=== PATIENT | male | born 1960 | race Caucasian/White ===

== ENCOUNTER → 2017-03-16 09:55 | Outpatient (CLI) | payer BC, SELFPAY ==
[2017-03-16 12:23] LABS: Absolute Lymphocyte Count 1.89 X10^3/ul (0.83-4.51); Absolute Neutrophil Count 4.4 X10^3/uL (2.0-7.7); Basophil# 0.05 X10^3/uL; Basophil% 0.7 % (0-1); Eosinophil# 0.21 X10^3/uL; Hematocrit 47.3 % (40-54); Hemoglobin 15.4 g/dl (13.0-16.5); Lymphocyte # 1.89 X10^3/ul (4.0); Lymphocyte % 26.9 % (19-41); Mean Corp Hgb Conc 32.6 g/gl (32-36); Mean Corpuscular Hgb 30.6 pg (27.0-32.0); Mean Corpuscular Volume 93.8 fL (80-94); Mean Platelet Vol. 10.8 fl (6.2-12.0); Monocyte# 0.42 X10^3/uL; Neutrophil # 4.44 X10^3/uL (2.7-7.7); Neutrophil % 63.3 % (47-70); Platelet Count 231 K/mm3 (150-450); RBC Distribution Width CV 14.1 % (11.6-14.6); RBC Distribution Width SD 46.8 fl (35.1-43.9); Red Blood Count 5.04 M/mm3 (4.6-6.2)
[2017-03-16 12:31] LABS: POSITIVE COUNT NO; POSITIVE DIFFERENTIAL NO; POSITIVE MORPHOLOGY NO
[2017-03-16 12:44] LABS: AST(SGOT) 17 U/L (15-37); Alanine Aminotransfer ALT/SGPT 19 U/L (16-61); Albumin, Serum 3.8 g/dL (3.2-5.0); Alkaline Phosphatase 58 U/L (45-117); Anion Gap 7 (5-15); BUN 9 mg/dL (7-18); BUN/Creat Ratio 11.1 RATIO (10-20); Bilirubin, Direct < 0.05 mg/dL (0.00-0.30); Calcium,Total 8.6 mg/dL (8.5-10.1); Chloride 104 mmol/L (98-107); Cholesterol 182 mg/dL (200); Creatinine, Serum 0.81 mg/dL (0.70-1.30); EST Glomerular Filtration Rate 105 mL/min (>60); Est Glom Filt Rate - Afr Amer 127 mL/min (>60); Globulin 3.8 g/dL (2.2-4.2); Glucose 127 mg/dL (74-106); High Density Lipoprotein 35 mg/dL; Potassium 4.4 mmol/L (3.5-5.1); Protein, Total 7.6 g/dL (6.4-8.2); Sodium Level 138 mmol/L (136-145); Triglycerides 195 mg/dL; Very Low Density Lipoprotein 39 mg/dL (5-40)
== END ==
PROVIDERS: Physician Assistant Medical; Family Provider Family Medicine; PCP Family Medicine; Visit Provider Family Medicine
DX: R42 Dizziness and giddiness (principal); E78.5 Hyperlipidemia, unspecified; Z79.899 Other long term (current) drug therapy
CPT/HCPCS: 36415; 80048; 80061; 80076; 85025

== ENCOUNTER → 2017-12-15 14:16 | Outpatient (CLI) | payer BC, SELFPAY ==
[2017-12-15 16:40] LABS: Thyroid Stim Hormone (TSH) 0.86 uIU/mL (0.358-3.74)
== END ==
PROVIDERS: Family Provider Family Medicine; PCP Family Medicine; Visit Provider Family Medicine
DX: F32.9 Major depressive disorder, single episode, unspecified (principal)
CPT/HCPCS: 36415; 84443

== ENCOUNTER 2018-06-04 16:11 | Observation (INO) | payer BC, SELFPAY ==
[2018-06-04] VITALS (10 sets, daily range): BP systolic 115–154; BP diastolic 64–91; PULSE 60–76; RESP 14–18; TEMP 36.8–37; O2SAT 95–100; BMI 30.9; BMI 30.3
--- NOTE | 2018-06-04 16:25 | EKG12_ITS ---
Test Reason : CP Blood Pressure : / mmHG Vent. Rate : 063 BPM Atrial Rate : 063 BPM P-R Int : 124 ms QRS Dur : 088 ms QT Int : 418 ms P-R-T Axes : 031 047 033 degrees QTc Int : 427 ms Sinus rhythm with occasional Premature ventricular complexes Otherwise normal ECG Confirmed by TYSON RUSSO, LIGIA ([id number]), food expeditor JOVANNA TSAI ([id number]) on 06/06/2018 11:14:27 AM Referred By: Tere Kerr Confirmed By:LIGIA MEHTA MD
--- NOTE | 2018-06-04 16:30 | RAD_ITS ---
STUDY: X-RAY CHEST REASON FOR EXAM: Male, 58 years old. Left-sided chest pain TECHNIQUE: Single AP portable view of the chest. COMPARISON: Prior study of 07/10/2014 FINDINGS: manager country leads are present. The lungs are clear and expanded. There is no demonstrated pleural abnormality. Normal size heart. Normal mediastinum and sherif. Normal visualized pulmonary arteries. Normal visualized aortic arch and descending thoracic aorta. Normal visualized thoracic spine. Normal visualized ribs, clavicles, and shoulders. There is no demonstrated abnormality of the visualized soft tissue structures of the upper abdomen. RAD/Chest 1 View (Portable) IMPRESSION: No acute cardiopulmonary disease process is seen. Chest findings are stable in the interval. Electronically Signed: Darren Dixon MD at 16:45 EDT , Service support ,
[2018-06-04] MEDS: Aspirin 81 MG TAB.CHEW 324 MG PO (16:39)
--- NOTE | 2018-06-04 16:41 | ED.VISSUMM ---
- ER Visit Summary Date of Service: 06/04/18 Chief Complaint: Left-sided chest pain History of Present Illness: The patient is a 58 M history of coronary disease prior PR and one cardiac stent. Patient states that around 10:00 last night he went to bed he was having chest pain. Took a sublingual nitro which improved but did not resolve his pain is currently 8 out of 10. No dyspnea. No nausea. No diaphoresis. He denies any recent exertional dyspnea. No hemoptysis. No history of DVT or PE. No recent immobilization, surgery or hospitalization letter. Physical Examination: Middle-aged male no acute distress. Vital signs are stable afebrile. Pulse ox 97% room air no signs of hypoxia. HEENT exam unremarkable. Neck nontender no JVD. Lungs clear to auscultation bilaterally. Heart regular rate and rhythm no murmur rate about 65. Chest wall nontender. Abdomen soft nontender normal bowel sounds no peritoneal signs. Patient moving all 4 extremities. Neurovascular intact. Calves are nontender without edema or cords. Equal symmetrical radial pulses. Equal bilateral primary school principal strength bilaterally. Neurologically is awake alert with no focal motor deficits. Test Results: CBC white count of 15. Hemoglobin of 15. Chemistries normal normal creatinine gap. Troponin normal. Initial EKG sinus rhythm rate of 63 with PVCs no ischemia. No PR. Repeat EKG sinus rhythm rate of 61 again no signs of ischemia or PR. Chest x-ray normal cardiac silhouette mediastinum portable one view. Emergency Department Course and Treatment: Patient has a cardiac history. This may or may not be cardiac chest pain. That is not reproducible. He has no risk factors for DVT or PE. He will undergo a cardiac work-up along with aspirin Nitropaste. And he will need to be admitted for further evaluation. Treatment Plan: Repeat exam patient is doing well. He still having some pain even with his Nitropaste. I will speak to the hospitalist about admission Disposition: Admission Impression: Acute chest pain of uncertain etiology History of CAD, prior PR, cardiac stent This note was generated with World[employer]ate dictation software. It may contain incorrect words, spelling, and punctuation that were not noted in review of the chart prior to signing ED Disposition - Plan for ED Patient: Referrals: Boaz Russell MD [Primary Care Provider] -
[2018-06-04 16:42] LABS: Absolute Lymphocyte Count 2.06 X10^3/ul (0.83-4.51); Absolute Neutrophil Count 12.1 X10^3/uL (2.0-7.7); Basophil# 0.07 X10^3/uL; Basophil% 0.5 % (0-1); Eosinophil# 0.19 X10^3/uL; Eosinophils% 1.2 % (0-5); Hematocrit 46.4 % (40-54); Hemoglobin 15.6 g/dl (13.0-16.5); Lymphocyte # 2.06 X10^3/ul (4.0); Lymphocyte % 13.4 % (19-41); Mean Corp Hgb Conc 33.6 g/gl (32-36); Mean Corpuscular Hgb 31.2 pg (27.0-32.0); Mean Corpuscular Volume 92.8 fL (80-94); Mean Platelet Vol. 10.7 fl (6.2-12.0); Monocyte# 0.92 X10^3/uL; Neutrophil # 12.08 X10^3/uL (2.7-7.7); Neutrophil % 78.6 % (47-70); POSITIVE COUNT NO; POSITIVE DIFFERENTIAL NO; POSITIVE MORPHOLOGY NO; Platelet Count 229 K/mm3 (150-450); RBC Distribution Width CV 14.8 % (11.6-14.6); RBC Distribution Width SD 49.3 fl (35.1-43.9); White Blood Count 15.4 K/mm3 (4.4-11.0)
--- NOTE | 2018-06-04 16:44 | ED.DCSUM_ITS ---
- ER Visit Summary Date of Service: 06/04/18 Chief Complaint: Left-sided chest pain History of Present Illness: The patient is a 58 M history of coronary disease prior IN and one cardiac stent. Patient states that around 10:00 last night he went to bed he was having chest pain. Took a sublingual nitro which improved but did not resolve his pain is currently 8 out of 10. No dyspnea. No nausea. No diaphoresis. He denies any recent exertional dyspnea. No hemoptysis. No history of DVT or PE. No recent immobilization, surgery or hospitalization letter. Physical Examination: Middle-aged male no acute distress. Vital signs are stable afebrile. Pulse ox 97% room air no signs of hypoxia. HEENT exam unremarkable. Neck nontender no JVD. Lungs clear to auscultation bilaterally. Heart regular rate and rhythm no murmur rate about 65. Chest wall nontender. Abdomen soft nontender normal bowel sounds no peritoneal signs. Patient moving all 4 extremities. Neurovascular intact. Calves are nontender without edema or cords. Equal symmetrical radial pulses. Equal bilateral recruitment specialist strength bilaterally. Neurologically is awake alert with no focal motor deficits. Test Results: CBC white count of 15. Hemoglobin of 15. Chemistries normal normal creatinine gap. Troponin normal. Initial EKG sinus rhythm rate of 63 with PVCs no ischemia. No IN. Repeat EKG sinus rhythm rate of 61 again no signs of ischemia or IN. Chest x-ray normal cardiac silhouette mediastinum portable one view. Emergency Department Course and Treatment: Patient has a cardiac history. This may or may not be cardiac chest pain. That is not reproducible. He has no risk factors for DVT or PE. He will undergo a cardiac work-up along with aspirin Nitropaste. And he will need to be admitted for further evaluation. Treatment Plan: Repeat exam patient is doing well. He still having some pain even with his Nitropaste. I will speak to the hospitalist about admission Disposition: Admission Impression: Acute chest pain of uncertain etiology History of CAD, prior IN, cardiac stent This note was generated with Dezide dictation software. It may contain incorrect words, spelling, and punctuation that were not noted in review of the chart prior to signing ED Disposition - Plan for ED Patient: Referrals: Boaz Russlel MD [Primary Care Provider] -
[2018-06-04 16:53] LABS: Anion Gap 4 (5-15); BUN 14 mg/dL (7-18); BUN/Creat Ratio 14.5 RATIO (10-20); Calcium,Total 8.7 mg/dL (8.5-10.1); Chloride 106 mmol/L (98-107); Creatinine, Serum 0.97 mg/dL (0.70-1.30); EST Glomerular Filtration Rate 85 mL/min (>60); Est Glom Filt Rate - Afr Amer 103 mL/min (>60); Estimated Creatinine Clearance 85.71 ml/min; Glucose 105 mg/dL (74-106); Potassium 4.1 mmol/L (3.5-5.1); Sodium Level 139 mmol/L (136-145)
[2018-06-04] MEDS: Nitroglycerin Oint 1 INCH PACKET TRANSDERM. (16:58)
--- NOTE | 2018-06-04 17:06 | EKG12_ITS ---
Test Reason : REPEAT CP Blood Pressure : / mmHG Vent. Rate : 061 BPM Atrial Rate : 061 BPM P-R Int : 124 ms QRS Dur : 084 ms QT Int : 408 ms P-R-T Axes : 034 037 038 degrees QTc Int : 410 ms Normal sinus rhythm Normal ECG Confirmed by TYSON RUSSO, LIGIA ([id number]), editor newspaper JOVANNA TSAI ([id number]) on 06/06/2018 11:14:39 AM Referred By: Tere Kerr Confirmed By:LIGIA MEHTA MD
--- NOTE | 2018-06-04 18:12 | ED.RN ---
pt reports that his pain has decreased to 5/10. will continue to monitor.
--- NOTE | 2018-06-04 18:13 | PCM.HP.STD ---
Problem List (1) Chest pain Status: Acute Qualifiers: Chest pain type: unspecified Qualified Code(s): R07.9 - Chest pain, unspecified (2) Obesity (BMI 30.0-34.9) Status: Chronic (3) Anxiety and depression Status: Chronic (4) History of percutaneous transluminal coronary angioplasty Status: Chronic Comment: LAD (5) Atherosclerotic heart disease of [place] coronary artery without angina pectoris Status: Chronic Qualifiers: [place] vs. transplanted heart: unspecified whether [place] or transplanted heart Qualified Code(s): I25.10 - Atherosclerotic heart disease of [place] coronary artery without angina pectoris (6) HLD (hyperlipidemia) Status: Chronic Qualifiers: Hyperlipidemia type: pure hypercholesterolemia Qualified Code(s): E78.00 - Pure hypercholesterolemia, unspecified; E78.0 - Pure hypercholesterolemia (7) HTN (hypertension) Status: Chronic Qualifiers: Hypertension type: essential hypertension Qualified Code(s): I10 - Essential (primary) hypertension (8) Alcohol abuse Status: Chronic History of Present Illness Date of Admission: 06/04/18 Chief Complaint: Chest pain The patient is a 58 y/o M w/ PMHx: CAD s/p PCI LAD, HTN, HLD, Obesity, Anxiety and Depression, Alcohol Abuse, Tobacco use who presents to the [facility] ED on 06/04/18 with history of onset chest discomfort, left sided into his shoulder starting at 10 pm the evening prior to current presentation, ongoing, initially 1/10 rated, pressure like in sensation, no associated dyspnea, diaphoresis, nausea, emesis associated, progressively worsening up to 8-9/10 prior to ED arrival, improved following administration NG, now decreased to 3-4/10. He notes similar to prior discomfort w/ prior TN. Work-up in the ED included T 98.2, heart rate 76, BP 154/86, respiratory rate 18, 97% on room air, CBC with WBC 15.4, hemoglobin 15.6, platelet 229 with left shift, BMP unremarkable, troponin less than 0.015, EKG with SR without acute evidence of ischemia x 2, chest x-ray with no acute cardiopulmonary findings. In the ED patient administered nitro bid 1 inch x 1 as well as aspirin 324 mill grams p.o. x1. 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4 mg sublingual 0.4 mg SUBLINGUAL .COMPLEX PRN #30 07/21/17 tablet tab atorvastatin 40 mg tablet 40 mg PO QDAY #90 tab 05/15/18 clopidogrel 75 mg tablet 75 mg PO QDAY #90 tab 05/16/18 metoprolol tartrate 25 mg tablet 25 mg PO BID #180 tab 05/16/18 fenofibrate nanocrystallized 145 145 mg PO QDAY #90 tab 05/22/18 mg tablet Sertraline HCl [Zoloft] 50 mg PO QHS 06/04/18 Surgical History: Surgical History (Last Reviewed 07/21/17 @ 16:21 by Kike Sequeira MD) History of percutaneous transluminal coronary angioplasty (Chronic) Onset Date: ~2012 Z98.61 LAD Surgical History: - - PCI LAD remotely. Psychiatric History: Anxiety, Depression Lives: Spouse/ Significant Other Smoking Status: Current every day smoker - 1 ppd cigarette tobacco use. Tobacco Use: Cigarettes Alcohol: Heavy - 12 beers, 12 ounces each daily. Drugs: Marijuana - *Family History Maternal Family History: Family History (Last Reviewed 07/21/17 @ 16:21 by Kike Sequeira MD) Father CAD (coronary artery disease) Myocardial infarction, Onset Age: 73 Mother Cancer History Items: Cancer Paternal Family History: Family History (Last Reviewed 07/21/17 @ 16:21 by Kike Sequeira MD) Father CAD (coronary artery disease) Myocardial infarction, Onset Age: 73 Mother Cancer History Items: Heart Disease, Hypertension Review of Systems Constitutional: Reports: Weakness, Fatigue. Denies: Chills, Fever, Weight Change HEENT: Denies: Head Aches, Sinus Congestion, Sinus Drainage Cardiovascular: Reports: Chest Pain, Chest Pressure, Heaviness. Denies: Chest Tightness, Light Headedness, Orthopnea, Palpitations, Syncope Respiratory: Denies: Cough, Shortness of Breath, Shortness of breath at rest, Shortness of breath upon exertion, Sputum production Gastrointestinal: Denies: Abdominal Pain, Nausea, Vomiting Genitourinary: Denies: Dysuria Musculoskeletal: Reports: Arm Pain, Shoulder Pain. Denies: Joint Pain, Joint Tenderness Skin: Denies: Rash, Wounds Neurological: Denies: Numbness, Tingling, Focal weakness Psychiatric: Reports: Anxiety, Depression. Denies: Homicidal Ideations, Suicidal Ideations Hematologic/ Lymphatic: Denies: Easy Bruising, Easy Bleeding VTE Information - Inpt Only VTE Present on Admission: No VTE Mechan Device Prophylaxis: SCD's VTE Pharm Prophylaxis ordered?: Yes Patient Problems: Active and Suspected Problems (Last Reviewed 07/21/17 @ 16:21 by Kike Sequeira MD) Chest pain (Acute) Subjective: Seated upright in the ED bed, fatigued appearance, notes chest discomfort improved, mild headache from NG administration. Objective: Physical Examination: General: awake, alert, oriented x 3 and cooperative, seated upright in the ED bed in no apparent distress. Skin: normal color, turgor, no icterus, cyanosis. HEENT: AT/NC, EOMI, PERRLA, mildly dry MM, no carotid bruits or JVD noted. Lungs: CTA bilaterally, moderate effort, moderate decrease BL bases, no rales, ronchi or wheezing. Heart: Regular rate and rhythm; no gallop, rub audible. Abdomen: soft, obese, NTTP, ND, normal BS, no HSM. Extremities: no cyanosis, clubbing, or edema. Neurological: patient awake, alert, oriented x 3; cognitive function intact; pupils equally reactive to light and accomodation; cranial nerves II-XII grossly normal, moving all 4 extremities, no focal deficits, strength moderately globally decreased secondary to acute presentation. Psychiatric: affect appears fatigued, no acute evidence of depressive or anxiety feelings. - Physical Exam Vital Signs Temp Pulse Resp BP Pulse Ox 98.2 F 69 14 129/86 H 99 06/04/18 16:11 06/04/18 18:11 06/04/18 18:11 06/04/18 18:11 06/04/18 18:11 Oxygen Flow Rate (L/min) 2 Oxygen Delivery Method Nasal Cannula Weight: 216 lb Body Mass Index (BMI) 30.9 Laboratory Tests Past 24 Hrs 06/04/18 06/04/18 16:19 16:19 WBC 15.4 H RBC 5.00 Hgb 15.6 Hct 46.4 MCV 92.8 MCH 31.2 MCHC 33.6 RDW 14.8 H RDW Differential 49.3 H Plt Count 229 MPV 10.7 Immature Gran % (Auto) 0.300 Neut % (Auto) 78.6 H Lymph % (Auto) 13.4 L [place] % (Auto) 6.0 Eos % (Auto) 1.2 Baso % (Auto) 0.5 Absolute Neuts (auto) 12.1 H Absolute Lymphs (auto) 2.06 Total Counted Not Reportable Sodium 139 Potassium 4.1 Chloride 106 Carbon Dioxide 29.0 Anion Gap 4 L BUN 14 Creatinine 0.97 Estim Creat Clear Calc 85.71 Est GFR (MDRD) Af Amer 103 Est GFR (MDRD) Non-Af 85 BUN/Creatinine Ratio 14.5 Glucose 105 Calcium 8.7 Troponin I < 0.015 Assessment/Plan All Active Problems (Last Reviewed 07/21/17 @ 16:21 by Kike Sequeira MD) Chest pain (Acute) The patient is a 58 y/o M w/ PMHx: CAD s/p PCI LAD, HTN, HLD, Obesity, Anxiety and Depression, Alcohol Abuse, Tobacco use who presents to the [facility] ED on 06/04/18 with history of onset chest discomfort, left sided into his shoulder starting at 10 pm the evening prior to current presentation, ongoing, initially 1/10 rated, pressure like in sensation, no associated dyspnea, diaphoresis, nausea, emesis associated, progressively worsening up to 8-9/10 prior to ED arrival. (1) Chest Pain: Work-up in the ED included T 98.2, heart rate 76, BP 154/86, respiratory rate 18, 97% on room air, CBC with WBC 15.4, hemoglobin 15.6, platelet 229 with left shift, BMP unremarkable, troponin less than 0.015, EKG with SR without acute evidence of ischemia x 2, chest x-ray with no acute cardiopulmonary findings. Will admit to PCU, place on a monitored bed to assure no acute myocardial infarction with serial cardiac enzymes and EKGs. Patient is able to perform exercise and does not have LBBB or V-pacing but does have history of PCI/ST-T changes with unclear wall motion abnormality at rest thus will proceed with AM nuclear treadmill stress test. ASA, NG, morphine. FLP in AM. Mag pending. If ongoing pain or EKG changes/trop increase will discontinue plan for stress testing and proceed w/ Cardiology consultation. (2) CAD: Status post PCI LAD remotely, maintain on asa, plavix, statin, metoprolol regimen. (3) Hypertension: Continue home regimen including metoprolol, PRN hydralazine. (4) Hyperlipidemia: Continue home statin regimen. AM FLP. (5) Anxiety and depression: Continue home Zoloft regimen. (6) Tobacco Abuse: Encouraged cessation, inpatient consultation per RT, NR if desired. (7) Obesity: Weight loss and lifestyle changes encouraged. (8) EtOH Abuse: Patient notes routine consumption of 12, 12 ounce beers per day. Will maintain on CIWA protocol, MVI, thiamine and folic acid. Encouraged appropriate intake. CM consulted to assist w/ abuse. (9) DVT prophylaxis: SCDs, Lovenox. Code Visit OBSV E&M: 39835 Initial observation care L3
--- NOTE | 2018-06-04 18:20 | HP.PCM_ITS ---
Problem List (1) Chest pain Status: Acute Qualifiers: Chest pain type: unspecified Qualified Code(s): R07.9 - Chest pain, unspecified (2) Obesity (BMI 30.0-34.9) Status: Chronic (3) Anxiety and depression Status: Chronic (4) History of percutaneous transluminal coronary angioplasty Status: Chronic Comment: LAD (5) Atherosclerotic heart disease of [place] coronary artery without angina pectoris Status: Chronic Qualifiers: [place] vs. transplanted heart: unspecified whether [place] or transplanted heart Qualified Code(s): I25.10 - Atherosclerotic heart disease of [place] coronary artery without angina pectoris (6) HLD (hyperlipidemia) Status: Chronic Qualifiers: Hyperlipidemia type: pure hypercholesterolemia Qualified Code(s): E78.00 - Pure hypercholesterolemia, unspecified; E78.0 - Pure hypercholesterolemia (7) HTN (hypertension) Status: Chronic Qualifiers: Hypertension type: essential hypertension Qualified Code(s): I10 - Essential (primary) hypertension (8) Alcohol abuse Status: Chronic History of Present Illness Date of Admission: 06/04/18 Chief Complaint: Chest pain The patient is a 58 y/o M w/ PMHx: CAD s/p PCI LAD, HTN, HLD, Obesity, Anxiety and Depression, Alcohol Abuse, Tobacco use who presents to the [facility] ED on 06/04/18 with history of onset chest discomfort, left sided into his shoulder starting at 10 pm the evening prior to current presentation, ongoing, initially 1/10 rated, pressure like in sensation, no associated dyspnea, diaphoresis, nausea, emesis associated, progressively worsening up to 8-9/10 prior to ED arrival, improved following administration NG, now decreased to 3-4/10. He notes similar to prior discomfort w/ prior NC. Work-up in the ED included T 98.2, heart rate 76, BP 154/86, respiratory rate 18, 97% on room air, CBC with WBC 15.4, hemoglobin 15.6, platelet 229 with left shift, BMP unremarkable, troponin less than 0.015, EKG with SR without acute evidence of ischemia x 2, chest x-ray with no acute cardiopulmonary findings. In the ED patient administered nitro bid 1 inch x 1 as well as aspirin 324 mill grams p.o. x1. 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) HTN (hypertension) (Chronic) Medical History: Medical History (Last Reviewed 07/21/17 @ 16:21 by Kike Sequeira MD) Atherosclerotic heart disease of [place] coronary artery without angina pectoris (Chronic) I25.10 Old myocardial infarction (Chronic) I25.2 HLD (hyperlipidemia) (Chronic) E78.5 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) Z79.899 HTN (hypertension) (Chronic) I10 Allergies No Known Allergies Allergy (Verified 07/21/17 15:57) Home Medications: Ambulatory Orders Medication Instructions Recorded aspirin 81 mg tablet,delayed 81 mg PO QDAY 01/14/17 release nitroglycerin 0.4 mg sublingual 0.4 mg SUBLINGUAL .COMPLEX PRN #30 07/21/17 tablet tab atorvastatin 40 mg tablet 40 mg PO QDAY #90 tab 05/15/18 clopidogrel 75 mg tablet 75 mg PO QDAY #90 tab 05/16/18 metoprolol tartrate 25 mg tablet 25 mg PO BID #180 tab 05/16/18 fenofibrate nanocrystallized 145 145 mg PO QDAY #90 tab 05/22/18 mg tablet Sertraline HCl [Zoloft] 50 mg PO QHS 06/04/18 Surgical History: Surgical History (Last Reviewed 07/21/17 @ 16:21 by Kike Sequeira MD) History of percutaneous transluminal coronary angioplasty (Chronic) Onset Date: ~2012 Z98.61 LAD Surgical History: - - PCI LAD remotely. Psychiatric History: Anxiety, Depression Lives: Spouse/ Significant Other Smoking Status: Current every day smoker - 1 ppd cigarette tobacco use. Tobacco Use: Cigarettes Alcohol: Heavy - 12 beers, 12 ounces each daily. Drugs: Marijuana - *Family History Maternal Family History: Family History (Last Reviewed 07/21/17 @ 16:21 by Kike Sequeira MD) Father CAD (coronary artery disease) Myocardial infarction, Onset Age: 73 Mother Cancer History Items: Cancer Paternal Family History: Family History (Last Reviewed 07/21/17 @ 16:21 by Kike Sequeira MD) Father CAD (coronary artery disease) Myocardial infarction, Onset Age: 73 Mother Cancer History Items: Heart Disease, Hypertension Review of Systems Constitutional: Reports: Weakness, Fatigue. Denies: Chills, Fever, Weight Change HEENT: Denies: Head Aches, Sinus Congestion, Sinus Drainage Cardiovascular: Reports: Chest Pain, Chest Pressure, Heaviness. Denies: Chest Tightness, Light Headedness, Orthopnea, Palpitations, Syncope Respiratory: Denies: Cough, Shortness of Breath, Shortness of breath at rest, Shortness of breath upon exertion, Sputum production Gastrointestinal: Denies: Abdominal Pain, Nausea, Vomiting Genitourinary: Denies: Dysuria Musculoskeletal: Reports: Arm Pain, Shoulder Pain. Denies: Joint Pain, Joint Tenderness Skin: Denies: Rash, Wounds Neurological: Denies: Numbness, Tingling, Focal weakness Psychiatric: Reports: Anxiety, Depression. Denies: Homicidal Ideations, Suicidal Ideations Hematologic/ Lymphatic: Denies: Easy Bruising, Easy Bleeding VTE Information - Inpt Only VTE Present on Admission: No VTE Mechan Device Prophylaxis: SCD's VTE Pharm Prophylaxis ordered?: Yes Patient Problems: Active and Suspected Problems (Last Reviewed 07/21/17 @ 16:21 by Kike Sequeira MD) Chest pain (Acute) Subjective: Seated upright in the ED bed, fatigued appearance, notes chest discomfort improved, mild headache from NG administration. Objective: Physical Examination: General: awake, alert, oriented x 3 and cooperative, seated upright in the ED bed in no apparent distress. Skin: normal color, turgor, no icterus, cyanosis. HEENT: AT/NC, EOMI, PERRLA, mildly dry MM, no carotid bruits or JVD noted. Lungs: CTA bilaterally, moderate effort, moderate decrease BL bases, no rales, ronchi or wheezing. Heart: Regular rate and rhythm; no gallop, rub audible. Abdomen: soft, obese, NTTP, ND, normal BS, no HSM. Extremities: no cyanosis, clubbing, or edema. Neurological: patient awake, alert, oriented x 3; cognitive function intact; pupils equally reactive to light and accomodation; cranial nerves II-XII grossly normal, moving all 4 extremities, no focal deficits, strength moderately globally decreased secondary to acute presentation. Psychiatric: affect appears fatigued, no acute evidence of depressive or anxiety feelings. - Physical Exam Vital Signs Temp Pulse Resp BP Pulse Ox 98.2 F 69 14 129/86 H 99 06/04/18 16:11 06/04/18 18:11 06/04/18 18:11 06/04/18 18:11 06/04/18 18:11 Oxygen Flow Rate (L/min) 2 Oxygen Delivery Method Nasal Cannula Weight: 216 lb Body Mass Index (BMI) 30.9 Laboratory Tests Past 24 Hrs 06/04/18 06/04/18 16:19 16:19 WBC 15.4 H RBC 5.00 Hgb 15.6 Hct 46.4 MCV 92.8 MCH 31.2 MCHC 33.6 RDW 14.8 H RDW Differential 49.3 H Plt Count 229 MPV 10.7 Immature Gran % (Auto) 0.300 Neut % (Auto) 78.6 H Lymph % (Auto) 13.4 L [place] % (Auto) 6.0 Eos % (Auto) 1.2 Baso % (Auto) 0.5 Absolute Neuts (auto) 12.1 H Absolute Lymphs (auto) 2.06 Total Counted Not Reportable Sodium 139 Potassium 4.1 Chloride 106 Carbon Dioxide 29.0 Anion Gap 4 L BUN 14 Creatinine 0.97 Estim Creat Clear Calc 85.71 Est GFR (MDRD) Af Amer 103 Est GFR (MDRD) Non-Af 85 BUN/Creatinine Ratio 14.5 Glucose 105 Calcium 8.7 Troponin I < 0.015 Assessment/Plan All Active Problems (Last Reviewed 07/21/17 @ 16:21 by Kike Sequeira MD) Chest pain (Acute) The patient is a 58 y/o M w/ PMHx: CAD s/p PCI LAD, HTN, HLD, Obesity, Anxiety and Depression, Alcohol Abuse, Tobacco use who presents to the [facility] ED on 06/04/18 with history of onset chest discomfort, left sided into his shoulder starting at 10 pm the evening prior to current presentation, ongoing, initially 1/10 rated, pressure like in sensation, no associated dyspnea, diaphoresis, nausea, emesis associated, progressively worsening up to 8-9/10 prior to ED arrival. (1) Chest Pain: Work-up in the ED included T 98.2, heart rate 76, BP 154/86, respiratory rate 18, 97% on room air, CBC with WBC 15.4, hemoglobin 15.6, platelet 229 with left shift, BMP unremarkable, troponin less than 0.015, EKG with SR without acute evidence of ischemia x 2, chest x-ray with no acute cardiopulmonary findings. Will admit to PCU, place on a monitored bed to assure no acute myocardial infarction with serial cardiac enzymes and EKGs. Patient is able to perform exercise and does not have LBBB or V-pacing but does have history of PCI/ST-T changes with unclear wall motion abnormality at rest thus will proceed with AM nuclear treadmill stress test. ASA, NG, morphine. FLP in AM. Mag pending. If ongoing pain or EKG changes/trop increase will discontinue plan for stress testing and proceed w/ Cardiology consultation. (2) CAD: Status post PCI LAD remotely, maintain on asa, plavix, statin, metoprolol regimen. (3) Hypertension: Continue home regimen including metoprolol, PRN hydralazine. (4) Hyperlipidemia: Continue home statin regimen. AM FLP. (5) Anxiety and depression: Continue home Zoloft regimen. (6) Tobacco Abuse: Encouraged cessation, inpatient consultation per RT, NR if desired. (7) Obesity: Weight loss and lifestyle changes encouraged. (8) EtOH Abuse: Patient notes routine consumption of 12, 12 ounce beers per day. Will maintain on CIWA protocol, MVI, thiamine and folic acid. Encouraged appropriate intake. CM consulted to assist w/ abuse. (9) DVT prophylaxis: SCDs, Lovenox. Code Visit OBSV E&M: 99806 Initial observation care L3
--- NOTE | 2018-06-04 19:04 | EKG12_ITS ---
Test Reason : AM EKG Blood Pressure : / mmHG Vent. Rate : 063 BPM Atrial Rate : 063 BPM P-R Int : 128 ms QRS Dur : 086 ms QT Int : 424 ms P-R-T Axes : 038 049 038 degrees QTc Int : 433 ms Normal sinus rhythm Normal ECG Confirmed by TYSON RUSSO, LIGIA ([id number]), sound editor JOVANNA TSAI ([id number]) on 06/06/2018 11:30:05 AM Referred By: Tere Kerr Confirmed By:LIGIA MEHTA MD
[2018-06-04] MEDS: 0.9% Normal Saline 1,000 ML 100 ML IV (19:53)
[2018-06-04] MEDS: 0.9% NaCl Peripheral Flush Adult/Peds IV (19:54)
[2018-06-04 20:06] LABS: Magnesium 1.6 mg/dL (1.6-2.6)
[2018-06-04 20:13] LABS: Phosphorus 3.3 mg/dL (2.5-4.9)
[2018-06-04] MEDS: Atorvastatin Calcium 40 MG Tablet PO (22:01)
[2018-06-04] MEDS: Sertraline 50 MG Tablet PO (22:01)
[2018-06-04] MEDS: Metoprolol Tartrate 25 MG Tablet PO (22:01)
[2018-06-04] MEDS: HYDROcodone Bitartrate/Apap 5/325 Tablet PO (22:06)
[2018-06-05] VITALS (9 sets, daily range): BP systolic 128–142; BP diastolic 79–85; PULSE 52–85; RESP 18; TEMP 36.4–37.1; O2SAT 92–97
[2018-06-05] MEDS: Morphine 2 MG/ML Syringe IV (02:08)
[2018-06-05 03:04] LABS: Hematocrit 45.6 % (40-54); Hemoglobin 14.9 g/dl (13.0-16.5); Mean Corp Hgb Conc 32.7 g/gl (32-36); Mean Platelet Vol. 10.8 fl (6.2-12.0); Platelet Count 186 K/mm3 (150-450); RBC Distribution Width CV 14.7 % (11.6-14.6); RBC Distribution Width SD 51.2 fl (35.1-43.9); White Blood Count 10.8 K/mm3 (4.4-11.0)
[2018-06-05 03:06] LABS: Scan Indicated on CBC? Y/N NO
[2018-06-05 03:09] LABS: International Normalized Ratio 1.1; Prothrombin Time (Protime)PT. 13.6 SECONDS (11.7-14.9)
[2018-06-05 03:10] LABS: Partial Thromboplast Time 27.3 Seconds (24.1-36.2)
[2018-06-05 03:52] LABS: ALB/GLOB Ratio 0.9 RATIO (0.9-2.4); AST(SGOT) 12 U/L (15-37); Alanine Aminotransfer ALT/SGPT 13 U/L (16-61); Albumin, Serum 3.3 g/dL (3.2-5.0); Alkaline Phosphatase 59 U/L (45-117); Anion Gap 7 (5-15); BUN 18 mg/dL (7-18); BUN/Creat Ratio 20.6 RATIO (10-20); Calcium,Total 8.2 mg/dL (8.5-10.1); Chloride 112 mmol/L (98-107); Cholesterol 212 mg/dL (200); Creatinine, Serum 0.88 mg/dL (0.70-1.30); EST Glomerular Filtration Rate 95 mL/min (>60); Est Glom Filt Rate - Afr Amer 115 mL/min (>60); Estimated Creatinine Clearance 94.48 ml/min; Globulin 3.7 g/dL (2.2-4.2); Glucose 127 mg/dL (74-106); High Density Lipoprotein 32 mg/dL; Potassium 4.1 mmol/L (3.5-5.1); Sodium Level 144 mmol/L (136-145); Triglycerides 300 mg/dL; Very Low Density Lipoprotein 60 mg/dL (5-40)
[2018-06-05] MEDS: 0.9% Normal Saline 1,000 ML 100 ML IV (05:55)
--- NOTE | 2018-06-05 05:55 | EKG12_ITS ---
Test Reason : ADM EKG Blood Pressure : / mmHG Vent. Rate : 066 BPM Atrial Rate : 066 BPM P-R Int : 124 ms QRS Dur : 084 ms QT Int : 400 ms P-R-T Axes : 022 035 030 degrees QTc Int : 419 ms Normal sinus rhythm Normal ECG Confirmed by TYSON RUSSO, LIGIA ([id number]), scientific publications editor JOVANNA TSAI ([id number]) on 06/06/2018 11:30:35 AM Referred By: Tere Kerr Confirmed By:LIGIA MEHTA MD
[2018-06-05] MEDS: Aspirin E.C. 81 MG Tablet PO (06:21)
[2018-06-05] MEDS: Clopidogrel Bisulfate 75 MG Tablet PO (06:21)
--- NOTE | 2018-06-05 09:50 | STRESSREP ---
Stress Test Report Date: 06-05-18 Procedure: Exercise tolerance test/imaging study Indications: Chest pain; CAD; PCI Consent: Per the patient Procedure: The patient exercised on a Leonardo protocol for 5 minutes and 15 seconds completing Stage I and 2 minutes and 15 seconds of Stage II achieving a peak heart rate of 139 bpm (85 % predicted maximal heart rate) with a peak blood pressure 172/70 mmHg and a peak MET capacity of 7 METs. The baseline ECG demonstrated normal sinus rhythm; poor R wave progression; occasional PVC. The peak exercise ECG demonstrated no obvious ECG changes. There were occasional PVCs pretest, during exercise, and recovery. The functional capacity was considered average. There was noted to have complaints of chest discomfort pretest, during exercise, and recovery without significant change. The examination was discontinued secondary to dyspnea. Impression: 1. Technically adequate (percent predicted maximal heart rate greater than 85%) exercise tolerance test 2. Peak exercise ECG with no obvious ECG changes 3. There were occasional PVCs pretest, during exercise, and recovery 4. Nuclear images pending Myocardial perfusion imaging study: Technique: The patient was injected with 14.9 mCi of technetium 99m Cardiolite and subsequently rest SPECT Cardiolite nuclear imaging was obtained in the horizontal long, vertical long, and short axis views. The patient exercised on a Leonardo protocol for 5 minutes and 15 seconds completing Stage I and 2 minutes and 15 seconds of Stage II achieving a peak heart rate of 139 bpm (85 % predicted maximal heart rate) with a peak blood pressure 172/70 mmHg and a peak MET capacity of 7 METs. The patient was injected with 44.8 mCi of technetium 99m Cardiolite and subsequently stress SPECT Cardiolite nuclear imaging was obtained in the horizontal long, vertical long, and short axis views. A gated Cardiolite study at peak stress was not obtained. Interpretation: Rest and stress SPECT Cardiolite nuclear imaging status post realignment, normalization, and attenuation correction, demonstrates the appearance of relative uniform tracer uptake and myocardial perfusion appearing within normal limits. A gated Cardiolite study at peak stress was not obtained. Impression: 1. Rest and stress SPECT Cardiolite nuclear imaging demonstrate relative uniform tracer uptake and myocardial perfusion appearing within normal limits. 2. A gated Cardiolite study at peak stress was not obtained. This note was generated with [employer] software. It may contain incorrect words, spelling, and punctuation that were not noted in checking the note before signing.
[2018-06-05] MEDS: Enoxaparin 40 MG/0.4 ML Syringe SC (10:08)
[2018-06-05] MEDS: Folic Acid 1 MG Tablet PO (10:08)
[2018-06-05] MEDS: Metoprolol Tartrate 25 MG Tablet PO (10:08)
[2018-06-05] MEDS: Thiamine Hydrochloride 100 MG Tablet PO (10:09)
[2018-06-05] MEDS: Multivitamins,Ther W-Minerals Tablet 1 TABLET PO (10:09)
--- NOTE | 2018-06-05 11:28 | DCINST_ITS ---
- Discharge Diagnoses Current Active Problems: Current Active and Chronic Problems (Last Reviewed 07/21/17 @ 16:21 by Kike Sequeira MD) Chest pain (Acute) Obesity (BMI 30.0-34.9) (Chronic) Anxiety and depression (Chronic) Alcohol abuse (Chronic) You will use the following diet at home:: Cardiac Discharge Activity: Return to Normal Activity Call your doctor if you observe: Shortness of breath, Dizziness, Fainting spells, Chest pain Allergies/Adverse Reactions: Allergies No Known Allergies Allergy (Verified 07/21/17 15:57) Medications to take at Discharge aspirin 81 mg tablet,delayed release 81 mg PO QDAY 01/14/17 nitroglycerin 0.4 mg sublingual tablet 0.4 mg SUBLINGUAL .COMPLEX PRN #30 tab 07/21/17 clopidogrel 75 mg tablet 75 mg PO QDAY #90 tab 05/16/18 metoprolol tartrate 25 mg tablet 25 mg PO BID #180 tab 05/16/18 fenofibrate nanocrystallized 145 mg tablet 145 mg PO QDAY #90 tab 05/22/18 Sertraline HCl [Zoloft] 50 mg PO QHS 06/04/18 Atorvastatin Calcium 80 mg PO QHS #30 tablet 06/05/18 The following prescriptions were given: Atorvastatin Calcium 80 mg PO QHS #30 tablet Primary Care Physician: Boaz Russell MD [Primary Care Provider] - Please follow up with your Primary Care Physician in: 1 Week Test Results: Test results from this visit will be discussed in further detail at your follow- up appointment, if applicable. Please Follow Up With: Kike Sequeira MD - May see SERVICE SUPERINTENDENT/PA When: 1-2 Weeks Proposed Discharge Date: 06/05/18
--- NOTE | 2018-06-05 11:29 | PCM.DC.SUM ---
<Marina Posada - Last Filed: 06/05/18 11:35> Discharge Date and Diagnosis Date of Admission: 06/04/18 Date of Discharge: 06/05/18 - Primary Discharge Diagnosis Active and Suspected Problems (Last Reviewed 07/21/17 @ 16:21 by Kike Sequeira MD) 1. Atypical chest pain, ACS ruled out 2. CAD status post history of PCI 3. Hypertension 4. Hyperlipidemia 5. Anxiety/depression 6. Tobacco abuse 7. Alcohol abuse 8. 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 Chest findings are stable in the interval. Electronically Signed: Darren Dixon MD at 16:45 EDT , Service support , Operations: None Procedures: Stress test Summary of Care Provided: The patient is a 58 year old M admitted 05/27/2018 due to chest pain. 1. Atypical chest pain, ACS ruled out-troponin negative. EKG without ST-T changes. Chest x-ray unremarkable. Patient underwent nuclear stress test which was negative for ischemia. Follow-up with cardiology in 1 to 2 weeks. Follow-up with primary care physician in 1 week. 2. CAD status post history of PCI-continue aspirin, statin, Plavix, fenofibrate, metoprolol. Statin regimen increased given elevated lipid panel. 3. Hypertension-stable, continue metoprolol regimen. 4. Hyperlipidemia-statin increased as noted above. Continue atorvastatin 80 mg nightly. 5. Anxiety/depression-continue sertraline regimen. 6. Tobacco abuse-encourage smoking cessation. 7. Alcohol abuse-encourage alcohol cessation. 8. Obesity-encouraged diet lifestyle modifications. Patient seen and examined prior to discharge. Physical assessment as noted below. Patient is stable for discharge with follow up recommendations as noted above. This patient was seen by CITLALI Rodriguez under the supervision of Dr. Terrell. - Physical Exam General: Alert, Oriented x3, Cooperative HEENT: Atraumatic, PERRLA, EOMI, Normocephalic Neck: Supple, No JVD, Negative Carotid Bruits Lungs: Clear to auscultation, Normal air movement Cardiovascular: Regular rate, Regular Rhythm, Normal S1, Normal S2, No murmurs Abdomen: Bowel Sounds Present, Soft, Non Tender, Non-Distended Extremities: No clubbing, No cyanosis, No edema, Capillary Refill Less than 3 Seconds Skin: No rashes, No breakdown Musculoskeletal: No Tenderness to Palpation of Joints or Extremities Neurological: Cranial nerves II-XII grossly intact, Neuro grossly intact Psych/Mental Status: Normal Affect, Appropriate Vital Signs Temp Pulse Resp BP Pulse Ox 98.3 F 82 18 142/79 H 92 06/05/18 09:02 06/05/18 10:08 06/05/18 09:02 06/05/18 09:02 06/05/18 10:15 Oxygen Flow Rate (L/min) 2 Oxygen Delivery Method Room Air Weight: 211 lb 3.245 oz Body Mass Index (BMI) 30.3 Intake and Output for Last 24 Hours 06/03/18 06/04/18 06/05/18 23:59 23:59 23:59 Intake Total 1293 / 1293 Balance 1293 / 1293 Laboratory Tests Past 24 Hrs 06/04/18 06/04/18 06/04/18 10:35 16:19 16:19 WBC 15.4 H RBC 5.00 Hgb 15.6 Hct 46.4 MCV 92.8 MCH 31.2 MCHC 33.6 RDW 14.8 H RDW Differential 49.3 H Plt Count 229 MPV 10.7 Immature Gran % (Auto) 0.300 Neut % (Auto) 78.6 H Lymph % (Auto) 13.4 L [place] % (Auto) 6.0 Eos % (Auto) 1.2 Baso % (Auto) 0.5 Absolute Neuts (auto) 12.1 H Absolute Lymphs (auto) 2.06 Total Counted Not Reportable PT INR APTT Sodium 139 Potassium 4.1 Chloride 106 Carbon Dioxide 29.0 Anion Gap 4 L BUN 14 Creatinine 0.97 Estim Creat Clear Calc 85.71 Est GFR (MDRD) Af Amer 103 Est GFR (MDRD) Non-Af 85 BUN/Creatinine Ratio 14.5 Glucose 105 Calcium 8.7 Phosphorus Magnesium Total Bilirubin AST ALT Alkaline Phosphatase Troponin I < 0.015 < 0.015 Total Protein Albumin Globulin Albumin/Globulin Ratio Triglycerides Cholesterol LDL Cholesterol VLDL Cholesterol HDL Cholesterol 06/04/18 06/04/18 06/05/18 19:30 19:30 02:54 WBC 10.8 RBC 4.80 Hgb 14.9 Hct 45.6 MCV 95.0 H MCH 31.0 MCHC 32.7 RDW 14.7 H RDW Differential 51.2 H Plt Count 186 MPV 10.8 Immature Gran % (Auto) Neut % (Auto) Lymph % (Auto) [place] % (Auto) Eos % (Auto) Baso % (Auto) Absolute Neuts (auto) Absolute Lymphs (auto) Total Counted PT INR APTT Sodium Potassium Chloride Carbon Dioxide Anion Gap BUN Creatinine Estim Creat Clear Calc Est GFR (MDRD) Af Amer Est GFR (MDRD) Non-Af BUN/Creatinine Ratio Glucose Calcium Phosphorus 3.3 Magnesium 1.6 Total Bilirubin AST ALT Alkaline Phosphatase Troponin I < 0.015 Total Protein Albumin Globulin Albumin/Globulin Ratio Triglycerides Cholesterol LDL Cholesterol VLDL Cholesterol HDL Cholesterol 06/05/18 06/05/18 06/05/18 02:54 02:54 02:54 WBC RBC Hgb Hct MCV MCH MCHC RDW RDW Differential Plt Count MPV Immature Gran % (Auto) Neut % (Auto) Lymph % (Auto) [place] % (Auto) Eos % (Auto) Baso % (Auto) Absolute Neuts (auto) Absolute Lymphs (auto) Total Counted PT 13.6 INR 1.1 APTT 27.3 Sodium 144 Potassium 4.1 Chloride 112 H Carbon Dioxide 25.0 Anion Gap 7 BUN 18 Creatinine 0.88 Estim Creat Clear Calc 94.48 Est GFR (MDRD) Af Amer 115 Est GFR (MDRD) Non-Af 95 BUN/Creatinine Ratio 20.6 H Glucose 127 H Calcium 8.2 L Phosphorus Magnesium Total Bilirubin 0.30 AST 12 L ALT 13 L Alkaline Phosphatase 59 Troponin I < 0.015 Total Protein 7.0 Albumin 3.3 Globulin 3.7 Albumin/Globulin Ratio 0.9 Triglycerides 300 H Cholesterol 212 H LDL Cholesterol 120 VLDL Cholesterol 60 H HDL Cholesterol 32 L Discharge Diet: Low fat/ Low Cholesterol Discharge Activity: Return to Normal Activity Call your doctor if you observe: Shortness of breath, Dizziness, Fainting spells, Chest pain Home Medications: Medications to take at Discharge aspirin 81 mg tablet,delayed release 81 mg PO QDAY 01/14/17 nitroglycerin 0.4 mg sublingual tablet 0.4 mg SUBLINGUAL .COMPLEX PRN #30 tab 07/21/17 clopidogrel 75 mg tablet 75 mg PO QDAY #90 tab 05/16/18 metoprolol tartrate 25 mg tablet 25 mg PO BID #180 tab 05/16/18 fenofibrate nanocrystallized 145 mg tablet 145 mg PO QDAY #90 tab 05/22/18 Sertraline HCl [Zoloft] 50 mg PO QHS 06/04/18 Atorvastatin Calcium 80 mg PO QHS #30 tablet 06/05/18 Following Prescrptions Were Given to Patient: Atorvastatin Calcium 80 mg PO QHS #30 tablet Primary Care Physician: Boaz Russell MD [Primary Care Provider] - Please follow up with your Primary Care Physician in: 1 Week Please Follow Up With: Kike Sequeira MD - May see DURALUMIN METALWORKER/PA When: 1-2 Weeks Disposition: Home Minutes spent on discharge:: 35 Patient Condition:: Stable Medical Necessity - Tobacco Use Smoking Status: Current every day smoker Tobacco Use: Cigarettes Meaningful Use Info Meaningful Use Diagnoses (Choose all that apply): None applicable <[place] - Last Filed: 06/06/18 18:29> Discharge Date and Diagnosis - Secondary Discharge Diagnosis Chronic Problems (Last Reviewed 07/21/17 @ 16:21 by Kike Sequeira MD) Obesity (BMI 30.0-34.9) (Chronic) Anxiety and depression (Chronic) Alcohol abuse (Chronic) History of percutaneous transluminal coronary angioplasty (Chronic ~2012) LAD Atherosclerotic heart disease of [place] coronary artery without angina pectoris (Chronic) Old myocardial infarction (Chronic) HLD (hyperlipidemia) (Chronic) 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 I have independently interviewed and examined the patient and reviewed pertinent historical, laboratory, and other data. Please refer to her note for patient's presentation, findings, and recommendations. 58-year-old male with multiple cardiovascular risk factors including hypertension, hyperlipidemia, CAD status post PCI, continued nicotine dependence, alcohol abuse, obesity who comes in with complaints of chest pain. EKG shows no acute ST change. Chest x-ray was unremarkable. Troponins were negative. Patient underwent nuclear stress test which was negative. Patient complained of pain shows worse with moving the chest. Chest pain is likely musculoskeletal. Patient's lipid profile showed uncontrolled lipids profile. He was counseled extensively on following a low-fat diet, quitting smoking, and continuing on statin. Discussed the plan of care in depth with the patient and the . All questions answered. Physical Exam: Gen: Comfortable, not pale, not jaundiced, alert oriented x3 CVS:HS I +II, regular, no murmurs RESP: Diminished at lung bases GI: BS present and normal, nontender, no palpable organs EXT:No edema ASSESSMENT: 1. Chest pain, likely musculoskeletal/chest wall, ACS ruled out 2. CAD status post PCI 3. Uncontrolled hyperlipidemia, started on statins 4. Hypertension 5. Anxiety/depression 6. Nicotine dependence 7. Obesity, BMI 30.3, diet and exercise is recommended Subjective: On the day of discharge, patient was seen and examined. Denied any new complaints. Had a lengthy discussion with the patient and the concerning controlling his risk factors including hyperlipidemia - Physical Exam Vital Signs Temp Pulse Resp BP Pulse Ox 98.4 F 69 18 128/82 H 96 06/05/18 15:00 06/05/18 15:00 06/05/18 15:00 06/05/18 15:00 06/05/18 15:00 Oxygen Flow Rate (L/min) 2 Oxygen Delivery Method Room Air Weight: 95.8 kg Body Mass Index (BMI) 30.3 Intake and Output for Last 24 Hours 06/04/18 06/05/18 06/06/18 23:59 23:59 23:59 Intake Total 1293 / 1293 Balance 1293 / 1293 Code Visit OBSV E&M: 14843 Observation care discharge
--- NOTE | 2018-06-05 11:35 | DS.PCM_ITS ---
<Marina Posada - Last Filed: 06/05/18 11:35> Discharge Date and Diagnosis Date of Admission: 06/04/18 Date of Discharge: 06/05/18 - Primary Discharge Diagnosis Active and Suspected Problems (Last Reviewed 07/21/17 @ 16:21 by Kike Sequeira MD) 1. Atypical chest pain, ACS ruled out 2. CAD status post history of PCI 3. Hypertension 4. Hyperlipidemia 5. Anxiety/depression 6. Tobacco abuse 7. Alcohol abuse 8. 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 Chest findings are stable in the interval. Electronically Signed: Darren Dixon MD at 16:45 EDT , Service support , Operations: None Procedures: Stress test Summary of Care Provided: The patient is a 58 year old M admitted 05/27/2018 due to chest pain. 1. Atypical chest pain, ACS ruled out-troponin negative. EKG without ST-T changes. Chest x-ray unremarkable. Patient underwent nuclear stress test which was negative for ischemia. Follow-up with cardiology in 1 to 2 weeks. Follow- up with primary care physician in 1 week. 2. CAD status post history of PCI-continue aspirin, statin, Plavix, fenofibrate, metoprolol. Statin regimen increased given elevated lipid panel. 3. Hypertension-stable, continue metoprolol regimen. 4. Hyperlipidemia-statin increased as noted above. Continue atorvastatin 80 mg nightly. 5. Anxiety/depression-continue sertraline regimen. 6. Tobacco abuse-encourage smoking cessation. 7. Alcohol abuse-encourage alcohol cessation. 8. Obesity-encouraged diet lifestyle modifications. Patient seen and examined prior to discharge. Physical assessment as noted below. Patient is stable for discharge with follow up recommendations as noted above. This patient was seen by CITLALI Rodriguez under the supervision of Dr. Terrell. - Physical Exam General: Alert, Oriented x3, Cooperative HEENT: Atraumatic, PERRLA, EOMI, Normocephalic Neck: Supple, No JVD, Negative Carotid Bruits Lungs: Clear to auscultation, Normal air movement Cardiovascular: Regular rate, Regular Rhythm, Normal S1, Normal S2, No murmurs Abdomen: Bowel Sounds Present, Soft, Non Tender, Non-Distended Extremities: No clubbing, No cyanosis, No edema, Capillary Refill Less than 3 Seconds Skin: No rashes, No breakdown Musculoskeletal: No Tenderness to Palpation of Joints or Extremities Neurological: Cranial nerves II-XII grossly intact, Neuro grossly intact Psych/Mental Status: Normal Affect, Appropriate Vital Signs Temp Pulse Resp BP Pulse Ox 98.3 F 82 18 142/79 H 92 06/05/18 09:02 06/05/18 10:08 06/05/18 09:02 06/05/18 09:02 06/05/18 10:15 Oxygen Flow Rate (L/min) 2 Oxygen Delivery Method Room Air Weight: 211 lb 3.245 oz Body Mass Index (BMI) 30.3 Intake and Output for Last 24 Hours 06/03/18 06/04/18 06/05/18 23:59 23:59 23:59 Intake Total 1293 / 1293 Balance 1293 / 1293 Laboratory Tests Past 24 Hrs 06/04/18 06/04/18 06/04/18 10:35 16:19 16:19 WBC 15.4 H RBC 5.00 Hgb 15.6 Hct 46.4 MCV 92.8 MCH 31.2 MCHC 33.6 RDW 14.8 H RDW Differential 49.3 H Plt Count 229 MPV 10.7 Immature Gran % (Auto) 0.300 Neut % (Auto) 78.6 H Lymph % (Auto) 13.4 L [place] % (Auto) 6.0 Eos % (Auto) 1.2 Baso % (Auto) 0.5 Absolute Neuts (auto) 12.1 H Absolute Lymphs (auto) 2.06 Total Counted Not Reportable PT INR APTT Sodium 139 Potassium 4.1 Chloride 106 Carbon Dioxide 29.0 Anion Gap 4 L BUN 14 Creatinine 0.97 Estim Creat Clear Calc 85.71 Est GFR (MDRD) Af Amer 103 Est GFR (MDRD) Non-Af 85 BUN/Creatinine Ratio 14.5 Glucose 105 Calcium 8.7 Phosphorus Magnesium Total Bilirubin AST ALT Alkaline Phosphatase Troponin I < 0.015 < 0.015 Total Protein Albumin Globulin Albumin/Globulin Ratio Triglycerides Cholesterol LDL Cholesterol VLDL Cholesterol HDL Cholesterol 06/04/18 06/04/18 06/05/18 19:30 19:30 02:54 WBC 10.8 RBC 4.80 Hgb 14.9 Hct 45.6 MCV 95.0 H MCH 31.0 MCHC 32.7 RDW 14.7 H RDW Differential 51.2 H Plt Count 186 MPV 10.8 Immature Gran % (Auto) Neut % (Auto) Lymph % (Auto) [place] % (Auto) Eos % (Auto) Baso % (Auto) Absolute Neuts (auto) Absolute Lymphs (auto) Total Counted PT INR APTT Sodium Potassium Chloride Carbon Dioxide Anion Gap BUN Creatinine Estim Creat Clear Calc Est GFR (MDRD) Af Amer Est GFR (MDRD) Non-Af BUN/Creatinine Ratio Glucose Calcium Phosphorus 3.3 Magnesium 1.6 Total Bilirubin AST ALT Alkaline Phosphatase Troponin I < 0.015 Total Protein Albumin Globulin Albumin/Globulin Ratio Triglycerides Cholesterol LDL Cholesterol VLDL Cholesterol HDL Cholesterol 06/05/18 06/05/18 06/05/18 02:54 02:54 02:54 WBC RBC Hgb Hct MCV MCH MCHC RDW RDW Differential Plt Count MPV Immature Gran % (Auto) Neut % (Auto) Lymph % (Auto) [place] % (Auto) Eos % (Auto) Baso % (Auto) Absolute Neuts (auto) Absolute Lymphs (auto) Total Counted PT 13.6 INR 1.1 APTT 27.3 Sodium 144 Potassium 4.1 Chloride 112 H Carbon Dioxide 25.0 Anion Gap 7 BUN 18 Creatinine 0.88 Estim Creat Clear Calc 94.48 Est GFR (MDRD) Af Amer 115 Est GFR (MDRD) Non-Af 95 BUN/Creatinine Ratio 20.6 H Glucose 127 H Calcium 8.2 L Phosphorus Magnesium Total Bilirubin 0.30 AST 12 L ALT 13 L Alkaline Phosphatase 59 Troponin I < 0.015 Total Protein 7.0 Albumin 3.3 Globulin 3.7 Albumin/Globulin Ratio 0.9 Triglycerides 300 H Cholesterol 212 H LDL Cholesterol 120 VLDL Cholesterol 60 H HDL Cholesterol 32 L Discharge Diet: Low fat/ Low Cholesterol Discharge Activity: Return to Normal Activity Call your doctor if you observe: Shortness of breath, Dizziness, Fainting spells, Chest pain Home Medications: Medications to take at Discharge aspirin 81 mg tablet,delayed release 81 mg PO QDAY 01/14/17 nitroglycerin 0.4 mg sublingual tablet 0.4 mg SUBLINGUAL .COMPLEX PRN #30 tab 07/21/17 clopidogrel 75 mg tablet 75 mg PO QDAY #90 tab 05/16/18 metoprolol tartrate 25 mg tablet 25 mg PO BID #180 tab 05/16/18 fenofibrate nanocrystallized 145 mg tablet 145 mg PO QDAY #90 tab 05/22/18 Sertraline HCl [Zoloft] 50 mg PO QHS 06/04/18 Atorvastatin Calcium 80 mg PO QHS #30 tablet 06/05/18 Following Prescrptions Were Given to Patient: Atorvastatin Calcium 80 mg PO QHS #30 tablet Primary Care Physician: Boaz Russell MD [Primary Care Provider] - Please follow up with your Primary Care Physician in: 1 Week Please Follow Up With: Kike Sequeira MD - May see WIRELESS SALES MANAGER/PA When: 1-2 Weeks Disposition: Home Minutes spent on discharge:: 35 Patient Condition:: Stable Medical Necessity - Tobacco Use Smoking Status: Current every day smoker Tobacco Use: Cigarettes Meaningful Use Info Meaningful Use Diagnoses (Choose all that apply): None applicable <[place] - Last Filed: 06/06/18 18:29> Discharge Date and Diagnosis - Secondary Discharge Diagnosis Chronic Problems (Last Reviewed 07/21/17 @ 16:21 by Kike Sequeira MD) Obesity (BMI 30.0-34.9) (Chronic) Anxiety and depression (Chronic) Alcohol abuse (Chronic) History of percutaneous transluminal coronary angioplasty (Chronic ~2012) LAD Atherosclerotic heart disease of [place] coronary artery without angina pectoris (Chronic) Old myocardial infarction (Chronic) HLD (hyperlipidemia) (Chronic) 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 I have independently interviewed and examined the patient and reviewed pertinent historical, laboratory, and other data. Please refer to her note for patient's presentation, findings, and recommendations. 58-year-old male with multiple cardiovascular risk factors including hypertension, hyperlipidemia, CAD status post PCI, continued nicotine dependence, alcohol abuse, obesity who comes in with complaints of chest pain. EKG shows no acute ST change. Chest x-ray was unremarkable. Troponins were negative. Patient underwent nuclear stress test which was negative. Patient complained of pain shows worse with moving the chest. Chest pain is likely musculoskeletal. Patient's lipid profile showed uncontrolled lipids profile. He was counseled extensively on following a low-fat diet, quitting smoking, and continuing on statin. Discussed the plan of care in depth with the patient and the . All questions answered. Physical Exam: Gen: Comfortable, not pale, not jaundiced, alert oriented x3 CVS:HS I +II, regular, no murmurs RESP: Diminished at lung bases GI: BS present and normal, nontender, no palpable organs EXT:No edema ASSESSMENT: 1. Chest pain, likely musculoskeletal/chest wall, ACS ruled out 2. CAD status post PCI 3. Uncontrolled hyperlipidemia, started on statins 4. Hypertension 5. Anxiety/depression 6. Nicotine dependence 7. Obesity, BMI 30.3, diet and exercise is recommended Subjective: On the day of discharge, patient was seen and examined. Denied any new complaints. Had a lengthy discussion with the patient and the concerning controlling his risk factors including hyperlipidemia - Physical Exam Vital Signs Temp Pulse Resp BP Pulse Ox 98.4 F 69 18 128/82 H 96 06/05/18 15:00 06/05/18 15:00 06/05/18 15:00 06/05/18 15:00 06/05/18 15:00 Oxygen Flow Rate (L/min) 2 Oxygen Delivery Method Room Air Weight: 95.8 kg Body Mass Index (BMI) 30.3 Intake and Output for Last 24 Hours 06/04/18 06/05/18 06/06/18 23:59 23:59 23:59 Intake Total 1293 / 1293 Balance 1293 / 1293 Code Visit OBSV E&M: 49204 Observation care discharge
== END 2018-06-05 15:19 | disposition home or self-care (01) ==
LOC: ED 16:55 → PCU 18:36
PROVIDERS: Family Medicine; Admitting Provider Family Medicine; Emergency Provider Emergency Medicine; Family Provider Family Medicine; PCP Family Medicine; Referring Provider Family Medicine; Visit Provider Internal Medicine
DX: R07.89 Other chest pain (principal); I25.2 Old myocardial infarction; I25.10 Atherosclerotic heart disease of native coronary artery without angina pectoris; E66.9 Obesity, unspecified; F41.9 Anxiety disorder, unspecified; F32.9 Major depressive disorder, single episode, unspecified; I10 Essential (primary) hypertension; F17.210 Nicotine dependence, cigarettes, uncomplicated; E78.5 Hyperlipidemia, unspecified; Z95.5 Presence of coronary angioplasty implant and graft; Z79.82 Long term (current) use of aspirin; Z79.899 Other long term (current) drug therapy; Z79.02 Long term (current) use of antithrombotics/antiplatelets; Z68.30 Body mass index [BMI] 30.0-30.9, adult; Z71.3 Dietary counseling and surveillance
CPT/HCPCS: 36415; 71045; 78452; 80048; 80053; 80061; 83735; 84100; 84484; 85025; 85027; 85610; 85730; 93005; 93017; 96361; 96374; 97802; 99218; 99285; 99406; A9500; J7030; A4216; G0378

== ENCOUNTER → 2019-12-06 10:21 | Outpatient (CLI) | payer BC, SELFPAY ==
[2019-07-24 11:01] VITALS: BMI 33.3
[2019-12-06 12:56] LABS: Vitamin D,25 Hydroxy 18.1 ng/mL
[2019-12-06 13:00] LABS: Anion Gap 5 (5-15); BUN 17 mg/dL (7-18); BUN/Creat Ratio 20.3 RATIO (10-20); Calcium,Total 8.9 mg/dL (8.5-10.1); Chloride 109 mmol/L (98-107); Cholesterol 180 mg/dL (200); Creatinine, Serum 0.84 mg/dL (0.70-1.30); EST Glomerular Filtration Rate 100 mL/min (>60); Est Glom Filt Rate - Afr Amer 121 mL/min (>60); Glucose 177 mg/dL (74-106); High Density Lipoprotein 26 mg/dL; PSA,Total - Annual Screen 0.66 ng/mL (0.00-4.00); Potassium 4.3 mmol/L (3.5-5.1); Sodium Level 139 mmol/L (136-145); Triglycerides 412 mg/dL
== END ==
PROVIDERS: PCP Family Medicine; Referring Provider Family Medicine; Visit Provider Family Medicine
DX: Z00.00 Encounter for general adult medical examination without abnormal findings (principal)
CPT/HCPCS: 36415; 80048; 80061; 82306; 84153; G0103

== ENCOUNTER 2020-01-25 06:33 | Day surgery (SDC) | payer BC, SELFPAY ==
[2019-07-24 11:01] VITALS: BMI 33.3
[2020-01-25] VITALS (7 sets, daily range): BP systolic 102–130; BP diastolic 71–80; PULSE 63–93; RESP 16; TEMP 36.2–36.4; O2SAT 93–96; BMI 31.4
[2020-01-25] MEDS: Lactated Ringers 1,000 ML 100 ML IV (07:17)
--- NOTE | 2020-01-25 07:30 | H&P.OPEN ---
History of Present Illness Date of Admission: 01/25/20 The patient is a 59 year old M here for screening colonoscopy. The patient reports he is never had a colonoscopy in the past. He denies any family history of colon cancer. He has no blood in stool or abdominal pain. Past Medical/Surgical History - Planned Operation Planned Operative Procedure/s: Colonoscopy Date of Operative Procedure: 01/25/20 Permit Signed: No S.O.S: No Is This Patient Having a Total Joint: No - Previous Hospitalizations/Surgeries HX Hospitalizations: No HX of Surgeries: stent Any Problems With Anesthesia: No You/Your Family Experience Fever (Hyperthermia) With Anes: No Cholinesterase deficiency: No - Cardiovascular Hx Chest Pain within Last 2 months: No Hx of Irregular Heartbeat and/or Afib: No Hx Heart Attack: Yes - 2012 Hx Congestive Heart Failure: No Hx Rheumatic Fever: No Hx Hypertension: Yes - on meds Hx Internal Defibrillator: No Hx Pacemaker: No Hx Cardiac Catheterization: Yes What facility was last heart cath performed: [facility] Date of last Heart Cath: 2012 Hx Cardiac Surgery/Stents/Etc.: Yes - stent 2012 Hx Stress Test: Yes - 2016 negative HX Edema: No Hx Pain in Legs when Walking/Leg Cramps: No - Respiratory Chronic Cough: No HX of Shortness of Breath: No Hoarseness: No Hx Chronic Obstructive Pulmonary Disease (COPD): No Hx Asthma: No Hx Emphysema: No Hx Sleep Apnea: No Hx Oxygen Use at Home: No Hx Respiratory Tract Infection/Cold (presently): No Do You Snore Loudly (louder than talking or can be heard): No Do You Often Feel Tired/ Fatigued/ Sleepy Dring Daytime?: No Has Anyone Observed You Stop Breathing During Sleep?: No Result (for STOP score): Negative Hx Smoking: Yes Smoking Status: Current every day smoker - Gastrointestinal Hx Gastroesophageal Reflux: No Hx Gastrointestinal Disorders: No Hx Gastrointestinal Bleed: No Hx Ulcer: No Hx Hiatal Hernia: No Difficulty Chewing/Swallowing: No Recent Onset of Swallowing Problems: No Special diet followed at home: No Hx Unplanned Weight Loss of 20#: No HX Unplanned Weight Gain of 20#: No - Neurological Hx Seizures: No HX Syncope/Blackout Spells/Unconsciousness: No Hx CVA/Stroke: No Hx Transient Ischemic Attacks (TIA): No Hx Multiple Sclerosis: No Hx Parkinson's Disease: No Hx Head/Neck Injury: No Hx Headaches: No Hx Back Injury/Pain: No Recent Onset of Speech Difficulty: No Restless Legs: No Does patient have nerve stimulator: No Patient instructed to have device shut off: No Rep notified?: No - Blood Disorder Hx Leukemia: No Bleeding Tendencies: No Hx Deep Vein Thrombosis: No Hx High Cholesterol: No Blood Transmitted Disease: Yes Hx Hepatitis: No Hx Cirrhosis: No Hx Anemia: No Hx Blood Disorders: No - Genitourinary Hx Renal Disease: No Hx Dialysis: No - Musculoskeletal Hx Arthritis: No Hx Rheumatoid Arthritis: No Hx Gout: No Recent Onset of an Orthopedic Problem: No - Endocrine Hx Diabetes: Yes Insulin: No Thyroid Disease: No Hx Steroid Therapy: No - Psycho/Social Hx Substance Use: No Hx Alcohol Use: Yes - beer, daily Hx Anxiety: No Hx Depression: Yes Mental Illness: No Hx Dementia: No - Miscellaneous Hx Cancer: No Recent Exposure to Contagious Disease: No Active MRSA: No Hx of C-Diff: No Any Loose Teeth: No Allergies No Known Allergies Allergy (Verified 01/25/20 06:57) Maternal Family History: Family History (Last Reviewed 07/24/19 @ 12:[address] Kike Sequeira MD) Father CAD (coronary artery disease) Myocardial infarction, Onset Age: 73 Mother Cancer Cancer Paternal Family History: Family History (Last Reviewed 07/24/19 @ 12:[address] Kike Sequeira MD) Father CAD (coronary artery disease) Myocardial infarction, Onset Age: 73 Mother Cancer Heart Disease, Hypertension - Discharge Is Pt Admitted From a [facility], or a Detention: No After D/C, Where Do you Plan to Go: Return Home - Physical Exam Vitals/I&O's: Vital Signs Temp Pulse Resp BP Pulse Ox 97.6 F L 93 16 130/79 H 96 01/25/20 07:08 01/25/20 07:08 01/25/20 07:08 01/25/20 07:08 01/25/20 07:08 Oxygen Delivery Method Room Air Weight: 219 lb 5.759 oz Body Mass Index (BMI) 31.4 General: Alert, Oriented x3 Neck: No JVD Lungs: Normal air movement Cardiovascular: Regular rate, Regular Rhythm Abdomen: Soft, Non Tender, Non-Distended Microbiology Past 72 Hours 01/23/20 10:30 Interface Orders SARS-CoV-2 Antigen (Rapid) - Final Current Medications Lactated Ringer's () 1,000 mls @ 100 mls/hr IV .Q10H YOLI Last Admin: 01/25/20 07:17 Dose: 100 mls/hr Documented by: Assessment/Plan All Active Problems (Last Reviewed 07/24/19 @ 12:[address] Kike Sequeira MD) History of ST elevation myocardial infarction (STEMI) (Resolved 05/28/12) History of coronary artery stent placement (Resolved 05/28/12) Chest pain (Resolved) 59-year-old male here for screening colonoscopy I explained endoscopy in detail to the patient. I explained the risks including but not limited to stroke or heart attack with anesthesia, perforation of the GI tract, bleeding, infection. I explained that any of these could necessitate further emergency surgery. The patient understands and all questions were answered sufficiently. The patient wishes to proceed with procedure. We discussed the current risks associated with COVID-19. While it is understood that there is a community spread of COVID-19, the risk of alyson COVID-19 while at [facility] ([facility]) is very low; however, the risk cannot be completely mitigated because of the community spread of the disease. We discussed in detail the risk of exposure to and/or potential harm posed by the COVID-19 virus with having a surgery/procedure at this time versus the risk of delaying the surgery/procedure. It is not possible to know either the risk of delaying the surgery or procedure or chance of getting an infection with perfect accuracy, but a joint decision was made to proceed at this time with the scheduled surgery/procedure as indicated on the consent form. Patient was notified that we will need to comply with any screening or testing [facility] wishes to perform or that surgery may be delayed for any positive results. Abdirizak Cano MD Pager: [facility] [address] [place] [address], [address] [place] [address] Office: Surgery Risks - Colonoscopy Risks Include but are not Limited To: Risks include but are not limited to: Bleeding, perforation requiring further surgery, inability to complete colonoscopy requiring barium enema.
--- NOTE | 2020-01-25 08:00 | COLBX_PTH ---
PATIENT: CLAUDE JERONIMO LOC: EN U#:[id number] AGE/SX: 59/M ROOM: RE01/25/[address]: Dr. Abdirizak Cano MD : 1960 BED: DIS: 01/25/2020 SPEC #: [id number] RECD: 01/25/20 09:33 STATUS: ANT TENISHA #: [id number] TROY: 01/25/20 08:[address]: Abdirizak Cano DEPT: SURGICAL PATHOLOGY RECD BY: Taylor Samuels ENTERED: 01/25/20 10:40 SP TYPE: COLON BX OTHR DR: Dr. Boaz Russell MD Tissues: A - Descending colon B - Transverse colon C - Sigmoid colon biopsy D - Sigmoid colon biopsy E - Rectum, NOS Procedures: Surgery Specimen Level IV HEADER OPERATION: Colonoscopy - open access (MAC) PRE-OP DIAGNOSIS: Screening TISSUE SUBMITTED: A - Descending polyp, B - Transverse polyp biopsy, C - Sigmoid polyp #1, D - Sigmoid polyp #2, E - Rectum polyp MICROSCOPIC DIAGNOSIS A. Descending colon polyp, biopsy: Tubular adenoma. B. Transverse colon polyp, biopsy: Fragments of tubular adenoma. C. Sigmoid polyp #1, biopsy: Fragments of tubular adenoma. D. Sigmoid polyp #2, biopsy: A fragment of colonic mucosa with focal hyperplastic changes. E. Rectum polyp, biopsy: Tubulovillous adenoma. SJ:justin 01/28/20 MICROSCOPIC DESCRIPTION Slides are reviewed. GROSS DESCRIPTION A - Received in fixative is one container labeled with the patient's name and designated descending polyp. The specimen consists of a piece of alex-pink polyp measuring 0.4 x 0.4 x 0.3 cm. The specimen is totally submitted in one cassette. B - Received in fixative is one container labeled with the patient's name and designated transverse polyp. The specimen consists of multiple irregular fragments of light alex soft tissue that in aggregate measure 1.5 x 0.3 x 0.1 cm. The specimen is totally submitted in one cassette. C - Received in fixative is one container labeled with the patient's name and designated sigmoid polyp. The specimen consists of two pieces of alex-pink polyp that in aggregate measure 1 x 0.4 x 0.3 cm. The specimen is totally submitted in one cassette. D - Received in fixative is one container labeled with the patient's name and designated sigmoid polyp #2. The specimen consists of multiple irregular fragments of alex soft tissue mixed with mucoid material that in aggregate measure 2 x 0.5 x 0.1. The specimen is totally submitted in one cassette. E - Received in fixative is one container labeled with the patient's name and designated rectum polyp. The specimen consists of a piece of alex-pink polyp measuring 1 x 0.7 x 0.5 cm. The specimen is inked, bisected and submitted entirely in one cassette. / SJ:rg 01/25/20 TC:3 CPT: 16997 x5
--- NOTE | 2020-01-25 08:14 | OP.COLON_ITS ---
Patient Name: Aj Pond Procedure Date: 01/25/2020 7:38 AM Date of : 1960 Age: 59 Procedure: Colonoscopy Indications: Screening for colorectal malignant neoplasm Providers: Abdirizak Cano MD Referring MD: Boaz Russell MD Medicines: Monitored Anesthesia Care Patient Profile: This is a 59 year old male. Refer to note in patient chart for documentation of history and physical. Last Colonoscopy: none. The patient's first colonoscopy is today. Complications: No immediate complications. Estimated blood loss: Minimal. Procedure: Pre-Anesthesia Assessment: - Prior to the procedure, a History and Physical was performed, and patient medications and allergies were reviewed. The patient's tolerance of previous anesthesia was also reviewed. The risks and benefits of the procedure and the sedation options and risks were discussed with the patient. All questions were answered, and informed consent was obtained. Prior Anticoagulants: The patient has taken no previous anticoagulant or antiplatelet agents. After reviewing the risks and benefits, the patient was deemed in satisfactory condition to undergo the procedure. After I obtained informed consent, the scope was passed under direct vision. Throughout the procedure, the patient's blood pressure, pulse, and oxygen saturations were monitored continuously. The colonoscope was introduced through the anus and advanced to the cecum, identified by appendiceal orifice and ileocecal valve. The colonoscopy was performed without difficulty. The patient tolerated the procedure well. The quality of the bowel preparation was good. Scope In: 7:41:18 AM Scope Withdrawal Time 0 hours 15 minutes 28 seconds Scope Out: 8:07:41 AM Total Procedure Duration Time 0 hours 26 minutes 23 seconds Findings: Five polyps were found in the rectum, sigmoid colon and descending colon. These polyps were removed with a hot snare. Resection and retrieval were complete. A large polyp was found in the transverse colon. The polyp was multi-lobulated. Biopsies were taken with a cold forceps for histology. For location marking, one hemostatic clip was successfully placed. There was no bleeding at the end of the procedure. Area was tattooed with an injection of 0.3 mL of Raina ink. Impression: - Five polyps in the rectum, in the sigmoid colon and in the descending colon, removed with a hot snare. Resected and retrieved. - One large polyp in the transverse colon. Biopsied. Clip was placed. Tattooed. Recommendation: - Discharge patient to home. - Resume previous diet. - Continue present medications. - Await pathology results. - Repeat colonoscopy in 3 years for surveillance. - Return to my office in 1 week. Procedure Code(s): --- Professional --- 86408, Colonoscopy, flexible; with removal of tumor(s), polyp(s), or other lesion(s) by snare technique 12175, Colonoscopy, flexible; with directed submucosal injection(s), any substance 75393, 59, Colonoscopy, flexible; with biopsy, single or multiple 79389, Unlisted procedure, colon Diagnosis Code(s): --- Professional --- Z12.11, Encounter for screening for malignant neoplasm of colon K62.1, Rectal polyp D12.5, Benign neoplasm of sigmoid colon D12.4, Benign neoplasm of descending colon D12.3, Benign neoplasm of transverse colon (hepatic flexure or splenic flexure) CPT copyright 2017 [employer]. All rights reserved. The codes documented in this report are preliminary and upon inspector packer glass container review may be revised to meet current compliance requirements. Abdirizak Cano MD 01/25/2020 8:14:17 AM This report has been signed electronically. Number of Addenda: 0 Note Initiated On: 01/25/2020 7:38 AM
--- NOTE | 2020-01-25 08:15 | OP.CCLET_ITS ---
01/25/2020 Boaz Russell MD [address] [id number] Re : Colonoscopy procedure for Aj Jonover Dear Dr. Russell This procedure was performed on Saturday, January 25, 2020. My impressions and recommendations are as follows: Impressions : - Five polyps in the rectum, in the sigmoid colon and in the descending colon, removed with a hot snare. Resected and retrieved. - One large polyp in the transverse colon. Biopsied. Clip was placed. Tattooed. Recommendations : - Discharge patient to home. - Resume previous diet. - Continue present medications. - Await pathology results. - Repeat colonoscopy in 3 years for surveillance. - Return to my office in 1 week. My findings are described in the full procedure note, which is enclosed. If I can be of further assistance, please feel free to contact me at Doctor phone number(s): , Work: . Sincerely, Abdirizak Cano MD 01/25/2020 8:14:17 AM This report has been signed electronically.
[2020-01-25 08:20] LABS: Bedside Glucose 127 mg/dL (70-110)
--- NOTE | 2020-01-25 08:21 | RAD_ITS ---
STUDY: X-RAY - ABDOMEN/PELVIS REASON FOR EXAM: Male, 59 years old. POST COLONOSCOPY CLIP TECHNIQUE: Single AP view of the abdomen / pelvis. COMPARISON: None. FINDINGS: A metallic clip is seen in the region of the hepatic flexure. RAD/Abdomen Single View (Portable) IMPRESSION: A metallic clip is seen in the region of the hepatic flexure. Electronically Signed: Franky Milian, at 12:25 EST , Service support ,
--- NOTE | 2020-01-25 08:22 | PN_ITS ---
Progress Note I performed a colonoscopy on the patient today. He had 5 small polyps which were removed but he also had a very large polyp in the proximal transverse colon. It was clipped and tattooed and biopsied. The patient will likely need colectomy for this and I will have him follow-up next week to discuss surgery. Patient may also need a CT. Abdirizak Cano MD Pager: [facility] [address] [place] [address] [address] [place] [address] Office: STROKE Vital Signs/Narrative: Vital Signs Temp Pulse Resp BP Pulse Ox 01/25/20 08:15 68 16 102/71 95 01/25/20 08:13 97.6 F L 67 16 102/77 93 01/25/20 07:08 97.6 F L 93 16 130/79 H 96
== END 2020-01-25 09:13 | disposition home or self-care (01) ==
LOC: EN 06:34 → AC 06:34
PROVIDERS: PCP Family Medicine; Referring Provider Family Medicine; Visit Provider Surgery
PROC: 0DJD8ZZ Inspection of Lower Intestinal Tract, Via Natural or Artificial Opening Endoscopic (ICD-10-PCS; CPT 45378; principal; 2020-01-25 07:55)
DX: Z12.11 Encounter for screening for malignant neoplasm of colon (principal); D12.7 Benign neoplasm of rectosigmoid junction; D12.3 Benign neoplasm of transverse colon; D12.4 Benign neoplasm of descending colon; D12.5 Benign neoplasm of sigmoid colon; Z20.828 Contact with and (suspected) exposure to other viral communicable diseases; I10 Essential (primary) hypertension; F17.200 Nicotine dependence, unspecified, uncomplicated; Z79.02 Long term (current) use of antithrombotics/antiplatelets; Z79.82 Long term (current) use of aspirin; Z79.899 Other long term (current) drug therapy; I25.2 Old myocardial infarction; Z95.5 Presence of coronary angioplasty implant and graft; Z90.49 Acquired absence of other specified parts of digestive tract
CPT/HCPCS: 45380; 45381; 45385; 74018; 82962; 87426; 88305; C9803; J7120; A4648; J2405

== ENCOUNTER 2020-02-18 09:49 | Inpatient (IN) | payer BC, SELFPAY ==
[2020-02-04 09:11] VITALS: BMI 31.4
--- NOTE | 2020-02-14 12:45 | EKG12_ITS ---
Test Reason : PRE OP Blood Pressure : / mmHG Vent. Rate : 075 BPM Atrial Rate : 075 BPM P-R Int : 116 ms QRS Dur : 086 ms QT Int : 388 ms P-R-T Axes : 026 047 067 degrees QTc Int : 433 ms Normal sinus rhythm Nonspecific T wave abnormality Abnormal ECG Confirmed by TYSON RUSSO, LIGIA ([id number]), purchasing expeditor JOVANNA TSAI ([id number]) on 02/15/2020 8:28:33 AM Referred By: Abdirizak Cano Confirmed By:LIGIA MEHTA MD
[2020-02-14 14:15] LABS: Absolute Lymphocyte Count 1.94 X10^3/uL (0.83-4.51); Basophil# 0.06 X10^3/uL; Basophil% 0.8 % (0-1); Eosinophil# 0.28 X10^3/uL; Eosinophils% 3.6 % (0-5); Hemoglobin 15.7 g/dL (13.0-16.5); Lymphocyte # 1.94 X10^3/ul (4.0); Lymphocyte % 25.2 % (19-41); Mean Corpuscular Hgb 28.9 pg (27.0-32.0); Mean Corpuscular Volume 90.2 fL (80-94); Mean Platelet Vol. 10.9 fl (6.2-12.0); Monocyte# 0.42 X10^3/uL; Monocyte% 5.4 % (0-10); NRBC Flagged by Analyzer 0 % (0-5); Neutrophil # 4.98 X10^3/uL (2.7-7.7); Neutrophil % 64.6 % (47-70); Platelet Count 223 K/mm3 (150-450); RBC Distribution Width CV 14.4 % (11.6-14.6); RBC Distribution Width SD 47.8 fl (35.1-43.9); Red Blood Count 5.43 M/mm3 (4.6-6.2); White Blood Count 7.7 K/mm3 (4.4-11.0)
[2020-02-14 14:21] LABS: Prothrombin Time (Protime)PT. 12.6 SECONDS (11.7-14.9)
[2020-02-14 14:22] LABS: Partial Thromboplast Time 27.5 Seconds (24.1-36.2)
[2020-02-14 14:34] LABS: Hemoglobin A1c 7.2 % (3.8-5.6)
[2020-02-14 14:47] LABS: AST(SGOT) 23 U/L (15-37); Alanine Aminotransfer ALT/SGPT 24 U/L (16-61); Alkaline Phosphatase 94 U/L (45-117); Bilirubin, Direct 0.09 mg/dL (0.00-0.30); Globulin 3.7 g/dL (2.2-4.2); Magnesium 1.8 mg/dL (1.6-2.6); Protein, Total 7.7 g/dL (6.4-8.2)
[2020-02-18] VITALS (13 sets, daily range): BP systolic 106–124; BP diastolic 59–84; PULSE 57–75; RESP 14–18; TEMP 36.4–36.9; O2SAT 90–98; BMI 31.1; BMI 31.2; BMI 31.3
--- NOTE | 2020-02-18 05:00 | HP_ITS ---
Intake Vital Signs 02/04/20 Height 5 ft 10 in 02/04/20 Weight: 219 lb 02/04/20 BP 121/80 H 02/04/20 Blood Pressure Location Rt brachial 02/04/20 Position Sitting 02/04/20 Respiration 16 02/04/20 Pulse 65 02/04/20 Pulse Source Monitor 02/04/20 Temp 97.2 F L 02/04/20 Temp Source Temporal 02/04/20 Pulse Oximetry (%) 97 02/04/20 Oxygen Delivery Method room air Intake Visit Reasons: POST OP CSCOPE 01/24. DISCUSS RESULTS Vendor Representatives Required: No Accompanied by: Is patient in pain?: No Allergies No Known Allergies Allergy (Verified 02/04/20 08:53) Medications aspirin 81 mg tablet,delayed release 81 mg PO QDAY 01/14/17 [History Confirmed 02/04/20] clonazepam 0.5 mg tablet 0.5 mg PO QHS PRN #30 tab 07/25/18 [History Confirmed 02/04/20] atorvastatin 80 mg tablet 80 mg PO QHS #90 tab 06/14/19 [Rx Confirmed 02/04/20] metoprolol tartrate 25 mg tablet 25 mg PO BID #180 tab 06/14/19 [Rx Confirmed 02/04/20] aripiprazole 5 mg tablet 5 mg PO DAILY 07/24/19 [History Confirmed 02/04/20] meclizine 25 mg tablet 25 mg PO DAILY PRN tab 07/24/19 [History Confirmed 02/04/20] nitroglycerin 0.4 mg sublingual tablet 0.4 mg SUBLINGUAL .COMPLEX PRN #30 tab 07/24/19 [Rx Confirmed 02/04/20] sertraline 50 mg tablet 150 mg PO QHS tab 07/24/19 [History Confirmed 02/04/20] fenofibrate nanocrystallized 145 mg tablet 145 mg PO QDAY #90 tab 09/28/19 [Rx Confirmed 02/04/20] clopidogrel 75 mg tablet 75 mg PO QDAY #90 tab 10/11/19 [Rx Confirmed 02/04/20] Metformin HCl 500 mg PO DAILY 01/22/20 [History Confirmed 02/04/20] metronidazole 500 mg tablet 500 mg PO .COMPLEX #6 tab 02/05/20 [Rx Confirmed 02/05/20] neomycin 500 mg tablet 500 mg PO .COMPLEX #6 tab 02/05/20 [Rx Confirmed 02/05/20] [facility] Medical History (Updated 02/05/20 @ 12:55 by Sydney Carias) 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 Abdirizak Cano MD) Smoking Status: Current every day smoker alcohol intake: current alcohol intake frequency: 3 or more drinks per day Alcohol type: beer substance use type: marijuana caffeine: Yes Type: coffee Number of servings: 1 what type of physical activity do you participate in: none seatbelt use: always do you feel safe at home: Yes HPI HPI HPI: CLAUDE JERONIMO, is a 59 M who presents to the office today for HPI HPI Surgical H&P: Yes HPI: CLAUDE JERONIMO, is a 59 M who presents to the office today for Follow-up after colonoscopy. The patient was found to have a very large polyp in the hepatic flexure. Biopsies were taken and the patient had several other polyps. He is not having any issues since the colonoscopy. ROS General General: No weight change, appetite, fatigue, colon cancer, breast cancer or weakness HEENT HEENT: No difficulty swallowing, eye injury, eye surgery, swollen glands or hoarseness Endo Endocrine: Yes diabetes mellitus; no thyroid disease, thyroid cancer, Hair loss, heat intolerance or cold intolerance Skin Skin: No rash or changing moles Breast Breast: No left breast lump, right breast lump, nipple discharge, breast pain, abnormal mammogram, abnormal US or breast enlargement Musc Musculoskeletal: No back problems, arthritis, rheumatoid arthritis, gout or joint pain Cardio Cardiovascular: Yes heart disease, high blood pressure, heart attack and heart stent; no murmur, pacemaker, atrial fibrillation, palpitations, shortness of breat with exertion or chest pain Psych Psychiatric: Yes depression; no anxiety or hearing voices Resp Respiratory: No shortness of breath, No sleep apnea, Yes cough, No COPD, No asthma, No emphysema, No wheezing Gastro Gastrointestinal: No abdominal pain, Yes nausea or vomiting, No diarrhea, No constipation, No blood in stool, Yes acid reflux, No hemorrhoids, No ulcers, No gallbladder problem, No black,tarry stools Chris Hematologic: Yes blood thinners, No blood disorders, No bleeding, No anemia, No blood clots Neuro Neurologic: No system reviewed and no additional complaints, except as docu, No as per HPI, No abnormal walking, No abnormal hearing, No abnormal movements, No abnormal speech, No behavioral changes, No burning sensations, No confusion, No seizure-like activity, No unsteadiness, No dizziness, No localized weakness, No frequent falls, No headache(s), No lack of coordination, No loss of vision, No memory loss, No numbness, No other visual disturbances, No radiating pain, No restless legs, No sensory deficit, No fainting, No tingling, No tremor(s), No weakness, No other Exam Const General: cooperative Orientation: alert, oriented x3 HENMT Head: normal to inspection Ears: hearing grossly normal bilaterally Eyes General: appearance normal, both eyes and all related structures Visual Eastman: normal visual eastman by confrontation Neck Neck: normal visual inspection Chest Chest palpation & inspection: normal inspection of the chest Breast Palpation: No nipple discharge Resp Effort & Inspection: normal respiratory effort Auscultation: clear to auscultation bilaterally Cardio Rate: regular rate Rhythm: regular rhythm Heart Sounds: no murmurs GI Inspection: non-distended Palpation: soft, nontender Musc Cervical Spine: normal cervical lordosis, cervical ROM normal Skin General: no rashes or lesions noted Neuro General: alert, oriented x3 Cranial Nerves: CN's II-XI intact bilaterally Cognition: normal cognition Extrem General: normal to inspection, full ROM Psych Appearance: grossly normal Affect: normal affect Assessment & Plan Problems 1. Tubular adenoma of colon D12.6 Plan The patient had a very large tubular adenoma at the hepatic flexure found on colonoscopy. The polyp was sessile and occupying more than one third of the circumference of the bowel. It was unable to be removed endoscopically. I believe that there were to be a large chance of perforation of the colon if that were to be attempted. The biopsies of this polyp came back as a tubular adenoma. The patient had several of the polyps including a tubovillous adenoma of the rectum. All these polyps were removed completely. I discussed his options with him. I recommended extended right hemicolectomy. I did offer the patient referral to a GI doctor if they would be more comfortable endoscopically removing a large polyp. The patient would rather have this removed completely. I discussed laparoscopic right hemicolectomy with the patient in detail. I discussed the risks including but not limited to bleeding, infection, anastomotic leak, injury to bowel or bladder or ureter. The patient understands the risks and is when to proceed with extended right hemicolectomy. We discussed the current risks associated with COVID-19. While it is understood that there is a community spread of COVID-19, the risk of alyson COVID-19 while at [facility] ([facility]) is very low; however, the risk cannot be completely mitigated because of the community spread of the disease. We discussed in detail the risk of exposure to and/or potential harm posed by the COVID-19 virus with having a surgery/procedure at this time versus the risk of delaying the surgery/procedure. It is not possible to know either the risk of delaying the surgery or procedure or chance of getting an infection with perfect accuracy, but a joint decision was made to proceed at this time with the scheduled surgery/procedure as indicated on the consent form. Patient was notified that we will need to comply with any screening or testing [facility] wishes to perform or that surgery may be delayed for any positive results. Abdirizak Cano MD Pager: [facility] [address] [place] [address], [address] [place] [address] Office: Medications New: metronidazole (Flagyl) 500 mg PO; 2 tabs at 1300, 2100, 2200 the evening prior to surgery 6 tabs 0RF neomycin 500 mg PO; 2 tabs at 1300, 2100, 2200 the evening prior to surgery 6 tabs 0RF Coding Level of Care Code Off vis,est,level 4 Diagnoses Tubular adenoma of colon D12.6 Time Spent (min) 45 I have re-examined the patient. There are no clinical changes since date of exam.
[2020-02-18] MEDS: Acetaminophen 500 MG Tablet 1000 MG PO ×3 (10:33→23:46)
[2020-02-18] MEDS: Gabapentin 600 MG Tablet PO (10:33)
[2020-02-18] MEDS: Lactated Ringers 1,000 ML 40 ML IV ×2 (10:34→13:44)
[2020-02-18] MEDS: Insulin Lispro 100 UNIT/ML INSULN.PEN SC (10:35)
[2020-02-18 10:55] LABS: Bedside Glucose 234 mg/dL (70-110)
[2020-02-18] MEDS: BUPIVACAINE LIPOSOME/PF 20 ML VIAL OPERA.SITE (11:48)
--- NOTE | 2020-02-18 12:35 | COL_PTH ---
PATIENT: CLAUDE JERONIMO LOC: MS3 U#:[id number] AGE/SX: 59/M ROOM: MS309 RE02/18/[address]: Dr. Abdirizak Cano MD : 1960 BED: 1 DIS: 02/19/2020 SPEC #: [id number] RECD: 02/18/20 13:33 STATUS: ANT STEVEN #: [id number] [place]: 02/18/20 12:[address]: Abdirizak Cano DEPT: SURGICAL PATHOLOGY RECD BY: Taylor Samuels ENTERED: 02/18/20 13:50 SP TYPE: COLON OTHR DR: Dr. Boaz Russell MD Tissues: Colon, NOS Procedures: Surgery Specimen Level V HEADER OPERATION: ERAS, laparoscopic hemicolectomy PRE-OP DIAGNOSIS: Tubular adenoma of colon TISSUE SUBMITTED: Right colon MICROSCOPIC DIAGNOSIS Right colon, hemicolectomy: Tubular adenoma x7 (0.3 to 2.5 cm in greatest dimension). Fourteen benign pericolonic lymph nodes. Appendix, no pathologic diagnosis. Colonic and small intestinal donut, no pathologic diagnosis. SJ:justin 02/20/2020 COMMENT Please make reference to previous specimen ([id number]) descending colon polyp, biopsy with diagnosis of tubular adenoma, transverse colon polyp and sigmoid polyp #1 with diagnosis of fragments of tubular adenoma and rectum polyp, biopsy with diagnosis of tubulovillous adenoma. Case has been reviewed in consultation with Dr. Jarrell who concurs with the above diagnosis. IDC:AM MICROSCOPIC DESCRIPTION Slides are reviewed. GROSS DESCRIPTION Received in fixative is one container labeled with the patient's name and designated right colon. The specimen consists of a right hemicolectomy specimen consisting of cecum with ascending colon with attached pericolonic adipose tissue measuring 20 cm in length, appendix measuring 6 cm in length and 0.5 cm in diameter and small intestine measuring 6 cm in length. 4.5 cm away from the distal resection margin, there is a large sessile polyp measuring 2.5 x 2 x 0.5 cm. Multiple (6) smaller polyps are also noted, proximal and distal to the large sessile polyp measuring 0.3 to 0.5 cm in greatest dimension. A metallic clip is present adjacent to the largest sessile polyp. Black tattoo dye is noted in the adjacent mucosa and over the serosal surface. The pericolonic adipose tissue is fixed in lymph node revealing solution. The lumen contains a small amount of fecal material. A donut-shaped piece of colonic tissue is also present measuring 3 x 1.5 x 0.5 cm. More dictation will follow after additional fixation. / SJ:justin 02/18/20 Sections of the appendix reveal unremarkable cut surfaces and patent lumen. Sections of the largest polyp reveal it is limited to the mucosa and no invasion into the underlying wall is noted. Sections of pericolonic adipose tissue reveal multiple lymph nodes. The largest lymph node measures 0.5 cm in greatest dimension. Sheet Metal Technician sections are submitted as follows: 1 - donut-shaped piece of tissue, 2 - resection margins, 3 - appendix, 4 - smaller polyps x5, 5 - one bisected polyp, 6-8 - largest sessile polyp entirely submitted, 9 - manufacturer representative sections of small bowel, large bowel and ileocecal valve, 10??two bisected lymph nodes, one inked black, 11 & 12 - multiple lymph nodes. / ADAN:justin 02/19/20 TC:1 CPT: 40189, 12995
--- NOTE | 2020-02-18 13:56 | OP.PCM_ITS ---
Problem List (1) Tubular adenoma of colon Status: Acute Report of Operation Date of Procedure: 02/18/20 Pre-Operative Diagnosis: Tubular adenoma of the colon Post-Operative Diagnosis: Same Surgery/Procedure Performed:: Laparoscopic right hemicolectomy Specimen's removed: Right colon Description of Procedure: Patient was brought back to the operating room and general anesthesia was used. The abdomen was prepped and draped in usual sterile fashion. A midline incision was made superior to the umbilicus and deepened to the fascia which was elevated and incised. Port was placed into the abdomen and it was insufflated to 15 mmHg. A port was placed in the subxiphoid space under direct visualization as well as the lower midline under direct visualization. Under laparoscopic guidance a tap block was performed bilaterally with an Exparel/saline mixture. The colon was inspected and the tattoo appeared to be in the proximal transverse colon. The colon at the hepatic flexure was mobilized using Enseal down to the ileocecal valve. The small bowel was mobilized as well. The mobilization was taken distally until the transverse colon was freed to the mid transverse colon. Next the air was allowed to desufflate from the abdomen and the skin incision was connected from the 5 mm port in the subxiphoid space to the midline port. This was deepened to the fascia and the fascia was incised using electrocautery. A wound protector was placed and the right colon was delivered through the wound protector. The right colon pedicle was identified and electrocautery was used to take down the peritoneum. The pedicle was dissected until the artery and vein were identified and clamped. They were divided. Each vessel was suture ligated using 0 silk suture. There was good hemostasis. The distal ileum was divided using a 75 KRISSY stapler as was the transverse colon. Enseal was used to take down the transverse colon mesentery as well as the terminal il eum mesentery. Next a small corner of each staple line was removed and there was good blood supply both staple lines. The ends of the stapler were placed into the transverse colon and into the small bowel and they were approximated and stapled together using the KRISSY stapler. The stapler was removed and the staple line was inspected and appeared to be hemostatic. Next the enterostomy was grasped and a 60 TX stapler was used to close the enterostomy. There appeared to be a good lumen and it was hemostatic. A crotch stitch was placed using 3-0 silk suture. The staple line was inspected once more and then the anastomosis was placed back into the abdomen. The abdomen was irrigated and suctioned dry. Omentum was placed over the abdominal contents and the wound protector was removed. Then all staff changed gown and gloves. The incisions were anesthetized using the Exparel saline mixture. The fascia was grasped using Ash clamps, the midline incision was closed from the superior and inferior ends meeting in the middle using 2-0 PDS sutures. The subcutaneous tissue was irrigated and suctioned dry and the skin was closed with interrupted 4-0 Monocryl sutures as well as Steri-Strips. Bandages were applied. Patient was taken to PACU in stable condition and tolerated the procedure well. - Admit VTE Documentation VTE Mechan Device Prophylaxis: SCD's
[2020-02-18 14:26] LABS: Bedside Glucose 186 mg/dL (70-110)
[2020-02-18] MEDS: Ketorolac 15 MG/ML Vial IV (18:43)
[2020-02-18] MEDS: Docusate Sodium 100 MG Capsule PO (22:04)
[2020-02-18] MEDS: Metoprolol Tartrate 25 MG Tablet PO (22:04)
[2020-02-18] MEDS: Atorvastatin Calcium 80 MG Tablet PO (22:04)
[2020-02-18] MEDS: Sertraline 50 MG Tablet 150 MG PO (22:04)
[2020-02-19 04:39] VITALS: BP 119/80; PULSE 59; RESP 16; TEMP 36.6; O2SAT 95
[2020-02-19] MEDS: Acetaminophen 500 MG Tablet 1000 MG PO ×2 (05:25→11:33)
[2020-02-19 06:10] LABS: Hematocrit 41.8 % (40-54); Hemoglobin 13.6 g/dL (13.0-16.5); Mean Corp Hgb Conc 32.5 g/dL (32-36); Mean Corpuscular Hgb 29.8 pg (27.0-32.0); Mean Corpuscular Volume 91.5 fL (80-94); Mean Platelet Vol. 10.6 fl (6.2-12.0); Platelet Count 189 K/mm3 (150-450); RBC Distribution Width CV 14.3 % (11.6-14.6); RBC Distribution Width SD 48.3 fl (35.1-43.9); Red Blood Count 4.57 M/mm3 (4.6-6.2); White Blood Count 15.6 K/mm3 (4.4-11.0)
[2020-02-19 06:32] LABS: Anion Gap 6 (5-15); BUN 10 mg/dL (7-18); BUN/Creat Ratio 9.4 RATIO (10-20); Calcium,Total 8.5 mg/dL (8.5-10.1); Chloride 105 mmol/L (98-107); Creatinine, Serum 1.06 mg/dL (0.70-1.30); EST Glomerular Filtration Rate 76 mL/min (>60); Est Glom Filt Rate - Afr Amer 92 mL/min (>60); Estimated Creatinine Clearance 77.48 ml/min; Glucose 130 mg/dL (74-106); Sodium Level 134 mmol/L (136-145)
[2020-02-19 09:35] VITALS: BP 125/88; PULSE 60; RESP 18; TEMP 36.9; O2SAT 97
[2020-02-19 09:37] VITALS: PULSE 60
[2020-02-19] MEDS: Metoprolol Tartrate 25 MG Tablet PO (09:37)
[2020-02-19] MEDS: Fenofibrate 145 MG Tablet PO (09:38)
[2020-02-19] MEDS: Docusate Sodium 100 MG Capsule PO (09:38)
[2020-02-19] MEDS: ARIPiprazole 5 MG Tablet PO (09:38)
--- NOTE | 2020-02-19 11:28 | PN.SURG_ITS ---
Patient Problems: Active and Suspected Problems (Last Updated 02/05/20 @ 12:55 by Sydney Carias) Tubular adenoma of colon (Acute) Subjective: Patient is doing well and passing flatus this afternoon. He tolerated clears. - Physical Exam Vitals/I&O's: Vital Signs Temp Pulse Resp BP Pulse Ox 98.4 F 60 18 125/88 H 97 02/19/20 09:35 02/19/20 09:37 02/19/20 09:35 02/19/20 09:35 02/19/20 09:35 Oxygen Flow Rate (L/min) 6 Oxygen Delivery Method Room Air Weight: 224 lb 0.011 oz Body Mass Index (BMI) 31.3 Intake and Output for Last 24 Hours 02/17/20 02/18/20 02/19/20 23:59 23:59 23:59 Intake Total 1806 / 2156 750 / 750 Output Total 400 / 400 925 / 925 Balance 1406 / 1756 -175 / -175 General: Alert, Oriented x3 Lungs: Normal air movement Cardiovascular: Regular rate, Regular Rhythm Abdomen: Soft, Non Tender, Non-Distended Laboratory Results 02/18/20 14:23: POC Glucose 186 H 02/19/20 05:54: WBC 15.6 H, RBC 4.57 L, Hgb 13.6, Hct 41.8, MCV 91.5, MCH 29.8, MCHC 32.5, RDW Std Deviation 48.3 H, RDW Coeff of Homa 14.3, Plt Count 189, MPV 10.6 02/19/20 05:54: Sodium 134 L, Potassium 4.0, Chloride 105, Carbon Dioxide 23.0, Anion Gap 6, BUN 10, Creatinine 1.06, Estim Creat Clear Calc 77.48, Est GFR (MDRD) Af Amer 92, Est GFR (MDRD) Non-Af 76, BUN/Creatinine Ratio 9.4 L, Glucose 130 H, Calcium 8.5 Current Medications Acetaminophen (Acetaminophen 500 Mg Tablet) 1,000 mg PO Q6 [facility] Last Admin: 02/19/20 05:25 Dose: 1,000 mg Documented by: Aripiprazole (Aripiprazole 5 Mg Tablet) 5 mg PO DAILY [facility] Last Admin: 02/19/20 09:38 Dose: 5 mg Documented by: Atorvastatin Calcium (Atorvastatin Calcium 80 Mg Tablet) 80 mg PO QHS [facility] Last Admin: 02/18/20 22:04 Dose: 80 mg Documented by: Clonazepam (Clonazepam 0.5 Mg Tablet) 0.5 mg PO QHS PRN PRN Reason: ANXIETY Docusate Sodium (Docusate Sodium 100 Mg Capsule) 100 mg PO BID [facility] Last Admin: 02/19/20 09:38 Dose: 100 mg Documented by: Fenofibrate (Fenofibrate 145 Mg Tablet) 145 mg PO DAILY@0800 [facility] Last Admin: 02/19/20 09:38 Dose: 145 mg Documented by: Lactated Ringer's () 1,000 mls @ 40 mls/hr IV .Q25H [facility] Stop: 02/19/20 13:36 Last Admin: 02/18/20 13:44 Dose: 40 mls/hr Documented by: Sodium Chloride () 250 mls @ 15 mls/hr IV .[id number] PRN PRN Reason: Saline Flush Sodium Chloride () 250 mls @ 15 mls/hr IV .[id number] PRN PRN Reason: Additional IVPB Infusion Ketorolac Tromethamine (Ketorolac 15 Mg/Ml Vial) 15 mg IV Q6H PRN PRN PRN Reason: Pain Score 4-10 Last Admin: 02/18/20 18:43 Dose: 15 mg Documented by: Magnesium Chloride (Magnesium Chloride 64 Mg Delay Rel.Tablet) 128 mg PO DAILY PRN PRN PRN Reason: Constipation Metoprolol Tartrate (Metoprolol Tartrate 25 Mg Tablet) 25 mg PO BID [facility] Last Admin: 02/19/20 09:37 Dose: 25 mg Documented by: Ondansetron HCl (Ondansetron Odt 4 Mg Tablet) 4 mg PO Q6H PRN PRN PRN Reason: NAUSEA Sertraline HCl (Sertraline 50 Mg Tablet) 150 mg PO QHS [facility] Last Admin: 02/18/20 22:04 Dose: 150 mg Documented by: Sodium Chloride (0.9% Saline Lock 10 Ml Syringe) 10 - 40 ml IV UD PRN PRN Reason: SALINE FLUSH Medical Necessity - Tobacco Use Smoking Status: Current every day smoker Tobacco Use: Cigarettes Assessment/Plan All Active Problems (Last Updated 02/05/20 @ 12:55 by Sydney Carias) Tubular adenoma of colon (Acute) History of ST elevation myocardial infarction (STEMI) (Resolved 05/28/12) History of coronary artery stent placement (Resolved 05/28/12) Chest pain (Resolved) 59-year-old male with large polyp of the hepatic flexure 1. Patient underwent elective right hemicolectomy and is doing well. I will advance him to a regular diet once he tolerates that he would be discharged home. Abdirizak Cano MD Pager: [facility] [address] [place] [address] [address] [place] [address] Office:
--- NOTE | 2020-02-19 11:29 | DCINST_ITS ---
Discharge Diet: Light diet - advance as tolerated Discharge Activity: May Shower Lifting Restrictions: 20 lbs for 4 weeks Call your doctor if your incision/area has: Continuous Slow Oozing, Sudden Increased Bleeding, Increased Pain/ Swelling, Increased Redness, Foul Smelling Discharge, Swelling at the incision site Call your doctor if you observe: Fever of 101 or Higher, Inability to have a bowel movement Suture Line Care: Avoid Pulling/Pushing, Avoid Pinching/Bending Change Dressing in (Days):: 2 - Leave steri-strips in place for 1 week. Additional Instructions: Resume Plavix Sunday 02/19 Allergies/Adverse Reactions: Allergies No Known Allergies Allergy (Verified 02/18/20 10:06) Medications to take at Discharge aspirin 81 mg tablet,delayed release 81 mg PO QDAY 01/14/17 clonazepam 0.5 mg tablet 0.5 mg PO QHS PRN #30 tab 07/25/18 aripiprazole 5 mg tablet 5 mg PO DAILY 07/24/19 nitroglycerin 0.4 mg sublingual tablet 0.4 mg SUBLINGUAL .COMPLEX PRN #30 tab 07/24/19 sertraline 50 mg tablet 150 mg PO QHS tab 07/24/19 Metformin HCl 1,000 mg PO BID 01/22/20 Atorvastatin Calcium [Lipitor] 80 mg PO QHS 02/14/20 Clopidogrel Bisulfate [Clopidogrel] 75 mg PO QDAY 02/14/20 Fenofibrate Nanocrystallized [Tricor] 145 mg PO QDAY 02/14/20 Metoprolol Tartrate 25 mg PO BID 02/14/20 Metronidazole 500 mg PO .COMPLEX 02/14/20 Neomycin Sulfate 500 mg PO .COMPLEX 02/14/20 Primary Care Physician: Boaz Russell MD [Primary Care Provider] - Test Results: Test results from this visit will be discussed in further detail at your follow- up appointment, if applicable. Please Follow Up With: Abdirizak Cano MD When: Please call to schedule 2 week follow up appointment. [phone]
--- NOTE | 2020-02-19 12:30 | CASEMGMT ---
RN CESAR PRODUCTION SORTER CM to room to meet with patient for initial transition planning/care coordination assessment. RN CESAR introduced self and role at [facility]. Pt voices understanding and consents to assessment at this time. Pt sitting on edge of bed in no distress at this time. @ bedside. Pt is A/O at this time and answers all questions appropriately. Care providers, pharmacy, and demographics verified/updated at this time. PCP: Dr Russell Specialists: Dr Sequeira--cardiology Preferred Pharmacy: [facility] Insurance: [place] Prescription Benefit: Yes Living Will/HPOA: Pt does not currently have LW/HCPOA and declines info at this time. Pt made aware that he can contact as an out-pt and make appt in the future if he decides he would like to talk with someone about this or would like to utilize [facility] social work for advanced directive completion. Given Allergist/Immunologist Physician Rac card with information and contact number. Pt expresses understanding. LNOK: Pamela Living Arrangements:Lives w/his in 2-story home. FFSU. Independent w/ADL's. Pt/ share home mgmt tasks. Transportation: Pt states drives self and states no transportation concerns at this time. will take pt home @ d/c. DME: Denies using any DME and denies needs. HHC/SNF: No history of either. No needs identified. Pt wishes to return home and states has no concerns with going home at time of discharge. CM to follow for any discharge planning/needs. Pt voices no concerns/needs at this time. Advised pt to ask for CM if any questions/concerns/needs arise. Voices understanding. PLAN: Home w/spousal support and discharge plans in place. Brian LAINEZ RN, CM
[2020-02-19 14:15] VITALS: BP 134/83; PULSE 66; RESP 18; TEMP 36.9; O2SAT 95
== END 2020-02-19 15:08 | disposition home or self-care (01) | DRG 331 ==
LOC: ACINP 09:50 → MS3 15:00
PROVIDERS: Anesthesiology; Admitting Provider Surgery; PCP Family Medicine; Referring Provider Surgery; Visit Provider Surgery
PROC: 0DBF4ZZ Excision of Right Large Intestine, Percutaneous Endoscopic Approach (ICD-10-PCS; CPT 44205; principal; 2020-02-18 12:15)
DX: D12.3 Benign neoplasm of transverse colon (principal); Z20.822 Contact with and (suspected) exposure to COVID-19; I25.10 Atherosclerotic heart disease of native coronary artery without angina pectoris; E11.9 Type 2 diabetes mellitus without complications; I10 Essential (primary) hypertension; E78.5 Hyperlipidemia, unspecified; K21.9 Gastro-esophageal reflux disease without esophagitis; F32.9 Major depressive disorder, single episode, unspecified; F41.9 Anxiety disorder, unspecified; F17.210 Nicotine dependence, cigarettes, uncomplicated; E66.9 Obesity, unspecified; Z68.31 Body mass index [BMI] 31.0-31.9, adult; Z79.02 Long term (current) use of antithrombotics/antiplatelets; Z79.82 Long term (current) use of aspirin; Z79.899 Other long term (current) drug therapy; I25.2 Old myocardial infarction; Z95.5 Presence of coronary angioplasty implant and graft
CPT/HCPCS: 36415; 80048; 80076; 82962; 83036; 83735; 85025; 85027; 85610; 85730; 87426; 88307; 93005; 94762; 99251; C9803; J7120; C1760; G0463; J2405

== ENCOUNTER → 2020-07-22 11:02 | Outpatient (CLI) | payer BC, SELFPAY ==
[2020-02-18 14:58] VITALS: BMI 31.3
[2020-07-22 15:21] LABS: AST(SGOT) 39 U/L (15-37); Alanine Aminotransfer ALT/SGPT 33 U/L (16-61); Albumin, Serum 3.8 g/dL (3.2-5.0); Alkaline Phosphatase 58 U/L (45-117); Cholesterol 195 mg/dL (200); Globulin 3.8 g/dL (2.2-4.2); High Density Lipoprotein 29 mg/dL; Protein, Total 7.6 g/dL (6.4-8.2); Triglycerides 302 mg/dL; Very Low Density Lipoprotein 60 mg/dL (5-40)
== END ==
PROVIDERS: Internal Medicine Cardiovascular Disease; PCP Family Medicine; Referring Provider Family Medicine; Visit Provider Family Medicine
DX: E78.00 Pure hypercholesterolemia, unspecified (principal)
CPT/HCPCS: 36415; 80061; 80076

== ENCOUNTER → 2020-08-07 12:08 | Outpatient (CLI) | payer BC, SELFPAY ==
[2020-07-24 09:23] VITALS: BMI 30.9
--- NOTE | 2020-08-07 12:09 | US_ITS ---
STUDY: SCROTUM ULTRASOUND REASON FOR EXAM: Male, 60 years old. BLOOD IN SEMEN x 3 WEEKS, STATES IT HAS SINCE GONE AWAY. TECHNIQUE: Ultrasound evaluation of the scrotum was performed with color Doppler and static henry-scale imaging. COMPARISON: None. FINDINGS: RIGHT TESTICLE INTRATESTICULAR: There is a normal size of the right testicle. The right testicle measures 4.6 cm x 2.6 cm x 1.8 cm. There is a homogenous echotexture. There is normal arterial and normal venous vascularity. There is a 5 mm x 5 mm x 5 mm cyst in the lateral midportion of the testicle. EXTRATESTICULAR: The epididymis is normal in size. The epididymis head measures 1 cm x 0.7 cm x 1 cm. There is normal vascularity of the epididymis. There is no demonstrated epididymal cystic structure. There is no demonstrated hydrocele. There is no demonstrated varicocele. There is no demonstrated extratesticular mass or cyst. LEFT TESTICLE INTRATESTICULAR: There is a normal size of the left testicle. The left testicle measures 4.6 cm x 2.9 cm x 1.9 cm. There is a homogenous echotexture. There is normal arterial and normal venous vascularity. There is no demonstrated left testicular mass or cyst. EXTRATESTICULAR: The epididymis is normal in size. The epididymis head measures 0.6 cm x 0.7 cm x 0.8 cm. There is normal vascularity of the epididymis. There is no demonstrated epididymal cystic structure. There is no demonstrated hydrocele. There is no demonstrated varicocele. There is no demonstrated extratesticular mass or cyst. US/Testicular with Arterial Flow IMPRESSION: There is a 5 mm x 5 mm x 5 mm cyst in the right testicle. Electronically Signed: Franky Milian MD at 15:17 EDT , Service support ,
== END ==
PROVIDERS: PCP Family Medicine; Referring Provider Family Medicine; Visit Provider Family Medicine
DX: R36.1 Hematospermia (principal)
CPT/HCPCS: 76870; 93976

== ENCOUNTER → 2020-08-28 11:31 | Outpatient (CLI) | payer BC, SELFPAY ==
[2020-07-24 09:23] VITALS: BMI 30.9
[2020-08-28 13:17] LABS: PSA,Total- Diagnostic 0.47 ng/mL (0.0-4.0)
== END ==
PROVIDERS: PCP Family Medicine; Visit Provider Nurse Practitioner Adult Health
DX: R36.1 Hematospermia (principal)
CPT/HCPCS: 36415; 84153

== ENCOUNTER → 2020-12-25 08:44 | Outpatient (CLI) | payer BC, SELFPAY ==
[2020-12-25 10:23] LABS: Anion Gap 8 (5-15); BUN 13 mg/dL (7-18); BUN/Creat Ratio 14.8 RATIO (10-20); Calcium,Total 9.1 mg/dL (8.5-10.1); Chloride 103 mmol/L (98-107); Cholesterol 146 mg/dL (200); Creatinine, Serum 0.88 mg/dL (0.70-1.30); EST Glomerular Filtration Rate 94 mL/min (>60); Est Glom Filt Rate - Afr Amer 114 mL/min (>60); Glucose 142 mg/dL (74-106); High Density Lipoprotein 43 mg/dL; Potassium 4.1 mmol/L (3.5-5.1); Sodium Level 137 mmol/L (136-145); Triglycerides 110 mg/dL; Very Low Density Lipoprotein 22 mg/dL (5-40)
== END ==
PROVIDERS: PCP Family Medicine; Referring Provider Family Medicine; Visit Provider Family Medicine
DX: E11.9 Type 2 diabetes mellitus without complications (principal)
CPT/HCPCS: 36415; 80048; 80061

== ENCOUNTER → 2022-02-12 | Outpatient (CLI) | payer BC, SELFPAY ==
--- NOTE | 2022-02-12 08:15 | CT_ITS ---
STUDY: LOW DOSE CT LUNG CANCER SCREENING REASON FOR EXAM: Male, 61 years old. Z87.891. Current smoker. One pack per day for 45 years. RADIATION DOSAGE (If Supplied By Facility): CTDIvol = ( 4.02 ) mGy, DLP = ( 154.51 ) mGycm TECHNIQUE: No contrast was administered. Low dose technique was utilized (average mAS-38 and kVp 120). 1.25 mm axial source images with a slice interval of 1.25-mm were reconstructed in lung windows. 2.5 mm axial source images with a slice interval of 2.5-mm were reconstructed in lung windows. 5.0 mm axial source images with a slice interval of 5.0-mm were reconstructed in soft tissue windows. COMPARISON: None. NODULES: No suspicious nodules are seen. Emphysema: Increased linear markings in the anterior medial aspect of the right middle lobe suggestive of scarring. Endobronchial lesion: Unremarkable Aorta: Atherosclerotic plaque formation of the aortic arch. CORONARY ARTERIES: Coronary artery calcification is seen. Heart: Unremarkable Pulmonary artery: Unremarkable Mediastinal nodes: Small benign-appearing mediastinal lymph nodes. Other chest and abdominal findings: CT/Low Dose CT Lung Screening IMPRESSION: Lung-RADS category 2 - Continue annual screening with LDCT in 12 months. IMPORTANT NOTES FOR USE: ACR Lung-RADS Version 1.1 Assessment Categories Release Date: 2018 Category: Coded 0-4 bases on nodule(s) with highest degree of suspicion. Negative screen is defined as categories 1 and 2; a positive screen is defined as categories 3 and 4. Category 3 and 4A nodules that are unchanged on interval CT should be coded as category 2, and individuals returned to screening in 12 months. Category 4X: Category 3 or 4 nodules with additional imaging findings that increase the suspicion of lung cancer, such as spiculation, GGN that doubles in size in 1 year, enlarged lymph notes, etc. Category Modifiers: S (significant finding unrelated to lung cancer) Electronically Signed: Franky Milian MD at 12:48 EST ,
== END | disposition home or self-care (01) ==
PROVIDERS: PCP Family Medicine; Visit Provider Internal Medicine Pulmonary Disease
DX: Z12.2 Encounter for screening for malignant neoplasm of respiratory organs (principal); I70.0 Atherosclerosis of aorta; I25.10 Atherosclerotic heart disease of native coronary artery without angina pectoris; R91.8 Other nonspecific abnormal finding of lung field; Z87.891 Personal history of nicotine dependence
CPT/HCPCS: 71271

== ENCOUNTER → 2022-05-06 | Outpatient (CLI) | payer BC, SELFPAY ==
[2022-05-06 15:26] LABS: Absolute Lymphocyte Count 2.32 X10^3/uL (0.83-4.51); Absolute Neutrophil Count 6.4 X10^3/uL (2.0-7.7); Basophil# 0.08 X10^3/uL; Basophil% 0.8 % (0-1); Eosinophil# 0.22 X10^3/uL; Eosinophils% 2.3 % (0-5); Hematocrit 48.1 % (40-54); Hemoglobin 15.9 g/dL (13.0-16.5); Lymphocyte # 2.32 X10^3/ul (0.83-4.51); Lymphocyte % 24.5 % (19-41); Mean Corp Hgb Conc 33.1 g/dL (32-36); Mean Corpuscular Volume 90.8 fL (80-94); Monocyte# 0.42 X10^3/uL; Monocyte% 4.4 % (0-10); NRBC Flagged by Analyzer 0 % (0-5); Neutrophil # 6.41 X10^3/uL (2.7-7.7); Neutrophil % 67.8 % (47-70); Platelet Count 207 K/mm3 (150-450); RBC Distribution Width CV 14.1 % (11.6-14.6); RBC Distribution Width SD 47.6 fl (35.1-43.9); White Blood Count 9.5 K/mm3 (4.4-11.0)
[2022-05-06 19:07] LABS: Anion Gap 8 (5-15); BUN 12 mg/dL (7-18); BUN/Creat Ratio 14.1 RATIO (10-20); Calcium,Total 9.3 mg/dL (8.5-10.1); Chloride 104 mmol/L (98-107); Creatinine, Serum 0.85 mg/dL (0.70-1.30); EST Glomerular Filtration Rate 97 mL/min (>60); Est Glom Filt Rate - Afr Amer 118 mL/min (>60); Glucose 199 mg/dL (74-106); Potassium 4.3 mmol/L (3.5-5.1); Sodium Level 137 mmol/L (136-145); Thyroid Stim Hormone (TSH) 1.37 uIU/mL (0.358-3.74)
== END | disposition home or self-care (01) ==
LOC: MFPLAB 11:21
PROVIDERS: PCP Family Medicine; Referring Provider Family Medicine; Visit Provider Family Medicine
DX: I10 Essential (primary) hypertension (principal); R53.83 Other fatigue; E78.5 Hyperlipidemia, unspecified
CPT/HCPCS: 36415; 80048; 84403; 84443; 85025

== ENCOUNTER → 2022-06-03 | Outpatient (CLI) | payer BC, SELFPAY | END | disposition home or self-care (01) | PROVIDERS: PCP Family Medicine; Referring Provider Family Medicine; Visit Provider Family Medicine | DX: L02.612 Cutaneous abscess of left foot (principal) | CPT/HCPCS: 87070; 87077; 87186; 87205 ==

== ENCOUNTER → 2022-09-02 | Outpatient (CLI) | payer BC, SELFPAY ==
[2022-09-02 12:07] LABS: Absolute Lymphocyte Count 1.92 X10^3/uL (0.83-4.51); Basophil# 0.09 X10^3/uL; Basophil% 0.9 % (0-1); Eosinophil# 0.12 X10^3/uL; Eosinophils% 1.1 % (0-5); Hematocrit 53.9 % (40-54); Hemoglobin 18.1 g/dL (13.0-16.5); Lymphocyte # 1.92 X10^3/ul (0.83-4.51); Lymphocyte % 18.2 % (19-41); Mean Corp Hgb Conc 33.6 g/dL (32-36); Mean Corpuscular Hgb 30.3 pg (27.0-32.0); Mean Corpuscular Volume 90.3 fL (80-94); Mean Platelet Vol. 10.5 fl (6.2-12.0); Monocyte# 0.43 X10^3/uL; Monocyte% 4.1 % (0-10); NRBC Flagged by Analyzer 0 % (0-5); Neutrophil # 7.96 X10^3/uL (2.7-7.7); Neutrophil % 75.4 % (47-70); Platelet Count 222 K/mm3 (150-450); RBC Distribution Width CV 13.2 % (11.6-14.6); RBC Distribution Width SD 44.2 fl (35.1-43.9); Red Blood Count 5.97 M/mm3 (4.6-6.2); White Blood Count 10.6 K/mm3 (4.4-11.0)
[2022-09-02 12:32] LABS: Anion Gap 9 (5-15); BUN 12 mg/dL (7-18); BUN/Creat Ratio 12.7 RATIO (10-20); Calcium,Total 9.2 mg/dL (8.5-10.1); Chloride 102 mmol/L (98-107); Creatinine, Serum 0.94 mg/dL (0.70-1.30); EST Glomerular Filtration Rate 86 mL/min (>60); Est Glom Filt Rate - Afr Amer 104 mL/min (>60); Glucose 211 mg/dL (74-106); PSA,Total - Annual Screen 0.78 ng/mL (0.00-4.00); Potassium 4.5 mmol/L (3.5-5.1); Sodium Level 135 mmol/L (136-145)
[2022-09-03 09:58] LABS: Pathologist Review Reviewed
== END | disposition home or self-care (01) ==
LOC: MFPLAB 10:01
PROVIDERS: PCP Family Medicine; Visit Provider Family Medicine
DX: E29.1 Testicular hypofunction (principal)
CPT/HCPCS: 36415; 80048; 84153; 84403; 85025; G0103

== ENCOUNTER → 2022-09-17 | Outpatient (CLI) | payer BC, SELFPAY ==
[2022-09-17 11:13] LABS: AST(SGOT) 34 U/L (15-37); Alanine Aminotransfer ALT/SGPT 31 U/L (16-61); Albumin, Serum 3.7 g/dL (3.2-5.0); Alkaline Phosphatase 60 U/L (45-117); Bilirubin, Direct 0.11 mg/dL (0.00-0.30); Cholesterol 141 mg/dL (200); Globulin 3.8 g/dL (2.2-4.2); High Density Lipoprotein 27 mg/dL; Protein, Total 7.5 g/dL (6.4-8.2); Triglycerides 309 mg/dL; Very Low Density Lipoprotein 62 mg/dL (5-40)
== END | disposition home or self-care (01) ==
LOC: LAB 10:20
PROVIDERS: PCP Family Medicine; Referring Provider Nurse Practitioner Family; Visit Provider Nurse Practitioner Family
DX: E78.5 Hyperlipidemia, unspecified (principal); Z95.5 Presence of coronary angioplasty implant and graft
CPT/HCPCS: 36415; 80061; 80076

== ENCOUNTER → 2022-12-02 | Outpatient (CLI) | payer BC, SELFPAY ==
[2022-12-02 12:11] LABS: Absolute Lymphocyte Count 1.93 X10^3/uL (0.83-4.51); Absolute Neutrophil Count 6.9 X10^3/uL (2.0-7.7); Basophil# 0.08 X10^3/uL; Basophil% 0.8 % (0-1); Eosinophil# 0.07 X10^3/uL; Eosinophils% 0.7 % (0-5); Hemoglobin 17.9 g/dL (13.0-16.5); Lymphocyte # 1.93 X10^3/ul (0.83-4.51); Lymphocyte % 20.1 % (19-41); Mean Corp Hgb Conc 32.2 g/dL (32-36); Mean Corpuscular Hgb 29.5 pg (27.0-32.0); Mean Corpuscular Volume 91.7 fL (80-94); Mean Platelet Vol. 11.2 fl (6.2-12.0); Monocyte# 0.54 X10^3/uL; Monocyte% 5.6 % (0-10); NRBC Flagged by Analyzer 0 % (0-5); Neutrophil # 6.94 X10^3/uL (2.7-7.7); Neutrophil % 72.4 % (47-70); Platelet Count 191 K/mm3 (150-450); RBC Distribution Width CV 14.1 % (11.6-14.6); RBC Distribution Width SD 47.5 fl (35.1-43.9); Red Blood Count 6.06 M/mm3 (4.6-6.2); White Blood Count 9.6 K/mm3 (4.4-11.0)
[2022-12-02 12:46] LABS: Hematocrit 55.6 % (40-54)
== END | disposition home or self-care (01) ==
LOC: MFPLAB 10:34
PROVIDERS: PCP Family Medicine; Visit Provider Family Medicine
DX: E29.1 Testicular hypofunction (principal)
CPT/HCPCS: 36415; 84403; 85025

== ENCOUNTER 2023-02-20 21:27 | Emergency (ER) | payer BC, SELFPAY ==
[2023-02-20 21:28] VITALS: BP 123/82; PULSE 78; RESP 15; TEMP 36.6; O2SAT 95
--- NOTE | 2023-02-20 21:55 | EKG12_ITS ---
Test Reason : COUGHING Blood Pressure : / mmHG Vent. Rate : 074 BPM Atrial Rate : 074 BPM P-R Int : 140 ms QRS Dur : 090 ms QT Int : 390 ms P-R-T Axes : 042 057 062 degrees QTc Int : 432 ms Normal sinus rhythm Normal ECG Confirmed by POPPY RUSSO, NIKKI ([id number]), supervising film or videotape editor JOVANNA TSAI ([id number]) on 02/21/2023 9:37:57 AM Referred By: Confirmed By:NIKKI MCWILLIAMS MD
--- NOTE | 2023-02-20 22:05 | EDS_ITS ---
HPI History of Present Illness Chief Complaint: Seizure Informant: patient, spouse/S.O. and family Narrative Narrative: Patient brought by significant other out of concern for possible seizure tonight. Patient does not have a history of seizures. He has had a nonproductive cough for the past 2 weeks and does not feel like it is getting better. No fevers or chills. No GI symptoms. No edema in his legs or orthopnea. No chest pain. He initially states he has not been dyspneic but then later admits that he has been wheezing quite a bit. He has a history of coronary disease, and yet he continues to smoke. Apparently this event tonight, he was in the middle of a coughing fit, he was sitting/lying in his recliner, and he suddenly lost consciousness and his eyes rolled back in his head maybe to the right, his arms were up in the air and shaking. This went on for 30 seconds to a minute, and subsequently he came back around within 1 or 2 minutes. No postictal period. No history of seizures. No recent head trauma. [facility] Medical History Alcohol abuse Anxiety and depression Atherosclerotic heart disease of [place] coronary artery without angina pectoris Erectile dysfunction Essential (primary) hypertension History of ST elevation myocardial infarction (STEMI) (05/28/12) HLD (hyperlipidemia) Marijuana smoker Nicotine dependence Obesity Obstructive sleep apnea Home Medications aspirin 81 mg tablet,delayed release (Adult Low Dose Aspirin) 81 mg PO QDAY BL OOD THINNER 01/14/17 [History Last Taken Unknown] clonazepam 0.5 mg tablet 0.5 mg PO QHS PRN Anxiety #30 tabs 07/25/18 [History Last Taken Unknown] clopidogrel 75 mg tablet See Rx Instructions .Route .COMPLEX #90 TABLETS 01/05/21 [Rx Last Taken Unknown] aripiprazole 5 mg tablet 10 mg PO DAILY DEPRESSION 07/23/21 [History Last Taken Unknown] metoprolol tartrate 25 mg tablet 25 mg PO BID BP #180 tabs 03/04/22 [Rx Last Taken Unknown] nitroglycerin 0.4 mg sublingual tablet 0.4 mg sublingual Q5-15M PRN chest pain #25 tabs 07/29/22 [Rx Last Taken Unknown] glimepiride 1 mg tablet 1 mg PO DAILY 09/17/22 [History Last Taken Unknown] hydroxyzine HCl 50 mg tablet 50 mg PO QHS PRN 09/17/22 [History Last Taken Unknown] metformin 1,000 mg tablet 1,000 mg PO BID 09/17/22 [History Last Taken Unknown] venlafaxine 150 mg capsule,extended release 24 hr 150 mg PO DAILY 09/17/22 [History Last Taken Unknown] venlafaxine 75 mg capsule,extended release 24 hr 75 mg PO DAILY 09/17/22 [History Last Taken Unknown] tadalafil 10 mg tablet (Cialis) 10 mg PO DAILY PRN sexual activity #30 tabs 10/19/22 [Rx Last Taken Unknown] atorvastatin 80 mg tablet 80 mg PO QHS CHOLESTEROL #90 tabs 12/16/22 [Rx Last Taken Unknown] fenofibrate nanocrystallized 145 mg tablet 145 mg PO QDAY CHOLESTEROL #90 tabs 01/06/23 [Rx Last Taken Unknown] albuterol sulfate 90 mcg/actuation aerosol inhaler (Ventolin HFA) 1 - 2 puff inhalation Q4H PRN PRN Wheezing ##1 02/20/23 [Rx Last Taken Unknown] azithromycin 250 mg tablet 250 mg PO DAILY #6 TABLETS 02/20/23 [Rx Last Taken Unknown] prednisone 20 mg tablet 40 mg (2 x 20 mg) PO DAILY #10 TABLETS 02/20/23 [Rx Last Taken Unknown] Allergy/AdvReac Type Severity Reaction Status Date / Time No Known Allergies Allergy Verified 02/20/23 21:32 Family History Father CAD (coronary artery disease) Myocardial infarction, Onset Age: 73 Mother Cancer Surgical History History of coronary artery stent placement (05/28/12) History of partial colectomy (02/2020) Social History Smoking Status: Current every day smoker tobacco type: cigarettes alcohol intake: current alcohol intake frequency: 3 or more drinks per day Alcohol type: beer substance use type: marijuana caffeine: Yes Type: coffee Number of servings: 1 what type of physical activity do you participate in: none seatbelt use: always do you feel safe at home: Yes ROS ROS ED Constitutional Constitutional ED: Reports fever(s) and subjective; Denies chills Eyes Eyes: Denies change in vision or diplopia ENT ENT ED: Denies rhinorrhea or sore throat Cardiovascular Cardiovascular: Reports other Details: Mild chronic edema both legs no different/worse ; Denies chest pain, orthopnea or palpitations Respiratory/Chest Respiratory/Chest: Reports cough and wheezing; Denies orthopnea Gastrointestinal Gastrointestinal: Denies abdominal pain, diarrhea, nausea or vomiting Genitourinary Genitourinary ED: Denies dysuria or hematuria Musculoskeletal Musculoskeletal: Denies back pain or neck pain Integumentary Denies abscess or rash Neurologic Neurologic: Denies headache(s), paresthesias or weakness Psychiatric Psychiatric: Denies anxiety or suicidal thoughts EXAM Physical Exam Const Vital Signs: 02/20/23 21:28 02/20/23 22:24 Temperature 97.9 F Temperature Source Temporal Pulse Rate 78 74 Respiratory Rate 15 20 H Respiratory Pattern Tachypnea Blood Pressure 123/82 H Blood Pressure Mean 95 Pulse Ox 95 Oxygen Delivery Method Room Air Positive well nourished and well developed General Appearance ED: well developed and NAD HEENT Reports moist mucous membranes normocephalic and atraumatic Eyes PERRL and EOMs intact bilaterally Neck full ROM and supple Resp normal respiratory effort Resp Narrative: Diffuse expiratory wheezes mild, no rales or rhonchi. No respiratory distress speaking full sentences. Cardio regular rate, regular rhythm and no murmurs GI non-tender and non-distended Auscultation: normoactive bowel sounds Palpation: soft Back/Spine no CVA tenderness General Back: other FROM Extremity normal to inspection General Extremety ED: Yes edema; Negative for pulses abnormal or tenderness General Extremity: edema bilateral lower extremity Details: mild; Negative for pulses abnormal Neuro oriented x3, CN's II-XII intact bilaterally and no sensory deficits noted Sensorium / Orientation: awake and alert Motor Exam: strength 5/5 throughout Psych mental status grossly normal Skin no rashes or lesions noted and no wounds MDM MDM MDM Narrative Medical decision making narrative: There is no evidence of a tongue laceration or abrasion, the patient was not incontinent of urine, and there was no postictal period. I suspect this was a syncopal episode, most likely vasovagal due to bronchospasm. Given his history, I did perform some blood counts and cardiac workup. That, and given his persistent cough, a 2 view chest x-ray, which on my interpretation shows no acute pneumonia or pneumothorax. Radiology in agreement. The rest of his workup is unremarkable including his EKG. He was given a duo nebulizer treatment and felt like he was breathing much better afterwards. He does not have a documented history of COPD and he confirms he has never done pulmonary function testing, but the states he does not have an inhaler but he is supposed to have 1 for unknown reason at this time. Certainly it is possible that he has COPD if he has a longstanding history of smoking and has been wheezing for 2 weeks with this illness. Given the possibility of atypicals since he is not improving after 2 weeks I think it would be reasonable to cover him with a Z-Adan as well as a course of prednisone. I think that the syncopal episode was likely vasovagal due to bronchospasm and he was reassured and given appropriate discharge instructions regarding this and advised to follow-up with his doctor. He and are comfortable with that plan. Lab Data Attestation: I reviewed the patient's lab results. Labs: Laboratory Results - last 24 hr 02/20/23 21:50 WBC 10.0 RBC 6.00 Hgb 17.8 H Hct 52.7 MCV 87.8 MCH 29.7 MCHC 33.8 RDW Std Deviation 45.9 H RDW Coeff of [place] 14.2 Plt Count 209 MPV 10.3 Immature Gran % (Auto) 0.500 Neut % (Auto) 67.1 Lymph % (Auto) 24.8 Carlton % (Auto) 5.7 Eos % (Auto) 1.3 Baso % (Auto) 0.6 Absolute Neuts (auto) 6.7 Absolute Lymphs (auto) 2.49 Nucleated RBC % 0 Sodium 136 Potassium 3.9 Chloride 99 Carbon Dioxide 22.0 Anion Gap 15 BUN 11 Creatinine 1.06 Est GFR (MDRD) Af Amer 91 Est GFR (MDRD) Non-Af 75 BUN/Creatinine Ratio 10.4 Glucose 199 H Calcium 9.1 Troponin I High Sens 21 Radiography Diagnostic Testing: Clinical Impression(s) from Imaging Studies Chest X-Ray 02/20/23 22:08 IMPRESSION: No acute cardiopulmonary disease. Electronically Signed: Leena Lechuga MD at 22:23 EST , Rhythm Strip Rhythm Strip: Sinus Rhythm Rate: 75 Ectopy: None EKG Initial EKG: Attestation: I personally reviewed and interpreted this EKG as follows: Interpretation: Sinus Rhythm and No Acute Injury Pattern Prior EKG tracings: available for review Prior: Unchanged Discharge Plan Triage Chief Complaint: Seizure ED Provider: Harris Mendes Dx/Rx/DC Orders Clinical Impression: Acute bronchitis with bronchospasm, Vasovagal syncope Instructions: Acute Bronchitis Prescriptions: New azithromycin [azithromycin] 250 mg tablet 250 mg PO DAILY Qty: 6 0RF Rx Instructions: double dose on day #1 prednisone 20 mg tablet 40 mg PO DAILY Qty: 10 0RF albuterol sulfate [Ventolin HFA] 90 mcg/actuation HFA aerosol inhaler 1 - 2 puff inhalation Q4H PRN PRN (Reason: Wheezing) Qty: 1 0RF Continued clonazepam 0.5 mg tablet 0.5 mg PO QHS PRN (Reason: Anxiety) Qty: 30 aripiprazole 5 mg tablet 10 mg PO DAILY venlafaxine 75 mg capsule,extended release 24hr 75 mg PO DAILY Rx Instructions: Take with 150 mg tablet to = 225 mg daily venlafaxine 150 mg capsule,extended release 24hr 150 mg PO DAILY Rx Instructions: Take with 75 mg tablet to = 225 mg daily glimepiride 1 mg tablet 1 mg PO DAILY metformin 1,000 mg tablet 1,000 mg PO BID aspirin [Adult Low Dose Aspirin] 81 mg tablet,delayed release (DR/EC) 81 mg PO QDAY clopidogrel 75 mg tablet See Rx Instructions .ROUTE .COMPLEX Qty: 90 4RF Dose Instruction: Take 1 tablet by mouth once daily Rx Instructions: Take 1 tablet by mouth once daily metoprolol tartrate 25 mg tablet 25 mg PO BID Qty: 180 3RF nitroglycerin 0.4 mg tablet, sublingual 0.4 mg sublingual Q5-15M PRN (Reason: chest pain) Qty: 25 1RF Rx Instructions: do not exceed 3 doses per episode tadalafil [Cialis] 10 mg tablet 10 mg PO DAILY PRN (Reason: sexual activity) Qty: 30 2RF Rx Instructions: administer approximately 30min before sexual activity; do not use more than 1 dose per 24hrs atorvastatin 80 mg tablet 80 mg PO QHS Qty: 90 3RF fenofibrate nanocrystallized 145 mg tablet 145 mg PO QDAY Qty: 90 3RF Held hydroxyzine HCl 50 mg tablet 50 mg PO QHS PRN Hold Instructions: Resume on 03/03/23. Primary Care Provider: Boaz Russell Referrals: Boaz Russell MD [Primary Care Provider] - 1 Week Disposition Disposition: Home, Self Care
--- NOTE | 2023-02-20 22:08 | RAD_ITS ---
STUDY: X-RAY CHEST REASON FOR EXAM: Male, 62 years old. cough sob TECHNIQUE: PA and lateral views of the chest. COMPARISON: 06/04/2018. FINDINGS: The lungs are clear and expanded. There is no demonstrated pleural abnormality. Normal size heart. Normal mediastinum and sherif. Normal visualized pulmonary arteries. Normal visualized aortic arch and descending thoracic aorta. Normal visualized thoracic spine. There is degenerative osteoarthritis of the bilateral shoulders. There is no demonstrated abnormality of the visualized soft tissue structures of the upper abdomen. RAD/Chest PA and Lateral IMPRESSION: No acute cardiopulmonary disease. Electronically Signed: Leena Lechuga MD at 22:23 [facility] ,
[2023-02-20 22:09] LABS: Absolute Lymphocyte Count 2.49 X10^3/uL (0.83-4.51); Absolute Neutrophil Count 6.7 X10^3/uL (2.0-7.7); Basophil# 0.06 X10^3/uL; Basophil% 0.6 % (0-1); Eosinophil# 0.13 X10^3/uL; Eosinophils% 1.3 % (0-5); Hematocrit 52.7 % (40-54); Hemoglobin 17.8 g/dL (13.0-16.5); Lymphocyte # 2.49 X10^3/ul (0.83-4.51); Lymphocyte % 24.8 % (19-41); Mean Corp Hgb Conc 33.8 g/dL (32-36); Mean Corpuscular Hgb 29.7 pg (27.0-32.0); Mean Corpuscular Volume 87.8 fL (80-94); Mean Platelet Vol. 10.3 fl (6.2-12.0); Monocyte# 0.57 X10^3/uL; Monocyte% 5.7 % (0-10); NRBC Flagged by Analyzer 0 % (0-5); Neutrophil # 6.73 X10^3/uL (2.7-7.7); Neutrophil % 67.1 % (47-70); Platelet Count 209 K/mm3 (150-450); RBC Distribution Width CV 14.2 % (11.6-14.6); RBC Distribution Width SD 45.9 fl (35.1-43.9)
--- OUTSIDE RECORDS SUMMARY | 2023-02-20 22:18 | XMS RPT_ITS | CCD ---
Author Name Unknown Address [address] [place] [address] Organization [facility] Care Team Providers Care Agency Appointments Supervisor Name Role Phone Harriet Herr RN Unavailable Unavailable Danae Colbert Unavailable Danae Colbert Unavailable EFREN Marquez, Vanesa Caldwell Unavailable [phone] Harriet Herr RN Unavailable Unavailable Venice Kessler Unavailable Unavailable Rj, Harriet A Unavailable Unavailable Rj Harriet A Unavailable Unavailable Gregg Luo Y Unavailable Unavailable Boaz Gates Primary Care Provider [phone] CRISTINA ROLDAN Attending UnavailBOAZ Duncan Primary Care Unavailable Boaz Gates MD Primary Care Provider BOAZ GATES Primary Care Unavailable UMER KENT Attending Unavailable Medications Current Medications Medication Drug Class(es) Dates Sig (Normalized) Sig (Original) ARIPiprazole 5 mg oral tablet (2 sources) Atypical Antipsychotic take 1 tablet by mouth once daily ARIPiprazole (ABILIFY) 5 MG tablet Take 5 mg by mouth daily . 0 Active clonazePAM 0.5 mg oral tablet (2 sources) Benzodiazepine take 1 tablet by mouth twice daily as needed for anxiety clonazePAM (KLONOPIN) 0.5 MG tablet Take 0.5 mg by mouth 2 (two) times a day as needed for anxiety . 0 Active meclizine hydrochloride 25 mg oral tablet (2 sources) Antiemetic take 1 tablet by mouth three times daily as needed for nausea meclizine (ANTIVERT) 25 mg tablet Take 25 mg by mouth 3 (three) times a day as needed for nausea . 0 Active metFORMIN hydrochloride 1000 mg oral tablet (2 sources) Biguanide take 1 tablet by mouth twice daily at mealtime metFORMIN (GLUCOPHAGE) 1000 MG tablet Take 1,000 mg by mouth 2 (two) times a day with meals . 0 Active sertraline 50 mg oral tablet (2 sources) Serotonin Reuptake Inhibitor take 1 tablet by mouth once daily sertraline (ZOLOFT) 50 MG tablet Take 50 mg by mouth daily . 0 Active Completed/Discontinued Medications Medication Drug Class(es) Dates Sig (Normalized) Sig (Original) aspirin 81 mg oral tablet (14 sources) Nonsteroidal Anti-inflammatory Drug Start: 06-21-2012 take 1 tablet by mouth once daily ASPIRIN 81 MG TABS One tablet by mouth daily ASPIRIN [id number] Harriet Herr RN Problems Active Problems Problem Classification Problem Date Documented Da te Episodic/Chronic Acute myocardial infarction (6 sources) Acute myocardial infarction; Translations: [Subsequent ST elevation (STEMI) myocardial infarction of unspecified site] Onset: 06-21-2012 06-21-2012 Chronic Coronary atherosclerosis and other heart disease (18 sources) Old myocardial infarction; Translations: [Atherosclerotic heart disease of [place] coronary artery without angina pectoris] Onset: 06-21-2012 07-09-2015 Chronic Disorders of lipid metabolism (6 sources) Hyperlipidemia; Translations: [Hyperlipidemia, unspecified] Onset: 06-21-2012 06-21-2012 Chronic Essential hypertension (6 sources) Hypertensive disorder; Translations: [Essential (primary) hypertension] Onset: 01-20-2016 01-20-2016 Chronic External cause codes: Natural/environment (1 source) Exposure to other specified factors, initial encounter; Translations: [Exposure to external factor as cause of accidental injury on farm as place of occurrence, initial encounter] Other connective tissue disease (1 source) Pain in right forearm; Translations: [Right forearm pain] Episodic Other injuries and conditions due to external causes (1 source) Injury caused by animal; Translations: [Injury caused by animal, initial encounter] Episodic Other lower respiratory disease (1 source) Habitual snoring; Translations: [Snoring] Episodic Other non-traumatic joint disorders (1 source) Pain in elbow; Translations: [Elbow pain, unspecified laterality] Episodic Other non-traumatic joint disorders (1 source) Pain of right wrist; Translations: [Right wrist pain] Other nutritional; endocrine; and metabolic disorders (6 sources) Body mass index (BMI) 32.0-32.9, adult; Translations: [Body mass index (BMI) 32.0-32.9, adult] Onset: 01-22-2015 01-22-2015 Chronic Screening or history of mental health and substance abuse (6 sources) Tobacco dependence syndrome; Translations: [Nicotine dependence, unspecified, uncomplicated] Onset: 06-21-2012 06-21-2012 Chronic Unclassified (5 sources) Percutaneous transluminal coronary angioplasty ; Translations: [Coronary angioplasty status] Onset: 06-21-2012 06-21-2012 Unclassified (2 sources) Long-term drug therapy; Translations: [Long-term (current) use of other medications] Onset: 09-19-2012 09-19-2012 Unclassified (1 source) Salvatore's sign; Translations: [Abrasions and calluses on knuckles due to self-induced vomiting] Past or Other Problems Problem Classification Problem Date Documented Da te Episodic/Chronic Other aftercare (10 sources) Long-term (current) use of other medications; Translations: [Other fpc (current) drug therapy] Onset: 09-19-2012 09-19-2012 Episodic Results Test Name Value Interpretation Reference Range Facil ity Vital Signs Date Time Vital Sign Value Performing Clinician Facility 04-26-2020 18:41-0400 BMI (Body Mass Index) 32.49 kg/m2 [facility] 04-26-2020 18:41-0400 Body Temperature 98.29 [degF] [facility] 04-26-2020 18:41-0400 Body weight 99.79 kg [facility] 04-26-2020 18:41-0400 BP Diastolic 86 mm[Hg] [facility] 04-26-2020 18:41-0400 BP Systolic 126 mm[Hg] [facility] 04-26-2020 18:41-0400 Height 175.3 cm [facility] 04-26-2020 18:41-0400 Pulse (Heart Rate) 70 /min [facility] 04-26-2020 18:41-0400 Pulse Oximetry 97 % [facility] 04-26-2020 18:41-0400 Respiratory Rate 18 /min [facility] 07-08-2016 09:10-0400 BMI (Body Mass Index) 32.11 kg/m2 Danae Colbert [facility] Work Phone: 07-08-2016 09:10-0400 BP Diastolic 76 mm[Hg] [facility] Work Phone: 07-08-2016 09:10-0400 BP Systolic 130 mm[Hg] [facility] Work Phone: 07-08-2016 09:10-0400 Height 177.8 cm [facility] Work Phone: 07-08-2016 09:10-0400 Pulse (Heart Rate) 68 /min [facility] Work Phone: 07-08-2016 09:10-0400 Respiratory Rate 18 /min [facility] Work Phone: 07-08-2016 09:10-0400 Weight 101.52 kg [facility] Work Phone: 02-03-2016 08:41-0500 BP Diastolic 82 mm[Hg] Harriet Herr RN [facility] Work Phone: 02-03-2016 08:41-0500 BP Systolic 112 mm[Hg] Harriet Herr RN [facility] Work Phone: 02-03-2016 08:41-0500 Pulse (Heart Rate) 72 /min Harriet Herr RN [facility] Work Phone: 02-03-2016 08:41-0500 Respiratory Rate 20 /min Harriet Herr RN [facility] Work Phone: 01-20-2016 09:32-0500 BMI (Body Mass Index) 32.42 kg/m2 Harriet Herr RN [facility] Work Phone: 01-20-2016 09:32-0500 BSA (Body Surface Area) 2.2 m2 Harriet Herr RN [facility] Work Phone: 01-20-2016 09:32-0500 Weight 102.51 kg Harriet Herr RN [facility] Work Phone: 01-22-2015 10:16-0500 Heart rate 69 /min Gregg Lou [facility] Work Phone: 06-28-2012 10:50-0400 Height 177.8 cm Harriet Herr RN [facility] Work Phone: Encounters Encounter Date Encounter Type Care Provider Facility Start: 04-06-2022 Transcribe Orders Marv Britt MD Work Phone: [facility] Sleep Medicine Procedures Date Procedure Procedure Detail Performing Clinician Start: 04-26-2020 Radex forearm 2 views Cristina Roldan Work Phone: Start: 04-26-2020 Radex wrist complete minimum 3 views Cristina Roldan Work Phone: Start: 03-16-2017 End: 03-16-2017 *Hepatic Function Panel Vanesa Marquez PA-C Work Phone: Start: 03-16-2017 End: 03-16-2017 Lipid panel [AGGREGATE] Vanesa Marquez PA-C Work Phone: Start: 08-03-2016 End: 09-16-2016 *Hepatic Function Panel Vanesa Marquez PA-C Work Phone: Start: 08-03-2016 End: 09-16-2016 Lipid panel [AGGREGATE] Vanesa Marquez PA-C Work Phone: Start: 07-08-2016 End: 01-12-2017 Follow Up Appt 6 months Javi Perales Start: 07-08-2016 End: 01-12-2017 MMJavi Sequeira MD Start: 07-08-2016 End: 09-10-2016 Nuclear stress test -exercise Kike Sequeira MD Start: 02-03-2016 End: 02-03-2016 Follow Up BP Check Vanesa Marquez PA-C Work Phone: Start: 01-20-2016 End: 02-03-2016 *BMP Vanesa Marquez PA-C Work Phone: Start: 01-20-2016 End: 02-03-2016 *CBC with Differential MARIA D Murdock-C Work Phone: Start: 01-20-2016 End: 02-03-2016 *Hepatic Function Panel Vanesa Marquez PA-C Work Phone: Start: 01-20-2016 End: 01-20-2016 DOG BARBER MARIA D Murdock-Belen Work Phone: Start: 01-20-2016 End: 01-20-2016 Follow Up Appt 6 months Vanesa Marquez PA-C Work Phone: Start: 01-20-2016 End: 02-03-2016 Lipid panel [AGGREGATE] Vanesa Marquez PA-C Work Phone: Start: 11-17-2015 End: 01-20-2016 *Hepatic Function Panel Vanesa Marquez PA-C Work Phone: Start: 11-17-2015 End: 01-20-2016 Lipid panel [AGGREGATE] Vanesa Marquez PA-C Work Phone: Start: 07-15-2015 End: 07-15-2015 Follow Up Appt 6 months Javi Perales Start: 07-15-2015 End: 07-15-2015 Javi Sequeira MD Start: 01-22-2015 End: 01-22-2015 Dietary management education, guidance, and counseling Gregg Luo Start: 01-22-2015 End: 05-15-2015 *Hepatic Function Panel Vanesa Marquez PA-C Work Phone: Start: 01-22-2015 End: 01-22-2015 DOG BARBER Vanesa Marquez PA-C Work Phone: Start: 01-22-2015 End: 01-22-2015 Follow Up Appt 6 months Vanesa Marquez PA-C Work Phone: Start: 01-22-2015 End: 05-15-2015 Lipid panel [AGGREGATE] Vanesa Marquez PA-C Work Phone: Start: 10-16-2014 End: 01-22-2015 *Hepatic Function Panel Javi Perales Start: 10-16-2014 End: 01-22-2015 Lipid panel [AGGREGATE] Javi Perales Start: 07-11-2014 End: 07-12-2014 Documentation of current medications Kike Sequeira MD Start: 07-11-2014 End: 07-11-2014 Follow Up Appt 6 months Javi Perales Start: 07-11-2014 End: 01-09-2015 MMM Kike Sequeira MD Start: 07-11-2014 End: 07-12-2014 Smoking cessation education Kike Leiva i, MD Start: 12-25-2013 End: 07-10-2014 *Hepatic Function Panel Javi Perales Start: 12-25-2013 End: 07-11-2014 Chest x-ray Kike Sequeira MD Start: 12-25-2013 End: 12-25-2013 DOG BARBER Kike Sequeira MD Start: 12-25-2013 End: 12-25-2013 Electrocardiogram, complete Kike Leiva i, MD Start: 12-25-2013 End: 12-25-2013 Follow Up Appt 6 months Javi Perales Start: 12-25-2013 End: 07-10-2014 Lipid panel [AGGREGATE] Javi Perales Start: 12-08-2012 End: 12-25-2013 *Hepatic Function Panel Javi Perales Start: 12-08-2012 End: 12-25-2013 Lipid panel [AGGREGATE] Jvai Perales Start: 08-15-2012 End: 12-25-2013 Echocardiography Kike Sequeira MD Start: 08-15-2012 End: 08-15-2012 Follow Up Appt 4 months Javi Perales Start: 08-15-2012 End: 08-15-2012 MMM Kike Sequeira MD Start: 06-28-2012 End: 09-19-2012 *Hepatic Function Panel Javi Perales Start: 06-28-2012 End: 06-28-2012 DOG BARBER Kike Sequeira MD Start: 06-28-2012 End: 06-28-2012 Electrocardiogram, complete Kike Leiva i, MD Start: 06-28-2012 End: 06-28-2012 Follow Up Appt 2 months Javi Perales Start: 06-28-2012 End: 09-19-2012 Lipid panel [AGGREGATE] Javi Perales Start: 06-21-2012 Percutaneous transluminal coronary angioplasty PERCUTANEOUS TRANSLUMINAL CORONARY ANGIOPLASTY, HX OF Gregg Luo Plan of Treatment Date Care Activity Detail Author Start: 10-08-2021 Influenza vaccination Sequential Influenza Vaccine (#1) [facility] Start: 10-09-2019 Influenza vaccination given Sequential Influenza Vaccine (#1) [facility] Start: 03-16-2017 End: 03-16-2017 *Hepatic Function Panel *Hepatic Function Panel [facility] Work Phone: Start: 03-16-2017 End: 03-16-2017 Lipid panel [AGGREGATE] *Lipid Profile CC PCP [facility] Work Phone: Start: 01-19-2017 End: 01-19-2017 Appointment Appointment [facility] Work Phone: Start: 08-03-2016 End: 09-16-2016 *Hepatic Function Panel *Hepatic Function Panel [facility] Work Phone: Start: 08-03-2016 End: 09-16-2016 Lipid panel [AGGREGATE] *Lipid Profile CC PCP [facility] Work Phone: Start: 07-08-2016 End: 07-08-2016 Appointment Appointment [facility] Work Phone: Start: 07-08-2016 End: 07-08-2016 *Hepatic Function Panel *Hepatic Function Panel [facility] Work Phone: Start: 07-08-2016 End: 01-12-2017 Follow Up Appt 6 months Follow Up Appt 6 months [facility] Work Phone: Start: 07-08-2016 End: 07-08-2016 Lipid panel [AGGREGATE] *Lipid Profile CC PCP [facility] Work Phone: Start: 07-08-2016 End: 01-12-2017 MMM MMM [facility] Work Phone: Start: 07-08-2016 End: 07-08-2016 Nuclear stress test -exercise Nuclear stress test -exercise [facility] Work Phone: Start: 02-03-2016 End: 02-03-2016 Follow Up BP Check Follow Up BP Check [facility] Work Phone: Start: 01-20-2016 End: 02-03-2016 *BMP *BMP [facility] Work Phone: Start: 01-20-2016 End: 02-03-2016 *CBC with Differential *CBC with Differential [facility] Work Phone: Start: 01-20-2016 End: 02-03-2016 *Hepatic Function Panel *Hepatic Function Panel [facility] Work Phone: Start: 01-20-2016 End: 01-20-2016 DOG BARBER DOG BARBER [facility] Work Phone: Start: 01-20-2016 End: 01-20-2016 Follow Up Appt 6 months Follow Up Appt 6 months [facility] Work Phone: Start: 01-20-2016 End: 02-03-2016 Lipid panel [AGGREGATE] *Lipid Profile CC PCP [facility] Work Phone: Start: 11-17-2015 End: 01-20-2016 *Hepatic Function Panel *Hepatic Function Panel [facility] Work Phone: Start: 11-17-2015 End: 01-20-2016 Lipid panel [AGGREGATE] *Lipid Profile CC PCP [facility] Work Phone: Start: 07-15-2015 End: 07-15-2015 Follow Up Appt 6 months Follow Up Appt 6 months [facility] Work Phone: Start: 07-15-2015 End: 07-15-2015 MMM MMM [facility] Work Phone: Start: 01-22-2015 End: 05-15-2015 *Hepatic Function Panel *Hepatic Function Panel [facility] Work Phone: Start: 01-22-2015 End: 01-22-2015 DOG BARBER DOG BARBER [facility] Work Phone: Start: 01-22-2015 End: 01-22-2015 Follow Up Appt 6 months Follow Up Appt 6 months [facility] Work Phone: Start: 01-22-2015 End: 05-15-2015 Lipid panel [AGGREGATE] *Lipid Profile CC PCP [facility] Work Phone: Start: 10-16-2014 End: 01-22-2015 *Hepatic Function Panel *Hepatic Function Panel [facility] Work Phone: Start: 10-16-2014 End: 01-22-2015 Lipid panel [AGGREGATE] *Lipid Profile CC PCP [facility] Work Phone: Start: 07-11-2014 End: 07-11-2014 Follow Up Appt 6 months Follow Up Appt 6 months [facility] Work Phone: Start: 07-11-2014 End: 01-09-2015 MMM MMM [facility] Work Phone: Start: 12-25-2013 End: 07-10-2014 *Hepatic Function Panel *Hepatic Function Panel [facility] Work Phone: Start: 12-25-2013 End: 07-11-2014 Chest x-ray X-Ray, Chest, PA & Lateral [facility] Work Phone: Start: 12-25-2013 End: 12-25-2013 DOG BARBER DOG BARBER [facility] Work Phone: Start: 12-25-2013 End: 12-25-2013 Electrocardiogram, complete EKG (In office) [facility] Work Phone: Start: 12-25-2013 End: 12-25-2013 Follow Up Appt 6 months Follow Up Appt 6 months [facility] Work Phone: Start: 12-25-2013 End: 07-10-2014 Lipid panel [AGGREGATE] *Lipid Profile CC PCP [facility] Work Phone: Start: 12-08-2012 End: 12-25-2013 *Hepatic Function Panel *Hepatic Function Panel [facility] Work Phone: Start: 12-08-2012 End: 12-25-2013 Lipid panel [AGGREGATE] *Lipid Profile CC PCP [facility] Work Phone: Start: 08-15-2012 End: 08-15-2012 Echocardiography Echocardiogram (complete) [facility] Work Phone: Start: 08-15-2012 End: 08-15-2012 Follow Up Appt 4 months Follow Up Appt 4 months [facility] Work Phone: Start: 08-15-2012 End: 08-15-2012 MMM MMM [facility] Work Phone: Start: 06-28-2012 End: 09-19-2012 *Hepatic Function Panel *Hepatic Function Panel [facility] Work Phone: Start: 06-28-2012 End: 06-28-2012 DOG BARBER DOG BARBER [facility] Work Phone: Start: 06-28-2012 End: 06-28-2012 Electrocardiogram, complete EKG (In office) [facility] Work Phone: Start: 06-28-2012 End: 06-28-2012 Follow Up Appt 2 months Follow Up Appt 2 months [facility] Work Phone: Start: 06-28-2012 End: 09-19-2012 Lipid panel [AGGREGATE] *Lipid Profile CC PCP [facility] Work Phone: Start: 2010 Administration of herpes zoster vaccine Zoster Vaccines (1 of 2) [facility] Start: 2010 Screening for malignant neoplasm of colon [facility] Start: 1978 Hepatitis C antibody, confirmatory test Hepatitis C Screening [facility] Start: 1978 Hepatitis C screening Hepatitis C Screening [facility] Start: 1976 COVID-19 Vaccine (1 of 2) COVID-19 Vaccine (1 of 2) [facility] Start: 05-18-1975 HIV screening HIV Screening [facility] Start: 1972 Adolescent depression screening assessment Depression Screening (PHQ9) [facility] Start: 1972 Depression screening using PHQ-9 (Patient Health Questionnaire 9) score Depression Screening (PHQ-2/9) [facility] Start: 1966 Pneumococcal Vaccine: Ped or At-Risk (1 - PCV) Pneumococcal Vaccine: Ped or At-Risk (1 - PCV) [facility] Start: 05-18-1963 History and physical examination, annual for health maintenance Wellness Visit [facility] Start: 1960 COVID-19 Vaccine (#1) COVID-19 Vaccine (#1) [facility] Start: 1960 Prostate specific antigen measurement PSA Level [facility] Start: 1960 Screening for malignant neoplasm of colon [facility] Start: 1960 Tetanus vaccination Tetanus: Every 10yrs [facility] Patient Education [facility] Work Phone: Payers Date Payer Category Payer Unknown [employer] BC[employer] OUT OF STATE [facility] [id number] 2019-Present [id number] 2019 Unknown [id number] 2016 Unknown 1960 Unknown [id number] 1960 Unknown [id number] Social History Date Type Detail Facility Start: 04-26-2020 Tobacco smoking status ARIS Current every day smoker [facility] Start: 04-26-2020 Tobacco use and exposure Never used [facility] Start: 04-26-2020 End: 03-18-2021 Alcohol intake Current drinker of alcohol (finding) [facility] Start: 04-26-2020 Alcohol Comment occassional [facility] Start: 1960 Sex Assigned At Not on file [facility] Exposure to SARS-CoV -2 (event) Not sure [facility] Evaluation note Note Date & Type Note Facility documented in this encounter [facility] Summary Purpose Family History No Family History Records FoundNo Family History Records FoundNo Family History Records Found Advance Directives No Advanced Directives Records FoundDocuments on File Type Date Recorded 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 * Joint Pain (Namibian) * Musculoskeletal Pain (Namibian) * Abrasions (Namibian) documented in this encounter Assessments Diagnosis Injury caused by animal, initial encounter- Primary Right wrist pain Pain in joint, forearm Right forearm pain Abrasions and calluses on knuckles due to self-induced vomiting Elbow pain, unspecified laterality Exposure to external factor as cause of accidental injury on farm as place of occurrence, initial encounter Reason for Referral Specialty Diagnoses / Procedures Referred By Marina parker Referred To Contact Sleep Medicine Diagnoses Habitual snoring Marv Britt MD [address] [address] U[place] Kent [place] [address] [facility] [address] Referral ID Status Reason Start Date Expiration Date V isits Requested Visits Authorized [id number] Authorized 04/06/2022 04/06/2023 1 1 Additional Source Comments (unrecognized sect ion and content) No Status Records FoundNo Status Records FoundNo Status Records Found INFORMATION SOURCE (unrecogn ized section and content) DATE CREATED AUTHOR AUTHOR'S ORGANIZ ATION 05/03/2020 [facility] DATE CREATED AUTHOR AUTHOR'S ORGANIZ ATION 05/11/2022 [facility] Reason for Visit (unrecogniz ed section and content) Trino Kulkarni RN - 04/26/2020 8:01 PM EDTCristina Roldan MD - 04/26/2020 7:45 PM EDTGTrino choi RN - 04/26/2020 7:22 PM EDFelipe Linton RN - 04/26/2020 6:32 PM EDT ED Notes (unrecognized secti on and content) Discharged with instructions to pt and . Condition stable. [facility] ED Attending Note: ED Site: [facility] EMERGENCY [facility]PARTMENT NAME: Aj Pond 59 y.o. CSN: [id number] PCP: Boaz Gates MD History: Chief Complaint: Arm Injury HPI: The history was obtained from the patient. Aj is a 59 y.o. male who presents with a chief complaint of Arm Injury. Arm Injury Associated symptoms: no fever and no neck pain This is a 59-year-old male, presenting today for evaluation of right upper extremity injury. He was in his usual state of health today, when he was getting a cow hooked up to a milking apparatus. The cow fell through a great, landing on his forearm, and then started kicking to try and regain his footing, striking the patient multiple times in his right upper extremity. He currently has some abrasions and open wounds noted to his forearm, and elbow. He complains of deformity to the forearm and wrist, as well as significant pain at the wrist with limited range of motion. This happened just prior to arrival, he has not taken anything for it. He states that resting it does seem to make it a little bit better. He has no associated numbness or tingling. Patient does not remember when he had his last tetanus shot. PMHx: Past Medical History: Diagnosis Date Anxiety Coronary artery disease Depression Diabetes mellitus (HCC) Hyperlipidemia Hypertension Myocardial infarction (HCC) PMSx: Past Surgical History: Procedure Laterality Date ABDOMINAL SURGERY APPENDECTOMY COLON SURGERY FAM. Hx: History reviewed. No pertinent family history. SOC. Hx: Social History Socioeconomic History Marital status: Spouse name: Not on file Number of children: Not on file Years of education: Not on file Highest education level: Not on file Occupational History Not on file Social Needs Financial resource strain: Not on file Food insecurity Worry: Not on file Inability: Not on file Transportation needs Medical: Not on file Non-medical: Not on file Tobacco Use Smoking status: Current Every Day Smoker Smokeless tobacco: Never Used Substance and Sexual Activity Alcohol use: Yes Comment: occassional Drug use: Never Sexual activity: Not on file Lifestyle Physical activity Days per week: Not on file Minutes per session: Not on file Stress: Not on file Relationships Social connections Talks on phone: Not on file Gets together: Not on file Attends denominational service: Not on file Active member of club or organization: Not on file Attends meetings of clubs or organizations: Not on file Relationship status: Not on file Other Topics Concern Not on file Social History Narrative Not on file MEDs: Previous Medications Medication Sig ARIPiprazole (ABILIFY) 5 MG tablet Take 5 mg by mouth daily . aspirin 81 MG EC tablet Take 81 mg by mouth daily . atorvastatin (LIPITOR) 80 MG tablet Take 80 mg by mouth daily . clonazePAM (KLONOPIN) 0.5 MG tablet Take 0.5 mg by mouth 2 (two) times a day as needed for anxiety . clopidogreL (PLAVIX) 75 mg tablet Take 75 mg by mouth daily . fenofibrate (TRICOR) 145 MG tablet Take 145 mg by mouth daily Give with food . meclizine (ANTIVERT) 25 mg tablet Take 25 mg by mouth 3 (three) times a day as needed for nausea . metFORMIN (GLUCOPHAGE) 1000 MG tablet Take 1,000 mg by mouth 2 (two) times a day with meals . metoprolol tartrate (LOPRESSOR) 25 MG tablet Take 25 mg by mouth 2 (two) times a day . nitroGLYCERIN (NITROSTAT) 0.[address] 0.4 mg under the tongue every 5 (five) minutes as needed for chest pain , if no relief after 3 doses call 911 . sertraline (ZOLOFT) 50 MG tablet Take 50 mg by mouth daily . ALL: No Known Allergies ROS: Review of Systems Constitutional: Negative for activity change, appetite change and fever. HENT: Negative for congestion and rhinorrhea. Eyes: Negative for photophobia, pain, redness and visual disturbance. Respiratory: Negative for apnea, chest tightness, shortness of breath and wheezing. Cardiovascular: Negative for chest pain and palpitations. Gastrointestinal: Negative for abdominal pain, constipation, diarrhea, nausea and vomiting. Genitourinary: Negative for difficulty urinating and hematuria. Musculoskeletal: Positive for arthralgias and myalgias. Negative for gait problem, neck pain and neck stiffness. Skin: Negative for color change. Neurological: Negative for dizziness, syncope, light-headedness, numbness and headaches. Positives and pertinent negatives as per HPI. All other systems were reviewed and are negative. Physical Exam: Patient Vitals for the past 24 hrs: BP Temp Pulse Resp SpO2 Height Weight 04/26/20 1841 126/86 98.3 F (36.8 C) 70 18 97 % 5' 9 99.8 kg (220 lb) Physical Exam Constitutional: General: He is not in acute distress. Appearance: He is not diaphoretic. HENT: Head: Normocephalic and atraumatic. Right Ear: External ear normal. Left Ear: External ear normal. Eyes: General: No scleral icterus. Neck: Vascular: No JVD. Trachea: No tracheal deviation. Cardiovascular: Rate and Rhythm: Normal rate and regular rhythm. Pulses: Normal pulses. Heart sounds: Normal heart sounds. No murmur. No friction rub. No gallop. Pulmonary: Effort: Pulmonary effort is normal. No respiratory distress. Breath sounds: Normal breath sounds. No wheezing or rales. Chest: Chest wall: No tenderness. Musculoskeletal: Right elbow: Tenderness found. Right wrist: He exhibits decreased range of motion and tenderness. Right forearm: He exhibits tenderness, swelling and deformity. Arms: Skin: General: Skin is warm and dry. Neurological: General: No focal deficit present. Mental Status: He is alert and oriented to person, place, and time. Psychiatric: Mood and Affect: Mood normal. Behavior: Behavior normal. Laboratory & Radiological Imaging (if done): Labs Reviewed - No data to display XR Forearm Right 2 Views Final Result 1. Nonspecific soft tissue swelling at the radial and dorsal aspect of the right forearm. No retained radiopaque foreign body. 2. Mild degenerative changes in the right wrist and right elbow. 3. No fracture or dislocation is identified. [employer] Workstation ID: [id number] XR Wrist Right 3+ Views (Standard) Final Result 1. Nonspecific soft tissue swelling at the radial and dorsal aspect of the right forearm. No retained radiopaque foreign body. 2. Mild degenerative changes in the right wrist and right elbow. 3. No fracture or dislocation is identified. [employer] Workstation ID: [id number] Procedures: Procedures ED Course / Medical Decision Makin-year-old male, presenting today after suffering an injury by livestock as described above. He does have significant amounts of swelling, with possible deformity, so plain films are obtained. There is soft tissue swelling, but no obvious fractures or dislocations identified on the x-ray. Abrasions were cleaned, and bandaged. We discussed the results of the work up in the emergency department. Patient understands that he may have an occult fracture, that may not be present on radiograph for some time. He is advised to take wyoq-oet-tiygnpt analgesics for pain control, but to return should he have any numbness or tingling distal to his injury, decrease in motor or sensory function distal to the injury, or should he feel that he need more urgent evaluation before he can get in with his primary care doctor. Otherwise, I am recommending PCP follow-up later this week. I provided verbal discharge instructions regarding the emergency department diagnosis. Prognosis, expected clinical course, and return precautions were reviewed. I answered her questions and re-iterated the importance of returning to the emergency department immediately for any new or worsening symptoms. The patient expressed understanding of the instructions and reported that all of her questions had been answered. Clinical Impression: 1. Injury caused by animal, initial encounter 2. Right wrist pain 3. Right forearm pain 4. Abrasions and calluses on knuckles due to self-induced vomiting 5. Elbow pain, unspecified laterality 6. Exposure to external factor as cause of accidental injury on farm as place of occurrence, initial encounter Disposition: discharged to home Cristina Roldan M.D. Attending Physician [facility] Emergency Departments 04/26/2020 Portions of this note may have been dictated utilizing voice recognition software. Unfortunately this leads to occasional typographical errors. If questions arise please do not hesitate to contact my office for clarification. (Please note that portions of this note have been completed with a voice recognition software. Efforts were made to correct any errors, but occasionally words are mis-transcribed.) Cristina Roldan MD 04/26/201953 Awaiting xray results. Ice in place to proximal right forearm. Saline gauze to abrasion right wrist. C/o Rt Forearm and Wrist pain after being kicked in the arm by a cow while milking. documented in this encounter Care Teams (unrecognized sec tion and content) FOR RECORDS PERTAINING TO PATIENTS WHO ARE OR HAVE BEEN ENROLLED IN A CHEMICAL DEPENDENCY/SUBSTANCEABUSE PROGRAM, SOME INFORMATION MAY BE OMITTED. This clinical summary was aggregated from multiple sources. Caution should be exercised in using it in the provision of clinical care. This summary normalizes information from multiple sources, and as a consequence, information in this document may materially change the coding, format and clinical context of patient data. In addition, data may be omitted in some cases. CLINICAL DECISIONS SHOULD BE BASED ON THE PRIMARY CLINICAL RECORDS. [facility] [employer] provides no warranty or guarantee of the accuracy or completeness of information in this document.
[2023-02-20] MEDS: Ipratropium/Albuterol Sulfate 3 ML AMPUL.NEB INHALATION (22:21)
[2023-02-20 22:24] VITALS: PULSE 74; RESP 20
[2023-02-20 22:30] LABS: Anion Gap 15 (5-15); BUN 11 mg/dL (7-18); BUN/Creat Ratio 10.4 RATIO (10-20); Calcium,Total 9.1 mg/dL (8.5-10.1); Chloride 99 mmol/L (98-107); Creatinine, Serum 1.06 mg/dL (0.70-1.30); EST Glomerular Filtration Rate 75 mL/min (>60); Est Glom Filt Rate - Afr Amer 91 mL/min (>60); Glucose 199 mg/dL (74-106); Potassium 3.9 mmol/L (3.5-5.1); Sodium Level 136 mmol/L (136-145); Troponin-I HS 21 pg/mL (3.0-78.0)
[2023-02-20] MEDS: MethylPREDNISolone 125 MG/2 ML Vial IV (23:07)
[2023-02-20 23:08] VITALS: BP 129/87; PULSE 84; RESP 16; O2SAT 99
== END 2023-02-20 23:11 | disposition home or self-care (01) ==
PROVIDERS: Emergency Provider Emergency Medicine; PCP Family Medicine; Visit Provider Emergency Medicine
DX: R55 Syncope and collapse (principal); J20.9 Acute bronchitis, unspecified; I25.10 Atherosclerotic heart disease of native coronary artery without angina pectoris; I10 Essential (primary) hypertension; G47.33 Obstructive sleep apnea (adult) (pediatric); F17.210 Nicotine dependence, cigarettes, uncomplicated; Z79.82 Long term (current) use of aspirin; Z79.02 Long term (current) use of antithrombotics/antiplatelets; Z79.84 Long term (current) use of oral hypoglycemic drugs; I25.2 Old myocardial infarction; Z95.5 Presence of coronary angioplasty implant and graft
CPT/HCPCS: 71046; 80048; 84484; 85025; 93005; 94640; 96374; 99283; A4216

== ENCOUNTER 2023-03-04 08:28 | Outpatient (CLI) | payer BC, SELFPAY ==
--- OUTSIDE RECORDS SUMMARY | 2023-03-04 08:31 | XMS RPT_ITS | CCD ---
Author Name Unknown Address [address] [place] [address] Organization [facility] Care Team Providers Care Grinder Gear Name Role Phone Harriet Herr RN Unavailable Unavailable Danae Colbert Unavailable Danae Colbert Unavailable EFREN Marquez, Vanesa Caldwell Unavailable [phone] Harriet Herr RN Unavailable Unavailable Venice Kessler Unavailable Unavailable Rj, Harriet A Unavailable Unavailable Rj Harriet A Unavailable Unavailable Gregg Luo Y Unavailable Unavailable Boaz Gates Primary Care Provider [phone] CRISTINA ROLDAN Attending UnavailBOAZ [facility] [...] TABS One tablet by mouth daily ASPIRIN [id number] Harriet Herr RN Problems Active Problems Problem Classification Problem Date Documented Da te Episodic/Chronic Acute myocardial infarction (6 sources) Acute myocardial infarction; Translations: [Subsequent ST elevation (STEMI) myocardial infarction of unspecified site] Onset: 06-21-2012 06-21-2012 Chronic Coronary atherosclerosis and other heart disease (18 sources) Old myocardial infarction; Translations: [Atherosclerotic heart disease of squaxin coronary artery without angina pectoris] Onset: 06-21-2012 [...] (current) use of other medications; Translations: [Other alf (current) drug therapy] Onset: 09-19-2012 09-19-2012 Episodic Results Test Name Value Interpretation Reference Range Facil ity Vital Signs Date Time Vital Sign Value Performing Clinician Facility 04-26-2020 18:41-0400 BMI (Body Mass Index) 32.49 kg/m2 [facility] 04-26-2020 18:41-0400 Body Temperature 98.29 [degF] [facility] 04-26-2020 18:41-0400 Body weight 99.79 kg [facility] 04-26-2020 18:41-0400 BP Diastolic 86 mm[Hg] [facility] 04-26-2020 18:41-0400 BP Systolic 126 mm[Hg] [facility] 04-26-2020 18:41-0400 Height 175.3 cm [facility] 04-26-2020 18:41-0400 Pulse (Heart Rate) 70 /min [facility] 04-26-2020 18:41-0400 Pulse Oximetry 97 % [facility] 04-26-2020 18:41-0400 Respiratory Rate 18 /min [facility] 07-08-2016 09:10-0400 BMI (Body Mass Index) 32.11 kg/m2 Danae Colbert [facility] Work Phone: 07-08-2016 09:10-0400 BP [...] (Heart Rate) 72 /min Harriet Herr RN [facility] Work Phone: 02-03-2016 08:41-0500 Respiratory [...] 01-22-2015 10:16-0500 Heart rate 69 /min Gregg Luo [facility] Work Phone: 06-28-2012 10:50-0400 Height 177.8 cm Harriet Hrer RN [facility] Work Phone: Encounters Encounter Date Encounter Type Care Provider Facility Start: 04-06-2022 Transcribe Orders Marv Britt MD Work Phone: [facility] Procedures Date Procedure [...] PA-C Work Phone: Start: 01-20-2016 End: 01-20-2016 [employer] ENGINE [employer]SEMBLER MARIA D Murdock-Belen Work Phone: Start: 01-20-2016 [...] PA-C Work Phone: Start: 01-22-2015 End: 01-22-2015 TURBINE ENGINE ASSEMBLER Vanesa Marquez PA-C Work Phone: Start: 01-22-2015 [...] Kike Sequeira MD Start: 12-25-2013 End: 12-25-2013 TURBINE ENGINE ASSEM[employer]ER Kike Sequeira MD Start: 12-25-2013 End: 12-25-2013 Electrocardiogram, complete Kike Leiva i, MD Start: 12-25-2013 End: 12-25-2013 Follow Up Appt 6 months Javi Perales Start: 12-25-2013 End: 07-10-2014 Lipid panel [AGGREGATE] Javi Perales Start: 12-08-2012 End: 12-25-2013 *Hepatic Function Panel Javi Perales Start: 12-08-2012 End: 12-25-2013 Lipid panel [AGGREGATE] Javi Perales Start: 08-15-2012 End: 12-25-2013 Echocardiography Kike Sequeira MD Start: 08-15-2012 End: 08-15-2012 Follow Up Appt 4 months Javi Perales Start: 08-15-2012 End: 08-15-2012 MMM Kike Sequeira MD Start: 06-28-2012 End: 09-19-2012 *Hepatic Function Panel Javi Perales Start: 06-28-2012 End: 06-28-2012 TURBINE ENGINE [employer]SEM[employer]ER Kike Sequeira MD Start: 06-28-2012 End: 06-28-2012 Electrocardiogram, complete Kike Leiva i, MD Start: 06-28-2012 End: 06-28-2012 Follow Up Appt 2 months Javi Perales Start: 06-28-2012 End: 09-19-2012 Lipid panel [AGGREGATE] Javi Perales Start: 06-21-2012 Percutaneous transluminal coronary angioplasty PERCUTANEOUS TRANSLUMINAL CORONARY ANGIOPLASTY, HX OF Gregg Luo Plan of Treatment Date Care Activity Detail Author Start: 10-08-2021 Influenza vaccination Sequential Influenza Vaccine (#1) [facility] Start: 10-09-2019 Influenza vaccination given Sequential Influenza Vaccine (#1) [facility] Start: 03-16-2017 End: 03-16-2017 *Hepatic Function Panel *Hepatic Function Panel [facility] Work Phone: Start: 03-16-2017 End: 03-16-2017 Lipid panel [AGGREGATE] *Lipid Profile CC PCP [facility] Work Phone: Start: 01-19-2017 End: 01-19-2017 Appointment Appointment [facility] Work Phone: Start: 08-03-2016 End: 09-16-2016 *Hepatic Function Panel *Hepatic Function Panel [facility] Work Phone: Start: 08-03-2016 End: 09-16-2016 Lipid panel [AGGREGATE] *Lipid Profile CC PCP [facility] Work Phone: Start: 07-08-2016 End: 07-08-2016 Appointment Appointment [facility] Work Phone: Start: 07-08-2016 End: 07-08-2016 *Hepatic Function Panel *Hepatic Function Panel [facility] Work Phone: Start: 07-08-2016 End: 01-12-2017 Follow Up Appt 6 months Follow Up Appt 6 months [facility] Work Phone: Start: 07-08-2016 End: 07-08-2016 Lipid panel [AGGREGATE] *Lipid Profile CC PCP [facility] Work Phone: Start: 07-08-2016 End: 01-12-2017 MMM MMM [facility] Work Phone: Start: 07-08-2016 End: 07-08-2016 Nuclear stress test -exercise Nuclear stress test -exercise [facility] Work Phone: Start: 02-03-2016 End: 02-03-2016 Follow Up BP Check Follow Up BP Check [facility] Work Phone: Start: 01-20-2016 End: 02-03-2016 *BMP *BMP [facility] Work Phone: Start: 01-20-2016 End: 02-03-2016 *CBC with Differential *CBC with Differential [facility] Work Phone: Start: 01-20-2016 End: 02-03-2016 *Hepatic Function Panel *Hepatic Function Panel [facility] Work Phone: Start: 01-20-2016 End: 01-20-2016 TURBINE ENGINE ASSEMBLER TUR[employer]INE ENGINE ASSEMBLER [facility] Work Phone: Start: 01-20-2016 [...] Lipid panel [AGGREGATE] *Lipid Profile CC PCP [facility] Work Phone: Start: 07-15-2015 End: 07-15-2015 Follow Up Appt 6 months Follow Up Appt 6 months [facility] Work Phone: Start: 07-15-2015 End: 07-15-2015 MMM MMM [facility] Work Phone: Start: 01-22-2015 End: 05-15-2015 *Hepatic Function Panel *Hepatic Function Panel [facility] Work Phone: Start: 01-22-2015 End: 01-22-2015 TURBINE ENGINE ASSEMBLER TURBINE ENGINE ASSEMBLER [facility] Work Phone: Start: 01-22-2015 End: 01-22-2015 Follow Up Appt 6 months Follow Up Appt 6 months [facility] Work Phone: Start: 01-22-2015 End: 05-15-2015 Lipid panel [AGGREGATE] *Lipid Profile CC PCP [facility] Work Phone: Start: 10-16-2014 End: 01-22-2015 *Hepatic Function Panel *Hepatic Function Panel [facility] Work Phone: Start: 10-16-2014 End: 01-22-2015 Lipid panel [AGGREGATE] *Lipid Profile CC PCP [facility] Work Phone: Start: 07-11-2014 End: 07-11-2014 Follow Up Appt 6 months Follow Up Appt 6 months [facility] Work Phone: Start: 07-11-2014 End: 01-09-2015 MMM MMM [facility] Work Phone: Start: 12-25-2013 End: 07-10-2014 *Hepatic Function Panel *Hepatic Function Panel [facility] Work Phone: Start: 12-25-2013 End: 07-11-2014 Chest x-ray X-Ray, Chest, PA & Lateral [facility] Work Phone: Start: 12-25-2013 End: 12-25-2013 TURBINE ENGINE ASSEMBLER TURBINE ENGINE ASSEMBLER [facility] Work Phone: Start: 12-25-2013 End: 12-25-2013 Electrocardiogram, complete EKG (In office) [facility] Work Phone: Start: 12-25-2013 End: 12-25-2013 Follow Up Appt 6 months Follow Up Appt 6 months [facility] Work Phone: Start: 12-25-2013 End: 07-10-2014 Lipid panel [AGGREGATE] *Lipid Profile CC PCP [facility] Work Phone: Start: 12-08-2012 End: 12-25-2013 *Hepatic Function Panel *Hepatic Function Panel [facility] Work Phone: Start: 12-08-2012 End: 12-25-2013 Lipid panel [AGGREGATE] *Lipid Profile CC PCP [facility] Work Phone: Start: 08-15-2012 End: 08-15-2012 Echocardiography Echocardiogram (complete) [facility] Work Phone: Start: 08-15-2012 End: 08-15-2012 Follow Up Appt 4 months Follow Up Appt 4 months [facility] Work Phone: Start: 08-15-2012 End: 08-15-2012 MMM MMM [facility] Work Phone: Start: 06-28-2012 End: 09-19-2012 *Hepatic Function Panel *Hepatic Function Panel [facility] Work Phone: Start: 06-28-2012 End: 06-28-2012 TURBINE ENGINE ASSEMBLER TURBINE ENGINE ASSEMBLER [facility] Work Phone: Start: 06-28-2012 End: [...] zoster vaccine Zoster Vaccines (1 of 2) [facility] Start: 2010 Screening for malignant neoplasm of colon [facility] Start: 1978 Hepatitis C antibody, confirmatory test Hepatitis C Screening [facility] Start: 1978 Hepatitis C screening Hepatitis C Screening [facility] Start: 1976 COVID-19 Vaccine (1 of 2) COVID-19 Vaccine (1 of 2) [facility] Start: 05-18-1975 HIV screening HIV Screening [facility] Start: 1972 Adolescent depression screening assessment Depression Screening (PHQ9) [facility] Start: 1972 Depression screening using PHQ-9 (Patient Health Questionnaire 9) score Depression Screening (PHQ-2/9) [facility] Start: 1966 Pneumococcal Vaccine: Ped or At-Risk (1 - PCV) Pneumococcal Vaccine: Ped or At-Risk (1 - PCV) [facility] Start: 05-18-1963 History and physical examination, annual for health maintenance Wellness Visit [facility] Start: 1960 COVID-19 Vaccine (#1) COVID-19 Vaccine (#1) [facility] Start: 1960 Prostate specific antigen measurement PSA Level [facility] Start: 1960 Screening for malignant neoplasm of colon [facility] Start: 1960 Tetanus vaccination Tetanus: Every 10yrs [facility] Patient Education [facility] Work Phone: Payers Date Payer Category Payer Unknown [employer] BCBS OUT OF STATE [facility] [id number] 2019-Present [id number] 2019 Unknown [id number] 2016 Unknown 1960 Unknown [id number] 1960 Unknown [id number] Social History Date Type Detail Facility Start: 04-26-2020 Tobacco smoking status VAIS Current every day smoker [facility] Start: 04-26-2020 Tobacco use and exposure Never used [facility] Start: 04-26-2020 End: 03-18-2021 Alcohol intake Current drinker of alcohol (finding) [facility] Start: 04-26-2020 Alcohol Comment occassional [facility] Start: 1960 Sex Assigned At Not on file [facility] Exposure to SARS-CoV -2 (event) Not sure [facility] Evaluation note Note Date & Type Note Facility documented in this encounter [facility] Summary Purpose Family History No Family History Records FoundNo Family History Records FoundNo Family History Records Found Advance Directives No Advanced Directives Records FoundDocuments on File Type Date Recorded Patient Ring Maker Expl anation Advance Directives and Livin g Will 04/26/2020 6:40 PM Discharge Instructions * Attachments The following attachments cannot be sent through Care Everywhere. * Joint Pain (Gibraltarian) * Musculoskeletal Pain (Gibraltarian) * Abrasions (Gibraltarian) documented in this encounter Assessments Diagnosis Injury [...] Habitual snoring Marv Britt MD [address] [address] Umer Kent MD [address] [facility] [place] [address] Referral ID Status Reason Start Date Expiration Date V isits Requested Visits Authorized [id number] Authorized 04/06/2022 04/06/2023 1 1 Additional Source Comments (unrecognized sect ion and content) No Status Records FoundNo Status Records FoundNo Status Records Found INFORMATION SOURCE (unrecogn ized section and content) DATE CREATED AUTHOR AUTHOR'S ORGANIZ ATION 05/03/2020 [facility] DATE CREATED AUTHOR AUTHOR'S ORGANIZ ATION 05/11/2022 [facility] Reason for Visit (unrecogniz ed section and content) Trino Kulkarni RN - 04/26/2020 8:01 PM EDTCristina Roldan MD - 04/26/2020 7:45 PM EDTGTrino choi RN - 04/26/2020 7:22 PM EDFelipe Linton RN - 04/26/2020 6:32 PM EDT ED Notes (unrecognized secti on and content) Discharged with instructions to pt and . Condition stable. [facility] ED Attending Note: ED Site: [facility] EMERGENCY DEPARTMENT NAME: Aj Pond 59 y.o. CSN: [id number] PCP: Boaz Gates MD History: Chief Complaint: [...] file Gets together: Not on file Attends adventist service: Not on file Active member of [...] 3. No fracture or dislocation is identified. [employer] Workstation ID: [id number] XR Wrist Right 3+ Views (Standard) Final Result 1. Nonspecific soft tissue swelling at the radial and dorsal aspect of the right forearm. No retained radiopaque foreign body. 2. Mild degenerative changes in the right wrist and right elbow. 3. No fracture or dislocation is identified. [employer] Work[employer] ID: [id number] Procedures: Procedures ED Course [...] some time. He is advised to take [id number]-zkl-[id number] analgesics for pain control, but to return [...] to home Cristina Roldan M.D. Attending Physician [facility] Emergency Departments 04/26/2020 Portions of this note [...] BE BASED ON THE PRIMARY CLINICAL RECORDS. [facility] [employer] provides no warranty or guarantee of the accuracy or completeness of information in this document.
[2023-03-04 10:32] LABS: Hemoglobin A1c 10.4 % (3.8-5.6)
[2023-03-04 10:52] LABS: Anion Gap 8 (5-15); BUN 16 mg/dL (7-18); BUN/Creat Ratio 15.7 RATIO (10-20); Calcium,Total 9.2 mg/dL (8.5-10.1); Chloride 101 mmol/L (98-107); Creatinine, Serum 1.02 mg/dL (0.70-1.30); EST Glomerular Filtration Rate 79 mL/min (>60); Est Glom Filt Rate - Afr Amer 95 mL/min (>60); Glucose 328 mg/dL (74-106); Potassium 4.6 mmol/L (3.5-5.1); Sodium Level 134 mmol/L (136-145)
== END 2023-03-04 23:59 | disposition home or self-care (01) ==
LOC: MFPLAB 08:28
PROVIDERS: PCP Family Medicine; Visit Provider Family Medicine
DX: R73.9 Hyperglycemia, unspecified (principal); E29.1 Testicular hypofunction
CPT/HCPCS: 36415; 80048; 83036; 84403

== ENCOUNTER → 2023-06-03 | Outpatient (CLI) | payer BC, SELFPAY ==
[2023-06-03 10:27] LABS: Absolute Neutrophil Count 6.5 X10^3/uL (2.0-7.7); Basophil# 0.05 X10^3/uL; Basophil% 0.5 % (0-1); Eosinophil# 0.02 X10^3/uL; Eosinophils% 0.2 % (0-5); Mean Corp Hgb Conc 32.9 g/dL (32-36); Mean Corpuscular Hgb 30.3 pg (27.0-32.0); Mean Corpuscular Volume 92.1 fL (80-94); Mean Platelet Vol. 10.7 fl (6.2-12.0); Monocyte# 0.52 X10^3/uL; Monocyte% 5.7 % (0-10); NRBC Flagged by Analyzer 0 % (0-5); Neutrophil # 6.47 X10^3/uL (2.7-7.7); Neutrophil % 71.1 % (47-70); Platelet Count 192 K/mm3 (150-450); RBC Distribution Width CV 14.6 % (11.6-14.6); RBC Distribution Width SD 49.2 fl (35.1-43.9); White Blood Count 9.1 K/mm3 (4.4-11.0)
[2023-06-03 11:04] LABS: AST(SGOT) 24 U/L (15-37); Alanine Aminotransfer ALT/SGPT 21 U/L (16-61); Albumin, Serum 3.6 g/dL (3.2-5.0); Alkaline Phosphatase 59 U/L (45-117); Anion Gap 6 (5-15); BUN 11 mg/dL (7-18); BUN/Creat Ratio 12.1 RATIO (10-20); Chloride 104 mmol/L (98-107); Cholesterol 138 mg/dL (200); Creatinine, Serum 0.91 mg/dL (0.70-1.30); EST Glomerular Filtration Rate 90 mL/min (>60); Est Glom Filt Rate - Afr Amer 108 mL/min (>60); Globulin 3.7 g/dL (2.2-4.2); Glucose 153 mg/dL (74-106); High Density Lipoprotein 22 mg/dL; Potassium 4.1 mmol/L (3.5-5.1); Protein, Total 7.3 g/dL (6.4-8.2); Sodium Level 135 mmol/L (136-145); Triglycerides 481 mg/dL
[2023-06-03 12:37] LABS: Hemoglobin 19.1 g/dL (13.0-16.5)
[2023-06-07 15:07] LABS: Pathologist Review Reviewed
[2023-06-09 15:09] LABS: Testosterone, Total 476 ng/dL (264-916)
== END | disposition home or self-care (01) ==
LOC: MFPLAB 09:29
PROVIDERS: PCP Family Medicine; Visit Provider Family Medicine
DX: E29.1 Testicular hypofunction (principal); E11.9 Type 2 diabetes mellitus without complications; F41.9 Anxiety disorder, unspecified
CPT/HCPCS: 36415; 80053; 80061; 83036; 84402; 84403; 85025

== ENCOUNTER → 2023-08-31 | Outpatient (CLI) | payer BC, SELFPAY ==
[2023-08-31 12:14] LABS: Absolute Lymphocyte Count 2.15 X10^3/uL (0.83-4.51); Absolute Neutrophil Count 5.5 X10^3/uL (2.0-7.7); Basophil# 0.07 X10^3/uL; Basophil% 0.9 % (0-1); Eosinophil# 0.01 X10^3/uL; Eosinophils% 0.1 % (0-5); Hematocrit 50.4 % (40-54); Hemoglobin 16.8 g/dL (13.0-16.5); Lymphocyte # 2.15 X10^3/ul (0.83-4.51); Lymphocyte % 26.1 % (19-41); Mean Corp Hgb Conc 33.3 g/dL (32-36); Mean Corpuscular Hgb 29.9 pg (27.0-32.0); Mean Corpuscular Volume 89.7 fL (80-94); Mean Platelet Vol. 10.7 fl (6.2-12.0); Monocyte# 0.48 X10^3/uL; Monocyte% 5.8 % (0-10); NRBC Flagged by Analyzer 0 % (0-5); Neutrophil # 5.49 X10^3/uL (2.7-7.7); Neutrophil % 66.7 % (47-70); Platelet Count 212 K/mm3 (150-450); RBC Distribution Width CV 14.2 % (11.6-14.6); Red Blood Count 5.62 M/mm3 (4.6-6.2); White Blood Count 8.2 K/mm3 (4.4-11.0)
[2023-08-31 13:10] LABS: Anion Gap 9 (5-15); BUN 13 mg/dL (7-18); BUN/Creat Ratio 14.5 RATIO (10-20); Calcium,Total 9.4 mg/dL (8.5-10.1); Chloride 103 mmol/L (98-107); EST Glomerular Filtration Rate 91 mL/min (>60); Est Glom Filt Rate - Afr Amer 110 mL/min (>60); Glucose 174 mg/dL (74-106); PSA,Total- Diagnostic 0.66 ng/mL (0.0-4.0); Potassium 4.2 mmol/L (3.5-5.1); Sodium Level 134 mmol/L (136-145)
[2023-09-08 13:08] LABS: Testosterone, % Free 4.08 % (1.50-4.20); Testosterone, Free 5.02 ng/dL (5.00-21.00); Testosterone, Total 123 ng/dL (264-916)
== END | disposition home or self-care (01) ==
LOC: MTLAB 10:06
PROVIDERS: PCP Family Medicine; Referring Provider Family Medicine; Visit Provider Family Medicine
DX: E29.1 Testicular hypofunction (principal); R73.9 Hyperglycemia, unspecified
CPT/HCPCS: 36415; 80048; 84153; 84402; 84403; 85025

== ENCOUNTER → 2023-11-10 | Outpatient (CLI) | payer BC, SELFPAY ==
[2023-11-10 11:11] LABS: AST(SGOT) 16 U/L (15-37); Alanine Aminotransfer ALT/SGPT 14 U/L (16-61); Albumin, Serum 3.6 g/dL (3.2-5.0); Alkaline Phosphatase 74 U/L (45-117); Cholesterol 162 mg/dL (200); High Density Lipoprotein 26 mg/dL; Protein, Total 7.6 g/dL (6.4-8.2); Triglycerides 389 mg/dL; Very Low Density Lipoprotein 78 mg/dL (5-40)
== END | disposition home or self-care (01) ==
PROVIDERS: PCP Family Medicine; Referring Provider Internal Medicine Cardiovascular Disease; Visit Provider Internal Medicine Cardiovascular Disease
DX: I10 Essential (primary) hypertension (principal); E78.00 Pure hypercholesterolemia, unspecified
CPT/HCPCS: 36415; 80061; 80076

== ENCOUNTER → 2023-11-24 | Outpatient (CLI) | payer BC, SELFPAY ==
--- NOTE | 2023-11-24 06:44 | ECHOD_ITS ---
Reason For Study: CORONARY ARTERY DISEASE Procedure This was a 2D Doppler, Color Flow transthoracic echocardiogram. Exam performed in department. Left Ventricle Normal LV size. Mild concentric left ventricular hypertrophy. Left ventricular systolic function is normal. The left ventricular ejection fraction is 55 %. Stage 1 diastolic dysfunction. No regional wall motion abnormalities noted. Right Ventricle Normal RV size. Normal systolic function. Atria Normal left atrium. Normal right atrium. Mitral Valve Normal mitral valve. Tricuspid Valve Normal tricuspid valve. Mild tricuspid valve insufficiency. Pulmonary artery systolic pressure is 22 mmHg. Aortic Valve Trisinus/trileaflet aortic valve. Pulmonic Valve Normal pulmonic valve. Great Vessels Mildly dilated aortic root. The pulmonary artery is normal size. Inferior vena cava collapse with respiration. Pericardium/Pleural No pericardial effusion. [employer]Mode/2D Measurements & Calculations LVIDd: 4.9 cm IVSd: 1.4 cm LVOT diam: 2.2 cm LVIDs: 3.2 cm LVPWd: 1.2 cm LVOT area: 3.8 cm2 RVDd: 3.8 cm FS: 35.3 % asc Aorta Diam: 4.3 cm LAV(MOD-bp): 35.0 ml LVAd ap4: 17.8 cm2 LAV(MOD-bp) Indexed: 16.1 ml/m2 LVLd ap4: 7.3 cm LAV(MOD-sp2): 39.5 ml EDV(MOD-sp4): 37.4 ml LAV(MOD-sp4): 28.7 ml EDV(sp4-el): 36.8 ml LVAs ap4: 11.8 cm2 LVLs ap4: 6.7 cm ESV(MOD-sp4): 18.0 ml ESV(sp4-el): 17.7 ml EF(MOD-sp4): 51.9 % EF(sp4-el): 52.0 % LVAd ap2: 19.6 cm2 SV(MOD-sp4): 19.4 ml SV(MOD-sp2): 25.3 ml LVLd ap2: 7.2 cm EDV(MOD-sp2): 47.4 ml EDV(sp2-el): 45.5 ml LVAs ap2: 12.8 cm2 LVLs ap2: 6.7 cm ESV(MOD-sp2): 22.1 ml ESV(sp2-el): 20.7 ml EF(MOD-sp2): 53.4 % SV(sp4-el): 19.1 ml Ao sinus diam: 3.[address] Junction: 3.5 cm LA dimension(2D): 3.0 cm LA A4 area: 12.9 cm2 RA A4 area: 10.6 cm2 TAPSE: 2.0 cm Time Measurements MV dec time: 0.29 sec Doppler Measurements & Calculations MV E max oc: 50.6 cm/sec Lat Peak E' Oc: 10.0 cm/sec Med Peak E' Oc: 9.4 cm/sec MV A max oc: 81.0 cm/sec E/E' lat: 5.1 E/E' med: 5.4 MV E/A: 0.62 MV dec slope: 176.9 cm/sec2 Ao V2 max: 184.3 cm/sec LV V1 max: 101.7 cm/sec Ao max P.6 mmHg LV V1 max P.1 mmHg Ao V2 mean: 121.3 cm/sec LV V1 mean P.2 mmHg Ao mean P.7 mmHg LV V1 mean: 71.1 cm/sec Ao V2 VTI: 27.4 cm LV V1 VTI: 17.0 cm AV (velocity ratio): 0.62 PAULINE(I,D): 2.4 cm2 PAULINE(V,D): 2.1 cm2 SV(LVOT): 64.8 ml PA V2 max: 83.0 cm/sec TR max oc: 216.5 cm/sec PA max PG (full): 0.96 mmHg TR max P.8 mmHg ECHO/Echo Complete Interpretation Summary Normal LV size. Left ventricular systolic function is normal. The left ventricular ejection fraction is 55 %. Stage 1 diastolic dysfunction. Pulmonary artery systolic pressure is 22 mmHg. Ordering Physician: Kike Sequeira Referring Physician: Boaz Russell Performed By: Vivi Padron RDCS
--- NOTE | 2023-11-24 14:20 | STRESSREP_ITS ---
Stress Test Report Exercise myocardial perfusion stress test. 63-year-old man with a history of chest pain and coronary disease Stress protocol: Resting EKG demonstrates normal sinus rhythm with a rate of 76 bpm, mild downsloping ST depression noted in leads II, III and aVF and T wave inversions noted in V5 and V6 and resting blood pressure is 160/98 mmHg. The patient exercised according to the regular Leonardo protocol for a total duration of 5 minutes and 19 seconds attaining a maximum heart rate of 142 bpm which was 90% of maximum predicted heart rate; the maximum workload was 7 metabolic equivalents. At rest there were the aforementioned ST and T wave changes noted, with no changes to suggest ischemia and at peak exercise upsloping ST changes only were noted which did not meet the criteria for ischemia. No clinical angina was noted the test was terminated due to the target heart rate being achieved/fatigue. The peak blood pressure was 210/112 mmHg. this was a hypertensive response to exercise. Rate-pressure product was 29,800. Myocardial perfusion protocol. 14.3 mCi of technetium 99m sestamibi was injected at rest. The patient exercis ed according to regular Leonardo protocol for total duration of 5 minutes and 19 seconds and at peak exercise 44.5 mCi of technetium 99m sestamibi was injected stress images were obtained stress and rest images were reconstructed in comparing the short axis vertical long and horizontal long axis. Gated images were also obtained. Perfusion SPECT analysis: Review of the stress images demonstrate normal uptake of tracer noted in all areas of the myocardium. The resting images similarly demonstrate normal uptake of tracer noted in all areas of the myocardium. No areas of reversibility are noted to suggest ischemia no previous infarct was noted. Gated SPECT analysis: The gated ejection fraction is 61%. Conclusion: Normal exercise myocardial perfusion stress test at a moderate workload Preserved ejection fraction.
== END | disposition home or self-care (01) ==
PROVIDERS: PCP Family Medicine; Referring Provider Internal Medicine Cardiovascular Disease; Visit Provider Internal Medicine Cardiovascular Disease
DX: I25.10 Atherosclerotic heart disease of native coronary artery without angina pectoris (principal); E78.00 Pure hypercholesterolemia, unspecified; I10 Essential (primary) hypertension; Z95.5 Presence of coronary angioplasty implant and graft
CPT/HCPCS: 78452; 93017; 93306; A9500

== ENCOUNTER → 2023-11-30 | Outpatient (CLI) | payer BC, SELFPAY ==
--- OUTSIDE RECORDS SUMMARY | 2023-11-30 11:08 | XMS RPT_ITS | CCD ---
Author Organization [facility] Care Team Providers Care Cnmt Name Role Phone Carmenza PORTER, Harriet Dalal Unavailable Unavailable Danae Colbert Unavailable Danae Colbert Unavailable EFREN Marquez, Vanesa Caldwell Unavailable Carmenza PORTER, Harriet Mulugeta Unavailable Unavailable Venice Kessler Unavailable Unavailable Rj, Harriet A Unavailable Unavailable Rj Harriet A Unavailable Unavailable Gregg Luo Y Unavailable Unavailable Boaz Gates Primary Care Provider [phone] CRISTINA ROLDAN Attending UnavailBOAZ Duncan Primary Care Unavailable Boaz Gates MD Primary Care Provider [phone] BOAZ GATES Primary Care Unavailable UMER KENT Attending Unavailable GUDELIA LUCIANO Attending Unavailable BOAZ GATES Primary Care Unavailable Medications Current Medications Medication Drug Class(es) [...] TABS One tablet by mouth daily ASPIRIN [id number] Harriet Herr RN Start: 06-21-2012 take 1 tablet by christine th once daily ASPIRIN 81 MG TABS One tablet by mouth daily ASPIRIN [id number] Harriet Herr RN Start: 06-21-2012 take 1 tablet by christine th once daily ASPIRIN EC 81 MG TBEC One tablet by mouth daily ASPIRIN [id number] Adriana Alvarado RN atorvastatin 40 mg oral tablet (8 sources) HMG-CoA Reductase Inhibitor Start: 07-10-2014 take 1 tablet by mouth once daily ATORVASTATIN CALCIUM 40 MG TABS One tablet by mouth daily ATORVASTATIN CALCIUM [id number] Viridiana Gomez NP take 1 tablet by mouth once edgar y atorvastatin (LIPITOR) 80 MG tablet Take 80 mg by mouth daily . 0 Active clopidogrel 75 mg oral tablet (8 sources) P2Y12 Platelet Inhibitor Start: 06-21-2012 take 1 tablet by mouth once daily CLOPIDOGREL BISULFATE 75 MG TABS One tablet by mouth daily CLOPIDOGREL BISULFATE 51743334926 Viridiana Gomez NP fenofibrate 145 mg oral tablet (8 sources) Peroxisome Proliferator Receptor alpha Agonist Start: 08-30-2012 take 1 tablet by mouth once daily TRICOR 145 MG TABS One tablet by mouth daily FENOFIBRATE 86326886841 Viridiana Gomez NP lisinopril 5 mg oral tablet (12 sources) Angiotensin Converting Enzyme Inhibitor Start: 06-21-2012 End: 08-15-2012 take 1 tablet by mouth once daily LISINOPRIL 5 MG TABS One tablet by mouth daily LISINOPRIL 18347507793 Kike Sequeira MD metoprolol tartrate 25 mg oral tablet (14 sources) beta-Adrenergic Jose Start: 06-21-2012 take 1 tablet by mouth twice daily METOPROLOL TARTRATE 25 MG TABS One tablet by mouth twice daily METOPROLOL TARTRATE 39523475344 Viridiana Gomez NP MULTIPLE VITAMIN (10 sources) Start: 06-21-2012 take 1 tablet by mouth once daily MULTIVITAMINS TABS One tablet by mouth daily MULTIPLE VITAMIN 88978569947 Harriet Herr RN Start: 06-21-2012 End: 07-11-2014 take 1 tablet by mouth once daily MULTIVITAMINS TABS One tablet by mouth daily MULTIPLE VITAMIN 65132448509 Kike Sequeira MD MULTIPLE VITAMIN (2 sources) Start: 06-21-2012 take 1 tablet by mouth once daily MULTIVITAMINS TABS One tablet by mouth daily MULTIPLE VITAMIN 71237298833 Harriet Herr RN Start: 06-21-2012 End: 07-11-2014 take 1 tablet by mouth once daily MULTIVITAMINS TABS One tablet by mouth daily MULTIPLE VITAMIN 10539644397 Kike Sequeira MD nitroglycerin 0.4 mg sublingual tablet (20 sources) Nitrate Vasodilator Start: 06-21-2012 NITROGLYCERIN 0.4 MG SUBL 1 tablet under the tongue every 5 minutes times 3 as needed for chest pain. NITROGLYCERIN 86327338494 Adriana Alvarado RN pravastatin sodium 80 mg oral tablet (18 sources) HMG-CoA Reductase Inhibitor Start: 06-21-2012 End: 07-10-2014 take 1 tablet by mouth once daily at bedtime PRAVASTATIN SODIUM 80 MG TABS One tablet by mouth daily at bedtime PRAVASTATIN SODIUM 64559424092 Kike Sequeira MD rosuvastatin calcium 40 mg oral tablet (6 sources) HMG-CoA Reductase Inhibitor Start: 07-10-2014 take 1 tablet by mouth once daily CRESTOR 40 MG TABS One tablet by mouth daily ROSUVASTATIN CALCIUM 22203942391 Kike Sequeira MD Problems Active Problems Problem Classification Problem Date Documented Da te Episodic/Chronic Acute myocardial infarction (6 sources) Acute myocardial infarction; Translations: [Subsequent ST elevation (STEMI) myocardial infarction of unspecified site] Onset: 06-21-2012 06-21-2012 Chronic Coronary atherosclerosis and other heart disease (18 sources) Old myocardial infarction; Translations: [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] Onset: 06-21-2012 [...] dependence, unspecified, uncomplicated] Onset: 06-21-2012 06-21-2012 Chronic Syncope (2 sources) Syncope and collapse; Translations: [Syncope and collapse] Onset: 10-25-2023 Episodic Unclassified (5 sources) Percutaneous transluminal coronary angioplasty [...] (current) use of other medications; Translations: [Other care home (current) drug therapy] Onset: 09-19-2012 09-19-2012 Episodic Results Test Name Value Interpretation Reference Range Facility CBC W Auto Differential pane l (Bld)on 10-25-2023 Basophils (Bld) [#/Vol] 0.05 x10*3/uL Normal 0.00-0.10 [facility] Comment on above: Performed By: #### 5 7021-8 #### RUBEN SHIN ([id number]) [facility] ([facility]) [address] [place] [address] 01273 Basophils/100 WBC (Bld) 0.4 % Normal 0.0-2.0 [facility] Comment on above: Performed By: #### 5 7021-8 #### RUBEN SHIN ([id number]) [facility] ([facility]) [address] [place] [address] 91717 Eosinophils (Bld) [#/Vol] 0.01 x10*3/uL Normal 0.00-0.70 [facility] Comment on above: Performed By: #### 5 7021-8 #### RUBEN SHIN ([id number]) [facility] ([facility]) [address] [place] [address] 21482 Eosinophils/100 WBC (Bld) 0.1 % Normal 0.0-6.0 [facility] Comment on above: Performed By: #### 5 7021-8 #### RUBEN SHIN ([id number]) [facility] ([facility]) [address] [place] [address] 86138 Erythrocyte distribution width (RBC) [Ratio] 14.5 % Normal 11.5-14.5 [facility] Comment on above: Performed By: #### 5 7021-8 #### RUBEN SHIN ([id number]) [facility] ([facility]) [address] [place] [address] 73354 Hematocrit (Bld) [Volume fraction] 52.5 % High 41.0-52.0 [facility] Comment on above: Performed By: #### 5 7021-8 #### RUBEN SHIN ([id number]) [facility] ([facility]) [address] [place] [address] 65695 Hemoglobin (Bld) [Mass/Vol] 17.4 g/dL Normal 13.5-17.5 [facility] Comment on above: Performed By: #### 5 7021-8 #### RUBEN SHIN ([id number]) [facility] ([facility]) [address] [place] [address] 08824 Immature granulocytes (Bld) [#/Vol] 0.05 x10*3/uL Normal 0.00-0.70 [facility] Comment on above: Performed By: #### 5 7021-8 #### RUBEN SHIN ([id number]) [facility] ([facility]) [address] [place] [address] 86623 Immature granulocytes/100 WBC (Bld) 0.4 % Normal 0.0-0.9 [facility] Comment on above: Result Comment: Vicky ture Granulocyte Count (IG) includes promyelocytes, myelocytes and metamyelocytes but does not include bands. Percent differential counts (%) should be interpreted in the context of the absolute cell counts (cells/UL). Performed By: #### 5 7021-8 #### RUBEN SHIN ([id number]) [facility] ([facility]) [address] [place] [address] 24841 Lymphocytes (Bld) [#/Vol] 2.35 x10*3/uL Normal 1.20-4.80 [facility] Comment on above: Performed By: #### 5 7021-8 #### RUBEN SHIN ([id number]) [facility] ([facility]) [address] [place] [address] 34724 Lymphocytes/100 WBC (Bld) 20.1 % Normal 13.0-44.0 [facility] Comment on above: Performed By: #### 5 7021-8 #### RUBEN SHIN ([id number]) [facility] ([facility]) [address] [place] [address] 75133 MCH (RBC) [Entitic mass] 31.3 pg Normal 26.0-34.0 [facility] Comment on above: Performed By: #### 5 7021-8 #### RUBEN SHIN ([id number]) [facility] ([facility]) [address] [place] [address] MCHC (RBC) [Mass/Vol] 33.1 g/dL Normal 32.0-36.0 [facility] Comment on above: Performed By: #### 5 7021-8 #### RUBEN SHIN ([id number]) [facility] ([facility]) [address] [place] [address] MCV (RBC) [Entitic vol] 94 fL Normal 80-100 [facility] Comment on above: Performed By: #### 5 7021-8 #### RUBEN SHIN ([id number]) [facility] ([facility]) [address] [place] [address] 17026 Monocytes (Bld) [#/Vol] 0.56 x10*3/uL Normal 0.10-1.00 [facility] Comment on above: Performed By: #### 5 7021-8 #### RUBEN SHIN ([id number]) [facility] ([facility]) [address] [place] [address] 31715 Monocytes/100 WBC (Bld) 4.8 % Normal 2.0-10.0 [facility] Comment on above: Performed By: #### 5 7021-8 #### RUBEN SHIN ([id number]) [facility] ([facility]) [address] [place] [address] 73166 Neutrophils (Bld) [#/Vol] 8.68 x10*3/uL High 1.20-7.70 [facility] Comment on above: Result Comment: Perc ent differential counts (%) should be interpreted in the context of the absolute cell counts (cells/uL). Performed By: #### 5 7021-8 #### RUBEN SHIN ([id number]) [facility] ([facility]) [address] [place] [address] 64181 Neutrophils/100 WBC (Bld) 74.2 % Normal 40.0-80.0 [facility] Comment on above: Performed By: #### 5 7021-8 #### RUBEN SHIN ([id number]) [facility] ([facility]) [address] [place] [address] 48546 Nucleated RBC/100 WBC (Bld) [Ratio] 0.0 /100 WBCs Normal 0.0-0.0 [facility] Comment on above: Performed By: #### 5 7021-8 #### RUBEN SHIN ([id number]) [facility] ([facility]) [address] [place] [address] 29599 Platelets (Bld) [#/Vol] 197 x10*3/uL Normal 150-450 [facility] Comment on above: Performed By: #### 5 7021-8 #### RUBEN SHIN ([id number]) [facility] ([facility]) [address] [place] [address] 25954 RBC (Bld) [#/Vol] 5.56 x10*6/uL Normal 4.50-5.90 [facility] Comment on above: Performed By: #### 5 7021-8 #### RUBEN SHIN ([id number]) [facility] ([facility]) [address] [place] [address] 79396 WBC (Bld) [#/Vol] 11.7 x10*3/uL High 4.4-11.3 [facility] Comment on above: Performed By: #### 5 7021-8 #### RUBEN SHIN ([id number]) [facility] ([facility]) [address] [place] [address] HEAD WO IV CONTRASTon CT HEAD WO IV CONTRAST Interpreted By: Santos Valdivia, STUDY: CT HEAD WO IV CONTRAST; 10/25/2023 2:04 pm INDICATION: Signs/Symptoms:syncop e. COMPARISON: None. ACCESSION NUMBER(S): [id number] ORDERING CLINICIAN: GUDELIA LUCIANO TECHNIQUE: Noncontrast axial CT scan of head was performed. FINDINGS: Parenchyma: No intracranial hemorrhage. No evidence of acute large vessel territory infarct. No mass effect or midline shift. CSF Spaces: The ventricles, sulci and basal cisterns are within normal limits for age. Extra-Axial Fluid: None. Calvarium: No acute depressed fracture. Paranasal sinuses: Visualized paranasal sinuses are clear. Mastoids: Clear. Orbits: No acute abnormality. Soft tissues: No acute abnormality. Nonspecific posterior scalp skin thickening with subdermal induration and possible sebaceous cysts; correlate with clinical assessment. IMPRESSION: No CT evidence of acute intracranial abnormality. MACRO None Signed by: Santos Valdivia 10/25/2023 2:31 PM Dictation workstation: [id number] Normal [facility] Comprehensive metabolic 2000 panelon 10-25-2023 Albumin BCP dye [Mass/Vol] 4.2 g/dL Normal 3.4-5.0 [facility] Comment on above: Performed By: #### 2 4323-8 #### RUBEN SHIN ([id number]) [facility] ([facility]) [address] [place] [address] 51945 ALP [Catalytic activity/Vol] 55 U/L Normal 33-136 [facility] Comment on above: Performed By: #### 2 4323-8 #### RUBEN SHIN ([id number]) [facility] ([facility]) [address] [place] [address] 72663 ALT With P-5'-P [Catalytic activity/Vol] 12 U/L Normal 10-52 [facility] Comment on above: Result Comment: Ana ents treated with Sulfasalazine may generate falsely decreased results for ALT. Performed By: #### 2 4323-8 #### RUBEN SHIN ([id number]) [facility] ([facility]) [address] [place] [address] 79057 Anion gap [Moles/Vol] 18 mmol/L Normal 10-20 [facility] Comment on above: Performed By: #### 2 4323-8 #### RUBEN SHIN ([id number]) [facility] ([facility]) [address] [place] [address] AST With P-5'-P [Catalytic activity/Vol] 14 U/L Normal 9-39 [facility] Comment on above: Performed By: #### 2 432-8 #### RUBEN SHIN ([id number]) [facility] ([facility]) [address] [place] [address] Bilirubin [Mass/Vol] 0.5 mg/dL Normal 0.0-1.2 [facility] Comment on above: Performed By: #### 2 4322-8 #### RUBEN SHIN ([id number]) [facility] ([facility]) [address] [place] [address] 50983 Calcium [Mass/Vol] 9.2 mg/dL Normal 8.6-10.3 [facility] Comment on above: Performed By: #### 2 4322-8 #### RUBEN SHIN ([id number]) [facility] ([facility]) [address] [place] [address] Chloride [Moles/Vol] 101 mmol/L Normal 98-107 [facility] Comment on above: Performed By: #### 2 432-8 #### RUBEN SHIN ([id number]) [facility] ([facility]) [address] [place] [address] CO2 [Moles/Vol] 22 mmol/L Normal 21-32 [facility] Comment on above: Performed By: #### 2 432-8 #### RUBEN SHIN ([id number]) [facility] ([facility]) [address] [place] [address] Creatinine [Mass/Vol] 0.91 mg/dL Normal 0.50-1.30 [facility] Comment on above: Performed By: #### 2 4323-8 #### RUBEN SHIN ([id number]) [facility] ([facility]) [address] [place] [address] GFR/1.73 sq M.predicted MDRD (S/P/Bld) [Vol rate/Area] mL/min/{1.73_m2} Normal >60 [facility] Comment on above: Result Comment: Calc ulations of estimated GFR are performed using the 2020 CKD-EPI Study Refit equation without the race variable for the IDMS-Traceable creatinine methods. https://jasn.asnjournals.org/content//ASN.286707 3731 Performed By: #### 2 4323-8 #### RUBEN SHIN ([id number]) [facility] ([facility]) [address] [place] [address] 75823 Glucose [Mass/Vol] 162 mg/dL High 74-99 [facility] Comment on above: Performed By: #### 2 4323-8 #### RUBEN SHIN ([id number]) [facility] ([facility]) [address] [place] [address] 26498 Potassium [Moles/Vol] 4.1 mmol/L Normal 3.5-5.3 [facility] Comment on above: Performed By: #### 2 4323-8 #### RUBEN SHIN ([id number]) [facility] ([facility]) [address] [place] [address] 44848 Protein [Mass/Vol] 7.5 g/dL Normal 6.4-8.2 [facility] Comment on above: Performed By: #### 2 4323-8 #### RUBEN SHIN ([id number]) [facility] ([facility]) [address] [place] [address] 33201 Sodium [Moles/Vol] 137 mmol/L Normal 136-145 [facility] Comment on above: Performed By: #### 2 4323-8 #### RUBEN SHIN ([id number]) [facility] ([facility]) [address] [place] [address] 31861 Urea nitrogen [Mass/Vol] 9 mg/dL Normal 6-23 [facility] Comment on above: Performed By: #### 2 4323-8 #### RUBEN SHIN ([id number]) [facility] ([facility]) [facility] [place] [address] ECG 12-LEADon 10-25-2023 ECG 12-LEAD Ventricular Rate 77 Atrial Rate 77 P-R Interval 120 QRS Duration 74 Q-T Interval 358 QTC Calculation(Bazett) 405 P Ruskin 38 R Ruskin 62 T Ruskin 93 QRS Count 12 Q Onset 225 P Onset 165 P Offset 213 T Offset 404 QTC Fredericia 389 Diagnosis Normal sinus rhythm Septal infarct , age undetermined Abnormal ECG No previous ECGs available See ED provider note for full interpretation and clinical correlation Confirmed by Teresa Clifton ([id number]) on 10/31/2023 10:16:51 AM Normal [facility] Ethanolon 10-25-2023 Ethanol [Mass/Vol] 45 mg/dL High <=10 [facility] Comment on above: Result Comment: For medical use only. Performed By: #### 5 643-2 #### RUBEN SHIN ([id number]) [facility] ([facility]) [address] [place], [place] [address] Magnesiumon 10-25-2023 Magnesium [Mass/Vol] 1.74 mg/dL Normal 1.60-2.40 [facility] Comment on above: Performed By: #### 1 9123-9 #### RUBEN SHIN ([id number]) [facility] ([facility]) [facility] [place] [id number] Troponin I.cardiac panelon 0 10-25-2023 Tropinin I.cardiac panel High sensitivity method 7 ng/L Normal 0-20 [facility] Comment on above: Order Comment: Less than 99th percentile of normal range cutoff- Female and children under 18 years old <14 ng/L; Male <21 ng/L: Negative Repeat testing should be performed if clinically indicated. Female and children under 18 years old 14-50 ng/L; Male 21-50 ng/L: Consistent with possible cardiac damage and possible increased clinical risk. Serial measurements may help to assess extent of myocardial damage. >50 ng/L: Consistent with cardiac damage, increased clinical risk and myocardial infarction. Serial measurements may help assess extent of myocardial damage. NOTE: Children less than 1 year old may have higher baseline troponin levels and results should be interpreted in conjunction with the overall clinical context. NOTE: Troponin I testing is performed using a different testing methodology at [facility] than at other [facility]. Direct result comparisons should only be made within the same method. Performed By: #### 8 9577-1 #### MIRADNA KIP ([id number]) [facility] ([facility]) [address] [place] [address] XR CHEST 1 VIEWon 10-25-2023 XR CHEST 1 VIEW Interpreted By: Santos Valdivia, STUDY: XR CHEST 1 VIEW; 10/25/2023 1:50 pm INDICATION: Signs/Symptoms:syncop e COMPARISON: Radiographs 05/02/2013 ACCESSION NUMBER(S): [id number] ORDERING CLINICIAN: GUDELIA LUCIANO TECHNIQUE: Single frontal view of the chest performed. FINDINGS: LINES AND DEVICES: None. LUNGS: No pulmonary edema, pleural effusion or pneumothorax. Minimal consolidative opacities along the right heart border favoring mild atelectasis. CARDIOMEDIASTINAL SILHOUETTE: The cardiomediastinal silhouette is within normal limits. IMPRESSION: No acute pulmonary process. MACRO None Signed by: Santos Valdivia 10/25/2023 2:27 PM Dictation workstation: [id number] [facility] Otheron 04-26-2020 1. Nonspecific soft tissue swelling at the radial and dorsal aspect of the right forearm. No retained radiopaque foreign body. 2. Mild degenerative changes in the right wrist and right elbow. 3. No fracture or dislocation is identified. DSS/dnb Workstation ID: [id number] [facility] EXAMINATION: XR FOREARM RIGHT 2 VIEWS; XR WRIST RIGHT 3+ VIEWS (STANDARD) 04/26/2020 COMPARISON: None. HISTORY: ORDERING SYSTEM PROVIDED HISTORY: Cow kicked patient in the RUE, then fell on patient's RUE-deformity to midshaft of forearm, ulnar side of wrist, medial side of elbow, TECHNOLOGIST PROVIDED HISTORY: Injury/Trauma Reason for exam: Injured while milking a cow. Swelling proximal-mid forearm and pain posterior elbow. Cancer History: n Surgery, RadiationHistory: n Encounter Type: Initial Mechanism of injury: Trauma ORDERING SYSTEM PROVIDED DIAGNOSIS CODES: TECHNIQUE: Frontal, oblique, and lateral views of the right wrist were obtained along with frontal and lateral views of the right forearm. FINDINGS: There is significant soft tissue swelling at the radial and dorsal aspect of the right forearm. No fracture or dislocation is identified. Mild joint space narrowing is noted at the 1st carpal-metacarpal joint. Mild degenerative spurring and joint space narrowing is also noted at the radiocarpal joint. There is a tiny spur at the radial margin of the radial head. No suspicious osseous lesion or retained radiopaque foreign body. [facility] Interface, Rad In Fuji Speechq - 04/26/2020 7:25 PM EDT EXAMINATION: XR FOREARM RIGHT 2 VIEWS; XR WRIST RIGHT 3+ VIEWS (STANDARD) 04/26/2020 COMPARISON: None. HISTORY: ORDERING SYSTEM PROVIDED HISTORY: Cow kicked patient in the RUE, then fell on patient's RUE-deformity to midshaft of forearm, ulnar side of wrist, medial side of elbow, TECHNOLOGIST PROVIDED HISTORY: Injury/Trauma Reason for exam: Injured while milking a cow. Swelling proximal-mid forearm and pain posterior elbow. Cancer History: n Surgery, RadiationHistory: n Encounter Type: Initial Mechanism of injury: Trauma ORDERING SYSTEM PROVIDED DIAGNOSIS CODES: TECHNIQUE: Frontal, oblique, and lateral views of the right wrist were obtained along with frontal and lateral views of the right forearm. FINDINGS: There is significant soft tissue swelling at the radial and dorsal aspect of the right forearm. No fracture or dislocation is identified. Mild joint space narrowing is noted at the 1st carpal-metacarpal joint. Mild degenerative spurring and joint space narrowing is also noted at the radiocarpal joint. There is a tiny spur at the radial margin of the radial head. No suspicious osseous lesion or retained radiopaque foreign body. IMPRESSION: 1. Nonspecific soft tissue swelling at the radial and dorsal aspect of the right forearm. No retained radiopaque foreign body. 2. Mild degenerative changes in the right wrist and right elbow. 3. No fracture or dislocation is identified. DSS/dnb Workstation ID: [id number] [facility] XR FOREARM RIGHT 2 VIEWSon 0 04-26-2020 XR FOREARM RIGHT 2 VIEWS EXAMINATION: XR FOREARM RIGHT 2 VIEWS; XR WRIST RIGHT 3+ VIEWS (STANDARD) 04/26/2020 COMPARISON: None. HISTORY: ORDERING SYSTEM PROVIDED HISTORY: Cow kicked patient in the RUE, then fell on patient's RUE-deformity to midshaft of forearm, ulnar side of wrist, medial side of elbow, TECHNOLOGIST PROVIDED HISTORY: Injury/Trauma Reason for exam: Injured while milking a cow. Swelling proximal-mid forearm and pain posterior elbow. Cancer History: n Surgery, RadiationHistory: n Encounter Type: Initial Mechanism of injury: Trauma ORDERING SYSTEM PROVIDED DIAGNOSIS CODES: TECHNIQUE: Frontal, oblique, and lateral views of the right wrist were obtained along with frontal and lateral views of the right forearm. FINDINGS: There is significant soft tissue swelling at the radial and dorsal aspect of the right forearm. No fracture or dislocation is identified. Mild joint space narrowing is noted at the 1st carpal-metacarpal joint. Mild degenerative spurring and joint space narrowing is also noted at the radiocarpal joint. There is a tiny spur at the radial margin of the radial head. No suspicious osseous lesion or retained radiopaque foreign body. IMPRESSION: 1. Nonspecific soft tissue swelling at the radial and dorsal aspect of the right forearm. No retained radiopaque foreign body. 2. Mild degenerative changes in the right wrist and right elbow. 3. No fracture or dislocation is identified. DSS/dnb Workstation ID: [id number] Dictated by: HARRISON MCCABE on [facility] Apr 26, 2020 7:09:21 PM EDT Transcribed by: KATHI RUVALCABA on [facility] Apr 26, 2020 7:20:17 PM EDT Finalized by: HARRISON MCCABE on [facility] Apr 26, 2020 7:22:45 PM EDT [facility] Comment on above: Order Comment: Injur y/Trauma or Illness?:Injury/Trauma How long have you had these symptoms (acute/chronic)?:Acute Reason for exam?:Injured while milking a cow. Swelling proximal-mid forearm and pain posterior elbow. History of cancer?:n Surgeries, chemotherapy, or radiation?:n Type of Exam?:Initial Mechanism of injury?:Trauma XR WRIST RIGHT 3+ VIEWS (STA NDARD)on 04-26-2020 XR WRIST RIGHT 3+ VIEWS (STANDARD) EXAMINATION: XR FOREARM RIGHT 2 VIEWS; XR WRIST RIGHT 3+ VIEWS (STANDARD) 04/26/2020 COMPARISON: None. HISTORY: ORDERING SYSTEM PROVIDED HISTORY: Cow kicked patient in the RUE, then fell on patient's RUE-deformity to midshaft of forearm, ulnar side of wrist, medial side of elbow, TECHNOLOGIST PROVIDED HISTORY: Injury/Trauma Reason for exam: Injured while milking a cow. Swelling proximal-mid forearm and pain posterior elbow. Cancer History: n Surgery, RadiationHistory: n Encounter Type: Initial Mechanism of injury: Trauma ORDERING SYSTEM PROVIDED DIAGNOSIS CODES: TECHNIQUE: Frontal, oblique, and lateral views of the right wrist were obtained along with frontal and lateral views of the right forearm. FINDINGS: There is significant soft tissue swelling at the radial and dorsal aspect of the right forearm. No fracture or dislocation is identified. Mild joint space narrowing is noted at the 1st carpal-metacarpal joint. Mild degenerative spurring and joint space narrowing is also noted at the radiocarpal joint. There is a tiny spur at the radial margin of the radial head. No suspicious osseous lesion or retained radiopaque foreign body. IMPRESSION: 1. Nonspecific soft tissue swelling at the radial and dorsal aspect of the right forearm. No retained radiopaque foreign body. 2. Mild degenerative changes in the right wrist and right elbow. 3. No fracture or dislocation is identified. DSS/dnb Workstation ID: [id number] Dictated by: HARRISON MCCABE on [facility] Apr 26, 2020 7:09:21 PM EDT Transcribed by: KATHI RUVALCABA on [facility] Apr 26, 2020 7:20:17 PM EDT Finalized by: HARRISON MCCABE on [facility] Apr 26, 2020 7:22:45 PM EDT [facility] Comment on above: Order Comment: Injur y/Trauma or Illness?:Injury/Trauma How long have you had these symptoms (acute/chronic)?:Acute Reason for exam?:Farm injury milking a cow today. Pain, swelling and abrasion posterior wrist. History of cancer?:n Surgeries, chemotherapy, or radiation?:n Type of Exam?:Initial Mechanism of injury?:No prior fx. Lab Report: Basic Metabolic Profile (BMP)on 03-16-2017 Anion gap 7 mmol/L Invalid Interpretation Code 5-15 [facility] Work Phone: [phone] BUN/Creatinine Ratio 11.1 RATIO Invalid Interpretation Code 10- [facility] Work Phone: [phone] Calcium 8.6 mg/dL Invalid Interpretation Code 8.5-10.1 [facility] Work Phone: [phone] Chloride 104 mmol/L Invalid Interpretation Code 98-107 [facility] Work Phone: [phone] CO2 27.0 mmol/L Invalid Interpretation Code 21.0-32.0 [facility] Work Phone: [phone] Creatinine 0.81 mg/dL Invalid Interpretation Code 0.70-1.30 [facility] Work Phone: [phone] eGFR (non-black) 127 mL/min/{1.73_m2} Invalid Interpretation Code >60 [facility] Work Phone: [phone] eGFR (non-black) 105 mL/min/{1.73_m2} Invalid Interpretation Code >60 [facility] Work Phone: [phone] Glucose 127 mg/dL High 74-106 [facility] Work Phone: [phone] Potassium 4.4 mmol/L Invalid Interpretation Code 3.5-5.1 [facility] Work Phone: [phone] Sodium 138 mmol/L Invalid Interpretation Code 136-145 [facility] Work Phone: [phone] Urea nitrogen 9 mg/dL Invalid Interpretation Code 7-18 [facility] Work Phone: [phone] Lab Report: CBC W/Diff, Auto matedon 03-16-2017 Basophils/100 leukocytes 0.7 % Invalid Interpretation Code 0-1 [facility] Work Phone: [phone] Eosinophils/100 leukocytes 3.0 % Invalid Interpretation Code 0-5 [facility] Work Phone: [phone] Erythrocytes (RBC) 5.04 10*6/uL Invalid Interpretation Code 4.6-6.2 [facility] Work Phone: [phone] Hematocrit (HCT) 47.3 % Invalid Interpretation Code 40-54 [facility] Work Phone: [phone] Hemoglobin (HGB) 15.4 g/dL Invalid Interpretation Code 13.0-16.5 [facility] Work Phone: [phone] immature granulocytes, percentage of total cells, blood 0.100 % Invalid Interpretation Code 0.0-0.9 [facility] Work Phone: [phone] Lymphocytes 1.89 X10 3/UL Invalid Interpretation Code 0.83-4.51 [facility] Work Phone: Lymphocytes/100 leukocytes 26.9 % Invalid Interpretation Code 19-41 [facility] Work Phone: [phone] MCH 30.6 pg Invalid Interpretation Code 27.0-32.0 [facility] Work Phone: [phone] MCHC 32.6 G/GL Invalid Interpretation Code 32-36 [facility] Work Phone: [phone] MCV 93.8 fL Invalid Interpretation Code 80-94 [facility] Work Phone: [phone] Monocytes/100 leukocytes 6.0 % Invalid Interpretation Code 0-10 [facility] Work Phone: [phone] neutrophil count, blood 4.4 X10 3/UL Invalid Interpretation Code 2.0-7.7 [facility] Work Phone: [phone] Neutrophils/100 leukocytes 63.3 % Invalid Interpretation Code 47-70 [facility] Work Phone: [phone] Platelets 231 10*3/mm3 Invalid Interpretation Code 150-450 [facility] Work Phone: [phone] PMV by Lalito 10.8 fL Invalid Interpretation Code 6.2-12.0 [facility] Work Phone: [phone] RDW-CA 14.1 % Invalid Interpretation Code 11.6-14.6 [facility] Work Phone: [phone] red blood cell distribution width, size density 46.8 fL High 35.1-43.9 [facility] Work Phone: [phone] WBC (Leukocytes) 7.0 10*3/uL Invalid Interpretation Code 4.4-11.0 [facility] Work Phone: [phone] Lab Report: Lipid Profileon 03-16-2017 Cholesterol 182 mg/dL Invalid Interpretation Code 200 [facility] Work Phone: [phone] HDL Cholesterol 35 mg/dL Low [facility] Work Phone: [phone] LDL Cholesterol 108 mg/dL Invalid Interpretation Code 0-130 [employer] Phone: [phone] Triglyceride 195 mg/dL Invalid Interpretation Code [facility] Work Phone: [phone] very low density lipoproteins 39 mg/dL Invalid Interpretation Code 5-40 [employer] Phone: [phone] Lab Report: Liver Profileon 03-16-2017 Alanine aminotransferase (ALT) 19 U/L Invalid Interpretation Code 16-61 [facility] Work Phone: [phone] Albumin 3.8 g/dL Invalid Interpretation Code 3.2-5.0 [facility] Work Phone: [phone] Alkaline phosphatase (ALP) 58 U/L Invalid Interpretation Code 45-117 [facility] Work Phone: [phone] Aspartate aminotransferase (AST) 17 U/L Invalid Interpretation Code 15-37 [facility] Work Phone: [phone] Bilirubin (direct) mg/dL Invalid Interpretation Code 0.00-0.30 [facility] Work Phone: [phone] Bilirubin (total) 0.40 mg/dL Invalid Interpretation Code 0.20-1.00 [facility] Work Phone: [phone] Globulin 3.8 g/dL Invalid Interpretation Code 2.2-4.2 [facility] Work Phone: [phone] Protein 7.6 g/dL Invalid Interpretation Code 6.4-8.2 [facility] Work Phone: [phone] Lab Report: Lipid Profileon 09-10-2016 Cholesterol 153 mg/dL 200 [facility] Work Phone: [phone] HDL Cholesterol 27 mg/dL Low [facility] Work Phone: [phone] LDL Cholesterol 89 mg/dL 0-130 [facility] Work Phone: [phone] Triglyceride 184 mg/dL [facility] Work Phone: [phone] very low density lipoproteins 37 mg/dL 5-40 [facility] Work Phone: [phone] Lab Report: Liver Profileon 09-10-2016 Alanine aminotransferase (ALT) 18 U/L 12-78 [facility] Work Phone: [phone] Albumin 3.8 g/dL 3.4-5.0 [facility] Work Phone: [phone] Alkaline phosphatase (ALP) 57 U/L Invalid Interpretation Code 45-117 [facility] Work Phone: [phone] ALP enzyme act/vol (Bld) 57 U/L 45-117 [facility] Work Phone: [phone] Aspartate aminotransferase (AST) 22 U/L 15-37 [facility] Work Phone: [phone] Bilirubin (direct) 0.10 mg/dL 0.00-0.30 [facility] Work Phone: [phone] Bilirubin (total) 0.30 mg/dL 0.20-1.00 [facility] Work Phone: [phone] Globulin 3.7 g/dL High 2.3-3.5 [facility] Work Phone: [phone] Globulin mass conc (S) 3.7 g/dL High 2.3-3.5 [facility] Work Phone: [phone] Protein 7.5 g/dL 6.4-8.2 [facility] Work Phone: [phone] Office Visiton 07-08-2016 Documentation of current medications (procedure) Done Invalid Interpretation Code [facility] Work Phone: [phone] Fall risk assessment No Invalid Interpretation Code [facility] Work Phone: [phone] Protein mass conc Done [facility] Work Phone: [phone] Clinical Lists Update: Prelo project eng 07-06-2016 Left ventricular Ejection fraction 53 % Invalid Interpretation Code [facility] Work Phone: [phone] Lab Report: Basic Metabolic Profile (BMP)on 02-03-2016 Anion gap 5 mmol/L Invalid Interpretation Code 5-15 [facility] Work Phone: [phone] Anion gap molar conc 5 mmol/L 5-[address] [facility] Work Phone: [phone] BUN/Creatinine Ratio 14.7 RATIO 10-[address] [facility] [address] [facility] Work Phone: [phone] Calcium 8.2 mg/dL Low 8.5-10.1 [facility] Work Phone: [phone] Chloride 112 mmol/L High 98-107 [facility] Work Phone: [phone] CO2 24.0 mmol/L Invalid Interpretation Code 21.0-32.0 [facility] Work Phone: [phone] CO2 ppres (BldV) 24.0 mmol/L 21.0-32.0 [facility] Work Phone: [phone] Creatinine 0.82 mg/dL 0.70-1.30 [facility] Work Phone: [phone] eGFR (non-black) 125 mL/min/{1.73_m2} Invalid Interpretation Code >60 [facility] Work Phone: [phone] eGFR (non-black) 104 mL/min/{1.73_m2} >60 [facility] Work Phone: [phone] EST GFR - AA 125 mL/min >60 [facility] Work Phone: [phone] Glucose 125 mg/dL High 70-110 [facility] Work Phone: [phone] Glucose mass conc 125 mg/dL High 70-110 [facility] Work Phone: [phone] Potassium 4.4 mmol/L 3.5-5.1 [facility] Work Phone: [phone] Sodium 141 mmol/L 136-145 [facility] Work Phone: [phone] Urea nitrogen 12 mg/dL 7-18 [facility] Work Phone: [phone] Lab Report: CBC W/Diff, Auto matedon 02-03-2016 Basophils/100 leukocytes 0.7 % Invalid Interpretation Code 0-1 [facility] Work Phone: [phone] Basophils/100 WBC (Bld) 0.7 % 0-1 [facility] Work Phone: [phone] Eosinophils/100 leukocytes 3.3 % Invalid Interpretation Code 0-5 [facility] Work Phone: [phone] Eosinophils/100 WBC (Bld) 3.3 % 0-5 [facility] Work Phone: [phone] Erythrocyte distribution width Ratio (RBC) 46.7 fL High 35.1-43.9 [facility] Work Phone: [phone] Erythrocyte distribution width Ratio (RBC) 13.7 % 11.6-14.6 [facility] Work Phone: [phone] Erythrocytes (RBC) 4.79 10*6/uL Invalid Interpretation Code 4.6-6.2 [facility] Work [phone] Hematocrit (HCT) 44.5 % Invalid Interpretation Code 40-54 [facility] Work [phone] Hematocrit Volume Fraction (Bld) 44.5 % 40-54 [facility] Work Phone: [phone] Hemoglobin (HGB) 15.2 g/dL 13.0-16.5 [facility] Work Phone: [phone] Immature granulocytes #/vol (Bld) 0.100 % 0.0-0.9 [facility] Work Phone: [phone] immature granulocytes, percentage of total cells, blood 0.100 % Invalid Interpretation Code 0.0-0.9 [facility] Work Phone: [phone] Lymphocytes 1.97 X10 3/UL Invalid Interpretation Code 0.83-4.51 [facility] Work Phone: [phone] Lymphocytes #/vol (Bld) 1.97 X10 3/UL 0.83-4.51 [facility] Work Phone: [phone] Lymphocytes/100 leukocytes 27.1 % Invalid Interpretation Code 19-41 [facility] Work Phone: [phone] Lymphocytes/100 WBC (Bld) 27.1 % 19-41 [facility] Work [phone] MCH 31.7 pg Invalid Interpretation Code 27.0-32.0 [facility] Work Phone: [phone] MCH Entitic mass (RBC) 31.7 pg 27.0-32.0 [facility] Work [phone] MCHC 34.2 G/GL Invalid Interpretation Code 32-36 [facility] Work Phone: [phone] MCHC mass conc (RBC) 34.2 G/GL 32-[address] [facility] Work Phone: [phone] MCV 92.9 fL Invalid Interpretation Code 80-94 [facility] Work Phone: [phone] MCV Entitic volume (RBC) 92.9 fL 80-94 [facility] Work Phone: [phone] Monocytes/100 leukocytes 6.2 % Invalid Interpretation Code 0-10 [facility] Work Phone: [phone] Monocytes/100 WBC (Bld) 6.2 % 0-10 [facility] Work Phone: [phone] neutrophil count, blood 4.6 X10 3/UL Invalid Interpretation Code 2.0-7.7 [facility] Work Phone: [phone] Neutrophils #/vol (Bld) 4.6 X10 3/UL 2.0-7.7 [facility] Work Phone: [phone] Neutrophils/100 leukocytes 62.6 % Invalid Interpretation Code 47-70 [facility] Work Phone: [phone] Neutrophils/100 WBC (Bld) 62.6 % 47-70 [facility] Work Phone: [phone] Platelet mean volume Entitic volume (Bld) 9.9 fL 6.2-12.0 [facility] Work Phone: [phone] Platelets 285 10*3/mm3 Invalid Interpretation Code 150-450 [facility] Work Phone: [phone] Platelets #/vol (Bld) 285 10*3/mm3 150-450 [facility] Work Phone: [phone] PMV by Lalito 9.9 fL Invalid Interpretation Code 6.2-12.0 [facility] Work Phone: [phone] RBC #/vol (Bld) 4.79 10*6/uL 4.6-6.2 [facility] Work Phone: [phone] RDW-CA 13.7 % Invalid Interpretation Code 11.6-14.6 [facility] Work Phone: [phone] red blood cell distribution width, size density 46.7 fL High 35.1-43.9 [facility] Work Phone: [phone] WBC #/vol (Bld) 7.3 10*3/uL 4.4-11.0 [facility] Work Phone: [phone] WBC (Leukocytes) 7.3 10*3/uL Invalid Interpretation Code 4.4-11.0 [facility] Work Phone: [phone] Lab Report: Lipid Profileon 02-03-2016 Cholesterol 145 mg/dL Invalid Interpretation Code 200 [facility] Work Phone: [phone] HDL Cholesterol 27 mg/dL [facility]: [phone] LDL Cholesterol 90 mg/dL Invalid Interpretation Code 0-130 [facility] Work Phone: [phone] Triglyceride 139 mg/dL Invalid Interpretation Code [facility] Work Phone: [phone] very low density lipoproteins 28 mg/dL Invalid Interpretation Code 5-40 [facility] Work Phone: [phone] Lab Report: Liver Profileon 02-03-2016 Alanine aminotransferase (ALT) 20 U/L Invalid Interpretation Code 12-78 [facility] Work Phone: [phone] Albumin 3.5 g/dL Invalid Interpretation Code 3.4-5.0 [facility] Work Phone: [phone] Alkaline phosphatase (ALP) 53 U/L Invalid Interpretation Code 45-117 [facility] Work Phone: [phone] Aspartate aminotransferase (AST) 22 U/L Invalid Interpretation Code 15-37 [facility] Work Phone: [phone] Bilirubin (direct) 0.07 mg/dL Invalid Interpretation Code 0.00-0.30 [facility] Work Phone: [phone] Bilirubin (total) 0.30 mg/dL Invalid Interpretation Code 0.20-1.00 [facility] Work Phone: [phone] Globulin 3.5 g/dL Invalid Interpretation Code 2.3-3.5 [facility] Work Phone: [phone] Protein 7.0 g/dL Invalid Interpretation Code 6.4-8.2 [facility] Work Phone: [phone] Office Visit: [facility] 01-20-20 16 Documentation of current medications (procedure) Done Invalid Interpretation Code [facility] Work Phone: [phone] Protein mass conc yes [facility] Work Phone: [phone] Smoking cessation education (procedure) yes Invalid Interpretation Code [facility] Work Phone: [phone] Tobacco smoking status NHIS Tobacco smoking status NHIS Invalid Interpretation Code [facility] Work Phone: [phone] Tobacco smoking status NHIS Current every day smoker [facility] Work Phone: [phone] Tobacco use [facility] Current every day smoker Invalid Interpretation Code [facility] Work Phone: [phone] Office Visit: [facility] 01-23-20 15 Dietary management education, guidance, and counseling (procedure) yes Invalid Interpretation Code [facility] Work Phone: [phone] Replaced Document: Raimundo Jarvis 01-22-2015 EKG QRS axis 50 deg [facility] Work Phone: [phone] electrocardiogram interpretation Sinus Rhythm -Short [place] syndrome Tiffanie = 116BORDERLINE RHYTHM Invalid Interpretation Code [facility] Work Phone: [phone] GE use only - for [employer] import when terms are not otherwise specified 393 ms Invalid Interpretation Code [facility] Work Phone: [phone] Interpretation Sinus Rhythm -Short [place] syndrome Tiffanie = 116BORDERLINE RHYTHM [facility] Work Phone: [phone] P [place] 31 deg [facility] Work Phone: [phone] P wave axis, electrocardiogram 31 deg Invalid Interpretation Code [facility] Work Phone: [phone] [place] Interval 116 ms [facility] Work Phone: [phone] [place] interval, electrocardiogram 116 ms Invalid Interpretation Code [facility] Work Phone: [phone] Pulse (Heart Rate) 69 /min Invalid Interpretation Code [facility] Work Phone: [phone] QRS axis, electrocardiogram 50 deg Invalid Interpretation Code [facility] Work Phone: [phone] QRS Duration 98 ms [facility] Work Phone: [phone] QRS duration, electrocardiogram 98 ms Invalid Interpretation Code [facility] Work Phone: [phone] QT Interval new path ms [facility] Work Phone: [phone] QT interval, electrocardiogram new path ms Invalid Interpretation Code [facility] Work Phone: [phone] QTc Zamorano 393 ms [facility] Work Phone: [phone] T [place] 41 deg [facility] Work Phone: [phone] T wave axis, electrocardiogram 41 deg Invalid Interpretation Code [facility] Work Phone: [phone] Office Visiton 07-11-2014 cardiac risk group C Invalid Interpretation Code [facility] Work Phone: [phone] General cardiovascular disease 10Y risk [#] [place]D'Agostino N/A Invalid Interpretation Code [facility] Work Phone: [phone] Office Visiton 12-25-2013 Protein mass conc Smoking cessation education (procedure) [facility] Work Phone: [phone] Smoking cessation education (procedure) Smoking cessation education (procedure) Invalid Interpretation Code [facility] Work Phone: [phone] Lab Report: TSHon 08-23-2012 Thyroid stimulating hormone (TSH) 1.65 u[iU]/mL Normal 0.358-3.74 [facility] Work Phone: [phone] Office Visiton 08-15-2012 Alcoholism counseling (procedure) no Invalid Interpretation Code [facility] Work Phone: [phone] Protein mass conc no [facility] Work Phone: [phone] Clinical Lists Update: Pre05-29-2012 Cholesterol to HDL Ratio 6 {ratio} Invalid Interpretation Code [facility] Work Phone: [phone] Magnesium 2.0 mg/dL Invalid Interpretation Code [facility] Work Phone: [phone] Clinical Lists Update: Pre project eng 05-28-2012 basophils as percent of blood leukocytes, manual count 0.3 % Invalid Interpretation Code [facility] Work Phone: [phone] eosinophils as percent of blood leukocytes, manual count 1.1 % Invalid Interpretation Code [facility] Work Phone: [phone] neutrophils, band form as percent of blood leukocytes, manual count 77.9 % High [facility] Work Phone: [phone] Vital Signs Date Time Vital Sign Value Performing Clinician Facility 04-26-2020 18:41-0400 BMI (Body Mass Index) 32.49 kg/m2 [place] [facility] 04-26-2020 18:41-0400 Body Temperature 98.29 [degF] [facility] 04-26-2020 18:41-0400 Body weight 99.79 kg [facility] 04-26-2020 18:41-0400 BP Diastolic 86 mm[Hg] [facility] 04-26-2020 18:41-0400 BP Systolic 126 mm[Hg] [facility] 04-26-2020 18:41-0400 Height 175.3 cm [facility] 04-26-2020 18:41-0400 Pulse (Heart Rate) 70 /min [facility] 04-26-2020 18:41-0400 Pulse Oximetry 97 % [facility] 04-26-2020 18:41-0400 Respiratory Rate 18 /min [facility] 07-08-2016 09:10-0400 BMI (Body Mass Index) 32.11 kg/m2 Danae Colbert [facility] Work Phone: 07-08-2016 09:10-0400 BP Diastolic 76 mm[Hg] [facility] Work Phone: 07-08-2016 09:10-0400 BP Systolic 130 mm[Hg] [facility] Work Phone: 07-08-2016 09:10-0400 Height 177.8 cm [facility] Work Phone: 07-08-2016 09:10-0400 Pulse (Heart Rate) 68 /min [facility] Work Phone: 07-08-2016 09:10-0400 Respiratory Rate 18 /min [facility] Work Phone: 07-08-2016 09:10-0400 Weight 101.52 kg [facility] Work Phone: 02-03-2016 08:41-0500 BP Diastolic 82 mm[Hg] Harriet Herr RN [facility] Work Phone: 02-03-2016 08:41-0500 BP Systolic 112 mm[Hg] Harriet Herr RN [facility] Work Phone: 02-03-2016 08:41-0500 Pulse (Heart Rate) 72 /min Harriet Herr RN [facility] Work Phone: 02-03-2016 08:41-0500 Respiratory Rate 20 /min [facility] Work Phone: 01-20-2016 09:32-0500 BMI (Body Mass Index) 32.42 kg/m2 Harriet Herr RN [facility] Work Phone: 01-20-2016 09:32-0500 BSA (Body Surface Area) 2.2 m2 Harriet Herr RN [facility] Work Phone: 01-20-2016 09:32-0500 Weight 102.51 kg Harriet Herr RN [facility] Work Phone: 01-22-2015 10:16-0500 Heart rate 69 /min Gregg Mckeonbarbi [facility] Work Phone: 06-28-2012 10:50-0400 Height 177.8 cm Harriet Herr RN [facility] Work Phone: Encounters Encounter Date Encounter Type Care Provider Facility Start: 10-25-2023 End: 10-25-2023 Emergency department patient visit GUDELIA Mcfarlane [facility] Start: 04-06-2022 Transcribe Orders Marv Britt MD Work Phone: [facility] Comment on above: Habitual snoring (Pr imary Dx) Start: 04-26-2020 End: 04-26-2020 Emergency department patient visit CRISTINA ROLDAN [facility] Start: 04-26-2020 End: 04-26-2020 Emergency department patient visit [place] Work Phone: [facility] Start: 12-19-2016 End: 12-19-2016 Emergency department patient visit [place] Kessler Facility:[facility] Procedures Date Procedure Procedure Detail Performing Clinician Start: 04-26-2020 Radex forearm 2 views Cristina Wu Work Phone: Start: 04-26-2020 Radex wrist complete [...] months Javi Perales Start: 07-08-2016 End: 01-12-2017 MMM Kike Sequeira MD Start: 07-08-2016 End: 09-10-2016 Nuclear stress test -exercise Kike Sequeira MD Start: 02-03-2016 End: 02-03-2016 Follow Up BP Check Vanesa Marquez PA-C Work Phone: Start: 01-20-2016 End: 02-03-2016 *BMP Vanesa Marquez PA-C Work Phone: Start: 01-20-2016 End: 02-03-2016 *CBC with Differential Vanesa Marquez PA-C Work Phone: Start: 01-20-2016 End: 02-03-2016 *Hepatic Function Panel Vanesa Marquez PA-C Work Phone: Start: 01-20-2016 End: 01-20-2016 PAYROLL ACCOUNTING SPECIALIST Vanesa Marquez PA-C Work Phone: Start: 01-20-2016 End: 01-20-2016 Follow [...] months Javi Perales Start: 07-15-2015 End: 07-15-2015 [facility] Kike Sequeira MD Start: 01-22-2015 End: 01-22-2015 Dietary management education, guidance, and counseling Ramonantonio Puja Start: 01-22-2015 End: 05-15-2015 *Hepatic Function Panel Vanesa Marquez PA-C Work Phone: Start: 01-22-2015 End: 01-22-2015 PAYROLL ACCOUNTING SPECIALIST Vanesa Marquez PA-C Work Phone: Start: 01-22-2015 [...] Kike Sequeira MD Start: 12-25-2013 End: 12-25-2013 [employer]YROLL ACCOUNTING SPECIALIST Kike Sequeira MD Start: 12-25-2013 End: 12-25-2013 [...] Panel Javi Perales Start: 06-28-2012 End: 06-28-2012 [employer]RO[employer] ACCOUNTING SPECIALIST Kike Sequeira MD Start: 06-28-2012 End: 06-28-2012 Electrocardiogram, complete Kike Leiva i, MD Start: 06-28-2012 End: 06-28-2012 Follow Up Appt 2 months Javi Perales Start: 06-28-2012 End: 09-19-2012 Lipid panel [AGGREGATE] Javi Perales Start: 06-21-2012 Percutaneous transluminal coronary angioplasty PERCUTANEOUS TRANSLUMINAL CORONARY ANGIOPLASTY, HX OF Gregg Luo Plan of Treatment Date Care Activity Detail Author Start: 10-08-2021 Influenza vaccination Sequential Influenza Vaccine (#1) [facility] Start: 10-09-2019 Influenza vaccination given Sequential Influenza Vaccine (#1) [facility] Start: 03-16-2017 End: 03-16-2017 *Hepatic Function Panel *Hepatic Function Panel [facility] Work Phone: Start: 03-16-2017 End: 03-16-2017 Lipid panel [AGGREGATE] *Lipid Profile CC PCP [facility] Work Phone: Start: 01-19-2017 End: 01-19-2017 Appointment Appointment [facility] Work Phone: Start: 08-03-2016 End: 09-16-2016 *Hepatic Function Panel *Hepatic Function Panel [facility] Work Phone: Start: 08-03-2016 End: 09-16-2016 Lipid panel [AGGREGATE] *Lipid Profile CC PCP [facility] Work Phone: Start: 07-08-2016 End: 07-08-2016 Appointment Appointment [facility] Work Phone: Start: 07-08-2016 End: 07-08-2016 *Hepatic Function Panel *Hepatic Function Panel [facility] Work Phone: Start: 07-08-2016 End: 01-12-2017 Follow Up Appt 6 months Follow Up Appt 6 months [facility] Work Phone: Start: 07-08-2016 End: 07-08-2016 Lipid panel [AGGREGATE] *Lipid Profile CC PCP [facility] Work Phone: Start: 07-08-2016 End: 01-12-2017 MMM MMM [facility] Work Phone: Start: 07-08-2016 End: 07-08-2016 Nuclear stress test -exercise Nuclear stress test -exercise [facility] Work Phone: Start: 02-03-2016 End: 02-03-2016 Follow Up BP Check Follow Up BP Check [facility] Work Phone: Start: 01-20-2016 End: 02-03-2016 *BMP *BMP [facility] Work Phone: Start: 01-20-2016 End: 02-03-2016 *CBC with Differential *CBC with Differential [facility] Work Phone: Start: 01-20-2016 End: 02-03-2016 *Hepatic Function Panel *Hepatic Function Panel [facility] Work Phone: Start: 01-20-2016 End: 01-20-2016 PAYROLL ACCOUNTING SPECIALIST PAYROLL ACCOUNTING SPECIALIST [facility] Work Phone: Start: 01-20-2016 End: 01-20-2016 Follow Up Appt 6 months Follow Up Appt 6 months [facility] Work Phone: Start: 01-20-2016 End: 02-03-2016 Lipid panel [AGGREGATE] *Lipid Profile CC PCP [facility] Work Phone: Start: 11-17-2015 End: 01-20-2016 *Hepatic Function Panel *Hepatic Function Panel [facility] Work Phone: Start: 11-17-2015 End: 01-20-2016 Lipid panel [AGGREGATE] *Lipid Profile CC PCP [facility] Work Phone: Start: 07-15-2015 End: 07-15-2015 Follow Up Appt 6 months Follow Up Appt 6 months [facility] Work Phone: Start: 07-15-2015 End: 07-15-2015 MMM MMM [facility] Work Phone: Start: 01-22-2015 End: 05-15-2015 *Hepatic Function Panel *Hepatic Function Panel [facility] Work Phone: Start: 01-22-2015 End: 01-22-2015 PAYROLL ACCOUNTING SPECIALIST PAYROLL ACCOUNTING SPECIALIST [facility] Work Phone: Start: 01-22-2015 End: 01-22-2015 Follow Up Appt 6 months Follow Up Appt 6 months [facility] Work Phone: Start: 01-22-2015 End: 05-15-2015 Lipid panel [AGGREGATE] *Lipid Profile CC PCP [facility] Work Phone: Start: 10-16-2014 End: 01-22-2015 *Hepatic Function Panel *Hepatic Function Panel [facility] Work Phone: Start: 10-16-2014 End: 01-22-2015 Lipid panel [AGGREGATE] *Lipid Profile CC PCP [facility] Work Phone: Start: 07-11-2014 End: 07-11-2014 Follow Up Appt 6 months Follow Up Appt 6 months [facility] Work Phone: Start: 07-11-2014 End: 01-09-2015 MMM MMM [facility] Work Phone: Start: 12-25-2013 End: 07-10-2014 *Hepatic Function Panel *Hepatic Function Panel [facility] Work Phone: Start: 12-25-2013 End: 07-11-2014 Chest x-ray X-Ray, Chest, PA & Lateral [facility] Work Phone: Start: 12-25-2013 End: 12-25-2013 PAYROLL ACCOUNTING SPECIALIST PAYROLL ACCOUNTING SPECIALIST [facility] Work Phone: Start: 12-25-2013 End: 12-25-2013 Electrocardiogram, complete EKG (In office) [facility] Work Phone: Start: 12-25-2013 End: 12-25-2013 Follow Up Appt 6 months Follow Up Appt 6 months [facility] Work Phone: Start: 12-25-2013 End: 07-10-2014 Lipid panel [AGGREGATE] *Lipid Profile CC PCP [facility] Work Phone: Start: 12-08-2012 End: 12-25-2013 *Hepatic Function Panel *Hepatic Function Panel [facility] Work Phone: Start: 12-08-2012 End: 12-25-2013 Lipid panel [AGGREGATE] *Lipid Profile CC PCP [facility] Work Phone: Start: 08-15-2012 End: 08-15-2012 Echocardiography Echocardiogram (complete) [facility] Work Phone: Start: 08-15-2012 End: 08-15-2012 Follow Up Appt 4 months Follow Up Appt 4 months [facility] Work Phone: Start: 08-15-2012 End: 08-15-2012 MMM MMM [facility] Work Phone: Start: 06-28-2012 End: 09-19-2012 *Hepatic Function Panel *Hepatic Function Panel [facility] Work Phone: Start: 06-28-2012 End: 06-28-2012 PAYROLL ACCOUNTING SPECIALIST PAYROLL ACCOUNTING SPECIALIST [facility] Work Phone: Start: 06-28-2012 End: 06-28-2012 Electrocardiogram, complete EKG (In office) [facility] Work Phone: Start: 06-28-2012 End: 06-28-2012 Follow Up Appt 2 months Follow Up Appt 2 months [facility] Work Phone: Start: 06-28-2012 End: 09-19-2012 Lipid panel [AGGREGATE] *Lipid Profile CC PCP [facility] Work Phone: Start: 2010 Administration of herpes zoster vaccine Zoster Vaccines (1 of 2) [facility] Start: 2010 Screening for malignant neoplasm of colon [facility] Start: 1978 Hepatitis C antibody, confirmatory test Hepatitis C Screening [facility] Start: 1978 Hepatitis C screening Hepatitis C Screening [facility] Start: 1976 COVID-19 Vaccine (1 of 2) COVID-19 Vaccine (1 of 2) [facility] Start: 05-18-1975 HIV screening HIV Screening [facility] Start: 1972 Adolescent depression screening assessment Depression Screening (PHQ9) [facility] Start: 1972 Depression screening using PHQ-9 (Patient Health Questionnaire 9) score Depression Screening (PHQ-2/9) [facility] Start: 1966 Pneumococcal Vaccine: Ped or At-Risk (1 - PCV) Pneumococcal Vaccine: Ped or At-Risk (1 - PCV) [facility] Start: 05-18-1963 History and physical examination, annual for health maintenance Wellness Visit [facility] Start: 1960 COVID-19 Vaccine (#1) COVID-19 Vaccine (#1) [facility] Start: 1960 Prostate specific antigen measurement PSA Level [facility] Start: 1960 Screening for malignant neoplasm of colon [facility] Start: 1960 Tetanus vaccination Tetanus: Every 10yrs [facility] Patient Education [facility] Work Phone: Payers Date Payer Category Payer Unknown [id number] 2019 Unknown [employer] OUT OF STATE [facility] [id number] 2019-Present [id number] 2019 Unknown [id number] 2016 Unknown 1960 Unknown [id number] 1960 Unknown [id number] 1960 Unknown [id number] Social History Date Type Detail Facility Start: 04-26-2020 Tobacco smoking status NHIS Current every day smoker [facility] Start: 04-26-2020 Tobacco use and exposure Never used [facility] Start: 04-26-2020 End: 03-18-2021 Alcohol intake Current drinker of alcohol (finding) [facility] Start: 04-26-2020 Alcohol Comment occassional [facility] Start: 1960 Sex Assigned At Not on file [facility] Exposure to SARS-CoV -2 (event) Not sure [facility] Evaluation note Note Date & Type Note Facility Evaluation note Diagnosis Habitual snoring- Primary documented in this encounter [facility] Summary Purpose Family History No Family History Records FoundNo Family History Records FoundNo Family History Records FoundNo Family History Records FoundNo Family History Records Found Advance Directives No Advanced Directives Records FoundDocuments on File Type Date 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 * Joint Pain (Indian) * Musculoskeletal Pain (Indian) * Abrasions (Indian) documented in this encounter Assessments Diagnosis Injury [...] Medicine Diagnoses Habitual snoring Marv Britt MD [address] [place] [address] [place] [id number] Umer Kent MD [address] [facility] [place] [address] Referral ID Status Reason Start Date Expiration Date V isits Requested Visits Authorized [id number] Authorized 04/06/2022 04/06/2023 1 1 Additional Source Comments (unrecognized sect ion and content) No Status Records FoundNo Status Records FoundNo Status Records FoundNo Status Records FoundNo Status Records Found INFORMATION SOURCE (unrecogn ized section and content) DATE CREATED AUTHOR 08/02/2017 [facility] DATE CREATED AUTHOR AUTHOR'S ORGANIZ ATION 05/03/2020 [facility] DATE CREATED AUTHOR AUTHOR'S ORGANIZ ATION 05/11/2022 [facility] DATE CREATED AUTHOR AUTHOR'S ORGANIZ ATION 10/30/2023 [facility] DATE CREATED AUTHOR AUTHOR'S ORGANIZ ATION 11/01/2023 [facility] Reason for Visit (unrecogniz ed section and content) Reason Comments Arm Injury Trino Kulkarni RN - 04/26/2020 8:01 PM Cristina Brandon MD - 04/26/2020 7:45 PM Trino Ceballos RN - 04/26/2020 7:22 PM Felipe Reed RN - 04/26/2020 6:32 PM EDT ED Notes (unrecognized secti on and content) Discharged with instructions to pt and . Condition stable. [facility] ED Attending Note: ED Site: [facility] NAME: Aj Pond 59 y.o. CSN: [id number] PCP: Boaz Gates MD History: Chief Complaint: [...] file Gets together: Not on file Attends yazidi service: Not on file Active member of [...] 3. No fracture or dislocation is identified. [employer] Workstation ID: [id number] XR Wrist Right 3+ Views (Standard) Final Result 1. Nonspecific soft tissue swelling at the radial and dorsal aspect of the right forearm. No retained radiopaque foreign body. 2. Mild degenerative changes in the right wrist and right elbow. 3. No fracture or dislocation is identified. [employer] Workstation ID: [id number] Procedures: Procedures ED Course [...] some time. He is advised to take xnub-icl-fyghvsj analgesics for pain control, but to return [...] to home Cristina Roldan M.D. Attending Physician [facility] Emergency Departments 04/26/2020 Portions of [...] Care Teams (unrecognized sec tion and content) Cnmt Relationship Specialty Start Date End Date Boaz Gates MD [address] [facility] [address] [place] [address] PCP - General Family Medicine 04/26/20 FOR RECORDS PERTAINING TO PATIENTS WHO ARE [...] BE BASED ON THE PRIMARY CLINICAL RECORDS. [facility]. provides no warranty or guarantee of the accuracy or completeness of information in this document.
[2023-11-30 12:22] LABS: Absolute Neutrophil Count 8.6 X10^3/uL (2.0-7.7); Basophil# 0.09 X10^3/uL; Basophil% 0.8 % (0-1); Eosinophil# 0.01 X10^3/uL; Eosinophils% 0.1 % (0-5); Lymphocyte % 21.2 % (19-41); Mean Corpuscular Hgb 30.6 pg (27.0-32.0); Mean Corpuscular Volume 92.6 fL (80-94); Mean Platelet Vol. 10.8 fl (6.2-12.0); Monocyte# 0.55 X10^3/uL; Monocyte% 4.7 % (0-10); NRBC Flagged by Analyzer 0 % (0-5); Neutrophil # 8.59 X10^3/uL (2.7-7.7); Neutrophil % 72.9 % (47-70); Platelet Count 246 K/mm3 (150-450); RBC Distribution Width CV 13.2 % (11.6-14.6); RBC Distribution Width SD 45.2 fl (35.1-43.9); Red Blood Count 6.35 M/mm3 (4.6-6.2); White Blood Count 11.8 K/mm3 (4.4-11.0)
[2023-11-30 12:38] LABS: ALB/GLOB Ratio 0.9 RATIO (0.9-2.4); AST(SGOT) 29 U/L (15-37); Alanine Aminotransfer ALT/SGPT 25 U/L (16-61); Albumin, Serum 3.7 g/dL (3.2-5.0); Alkaline Phosphatase 70 U/L (45-117); Anion Gap 8 (5-15); BUN 12 mg/dL (7-18); BUN/Creat Ratio 13.7 RATIO (10-20); Calcium,Total 9.5 mg/dL (8.5-10.1); Chloride 105 mmol/L (98-107); Cholesterol 134 mg/dL (200); Creatinine, Serum 0.88 mg/dL (0.70-1.30); EST Glomerular Filtration Rate 93 mL/min (>60); Est Glom Filt Rate - Afr Amer 113 mL/min (>60); Globulin 4.1 g/dL (2.2-4.2); Glucose 146 mg/dL (74-106); High Density Lipoprotein 26 mg/dL; PSA,Total - Annual Screen 0.53 ng/mL (0.00-4.00); Potassium 4.1 mmol/L (3.5-5.1); Protein, Total 7.8 g/dL (6.4-8.2); Sodium Level 135 mmol/L (136-145); Triglycerides 293 mg/dL; Very Low Density Lipoprotein 59 mg/dL (5-40)
[2023-11-30 12:48] LABS: Hemoglobin A1c 7.4 % (3.8-5.6)
[2023-11-30 14:17] LABS: Hematocrit 58.8 % (40-54)
[2023-11-30 14:18] LABS: Hemoglobin 19.4 g/dL (13.0-16.5)
[2023-12-01 09:48] LABS: Pathologist Review Reviewed
[2023-12-07 13:08] LABS: Testosterone, % Free 5.67 % (1.50-4.20); Testosterone, Total 612 ng/dL (264-916)
== END | disposition home or self-care (01) ==
LOC: MFPLAB 10:30
PROVIDERS: PCP Family Medicine; Visit Provider Family Medicine
DX: E11.9 Type 2 diabetes mellitus without complications (principal); E29.1 Testicular hypofunction
CPT/HCPCS: 36415; 80053; 80061; 83036; 84153; 84402; 84403; 85025; G0103

== ENCOUNTER → 2023-12-30 | Outpatient (CLI) | payer BC, SELFPAY ==
[2023-12-30 10:33] LABS: Absolute Lymphocyte Count 2.79 X10^3/uL (0.83-4.51); Absolute Neutrophil Count 7.3 X10^3/uL (2.0-7.7); Basophil# 0.09 X10^3/uL; Basophil% 0.8 % (0-1); Eosinophil# 0.03 X10^3/uL; Eosinophils% 0.3 % (0-5); Hemoglobin 18.8 g/dL (13.0-16.5); Lymphocyte # 2.79 X10^3/ul (0.83-4.51); Lymphocyte % 26.2 % (19-41); Mean Corpuscular Volume 90.7 fL (80-94); Mean Platelet Vol. 10.3 fl (6.2-12.0); Monocyte# 0.41 X10^3/uL; Monocyte% 3.8 % (0-10); NRBC Flagged by Analyzer 0 % (0-5); Neutrophil # 7.28 X10^3/uL (2.7-7.7); Neutrophil % 68.4 % (47-70); Platelet Count 225 K/mm3 (150-450); RBC Distribution Width CV 13.2 % (11.6-14.6); RBC Distribution Width SD 44.3 fl (35.1-43.9); Red Blood Count 6.27 M/mm3 (4.6-6.2); White Blood Count 10.7 K/mm3 (4.4-11.0)
[2023-12-30 11:44] LABS: Differential Indicated SCAN CRITERIA MET; Hematocrit 56.9 % (40-54)
[2024-01-03 08:53] LABS: Pathologist Review Reviewed
== END | disposition home or self-care (01) ==
LOC: MTLAB 08:54
PROVIDERS: PCP Family Medicine; Referring Provider Family Medicine; Visit Provider Family Medicine
DX: D58.2 Other hemoglobinopathies (principal)
CPT/HCPCS: 36415; 85025

== ENCOUNTER → 2024-03-01 | Outpatient (CLI) | payer BC, SELFPAY ==
[2024-03-01 12:28] LABS: ALB/GLOB Ratio 0.8 RATIO (0.9-2.4); AST(SGOT) 27 U/L (15-37); Alanine Aminotransfer ALT/SGPT 25 U/L (16-61); Albumin, Serum 3.7 g/dL (3.2-5.0); Alkaline Phosphatase 90 U/L (45-117); Anion Gap 9 (5-15); BUN 12 mg/dL (7-18); BUN/Creat Ratio 14.5 RATIO (10-20); Calcium,Total 9.6 mg/dL (8.5-10.1); Chloride 101 mmol/L (98-107); Cholesterol 159 mg/dL (200); Creatinine, Serum 0.82 mg/dL (0.70-1.30); EST Glomerular Filtration Rate 100 mL/min (>60); Est Glom Filt Rate - Afr Amer 121 mL/min (>60); Globulin 4.4 g/dL (2.2-4.2); Glucose 185 mg/dL (74-106); High Density Lipoprotein 32 mg/dL; Potassium 3.9 mmol/L (3.5-5.1); Protein, Total 8.1 g/dL (6.4-8.2); Sodium Level 137 mmol/L (136-145); Triglycerides 456 mg/dL
[2024-03-01 12:37] LABS: Absolute Lymphocyte Count 2.03 X10^3/uL (0.83-4.51); Absolute Neutrophil Count 4.6 X10^3/uL (2.0-7.7); Basophil# 0.06 X10^3/uL; Basophil% 0.8 % (0-1); Eosinophil# 0.02 X10^3/uL; Eosinophils% 0.3 % (0-5); Hematocrit 50.2 % (40-54); Hemoglobin 16.3 g/dL (13.0-16.5); Lymphocyte # 2.03 X10^3/ul (0.83-4.51); Lymphocyte % 28.1 % (19-41); Mean Corp Hgb Conc 32.5 g/dL (32-36); Mean Corpuscular Hgb 29.7 pg (27.0-32.0); Mean Corpuscular Volume 91.4 fL (80-94); Mean Platelet Vol. 10.5 fl (6.2-12.0); Monocyte# 0.45 X10^3/uL; Monocyte% 6.2 % (0-10); NRBC Flagged by Analyzer 0 % (0-5); Neutrophil # 4.64 X10^3/uL (2.7-7.7); Neutrophil % 64.3 % (47-70); POSITIVE MORPHOLOGY YES; Platelet Count 205 K/mm3 (150-450); RBC Distribution Width CV 15.7 % (11.6-14.6); RBC Distribution Width SD 52.9 fl (35.1-43.9); Red Blood Count 5.49 M/mm3 (4.6-6.2); White Blood Count 7.2 K/mm3 (4.4-11.0)
[2024-03-01 13:02] LABS: Differential Indicated SCAN CRITERIA MET
[2024-03-01 13:10] LABS: Reactive Lymphocyte 1+
== END | disposition home or self-care (01) ==
LOC: MFPLAB 09:19
PROVIDERS: PCP Family Medicine; Referring Provider Family Medicine; Visit Provider Family Medicine
DX: E29.1 Testicular hypofunction (principal); E11.9 Type 2 diabetes mellitus without complications
CPT/HCPCS: 36415; 80053; 80061; 82570; 84156; 84403; 85025

== ENCOUNTER → 2024-03-22 | Outpatient (CLI) | payer BC, SELFPAY ==
[2024-03-22 17:52] LABS: Protein, Urine (Random) 16.7 mg/dL (<11.9); Protein:Creat Ratio 256 mg/g CRE (0-200)
== END | disposition home or self-care (01) ==
LOC: MFPLAB 14:28 → LABSPEC 14:29
PROVIDERS: PCP Family Medicine; Referring Provider Family Medicine; Visit Provider Family Medicine
DX: E11.9 Type 2 diabetes mellitus without complications (principal)
CPT/HCPCS: 82570; 84156

== ENCOUNTER → 2024-05-31 | Outpatient (CLI) | payer BC, SELFPAY ==
--- NOTE | 2024-05-31 08:55 | RAD_ITS ---
PROCEDURE: Right shoulder radiographs, four views 05/31/2024 REASON FOR EXAM: Fall on ice several months ago. Pain. TECHNIQUE: Four views of the right shoulder obtained. COMPARISON: None available FINDINGS: Four views of the right shoulder were obtained. Bones are mildly osteopenic. Included right lung clear. No acute fracture or dislocation of the right shoulder. Edya-fo-xjmancjv degenerative change of the right acromioclavicular joint. No AC joint widening. There is narrowing of the subacromial space. Moderate degenerative change right glenohumeral joint. RAD/Shoulder min 2 Views IMPRESSION: Osteopenia. No acute bony abnormality of the right shoulder. Moderate degenerative change of the right acromioclavicular and glenohumeral rigoberto ints. There is narrowing of the subacromial space, suggesting chronic rotator cuff te ar. MRI evaluation is suggested. Reading Location: [facility]
[2024-05-31 12:50] LABS: Absolute Lymphocyte Count 1.97 X10^3/uL (0.83-4.51); Basophil# 0.06 X10^3/uL; Basophil% 0.7 % (0-1); Eosinophil# 0.01 X10^3/uL; Eosinophils% 0.1 % (0-5); Hematocrit 50.8 % (40-54); Hemoglobin 16.8 g/dL (13.0-16.5); Lymphocyte # 1.97 X10^3/ul (0.83-4.51); Mean Corp Hgb Conc 33.1 g/dL (32-36); Mean Corpuscular Hgb 30.5 pg (27.0-32.0); Mean Corpuscular Volume 92.2 fL (80-94); Mean Platelet Vol. 10.8 fl (6.2-12.0); Monocyte# 0.49 X10^3/uL; Monocyte% 5.7 % (0-10); NRBC Flagged by Analyzer 0 % (0-5); Neutrophil # 5.99 X10^3/uL (2.7-7.7); Neutrophil % 69.9 % (47-70); Platelet Count 197 K/mm3 (150-450); Red Blood Count 5.51 M/mm3 (4.6-6.2); White Blood Count 8.6 K/mm3 (4.4-11.0)
[2024-05-31 13:26] LABS: ALB/GLOB Ratio 1.2 RATIO (0.9-2.4); AST(SGOT) 33 U/L (<=37); Alanine Aminotransfer ALT/SGPT 16 U/L (<=46); Alkaline Phosphatase 74 U/L (40-129); Anion Gap 13 (5-15); BUN 9 mg/dL (4-19); BUN/Creat Ratio 13.6 RATIO (10-20); Calcium,Total 8.9 mg/dL (7.6-11.0); Carbon Dioxide 23.9 mmol/L (21.0-32.0); Chloride 99 mmol/L (98-108); Cholesterol 155 mg/dL (<=200); Creatinine, Serum 0.65 mg/dL (0.70-1.20); EST Glomerular Filtration Rate 105 (>60); Globulin 3.2 g/dL (2.2-4.2); Glucose 209 mg/dL (70-99); High Density Lipoprotein 26 mg/dL; Low Density Lipoprotein Calc. 29 mg/dL; PSA,Total- Diagnostic 0.87 ng/mL (0.00-4.00); Potassium 3.8 mmol/L (3.3-5.1); Protein, Total 7.2 g/dL (5.9-8.4); Sodium Level 136 mmol/L (133-145); Total Bilirubin 0.34 mg/dL (0.00-1.30); Triglycerides 500 mg/dL; Very Low Density Lipoprotein 100 mg/dL (5-40); cholesterol:hdl ratio screen 5.94
[2024-05-31 13:29] LABS: Microalbumin:Creatinine Ratio 4585.9 mg/g CRE
== END | disposition home or self-care (01) ==
LOC: MTLAB 08:51
PROVIDERS: PCP Family Medicine; Referring Provider Family Medicine; Visit Provider Family Medicine
DX: M25.511 Pain in right shoulder (principal); E11.9 Type 2 diabetes mellitus without complications; E29.1 Testicular hypofunction
CPT/HCPCS: 36415; 73030; 80053; 80061; 82043; 82570; 84153; 84403; 85025

== ENCOUNTER → 2024-08-29 | Outpatient (CLI) | payer BC, SELFPAY ==
[2024-08-29 12:09] LABS: Hematocrit 54.8 % (40-54); Hemoglobin 18.0 g/dL (13.0-16.5); Immature Granulocytes Count 0.070 X10^3/uL (0.0-0.0); Mean Corp Hgb Conc 32.8 g/dL (32-36); Mean Corpuscular Volume 90.4 fL (80-94); Mean Platelet Vol. 10.1 fl (6.2-12.0); NRBC Flagged by Analyzer 0 % (0-5); Platelet Count 179 K/mm3 (150-450); RBC Distribution Width CV 16.6 % (11.6-14.6); RBC Distribution Width SD 52.0 fl (35.1-43.9); Red Blood Count 6.06 M/mm3 (4.6-6.2); White Blood Count 11.6 K/mm3 (4.4-11.0)
== END | disposition home or self-care (01) ==
LOC: MFPLAB 10:16
PROVIDERS: PCP Family Medicine; Referring Provider Family Medicine; Visit Provider Family Medicine
DX: E29.1 Testicular hypofunction (principal)
CPT/HCPCS: 36415; 84403; 85025

== ENCOUNTER → 2024-11-08 | Outpatient (CLI) | payer BC, SELFPAY ==
[2024-11-08 10:11] LABS: Hematocrit 54.2 % (40-54); Hemoglobin 18.1 g/dL (13.0-16.5); Immature Granulocytes Count 0.050 X10^3/uL (0.0-0.0); Mean Corp Hgb Conc 33.4 g/dL (32-36); Mean Corpuscular Volume 88.9 fL (80-94); Mean Platelet Vol. 10.0 fl (6.2-12.0); NRBC Flagged by Analyzer 0 % (0-5); Platelet Count 202 K/mm3 (150-450); RBC Distribution Width CV 15.9 % (11.6-14.6); RBC Distribution Width SD 50.3 fl (35.1-43.9); Red Blood Count 6.10 M/mm3 (4.6-6.2); White Blood Count 9.7 K/mm3 (4.4-11.0)
[2024-11-08 10:46] LABS: AST(SGOT) 28 U/L (<=37); Alanine Aminotransfer ALT/SGPT 20 U/L (<=46); Albumin, Serum 4.4 g/dL (3.4-4.8); Alkaline Phosphatase 83 U/L (40-129); Bilirubin, Direct 0.17 mg/dL (0.00-0.30); Cholesterol 206 mg/dL (<=200); Globulin 3.2 g/dL (2.2-4.2); Low Density Lipoprotein Calc. 78 mg/dL; Triglycerides 447 mg/dL; Very Low Density Lipoprotein 89 mg/dL (5-40); cholesterol:hdl ratio screen 5.30
== END | disposition home or self-care (01) ==
PROVIDERS: Internal Medicine Cardiovascular Disease; PCP Family Medicine; Referring Provider Family Medicine; Visit Provider Family Medicine
DX: E78.00 Pure hypercholesterolemia, unspecified (principal); R73.9 Hyperglycemia, unspecified
CPT/HCPCS: 36415; 80061; 80076; 85025

== ENCOUNTER → 2024-12-27 | Outpatient (CLI) | payer BC, SELFPAY ==
[2024-12-27 12:16] LABS: Hematocrit 52.1 % (40-54); Hemoglobin 17.5 g/dL (13.0-16.5); Immature Granulocytes Count 0.060 X10^3/uL (0.0-0.0); Mean Corp Hgb Conc 33.6 g/dL (32-36); Mean Corpuscular Volume 93.2 fL (80-94); Mean Platelet Vol. 10.5 fl (6.2-12.0); NRBC Flagged by Analyzer 0 % (0-5); Platelet Count 197 K/mm3 (150-450); RBC Distribution Width CV 14.7 % (11.6-14.6); RBC Distribution Width SD 50.6 fl (35.1-43.9); Red Blood Count 5.59 M/mm3 (4.6-6.2); White Blood Count 9.4 K/mm3 (4.4-11.0)
[2024-12-27 12:52] LABS: Anion Gap 13 (5-15); BUN 13 mg/dL (4-19); BUN/Creat Ratio 16.4 RATIO (10-20); Calcium,Total 9.5 mg/dL (7.6-11.0); Carbon Dioxide 22.5 mmol/L (21.0-32.0); Chloride 101 mmol/L (98-108); Glucose 137 mg/dL (70-99); Potassium 4.3 mmol/L (3.3-5.1)
== END | disposition home or self-care (01) ==
LOC: MFPLAB 09:47
PROVIDERS: PCP Family Medicine; Visit Provider Family Medicine
DX: E29.1 Testicular hypofunction (principal); E11.9 Type 2 diabetes mellitus without complications
CPT/HCPCS: 36415; 80048; 84403; 85025

== ENCOUNTER → 2025-01-16 | Outpatient (CLI) | payer BC, SELFPAY ==
--- NOTE | 2025-01-16 17:57 | CT_ITS ---
PROCEDURE: LOW DOSE CT LUNG SCREENING 01/16/2025 REASON FOR EXAM: SMOKER TECHNIQUE: Procedure Code: [id number] Modality: CT Procedure: LOW DOSE CT LUNG SCREENING Coronal and Sagittal reconstruction series were provided. One or more dose reduction techniques were used (e.g., Automated exposure control, adjustment of the mA and/or kV according to patient size, use of iterative reconstruction technique). REFERENCE LINK: [employer] Lung-RADS RADIATION DOSE SUMMARY: CTDlvol: 3.18 mGy DLP: 113.18 mGycm COMPARISON: . FINDINGS: LUNGS AND LARGE AIRWAYS: No pulmonary nodules or masses noted. No ground-glass opacities or consolidation are seen. Middle lobe streaky opacities are again seen that may reflect subsegmental atelectasis and/or lungs scarring. PLEURA: Unremarkable. No pleural effusion or thickening. HEART AND PERICARDIUM: The heart size is normal. There is no pericardial effusion. VESSELS: Scattered thoracic aorta and coronary arteries atherosclerotic calcifications are again seen. The pulmonary trunk is also of normal size. Dilated ascending aorta measures 4.5 cm in diameter, unchanged. MEDIASTINUM AND KATIE: There is no pathologically enlarged mediastinal or hilar adenopathy. BONES: No suspicious lytic or blastic abnormality observed. Mild thoracic spondylosis. ABDOMEN: Limited noncontrast evaluation demonstrates no gross abnormalities. CT/Low Dose CT Lung Screening IMPRESSION: No evidence for overt lung nodule. Lung-RADS 1, recommend continued annual scre ening. No interval changes as compared to the prior study. Reading Location[facility]
--- OUTSIDE RECORDS SUMMARY | 2025-01-16 17:57 | XMS RPT_ITS | CCD ---
Author Organization [facility] Inform ion Partnership [facility] Care Team Providers Care Security Guard Supervisor Name Role Phone Carmenza PORTER, Harriet Dalal Unavailable Unavailable Danae Colbert Unavailable Danae Colbert Unavailable EFREN Marquez, Vanesa Caldwell Unavailable Harriet Herr RN Unavailable Unavailable Venice Kessler Unavailable Unavailable Rj Harriet A Unavailable Unavailable Rj Harriet A Unavailable Unavailable DeFinis, Harumi Y Unavailable Unavailable Boaz Gates Primary Care Provider [phone] CRISTINA ROLDAN Attending UnavailBOAZ Duncan Primary Care Unavailable Boaz Gates MD Primary Care Provider BOAZ GATES Primary Care Unavailable UMER KENT Attending Unavailable Dr. Boaz Gates Primary Care Provider [phone] Boaz Gates Referring Provider [facility] COMPONENT LAB TECH, COMPONENT LAB TECH-C Lionel York Attending Provider RONY LUCIANO Attending Unavailable BOAZ GATES Primary Care Unavailable Boaz Gates MD Primary Care Provider Dr. Boaz Gates MD Primary Care Provider [phone] Dr. Boaz Gates MD Attending Provider Dr. Boaz Gates MD Referring Provider Dr. Boaz Gates MD Primary Care Physician Dr. Boaz Gates MD Attending Physician Dr. Boaz Gates MD Referring Provider [phone] Daniel COMPONENT LAB TECH-C, Lionel York Attending Physician [phone] Dr. Kike Sequeira MD Nurse Practitioner [phone] Boaz Gates Attending Unavailable Gates, Boaz Referring Unavailable Gates, Boaz Primary Care Unavailable Gates, Boaz Referring Unavailable Kike Sequeira Consulting Unavailable Gates, Boaz Primary Care Unavailable Gates, Boaz Attending Unavailable Gates, Boaz Referring Unavailable Gates, Boaz Primary Care Unavailable Gates, Boaz Attending Unavailable Gates, Boaz Referring Unavailable Gates, Boaz Primary Care Unavailable Gates, Boaz Attending Unavailable Gates, Boaz Referring Unavailable Gates, Boaz Primary Care Unavailable Gates, Boaz Attending Unavailable Gates, Boaz Referring Unavailable Gates, Boaz Primary Care Unavailable Daniel COMPONENT LAB TECH, Lionel York Attending Unavailable Gates, Boaz Attending Unavailable Gates, Boaz Referring Unavailable Gates, Boaz Primary Care Unavailable Gates, Boaz Attending Unavailable Gates, Boaz Referring Unavailable Gates, Boaz Primary Care Unavailable Medications Current Medications Medication Drug Class(es) Dates Sig (Normalized) Sig (Original) [id number] actuat albuterol 0.09 mg/actuat metered dose inhaler (6 sources) beta2-Adrenergic Agonist Start: 10-16-2023 albuterol 90 mcg/actuation inhaler Inhale 2 puffs every 4 hours if needed. every 4 to 6 hours 10/16/2023 Active Start: 02-20-2023 Start: 02-20-2023 take 1 puff(s) by in halation every four hours as needed Albuterol Sulfate (Ventolin Hfa) 90 mcg/actuation HFA aerosol inhaler Active 1 - 2 PUFF INHALATION EVERY 4 HOURS NEEDED February 20, 2023 1:00am ARIPiprazole 10 mg oral tablet (20 sources) Atypical Antipsychotic Start: 09-28-2023 take 1 tablet by mouth in the morning ARIPiprazole (Abilify) 10 mg tablet Take 1 tablet (10 mg) by mouth early in the morning.. 09/28/2023 Active Start: 07-23-2021 take 2 tablets by mo [facility] once daily Start: 07-23-2021 take 10 mg by mouth once daily Aripiprazole Active 10 MG PO DAILY July 23, 2021 9:56am Start: 07-24-2019 End: 07-23-2021 take 1 tablet by mouth once daily Aripiprazole 5 mg tablet Discontinued 5 mg PO DAILY July 24, 2019 12:00am July 23, 2021 9:57am DEPRESSION aspirin 81 mg delayed release oral tablet (20 sources) Nonsteroidal Anti-inflammatory Drug Start: 06-21-2012 Start: 06-21-2012 take 1 tablet by christine th once daily ASPIRIN 81 MG TABS One tablet by mouth daily ASPIRIN [id number] Harriet Herr RN Start: 06-21-2012 take 1 tablet by christine th once daily ASPIRIN 81 MG TABS One tablet by mouth daily ASPIRIN [id number] Harriet Herr RN clonazePAM 0.5 mg oral tablet (12 sources) Benzodiazepine Start: 07-25-2018 take 1 tablet by mouth at bedtime as needed for anxiety clopidogrel 75 mg oral tablet (20 sources) [id number] Platelet Inhibitor Start: 06-21-2012 End: 09-13-2024 take 1 tablet by mouth once daily empagliflozin 10 mg oral tablet (1 source) Sodium-Glucose Cotransporter 2 Inhibitor Start: 11-08-2024 take 1 tablet by mouth once daily fenofibrate 145 mg oral tablet (20 sources) Peroxisome Proliferator Receptor alpha Agonist Start: 11-08-2024 take 1 tablet by mouth once daily Start: 08-30-2012 End: 11-10-2023 take 1 tablet by mouth once daily Fenofibrate Nanocrystallized 145 mg tablet Discontinued 145 mg PO daily January 06, 2023 2:09pm November 10, 2023 2:18pm CHOLESTEROL glimepiride 1 mg oral tablet (10 sources) Sulfonylurea Start: 11-10-2023 take 4 tablets by mo uth once daily Start: 10-01-2023 take 1 tablet by christine th in the morning glimepiride (Amaryl) 4 mg tablet Take 1 tablet (4 mg) by mouth early in the morning.. 10/01/2023 Active Start: 09-17-2022 End: 11-10-2023 take 1 tablet by mouth once daily Glimepiride 1 mg tablet Discontinued 1 mg PO DAILY September 17, 2022 12:00am November 10, 2023 8:58am meclizine hydrochloride 25 mg oral tablet (2 sources) Antiemetic take 1 tablet by mouth three times daily as needed for nausea meclizine (ANTIVERT) 25 mg tablet Take 25 mg by mouth 3 (three) times a day as needed for nausea . 0 Active metFORMIN hydrochloride 1000 mg oral tablet (20 sources) Biguanide Start: 09-17-2022 take 1 tablet by mouth twice daily Start: 01-22-2020 End: 09-17-2022 take 2 tablets by mouth twice daily Metformin 500 MG tablet Discontinued 1000 mg PO TWICE A DAY January 22, 2020 1:00am September 17, 2022 9:31am DIABETES Start: 01-22-2020 End: 09-17-2022 take 1000 mg by mouth twice daily Metformin Discontinued 1000 MG PO TWICE A DAY January 22, 2020 1:00am September 17, 2022 9:31am metroNIDAZOLE 500 mg oral tablet (20 sources) Nitroimidazole Antimicrobial Start: 11-08-2024 take 1 tablet by mouth once Start: 02-05-2020 End: 09-17-2022 Metronidazole 500 MG tablet Discontinued 500 mg PO .COMPLEX February 14, 2020 10:55am September 17, 2022 9:32am ANTIBIOTIC 500 mg PO; 2 tabs at 1300, 2100, 2200 the evening prior to surgery nitroglycerin 0.4 mg subling ual tablet (20 sources) Nitrate Vasodilator Start: 07-29-2022 End: 11-08-2024 Start: 06-21-2012 End: 07-24-2020 Nitroglycerin 0.4 mg tablet, sublingual Discontinued 0.4 mg SL .COMPLEX as needed January 14, 2017 1:00am July 21, 2017 4:27pm 0.4 mg SUBLINGUAL 1 tab under tongue every 5 min X 3 as needed for chest pain PRN tadalafil 10 mg oral tablet (20 sources) Phosphodiesterase 5 Inhibitor Start: 07-24-2020 End: 09-24-2024 take 1 tablet by mouth every twenty-four hours 1 ml testosterone cypionate 200 mg/ml injection (2 sources) Androgen Start: 11-10-2023 inject 200 mg by intramuscular injection every other week 24 hr venlafaxine 150 mg extended release oral capsule (15 sources) Serotonin and Norepinephrine Reuptake Inhibitor Start: 07-20-2023 take 1 capsule by mouth every twenty-four hours in the morning venlafaxine XR (Effexor-XR) 150 mg 24 hr capsule Take 1 capsule (150 mg) by mouth early in the morning.. 07/20/2023 Active Start: 09-17-2022 Start: 09-17-2022 take 2 capsules by m outh once daily, then take 3 capsules by mouth once daily Completed/Discontinued Medications Medication Drug Class(es) Dates Sig (Normalized) Sig (Original) atorvastatin 80 mg oral tablet (20 sources) HMG-CoA Reductase Inhibitor Start: 06-05-2018 End: 03-01-2024 take 1 tablet by mouth at bedtime Atorvastatin 80 mg tablet Discontinued 80 mg PO AT BEDTIME 90 0 December 05, 2023 9:05am March 01, 2024 9:04am CHOLESTEROL Start: 07-10-2014 End: 06-05-2018 take 1 tablet by mouth once daily Atorvastatin 40 mg tablet Discontinued 40 mg PO daily 90 4 May 15, 2018 3:16pm June 05, 2018 11:27am azithromycin 250 mg oral tablet (5 sources) Macrolide Antimicrobial Start: 02-20-2023 End: 11-10-2023 take 1 tablet by mouth once daily Azithromycin 250 mg tablet Discontinued 250 mg PO DAILY 6 0 February 20, 2023 1:00am November 10, 2023 8:59am double dose on day #1 dapagliflozin 5 mg oral tablet (3 sources) Sodium-Glucose Cotransporter 2 Inhibitor Start: 11-10-2023 End: 11-08-2024 take 1 tablet by mouth once daily Dapagliflozin Propanediol (Farxiga) 5 mg tablet Discontinued 5 mg PO daily November 10, 2023 12:00am November 08, 2024 8:52am Start: 10-12-2023 take 1 tablet by christine th in the morning Farxiga 5 mg Take 1 tablet (5 mg) by mouth early in the morning.. 10/12/2023 Active hydrOXYzine hydrochloride 50 mg oral tablet (7 sources) Antihistamine Start: 09-17-2022 End: 11-08-2024 take 1 tablet by mouth at bedtime as needed Hydroxyzine Hcl 50 mg tablet Discontinued 50 mg PO AT BEDTIME as needed September 17, 2022 12:00am November 08, 2024 8:53am On Hold: Resume on 03/03/23. icosapent ethyl 1000 mg oral capsule (6 sources) Start: 11-10-2023 End: 06-14-2024 Icosapent Ethyl (Vascepa) 1 gram capsule Discontinued 2 g PO TWICE A DAY 60 4 March 07, 2024 9:06am June 14, 2024 8:21am lisinopril 5 mg oral tablet (12 sources) Angiotensin Converting Enzyme Inhibitor Start: 06-21-2012 End: 08-15-2012 take 1 tablet by mouth once daily LISINOPRIL 5 MG TABS One tablet by mouth daily LISINOPRIL [id number] Kike Sequeira MD metoprolol tartrate 25 mg oral tablet (20 sources) beta-Adrenergic Jose Start: 06-21-2012 End: 06-25-2024 take 1 tablet by mouth twice daily Metoprolol Tartrate 25 mg tablet Discontinued 25 mg PO TWICE A DAY 180 July 13, 2023 5:08pm June 25, 2024 9:48am BP MULTIPLE VITAMIN (10 sources) Start: 06-21-2012 take 1 tablet by mouth once daily MULTIVITAMINS TABS One tablet by mouth daily MULTIPLE VITAMIN [id number] Harriet Herr RN Start: 06-21-2012 End: 07-11-2014 take 1 tablet by mouth once daily MULTIVITAMINS TABS One tablet by mouth daily MULTIPLE VITAMIN [id number] Kike Sequeira MD MULTIPLE VITAMIN (2 sources) Start: 06-21-2012 take 1 tablet by mouth once daily MULTIVITAMINS TABS One tablet by mouth daily MULTIPLE VITAMIN [id number] Harriet Herr RN Start: 06-21-2012 End: 07-11-2014 take 1 tablet by mouth once daily MULTIVITAMINS TABS One tablet by mouth daily MULTIPLE VITAMIN [id number] Kike Sequeira MD neomycin sulfate 500 mg oral tablet (20 sources) Aminoglycoside Antibacterial Start: 02-05-2020 End: 09-17-2022 Neomycin 500 MG tablet Discontinued 500 mg PO .COMPLEX February 14, 2020 10:55am September 17, 2022 9:32am ANTIBIOTIC 500 mg PO; 2 tabs at 1300, 2100, 2200 the evening prior to surgery pravastatin sodium 80 mg oral tablet (18 sources) HMG-CoA Reductase Inhibitor Start: 06-21-2012 End: 07-10-2014 take 1 tablet by mouth once daily at bedtime PRAVASTATIN SODIUM 80 MG TABS One tablet by mouth daily at bedtime PRAVASTATIN SODIUM [id number] Kike Sequeira MD predniSONE 20 mg oral tablet (5 sources) Start: 02-20-2023 End: 11-10-2023 take 2 tablets by mouth once daily Prednisone 20 mg tablet Discontinued 40 mg PO DAILY February 20, 2023 1:00am November 10, 2023 8:59am Start: 02-20-2023 take 40 mg by mouth once daily Prednisone Active 40 MG PO DAILY February 20, 2023 1:00am rosuvastatin calcium 40 mg oral tablet (6 sources) HMG-CoA Reductase Inhibitor Start: 07-10-2014 take 1 tablet by mouth once daily CRESTOR 40 MG TABS One tablet by mouth daily ROSUVASTATIN CALCIUM [id number] Kike Sequeira MD sertraline 50 mg oral tablet (20 sources) Serotonin Reuptake Inhibitor Start: 07-24-2019 End: 09-17-2022 take 3 tablets by mouth at bedtime Sertraline 50 mg tablet Discontinued 150 mg PO AT BEDTIME July 24, 2019 11:51am September 17, 2022 9:31am DEPRESSION Start: 07-24-2019 End: 09-17-2022 take 150 mg by mouth at bedtime Sertraline Discontinue d 150 MG PO AT BEDTIME July 24, 2019 11:51am September 17, 2022 9:31am Start: 06-04-2018 End: 07-24-2019 take 1 tablet by mouth at bedtime Sertraline 50 MG tablet Discontinued 50 mg PO AT BEDTIME June 04, 2018 12:00am July 24, 2019 11:51am 1000 ml sodium chloride 9 mg/ml injection (1 source) Start: 10-25-2023 End: 10-25-2023 1,000 mL, intravenous, at 99 9 mL/hr, Administer over 1 Hours, Once, On Tue10/25/23 at 1340, For 1 dose Problems Active Problems Problem Classification Problem Date Documented Da te Episodic/Chronic Acute bronchitis (5 sources) Acute bronchitis with bronchospasm; Translations: [Acute bronchitis, unspecified] 02-20-2023 Episodic Acute myocardial infarction (6 sources) Acute myocardial infarction; Translations: [Subsequent ST elevation (STEMI) myocardial infarction of unspecified site] Onset: 06-21-2012 06-21-2012 Chronic Coronary atherosclerosis and other heart disease (20 sources) Old myocardial infarction; Translations: [Atherosclerotic heart disease of [place] coronary artery without angina pectoris] Onset: 05-28-2012 07-09-2015 Chronic Deficiency and other anemia (1 source) Other hemoglobinopathies; Translations: [Other hemoglobinopathies] Onset: 01-27-2024 Chronic Diabetes mellitus without complication (3 sources) Type 2 diabetes mellitus well controlled; Translations: [Type 2 diabetes mellitus without complications] Onset: 04-04-2024 11-10-2023 Chronic Disorders of lipid metabolism (20 sources) Hyperlipidemia; Translations: [Hyperlipidemia, unspecified] Onset: 06-21-2012 06-21-2012 Chronic Essential hypertension (19 sources) Hypertensive disorder; Translations: [Essential hypertension] Onset: 01-20-2016 01-20-2016 Chronic External cause codes: Natural/environment (1 source) Exposure to other specified factors, initial encounter; Translations: [Exposure to external factor as cause of accidental injury on farm as place of occurrence, initial encounter] Nonspecific chest pain (10 sources) Chest pain; Translations: [Chest pain, unspecified] 07-22-2018 Episodic Other and unspecified benign neoplasm (10 sources) Tubular adenoma of colon; Translations: [Benign neoplasm of colon, unspecified] 07-05-2020 Episodic Other connective tissue disease (1 source) Pain in right forearm; Translations: [Right forearm pain] Episodic Other endocrine disorders (1 source) Testicular hypofunction; Translations: [Testicular hypofunction] Onset: 09-04-2024 Chronic Other injuries and conditions due to external causes (1 source) Injury caused by animal; Translations: [Injury caused by animal, initial encounter] Episodic Other lower respiratory disease (1 source) Habitual snoring; Translations: [Snoring] Episodic Other male genital disorders (13 sources) Male erectile dysfunction, unspecified; Translations: [Erectile dysfunction] 07-23-2021 Chronic Other non-traumatic joint disorders (1 source) Pain in elbow; Translations: [Elbow pain, unspecified laterality] Episodic Other non-traumatic joint disorders (1 source) Pain of right wrist; Translations: [Right wrist pain] Other nutritional; endocrine; and metabolic disorders (6 sources) Body mass index (BMI) 32.0-32.9, adult; Translations: [Body mass index (BMI) 32.0-32.9, adult] Onset: 01-22-2015 01-22-2015 Chronic Residual codes; unclassified (10 sources) Obstructive sleep apnea syndrome; Translations: [Obstructive sleep apnea (adult) (pediatric)] 07-23-2021 Chronic Screening or history of mental health and substance abuse (6 sources) Tobacco dependence syndrome; Translations: [Nicotine dependence, unspecified, uncomplicated] Onset: 06-21-2012 06-21-2012 Chronic Substance-related disorders (10 sources) Nicotine dependence; Translations: [Nicotine dependence, unspecified, uncomplicated] 02-18-2020 Chronic Syncope (8 sources) Vasovagal syncope; Translations: [Syncope and collapse] Onset: 10-25-2023 02-20-2023 Episodic Unclassified (5 sources) Percutaneous transluminal coronary angioplasty ; Translations: [Coronary angioplasty status] Onset: 06-21-2012 06-21-2012 Unclassified (2 sources) Long-term drug therapy; Translations: [Long-term (current) use of other medications] Onset: 09-19-2012 09-19-2012 Unclassified (1 source) Salvatore's sign; Translations: [Abrasions and calluses on knuckles due to self-induced vomiting] Past or Other Problems Problem Classification Problem Date Documented Da te Episodic/Chronic Coronary atherosclerosis and other heart disease (2 sources) Presence of coronary angioplasty implant and graft; Translations: [Percutaneous transluminal coronary angioplasty status] Onset: 05-28-2012 09-17-2022 Episodic Other aftercare (10 sources) Long-term (current) use of other medications; Translations: [Other supervisor intermediates (current) drug therapy] Onset: 09-19-2012 09-19-2012 Episodic Other non-traumatic joint disorders (1 source) Pain in right shoulder; Translations: [Pain in right shoulder] Onset: 06-05-2024 Episodic Results Test Name Value Interpretation Reference Range Facility Absolute lymphocyte countOrd ered By: Boaz Gates on 11-08-2024 Lymphocytes Auto (Unsp spec) [#/Vol] 2.51 10*3/uL 0.83-4.51 [facility] Absolute neutrophil countOrd ered By: Boaz Gates on 11-08-2024 Neutrophils (Bld) [#/Vol] 6.4 10*3/uL 2.0-7.7 [facility] Automated lymphocyte count a s percentage of total leukocytesOrdered By: Boaz Gates on 11-08-2024 Lymphocytes/100 WBC Auto (Unsp spec) 26.0 % 19-41 [facility] Basophil percentageOrdered B y: Boaz Gates on 11-08-2024 Basophils/100 WBC (Bld) 0.7 % 0-1 [facility] Bilirubin directOrdered By: Kike Sequeira on 11-08-2024 Bilirubin.direct [Mass/Vol] 0.17 mg/dL 0.00-0.30 [facility] Bilirubin, totalOrdered By: Kike Sequeira on 11-08-2024 Bilirubin [Mass/Vol] 0.51 mg/dL 0.00-1.30 [facility] CBC W/Diff, Automatedon Absolute Lymph 2.51 X10 3/uL Normal 0.83-4.51 [facility] Comment on above: Order Comment: Order Date: 12/30/23Order Info: 018- - CBCD Performed By: #### L 500.4050, L500.4100, L100.0100, L501.0900, L509.3000 #### [facility] [address] [place], [address] Absolute Neut 6.4 X10 3/uL Normal 2.0-7.7 [facility] Comment on above: Order Comment: Order Date: 12/30/23Order Info: 018- - CBCD Performed By: #### L 500.4050, L500.4100, L100.0100, L501.0900, L509.3000 #### [facility] [address] [place], [address] Basophils/100 WBC (Bld) 0.7 % Normal 0-1 [facility] Comment on above: Order Comment: Order Date: 12/30/23Order Info: 0184-1 - CBCD Performed By: #### L 500.4050, L500.4100, L100.0100, L501.0900, L509.3000 #### [facility] [address] [place], [address] Eosinophils/100 WBC (Bld) 0.4 % Normal 0-5 [facility] Comment on above: Order Comment: Order Date: 12/30/23Order Info: 018- - CBCD Performed By: #### L 500.4050, L500.4100, L100.0100, L501.0900, L509.3000 #### [facility] [address] [place], [address] Erythrocyte distribution width (RBC) [Ratio] 15.9 % High 11.6-14.6 [facility] Comment on above: Order Comment: Order Date: 12/30/23Order Info: 018- - CBCD Performed By: #### L 500.4050, L500.4100, L100.0100, L501.0900, L509.3000 #### [facility] [address] [place], [address] Hematocrit (Bld) [Volume fraction] 54.2 % High 40-54 [facility] Comment on above: Order Comment: Order Date: 12/30/23Order Info: 018- - CBCD Performed By: #### L 500.4050, L500.4100, L100.0100, L501.0900, L509.3000 #### [facility] [address] [place], [address] Hemoglobin (Bld) [Mass/Vol] 18.1 g/dL Invalid Interpretation Code 13.0-16.5 [facility] Comment on above: Order Comment: Order Date: 12/30/23Order Info: 018- - CBCD Performed By: #### L 500.4050, L500.4100, L100.0100, L501.0900, L509.3000 #### [facility] [address] [place], [address] IG% 0.500 Normal 0.0-0.9 [facility] Comment on above: Order Comment: Order Date: 12/30/23Order Info: 0184-1 - CBCD Result Comment: IG% - Immature Granulocytes (promyelocytes, myelocytes and metamyelocytes) > 1% indicates that a LEFT SHIFT is Present. Performed By: #### L 500.4050, L500.4100, L100.0100, L501.0900, L509.3000 #### [facility] [address] [place], [address] Lymphocytes/100 WBC (Bld) 26.0 % Normal 19-41 [facility] Comment on above: Order Comment: Order Date: 12/30/23Order Info: 0184-1 - CBCD Performed By: #### L 500.4050, L500.4100, L100.0100, L501.0900, L509.3000 #### [facility] [address] [place], [address] MCH (RBC) [Entitic mass] 29.7 pg Normal 27.0-32.0 [facility] Comment on above: Order Comment: Order Date: 12/30/23Order Info: 0184-1 - CBCD Performed By: #### L 500.4050, L500.4100, L100.0100, L501.0900, L509.3000 #### [facility] [address] [place], [address] MCHC (RBC) [Mass/Vol] 33.4 g/dL Normal 32-36 [facility] Comment on above: Order Comment: Order Date: 12/30/23Order Info: 0184-1 - CBCD Performed By: #### L 500.4050, L500.4100, L100.0100, L501.0900, L509.3000 #### [facility] [address] [place], [address] MCV (RBC) [Entitic vol] 88.9 fL Normal 80-94 [facility] Comment on above: Order Comment: Order Date: 12/30/23Order Info: 0184-1 - CBCD Performed By: #### L 500.4050, L500.4100, L100.0100, L501.0900, L509.3000 #### [facility] [address] [place], [address] Monocytes/100 WBC (Bld) 5.9 % Normal 0-10 [facility] Comment on above: Order Comment: Order Date: 12/30/23Order Info: 018- - CBCD Performed By: #### L 500.4050, L500.4100, L100.0100, L501.0900, L509.3000 #### [facility] [address] [place], [address] Neutrophils/100 WBC (Bld) 66.5 % Normal 47-70 [facility] Comment on above: Order Comment: Order Date: 12/30/23Order Info: 018- - CBCD Performed By: #### L 500.4050, L500.4100, L100.0100, L501.0900, L509.3000 #### [facility] [address] [place], [address] Nucleated RBC (Bld) [#/Vol] 0 10*3/uL Normal 0-5 [facility] Comment on above: Order Comment: Order Date: 12/30/23Order Info: 0184- - CBCD Performed By: #### L 500.4050, L500.4100, L100.0100, L501.0900, L509.3000 #### [facility] [address] [place], [address] Platelet mean volume (Bld) [Entitic vol] 10.0 fL Normal 6.2-12.0 [facility] Comment on above: Order Comment: Order Date: 12/30/23Order Info: 0184-1 - CBCD Performed By: #### L 500.4050, L500.4100, L100.0100, L501.0900, L509.3000 #### [facility] [address], [address] Platelets (Bld) [#/Vol] 202 10*3/uL Normal 150-450 [facility] Comment on above: Order Comment: Order Date: 12/30/23Order Info: 0184-1 - CBCD Performed By: #### L 500.4050, L500.4100, L100.0100, L501.0900, L509.3000 #### [facility] [address] [place], [address] RBC (Bld) [#/Vol] 6.10 10*6/uL Normal 4.6-6.[address] [facility] Comment on above: Order Comment: Order Date: 12/30/23Order Info: 0184-1 - CBCD Performed By: #### L 500.4050, L500.4100, L100.0100, L501.0900, L509.3000 #### [facility] [address] [place], [address] RDW SD 50.3 fl High 35.1-43.9 [facility] Comment on above: Order Comment: Order Date: 12/30/23Order Info: 0184-1 - CBCD Performed By: #### L 500.4050, L500.4100, L100.0100, L501.0900, L509.3000 #### [facility] [address] [place], [address] WBC (Bld) [#/Vol] 9.7 10*3/uL Normal 4.4-11.0 [facility] Comment on above: Order Comment: Order Date: 12/30/23Order Info: 0184-1 - CBCD Performed By: #### L 500.4050, L500.4100, L100.0100, L501.0900, L509.3000 #### [facility] [address] [place], [address] Calculated very low density lipoprotein (VLDL) cholesterol measurementOrdered By: Kike Sequeira on 11-08-2024 Calculated very low density lipoprotein (VLDL) cholesterol measurement 89 mg/dL High 5-40 [facility] Cardiology Visit Reporton Cardiology Visit Report [facility] [address] [place] [address] OFFICE VISIT Date of Service: 11/08/24 MR#: [id number] Acct: [id number] Name: AJ POND Rep #: [id number] : [id number] Provider: CITLALI kenny Age/Sex: 64/M [place] [facility] Status: Signed HPI HPI History of Present Illness Details: AJ POND SR, is a 64 y/o gentleman with a history of coronary artery disease status post Angioplasty and stenting of his left anterior descending artery in 2012. He also has a history of hyperlipidemia and tobacco abuse. He has cut down on the amount of tobacco he uses. You do remember that he underwent stress testing in 2016 which was negative for ischemia at a moderate to high workload. He has not had any neck arm or jaw discomfort suggest angina no dizziness or diaphoresis no near syncope or syncope. He did however have some left arm discomfort last fall and there was the suspicion as to whether this was angina and he underwent a stress test in May 2018 where he exercised to 7 metabolic equivalents without any EKG or myocardial perfusion abnormality suggestive of ischemia. He denies chest, arm, jaw, or neck discomfort. He denies palpitations. He denies bilateral lower extremity edema. He denies claudication. He denies shortness of breath with activity, shortness of breath at rest, orthopnea, or PND. He denies chronic cough. He denies significant, sudden weight gain. He denies lightheadedness, dizziness, or near-syncope. He states that syncopal episode 6 months ago. He states noting this with alcohol. He was evauated with PCP and thought to be blood sugar related. He denies blood in urine, blood in stool, or epistaxis. He denies fever with chills. He denies myalgia. He states fatigue. His exercise level has remained stable. Intake Vital Signs 11/10/23 08:49 11/08/24 07:48 Height 5 ft 10 in 5 ft 10 in Weight: 202 lb BMI 29.0 BP 133/93 H Blood Pressure Location Lt brachial Position Sitting Respiration 18 Pulse 73 Pulse Source Monitor Pulse Oximetry (%) 97 Intake Visit Reasons: 1 Y FU Product Support Specialist Required: No Is patient in pain?: No Allergies No Known Allergies Allergy (Verified 11/08/24 08:48) Medications ???Medication ???Instructions ???Recorded ???Confirmed ???Type aspirin 81 mg tablet,delayed 81 mg PO QDAY BLOOD THINNER 11/08/24 History release (Adult Low Dose Aspirin) clonazepam 0.5 mg tablet 0.5 mg PO QHS PRN Anxiety #30 tabs 07/25/18 11/10/23 History aripiprazole 5 mg tablet 10 mg PO DAILY DEPRESSION 07/23/21 11/08/24 History metformin 1,000 mg tablet 1,000 mg PO BID 09/17/22 11/08/24 History venlafaxine 150 mg 150 mg PO DAILY 09/17/22 11/08/24 History capsule,extended release 24 hr venlafaxine 75 mg capsule,extended 75 mg PO DAILY 09/17/22 11/08/24 History release 24 hr albuterol sulfate 90 mcg/actuation 1 - 2 puff inhalation Q4H PRN GA N 02/20/23 11/08/24 Rx aerosol inhaler (Ventolin HFA) Wheezing ##1 glimepiride 1 mg tablet 4 mg PO DAILY 11/10/23 11/08/24 Hi story testosterone cypionate 200 mg/mL 200 mg IM Q2W 11/10/23 11/08/24 Hi story intramuscular oil atorvastatin 80 mg tablet 80 mg PO QHS for cholesterol #90 0 03/01/24 11/08/24 Rx TABLETS icosapent ethyl 1 gram capsule 2 g (2 x 1 gram) PO BID #60 caps 0 06/14/24 11/08/24 Rx (Vascepa) metoprolol tartrate 25 mg tablet 25 mg PO BID BP #180 tabs 06/25/24 11/08/24 Rx clopidogrel 75 mg tablet See Rx Instructions .Route 5 11/08/24 Rx .COMPLEX #90 TABLETS tadalafil 10 mg tablet (Cialis) 10 mg PO DAILY PRN sexual activity 09/24/24 11/08/24 Rx #30 tabs empagliflozin 10 mg tablet 10 mg PO DAILY #90 tabs 11/08/24 1 Rx (Jardiance) fenofibrate nanocrystallized 145 145 mg PO QDAY 11/08/24 11/08/24 H istory mg tablet metronidazole 500 mg tablet 500 mg PO ONCE 11/08/24 11/08/24 H istory nitroglycerin 0.4 mg sublingual 0.4 mg sublingual Q5-15M PRN chest 11/08/24 11/08/24 Rx tablet pain #25 tabs Ejection fraction %: 53 Have you fallen in the past year?: No PFSH Medical History Diabetes mellitus type 2, controlled Obstructive sleep apnea Erectile dysfunction Marijuana smoker Nicotine dependence History of ST elevation myocardial infarction (STEMI) (05/28/12) Obesity Alcohol abuse Essential (primary) hypertension Anxiety and depression Atherosclerotic heart disease of [place] coronary artery without angina pectoris HLD (hyperlipidemia) Surgical History History of partial colectomy (02/2020) History of coronary artery stent placement (05/28/12) Family History ... Normal [facility] Eosinophil percentageOrdered By: Boaz Gates on 11-08-2024 Eosinophils/100 WBC (Bld) 0.4 % 0-5 [facility] Erythrocyte distribution wid th ratioOrdered By: Boaz Gates on 11-08-2024 Erythrocyte distribution width (RBC) [Ratio] 15.9 % High 11.6-14.6 [facility] Erythrocyte distribution wid th standard deviationOrdered By: Boaz Gates on 11-08-2024 Erythrocyte distribution width (RBC) [Ratio] 50.3 fl High 35.1-43.9 [facility] Hematocrit Auto (Bld) [Volum e fraction]Ordered By: Boaz Gates on 11-08-2024 Hematocrit (Bld) [Volume fraction] 54.2 % High 40-54 [facility] Hemoglobin measurementOrdere d By: Boaz Gates on 11-08-2024 Hemoglobin (Bld) [Mass/Vol] 18.1 g/dL Critically high 13.0-16.5 [facility] Immature granulocytes/100 WB C Auto (Bld)Ordered By: Boaz Gates on 11-08-2024 Immature granulocytes/100 WBC (Bld) 0.500 % 0.0-0.9 [facility] Comment on above: IG% - Immature Granu locytes (promyelocytes, myelocytes and metamyelocytes) > 1% indicates that a LEFT SHIFT is Present. LDL calc ser/plasOrdered By: Kike Sequeira on 11-08-2024 Cholesterol in LDL [Mass/Vol] 78 mg/dL [facility] Comment on above: Ipcmmquoow=343-273 m g/dL & Higher Dqwo=176 mg/dL or greaterFriedwald Equation for LDL-C Laboratory - Chemistry and C hemistry - challengeOrdered By: Kike Sequeira on 11-08-2024 AST [Catalytic activity/Vol] 28 U/L <38 [facility] Lipid Profileon 11-08-2024 CHOL:HDL 5.30 Normal [facility] Comment on above: Performed By: #### L 500.4050, L500.4100, L100.0100, L501.0900, L509.3000 #### [facility] [address] [place], [address] Cholesterol [Mass/Vol] 206 mg/dL High <=200 [facility] Comment on above: Result Comment: Chol esterol level, Desirable <200 mg/dL Borderline high cholesterol 200-239 mg/dL High cholesterol >=240 mg/dL Recommendations of the NCEP Adult Treatment Panel for the following risk-cutoff thresholds for the [place] population. Performed By: #### L 500.4050, L500.4100, L100.0100, L501.0900, L509.3000 #### [facility] [address] [place], [address] Cholesterol in HDL [Mass/Vol] 39 mg/dL Low [facility] Comment on above: Result Comment: [place] Cholesterol Education Program (NCEP) guidelines: <40 mg/dL: Low HDL-cholesterol (major risk factor for CHD) >= 60 mg/dL: High HDL-cholesterol (negative risk factor for CHD) HDL-cholesterol is affected by a number of factors, e.g. smoking, exercise, hormones, sex and age. Performed By: #### L 500.4050, L500.4100, L100.0100, L501.0900, L509.3000 #### [facility] [address] [place], [address] Cholesterol in LDL [Mass/Vol] 78 mg/dL Normal [facility] Comment on above: Result Comment: Bord anvnfp=396-231 mg/dL Higher Ebzy=331 mg/dL or greater Friedwald Equation for LDL-C Performed By: #### L 500.4050, L500.4100, L100.0100, L501.0900, L509.3000 #### [facility] [address] [place], [address] Cholesterol in VLDL [Mass/Vol] 89 mg/dL High 5-40 [facility] Comment on above: Performed By: #### L 500.4050, L500.4100, L100.0100, L501.0900, L509.3000 #### [facility] [address] [place], [address] Triglyceride [Mass/Vol] 447 mg/dL High [facility] Comment on above: Result Comment: The drugs N-Acetylcysteine and Metamizole may falsely depress this assay. Normal range: <150 mg/dL Borderline High: 150-199 mg/dL High: 200-499 mg/dL Very High: >500 mg/dL Performed By: #### L 500.4050, L500.4100, L100.0100, L501.0900, L509.3000 #### [facility] [address] [place], [address] Liver Profileon 11-08-2024 Albumin [Mass/Vol] 4.4 g/dL Normal 3.4-4.8 [facility] Comment on above: Performed By: #### L 500.4050, L500.4100, L100.0100, L501.0900, L509.3000 #### [facility] [address] [place], [address] ALK PHOS 83 U/L Normal 40-129 [facility] Comment on above: Performed By: #### L 500.4050, L500.4100, L100.0100, L501.0900, L509.3000 #### [facility] [address] [place], [address] ALT [Catalytic activity/Vol] 20 U/L Normal <=46 [facility] Comment on above: Performed By: #### L 500.4050, L500.4100, L100.0100, L501.0900, L509.3000 #### [facility] [address] [place], [address] AST [Catalytic activity/Vol] 28 U/L Normal <=37 [facility] Comment on above: Performed By: #### L 500.4050, L500.4100, L100.0100, L501.0900, L509.3000 #### [facility] [address] [place], [address] Bilirubin [Mass/Vol] 0.51 mg/dL Normal 0.00-1.30 [facility] Comment on above: Performed By: #### L 500.4050, L500.4100, L100.0100, L501.0900, L509.3000 #### [facility] [address] [place], [address] Bilirubin.direct [Mass/Vol] 0.17 mg/dL Normal 0.00-0.30 [facility] Comment on above: Performed By: #### L 500.4050, L500.4100, L100.0100, L501.0900, L509.3000 #### [facility] [address] [place], [address] Globulin (S) [Mass/Vol] 3.2 g/dL Normal 2.2-4.2 [facility] Comment on above: Performed By: #### L 500.4050, L500.4100, L100.0100, L501.0900, L509.3000 #### [facility] [address] [place], [address] T PROT 7.5 g/dL Normal 5.9-8.4 [facility] Comment on above: Performed By: #### L 500.4050, L500.4100, L100.0100, L501.0900, L509.3000 #### [facility] [address] [place], [address] MCV (mean corpuscular volume ) determinationOrdered By: Boaz Gates on 11-08-2024 MCV (RBC) [Entitic vol] 88.9 fL 80-94 [facility] Mean corpuscular hemoglobin (MCH) determinationOrdered By: Boaz Gates on 11-08-2024 MCH (RBC) [Entitic mass] 29.7 pg 27.0-32.0 [facility] Mean corpuscular hemoglobin concentration (MCHC) determinationOrdered By: Boaz Gates on 11-08-2024 MCHC (RBC) [Mass/Vol] 33.4 g/dL 32-36 [facility] Mean platelet volume determi nationOrdered By: Boaz Gates on 11-08-2024 Platelet mean volume (Bld) [Entitic vol] 10.0 fL 6.2-12.0 [facility] Monocyte percentageOrdered B y: Boaz Gates on 11-08-2024 Monocytes/100 WBC (Bld) 5.9 % 0-10 [facility] Neutrophil percentageOrdered By: Boaz Gates on 11-08-2024 Neutrophils/100 WBC (Bld) 66.5 % 47-70 [facility] Nucleated red blood cell per centageOrdered By: Boaz Gates on 11-08-2024 Nucleated RBC/100 WBC (Bld) [Ratio] 0 % 0-5 [facility] Platelet countOrdered By: Ramez Gates on 11-08-2024 Platelets (Bld) [#/Vol] 202 10*3/uL 150-450 [facility] RBC Auto (Bld) [#/Vol]Ordere d By: Boaz Gates on 11-08-2024 RBC (Bld) [#/Vol] 6.10 10*6/uL 4.6-6.[address] [facility] Screening total cholesterol/ high density lipoprotein (HDL) cholesterol ratioOrdered By: Kike Sequeira on 11-08-2024 Cholesterol.total/Karon sterol in HDL [Mass ratio] 5.30 {ratio} [facility] Serum globulin measurementOr dered By: Kike Sequeira on 11-08-2024 Globulin (S) [Mass/Vol] 3.2 g/dL 2.2-4.2 [facility] Serum or plasma alanine nice otransferase (ALT) measurementOrdered By: Kike Sequeira on 11-08-2024 ALT [Catalytic activity/Vol] 20 U/L <47 [facility] Serum or plasma albumin zhang urement (mass/volume)Ordered By: Kike Sequeira on 11-08-2024 Albumin [Mass/Vol] 4.4 g/dL 3.4-4.8 [facility] Serum or plasma alkaline thai sphatase measurementOrdered By: Kike Sequeira on 11-08-2024 ALP [Catalytic activity/Vol] 83 U/L 40-129 [facility] Serum or plasma cholesterol in HDL measurement (mass/volume)Ordered By: Kike Sequeira on 11-08-2024 Cholesterol in HDL [Mass/Vol] 39 mg/dL Low >40 [facility] Comment on above: National Cholesterol Education Program (NCEP) guidelines:<40 mg/dL: Low HDL-cholesterol (major risk factor for CHD)>= 60 mg/dL: High HDL-cholesterol (negative risk factor for CHD)HDL-cholesterol is affected by a number of factors, e.g. smoking, exercise, hormones, sex and age. Serum or plasma cholesterol measurement (mass/volume)Ordered By: Kike Sequeira on 11-08-2024 Cholesterol [Mass/Vol] 206 mg/dL High <201 [facility] Comment on above: Cholesterol level, D esirable <200 mg/dLBorderline high cholesterol 200-239 mg/dLHigh cholesterol >=240 mg/dLRecommendations of the NCEP Adult Treatment Panel for the following risk-cutoff thresholds for the [place] population. Total proteinOrdered By: Rhett prieto Hatfieldori on 11-08-2024 Protein [Mass/Vol] 7.5 g/dL 5.9-8.4 [facility] Triglycerides measurementOrd ered By: Kike Hua on 11-08-2024 Triglyceride [Mass/Vol] 447 mg/dL High <199 [facility] Comment on above: The drugs N-Acetylcy steine and Metamizole may falsely depress this assay. Normal range: <150 mg/dLBorderline High: 150-199 mg/dLHigh: 200-499 mg/dLVery High: >500 mg/dL White blood cell (WBC) count Ordered By: Boaz Gates on 11-08-2024 WBC (Bld) [#/Vol] 9.7 10*3/uL 4.4-11.0 [facility] Absolute lymphocyte countOrd ered By: Boaz Gates on 08-29-2024 Lymphocytes Auto (Unsp spec) [#/Vol] 1.93 10*3/uL 0.83-4.51 [facility] Absolute neutrophil countOrd ered By: Boaz Gates on 08-29-2024 Neutrophils (Bld) [#/Vol] 8.8 10*3/uL High 2.0-7.7 [facility] Automated lymphocyte count a s percentage of total leukocytesOrdered By: Boaz Gates on 08-29-2024 Lymphocytes/100 WBC Auto (Unsp spec) 16.7 % Low 19-41 [facility] Basophil percentageOrdered B y: Boaz Gates on 08-29-2024 Basophils/100 WBC (Bld) 0.8 % 0-1 [facility] CBC W/Diff, Automatedon 08-08 Absolute Lymph 1.93 X10 3/uL Normal 0.83-4.51 [facility] Comment on above: Performed By: #### L 500.4050, L500.4100, L100.0100, L501.0900, L509.3000 #### [facility] [address] [place], [address] Absolute Neut 8.8 X10 3/uL High 2.0-7.7 [facility] Comment on above: Performed By: #### L 500.4050, L500.4100, L100.0100, L501.0900, L509.3000 #### [facility] [address] [place], [address] Basophils/100 WBC (Bld) 0.8 % Normal 0-1 [facility] Comment on above: Performed By: #### L 500.4050, L500.4100, L100.0100, L501.0900, L509.3000 #### [facility] [address] [place], [address] Eosinophils/100 WBC (Bld) 1.0 % Normal 0-5 [facility] Comment on above: Performed By: #### L 500.4050, L500.4100, L100.0100, L501.0900, L509.3000 #### [facility] [address] [place], [address] Erythrocyte distribution width (RBC) [Ratio] 16.6 % High 11.6-14.6 [facility] Comment on above: Performed By: #### L 500.4050, L500.4100, L100.0100, L501.0900, L509.3000 #### [facility] [address] [place], [address] Hematocrit (Bld) [Volume fraction] 54.8 % High 40-54 [facility] Comment on above: Performed By: #### L 500.4050, L500.4100, L100.0100, L501.0900, L509.3000 #### [facility] [address] [place], [address] Hemoglobin (Bld) [Mass/Vol] 18.0 g/dL Invalid Interpretation Code 13.0-16.5 [facility] Comment on above: Performed By: #### L 500.4050, L500.4100, L100.0100, L501.0900, L509.3000 #### [facility] [address] [place], [address] IG% 0.600 Normal 0.0-0.9 [facility] Comment on above: Result Comment: IG% - Immature Granulocytes (promyelocytes, myelocytes and metamyelocytes) > 1% indicates that a LEFT SHIFT is Present. Performed By: #### L 500.4050, L500.4100, L100.0100, L501.0900, L509.3000 #### [facility] [address] [place], [address] Lymphocytes/100 WBC (Bld) 16.7 % Low 19-41 [facility] Comment on above: Performed By: #### L 500.4050, L500.4100, L100.0100, L501.0900, L509.3000 #### [facility] [address] [facility] [place], [address] MCH (RBC) [Entitic mass] 29.7 pg Normal 27.0-32.0 [facility] Comment on above: Performed By: #### L 500.4050, L500.4100, L100.0100, L501.0900, L509.3000 #### [facility] [address] [place], [address] MCHC (RBC) [Mass/Vol] 32.8 g/dL Normal 32-36 [facility] Comment on above: Performed By: #### L 500.4050, L500.4100, L100.0100, L501.0900, L509.3000 #### [facility] [address] [place], [address] MCV (RBC) [Entitic vol] 90.4 fL Normal 80-94 [facility] Comment on above: Performed By: #### L 500.4050, L500.4100, L100.0100, L501.0900, L509.3000 #### [facility] [address] [place], [address] Monocytes/100 WBC (Bld) 5.4 % Normal 0-10 [facility] Comment on above: Performed By: #### L 500.4050, L500.4100, L100.0100, L501.0900, L509.3000 #### [facility] [address] [place], [address] Neutrophils/100 WBC (Bld) 75.5 % High 47-70 [facility] Comment on above: Performed By: #### L 500.4050, L500.4100, L100.0100, L501.0900, L509.3000 #### [facility] [address] [place], [address] Nucleated RBC (Bld) [#/Vol] 0 10*3/uL Normal 0-5 [facility] Comment on above: Performed By: #### L 500.4050, L500.4100, L100.0100, L501.0900, L509.3000 #### [facility] [address] [place], [address] Platelet mean volume (Bld) [Entitic vol] 10.1 fL Normal 6.2-12.0 [facility] Comment on above: Performed By: #### L 500.4050, L500.4100, L100.0100, L501.0900, L509.3000 #### [facility] [address] [place], [address] Platelets (Bld) [#/Vol] 179 10*3/uL Normal 150-450 [facility] Comment on above: Performed By: #### L 500.4050, L500.4100, L100.0100, L501.0900, L509.3000 #### [facility] [address] [place], [address] RBC (Bld) [#/Vol] 6.06 10*6/uL Normal 4.6-6.[address] [facility] Comment on above: Performed By: #### L 500.4050, L500.4100, L100.0100, L501.0900, L509.3000 #### [facility] [address] [place], [address] RDW SD 52.0 fl High 35.1-43.9 [facility] Comment on above: Performed By: #### L 500.4050, L500.4100, L100.0100, L501.0900, L509.3000 #### [facility] [address] [place], [address] WBC (Bld) [#/Vol] 11.6 10*3/uL High 4.4-11.[address] [facility] Comment on above: Performed By: #### L 500.4050, L500.4100, L100.0100, L501.0900, L509.3000 #### [facility] [address] [place], [address] Eosinophil percentageOrdered By: Boaz Gates on 08-29-2024 Eosinophils/100 WBC (Bld) 1.0 % 0-5 [facility] Erythrocyte distribution wid th ratioOrdered By: Boaz Gates on 08-29-2024 Erythrocyte distribution width (RBC) [Ratio] 16.6 % High 11.6-14.6 [facility] Erythrocyte distribution wid th standard deviationOrdered By: Boaz Gates on 08-29-2024 Erythrocyte distribution width (RBC) [Ratio] 52.0 fl High 35.1-43.9 [facility] Hematocrit Auto (Bld) [Volum e fraction]Ordered By: Boaz Gates on 08-29-2024 Hematocrit (Bld) [Volume fraction] 54.8 % High 40-54 [facility] Hemoglobin measurementOrdere d By: Boaz Gates on 08-29-2024 Hemoglobin (Bld) [Mass/Vol] 18.0 g/dL Critically high 13.0-16.5 [facility] Immature granulocytes/100 WB C Auto (Bld)Ordered By: Boaz Gates on 08-29-2024 Immature granulocytes/100 WBC (Bld) 0.600 % 0.0-0.9 [facility] Comment on above: IG% - Immature Granu locytes (promyelocytes, myelocytes and metamyelocytes) > 1% indicates that a LEFT SHIFT is Present. L509.3001on 08-29-2024 Testosterone [Mass/Vol] 1015.00 ng/dL High 300-720 [facility] Comment on above: Performed By: #### L 500.4050, L500.4100, L100.0100, L501.0900, L509.3000 #### [facility] [place], [place], [id number] Laboratory - Chemistry and C hemistry - challengeOrdered By: Boaz Gates on 08-29-2024 Testosterone [Mass/Vol] 1015.00 ng/dL High 300-720 [facility] MCV (mean corpuscular volume ) determinationOrdered By: Boaz Gates on 08-29-2024 MCV (RBC) [Entitic vol] 90.4 fL 80-94 [facility] Mean corpuscular hemoglobin (MCH) determinationOrdered By: Boaz Gates on 08-29-2024 MCH (RBC) [Entitic mass] 29.7 pg 27.0-32.0 [facility] Mean corpuscular hemoglobin concentration (MCHC) determinationOrdered By: Boaz Gatse on 08-29-2024 MCHC (RBC) [Mass/Vol] 32.8 g/dL 32-36 [facility] Mean platelet volume determi nationOrdered By: Boaz Gates on 08-29-2024 Platelet mean volume (Bld) [Entitic vol] 10.1 fL 6.2-12.0 [facility] Monocyte percentageOrdered B y: Boaz Gates on 08-29-2024 Monocytes/100 WBC (Bld) 5.4 % 0-10 [facility] Neutrophil percentageOrdered By: Boaz Gates on 08-29-2024 Neutrophils/100 WBC (Bld) 75.5 % High 47-70 [facility] Nucleated red blood cell per centageOrdered By: Boaz Gates on 08-29-2024 Nucleated RBC/100 WBC (Bld) [Ratio] 0 % 0-5 [facility] Platelet countOrdered By: Ramez Gates on 08-29-2024 Platelets (Bld) [#/Vol] 179 10*3/uL 150-450 [facility] RBC Auto (Bld) [#/Vol]Ordere d By: Boaz Gates on 08-29-2024 RBC (Bld) [#/Vol] 6.06 10*6/uL 4.6-6.[address] [facility] White blood cell (WBC) count Ordered By: Boaz Gates on 08-29-2024 WBC (Bld) [#/Vol] 11.6 10*3/uL High 4.4-11.[address] [facility] Microalb:Creat Ratio,Random URon 07-27-2024 MALB:CREAT 458.6 mg/g CRE Normal [facility] Comment on above: Result Comment: AMENDED REPORT 07/27/24 [id number] MALB:CREAT previously reported as: 4585.9 mg/g CRE Performed By: #### L 100.0100, L500.4100, L502.0250, L509.3001, L501.9940, L500.4050 #### [facility] [place], [place], [id number] Absolute lymphocyte countOrd ered By: Boaz Gates on 05-31-2024 Lymphocytes Auto (Unsp spec) [#/Vol] 1.97 10*3/uL 0.83-4.51 [facility] Absolute neutrophil countOrd ered By: Boaz Gates on 05-31-2024 Neutrophils (Bld) [#/Vol] 6.0 10*3/uL 2.0-7.7 [facility] Anion gap in Serum or Plasma Ordered By: Boaz Gates on 05-31-2024 Anion gap [Moles/Vol] 13 mmol/L 5- [facility] Automated lymphocyte count a s percentage of total leukocytesOrdered By: Boaz Gates on 05-31-2024 Lymphocytes/100 WBC Auto (Unsp spec) 23.0 % - [facility] BUN/creatinine ratioOrdered By: Boaz Gates on 05-31-2024 Urea nitrogen/Creatinine [Mass ratio] 13.6 mg/mg 10- [facility] Basophil percentageOrdered B y: Boaz Gates on 05-31-2024 Basophils/100 WBC (Bld) 0.7 % 0-1 [facility] Bilirubin, totalOrdered By: Boaz Gates on 05-31-2024 Bilirubin [Mass/Vol] 0.34 mg/dL 0.00-1.30 [facility] CBC W/Diff, Automatedon 05-09 Absolute Lymph 1.97 X10 3/uL Normal 0.83-4.51 [facility] Comment on above: Performed By: #### L 100.0100, L500.4100, L502.0250, L509.3001, L501.9940, L500.4050 #### [facility] [address] [facility], [address] Absolute Neut 6.0 X10 3/uL Normal 2.0-7.7 [facility] Comment on above: Performed By: #### L 100.0100, L500.4100, L502.0250, L509.3001, L501.9940, L500.4050 #### [facility] [address] [place], [address] Basophils/100 WBC (Bld) 0.7 % Normal 0-1 [facility] Comment on above: Performed By: #### L 100.0100, L500.4100, L502.0250, L509.3001, L501.9940, L500.4050 #### [facility] [address] [place], [address] Eosinophils/100 WBC (Bld) 0.1 % Normal 0-5 [facility] Comment on above: Performed By: #### L 100.0100, L500.4100, L502.0250, L509.3001, L501.9940, L500.4050 #### [facility] [address] [place], [address] Erythrocyte distribution width (RBC) [Ratio] 14.0 % Normal 11.6-14.6 [facility] Comment on above: Performed By: #### L 100.0100, L500.4100, L502.0250, L509.3001, L501.9940, L500.4050 #### [facility] [address] [place], [address] Hematocrit (Bld) [Volume fraction] 50.8 % Normal 40-54 [facility] Comment on above: Performed By: #### L 100.0100, L500.4100, L502.0250, L509.3001, L501.9940, L500.4050 #### [facility] [address] [place], [address] Hemoglobin (Bld) [Mass/Vol] 16.8 g/dL High 13.0-16.5 [facility] Comment on above: Performed By: #### L 100.0100, L500.4100, L502.0250, L509.3001, L501.9940, L500.4050 #### [facility] [address] [place], [address] IG% 0.600 Normal 0.0-0.9 [facility] Comment on above: Result Comment: IG% - Immature Granulocytes (promyelocytes, myelocytes and metamyelocytes) > 1% indicates that a LEFT SHIFT is Present. Performed By: #### L 100.0100, L500.4100, L502.0250, L509.3001, L501.9940, L500.4050 #### [facility] [address], [address] Lymphocytes/100 WBC (Bld) 23.0 % Normal 19-41 [facility] Comment on above: Performed By: #### L 100.0100, L500.4100, L502.0250, L509.3001, L501.9940, L500.4050 #### [facility] [address] [place], [address] MCH (RBC) [Entitic mass] 30.5 pg Normal 27.0-32.0 [facility] Comment on above: Performed By: #### L 100.0100, L500.4100, L502.0250, L509.3001, L501.9940, L500.4050 #### [facility] [address] [place], [address] MCHC (RBC) [Mass/Vol] 33.1 g/dL Normal 32-36 [facility] Comment on above: Performed By: #### L 100.0100, L500.4100, L502.0250, L509.3001, L501.9940, L500.4050 #### [facility] [address] [place], [address] MCV (RBC) [Entitic vol] 92.2 fL Normal 80-94 [facility] Comment on above: Performed By: #### L 100.0100, L500.4100, L502.0250, L509.3001, L501.9940, L500.4050 #### [facility] [address] [place], [address] Monocytes/100 WBC (Bld) 5.7 % Normal 0-10 [facility] Comment on above: Performed By: #### L 100.0100, L500.4100, L502.0250, L509.3001, L501.9940, L500.4050 #### [facility] [address] [place], [address] Neutrophils/100 WBC (Bld) 69.9 % Normal 47-70 [facility] Comment on above: Performed By: #### L 100.0100, L500.4100, L502.0250, L509.3001, L501.9940, L500.4050 #### [facility] [address] [place], [address] Nucleated RBC (Bld) [#/Vol] 0 10*3/uL Normal 0-5 [facility] Comment on above: Performed By: #### L 100.0100, L500.4100, L502.0250, L509.3001, L501.9940, L500.4050 #### [facility] [address] [place], [address] Platelet mean volume (Bld) [Entitic vol] 10.8 fL Normal 6.2-12.0 [facility] Comment on above: Performed By: #### L 100.0100, L500.4100, L502.0250, L509.3001, L501.9940, L500.4050 #### [facility] [address] [place], [address] Platelets (Bld) [#/Vol] 197 10*3/uL Normal 150-450 [facility] Comment on above: Performed By: #### L 100.0100, L500.4100, L502.0250, L509.3001, L501.9940, L500.4050 #### [facility] [address] [place], [address] RBC (Bld) [#/Vol] 5.51 10*6/uL Normal 4.6-6.[address] [facility] Comment on above: Performed By: #### L 100.0100, L500.4100, L502.0250, L509.3001, L501.9940, L500.4050 #### [facility] [address] [place], [address] RDW SD 47.0 fl High 35.1-43.9 [facility] Comment on above: Performed By: #### L 100.0100, L500.4100, L502.0250, L509.3001, L501.9940, L500.4050 #### [facility] [address] [place], [place], [id number] WBC (Bld) [#/Vol] 8.6 10*3/uL Normal 4.4-11.0 [facility] Comment on above: Performed By: #### L 100.0100, L500.4100, L502.0250, L509.3001, L501.9940, L500.4050 #### [facility] [address] [place], [place], [id number] Calculated very low density lipoprotein (VLDL) cholesterol measurementOrdered By: Boaz Gates on 05-31-2024 Calculated very low density lipoprotein (VLDL) cholesterol measurement 100 mg/dL High 5-40 [facility] Carbon dioxide, total [Moles /volume] in Central venous bloodOrdered By: Boaz Gates on 05-31-2024 CO2 [Moles/Vol] 23.9 mmol/L 21.0-32.0 [facility] Chloride assayOrdered By: Ramez Gates on 05-31-2024 Chloride [Moles/Vol] 99 mmol/L 98-108 [facility] Comprehensive Metabolic Prof ilon 05-31-2024 Albumin [Mass/Vol] 4.0 g/dL Normal 3.4-4.8 [facility] Comment on above: Performed By: #### L 500.4050, L500.4100, L100.0100, L501.0900, L509.3000 #### [facility] [address] [place], [address] Albumin/Globulin [Mass ratio] 1.2 {ratio} Normal 0.9-2.4 [facility] Comment on above: Performed By: #### L 500.4050, L500.4100, L100.0100, L501.0900, L509.3000 #### [facility] [address] [place], [address] ALK PHOS 74 U/L Normal 40-129 [facility] Comment on above: Performed By: #### L 500.4050, L500.4100, L100.0100, L501.0900, L509.3000 #### [facility] [address] [place], [address] ALT [Catalytic activity/Vol] 16 U/L Normal <=46 [facility] Comment on above: Performed By: #### L 500.4050, L500.4100, L100.0100, L501.0900, L509.3000 #### [facility] [address] [place], [address] AST [Catalytic activity/Vol] 33 U/L Normal <=37 [facility] Comment on above: Performed By: #### L 500.4050, L500.4100, L100.0100, L501.0900, L509.3000 #### [facility] [address] [place], [address] Bilirubin [Mass/Vol] 0.34 mg/dL Normal 0.00-1.30 [facility] Comment on above: Performed By: #### L 500.4050, L500.4100, L100.0100, L501.0900, L509.3000 #### [facility] [address] [place], [address] BUN/CRE 13.6 RATIO Normal 10-20 [facility] Comment on above: Performed By: #### L 500.4050, L500.4100, L100.0100, L501.0900, L509.3000 #### [facility] [address] [place], [address] Calcium [Mass/Vol] 8.9 mg/dL Normal 7.6-11.0 [facility] Comment on above: Performed By: #### L 500.4050, L500.4100, L100.0100, L501.0900, L509.3000 #### [facility] [address] [place], [address] Chloride [Moles/Vol] 99 mmol/L Normal 98-108 [facility] Comment on above: Performed By: #### L 500.4050, L500.4100, L100.0100, L501.0900, L509.3000 #### [facility] [address] [place], [address] CO2 [Moles/Vol] 23.9 mmol/L Normal 21.0-32.0 [facility] Comment on above: Performed By: #### L 500.4050, L500.4100, L100.0100, L501.0900, L509.3000 #### [facility] [address] [place], [address] Creatinine [Mass/Vol] 0.65 mg/dL Low 0.70-1.20 [facility] Comment on above: Performed By: #### L 500.4050, L500.4100, L100.0100, L501.0900, L509.3000 #### [facility] [address] [place], [address] GAP 13 Normal 5-15 [facility] Comment on above: Performed By: #### L 500.4050, L500.4100, L100.0100, L501.0900, L509.3000 #### [facility] [address] [place], [address] GFR/1.73 sq M.predicted among non-blacks MDRD (S/P/Bld) [Vol rate/Area] 105 mL/min/{1.73_m2} Normal >60 [facility] Comment on above: Result Comment: mL/m in/1.73m2 CKD-EPI Creatinine Equation (2020) Performed By: #### L 500.4050, L500.4100, L100.0100, L501.0900, L509.3000 #### [facility] [address] [place], [address] Globulin (S) [Mass/Vol] 3.2 g/dL Normal 2.2-4.2 [facility] Comment on above: Performed By: #### L 500.4050, L500.4100, L100.0100, L501.0900, L509.3000 #### [facility] [address] [place], [address] Glucose [Mass/Vol] 209 mg/dL High 70-99 [facility] Comment on above: Performed By: #### L 500.4050, L500.4100, L100.0100, L501.0900, L509.3000 #### [facility] [address] [place], [address] Potassium [Moles/Vol] 3.8 mmol/L Normal 3.3-5.1 [facility] Comment on above: Performed By: #### L 500.4050, L500.4100, L100.0100, L501.0900, L509.3000 #### [facility] [address] [place], [address] Sodium [Moles/Vol] 136 mmol/L Normal 133-145 [facility] Comment on above: Performed By: #### L 500.4050, L500.4100, L100.0100, L501.0900, L509.3000 #### [facility] [address] [place], [address] T PROT 7.2 g/dL Normal 5.9-8.4 [facility] Comment on above: Performed By: #### L 500.4050, L500.4100, L100.0100, L501.0900, L509.3000 #### [facility] [address] [place], [address] Urea nitrogen [Mass/Vol] 9 mg/dL Normal 4-19 [facility] Comment on above: Performed By: #### L 500.4050, L500.4100, L100.0100, L501.0900, L509.3000 #### [facility] [address] [place], [address] Eosinophil percentageOrdered By: Boaz Gates on 05-31-2024 Eosinophils/100 WBC (Bld) 0.1 % 0-5 [facility] Erythrocyte distribution wid th ratioOrdered By: Boaz Gates on 05-31-2024 Erythrocyte distribution width (RBC) [Ratio] 14.0 % 11.6-14.6 [facility] Erythrocyte distribution wid th standard deviationOrdered By: oBaz Gates on 05-31-2024 Erythrocyte distribution width (RBC) [Ratio] 47.0 fl High 35.1-43.9 [facility] Glomerular filtration rate ( GFR) estimation/1.73 sq m using serum, plasma, or whole bOrdered By: Boaz Gates on 05-31-2024 GFR/1.73 sq M.predicted among non-blacks MDRD (S/P/Bld) [Vol rate/Area] 105 mL/min/{1.73_m2} >60 [facility] Comment on above: mL/min/1.73m2 CKD-EP I Creatinine Equation (2020) Hematocrit Auto (Bld) [Volum e fraction]Ordered By: Boaz Gates on 05-31-2024 Hematocrit (Bld) [Volume fraction] 50.8 % 40-54 [facility] Hemoglobin measurementOrdere d By: Boaz Gates on 05-31-2024 Hemoglobin (Bld) [Mass/Vol] 16.8 g/dL High 13.0-16.5 [facility] Immature granulocytes/100 WB C Auto (Bld)Ordered By: Boaz Gates on 05-31-2024 Immature granulocytes/100 WBC (Bld) 0.600 % 0.0-0.9 [facility] Comment on above: IG% - Immature Granu locytes (promyelocytes, myelocytes and metamyelocytes) > 1% indicates that a LEFT SHIFT is Present. L509.3001on 05-31-2024 Testosterone [Mass/Vol] 1002.00 ng/dL High 300-720 [facility] Comment on above: Performed By: #### L 500.4050, L500.4100, L100.0100, L501.0900, L509.3000 #### [facility] [address] [facility] [place], [address] LDL calc ser/plasOrdered By: Boaz Gates on 05-31-2024 Cholesterol in LDL [Mass/Vol] 29 mg/dL [facility] Comment on above: Uhcrjcztae=755-221 m g/dL & Higher Bxfc=563 mg/dL or greater Laboratory - Chemistry and C hemistry - challengeOrdered By: Boaz Gates on 05-31-2024 AST [Catalytic activity/Vol] 33 U/L <38 [facility] Testosterone [Mass/Vol] 1002.00 ng/dL High 300-720 [facility] Lipid Profileon 05-31-2024 CHOL:HDL 5.94 Normal [facility] Comment on above: Performed By: #### L 500.4050, L500.4100, L100.0100, L501.0900, L509.3000 #### [facility] [address], [address] Cholesterol [Mass/Vol] 155 mg/dL Normal <=200 [facility] Comment on above: Result Comment: Chol esterol level, Desirable <200 mg/dL Borderline high cholesterol 200-239 mg/dL High cholesterol >=240 mg/dL Recommendations of the NCEP Adult Treatment Panel for the following risk-cutoff thresholds for the [place] population. Performed By: #### L 500.4050, L500.4100, L100.0100, L501.0900, L509.3000 #### [facility] [address] [place], [address] Cholesterol in HDL [Mass/Vol] 26 mg/dL Low [facility] Comment on above: Result Comment: [place] Cholesterol Education Program (NCEP) guidelines: <40 mg/dL: Low HDL-cholesterol (major risk factor for CHD) >= 60 mg/dL: High HDL-cholesterol (negative risk factor for CHD) HDL-cholesterol is affected by a number of factors, e.g. smoking, exercise, hormones, sex and age. Performed By: #### L 500.4050, L500.4100, L100.0100, L501.0900, L509.3000 #### [facility] [address] [place], [address] Cholesterol in LDL [Mass/Vol] 29 mg/dL Normal [facility] Comment on above: Result Comment: Bord xagfgx=516-522 mg/dL Higher Xvqg=038 mg/dL or greater Performed By: #### L 500.4050, L500.4100, L100.0100, L501.0900, L509.3000 #### [facility] [address] [place], [address] Cholesterol in VLDL [Mass/Vol] 100 mg/dL High 5-40 [facility] Comment on above: Performed By: #### L 500.4050, L500.4100, L100.0100, L501.0900, L509.3000 #### [facility] [address] [place], [address] Triglyceride [Mass/Vol] 500 mg/dL High [facility] Comment on above: Result Comment: The drugs N-Acetylcysteine and Metamizole may falsely depress this assay. Normal range: <150 mg/dL Borderline High: 150-199 mg/dL High: 200-499 mg/dL Very High: >500 mg/dL Performed By: #### L 500.4050, L500.4100, L100.0100, L501.0900, L509.3000 #### [facility] [address] [place], [place], [id number] MCV (mean corpuscular volume ) determinationOrdered By: Boaz Gates on 05-31-2024 MCV (RBC) [Entitic vol] 92.2 fL 80-94 [facility] Mean corpuscular hemoglobin (MCH) determinationOrdered By: Boaz Gates on 05-31-2024 MCH (RBC) [Entitic mass] 30.5 pg 27.0-32.0 [facility] Mean corpuscular hemoglobin concentration (MCHC) determinationOrdered By: Boaz Gates on 05-31-2024 MCHC (RBC) [Mass/Vol] 33.1 g/dL 32-36 [facility] Mean platelet volume determi nationOrdered By: Boaz Gates on 05-31-2024 Platelet mean volume (Bld) [Entitic vol] 10.8 fL 6.2-12.0 [facility] Monocyte percentageOrdered B y: Boaz Gates on 05-31-2024 Monocytes/100 WBC (Bld) 5.7 % 0-10 [facility] Neutrophil percentageOrdered By: Boaz Gates on 05-31-2024 Neutrophils/100 WBC (Bld) 69.9 % 47-70 [facility] Nucleated red blood cell per centageOrdered By: Boaz Gates on 05-31-2024 Nucleated RBC/100 WBC (Bld) [Ratio] 0 % 0-5 [facility] PSA,Total- [employer] - PSA, DIAGNOSTIC 0.87 ng/mL Normal 0.00-4.00 [facility] Comment on above: Result Comment: This test was performed using the [employer] tPSA method. Measured values of a patient??sample can vary depending on the testing procedure used. PSA values determined on patient samples by different testing procedures cannot be used interchangeably. If there is a change in PSA assays while monitoring therapy, sequential testing should be performed to confirm baseline values. Performed By: #### L 500.4050, L500.4100, L100.0100, L501.0900, L509.3000 #### [facility] [place], [address] Platelet countOrdered By: Ramez Gates on 05-31-2024 Platelets (Bld) [#/Vol] 197 10*3/uL 150-450 [facility] Potassium measurement (mass/ volume)Ordered By: Boaz Gates on 05-31-2024 Potassium (Unsp spec) [Mass/Vol] 3.8 mmol/L 3.3-5.1 [facility] RBC Auto (Bld) [#/Vol]Ordere d By: Boaz Gates on 05-31-2024 RBC (Bld) [#/Vol] 5.51 10*6/uL 4.6-6.[address] [facility] Random urine creatinine zhang urement (mass/volume)Ordered By: Boaz Gates on 05-31-2024 Creatinine Unsp time (U) [Mass/Vol] 227.00 mg/dL 39.00-259.00 [facility] Screening total cholesterol/ high density lipoprotein (HDL) cholesterol ratioOrdered By: Boaz Gates on 05-31-2024 Cholesterol.total/Karon sterol in HDL [Mass ratio] 5.94 {ratio} [facility] Serum creatinine measurement (mass/volume)Ordered By: Boaz Gates on 05-31-2024 Creatinine [Mass/Vol] 0.65 mg/dL Low 0.70-1.20 [facility] Serum globulin measurementOr dered By: Boaz Gates on 05-31-2024 Globulin (S) [Mass/Vol] 3.2 g/dL 2.2-4.2 [facility] Serum glucose measurement (m ass/volume)Ordered By: Boaz Gates on 05-31-2024 Glucose [Mass/Vol] 209 mg/dL High 70-99 [facility] Serum or plasma alanine nice otransferase (ALT) measurementOrdered By: Boaz Gates on 05-31-2024 ALT [Catalytic activity/Vol] 16 U/L <47 [facility] Serum or plasma albumin zhang urement (mass/volume)Ordered By: Boaz Gates on 05-31-2024 Albumin [Mass/Vol] 4.0 g/dL 3.4-4.8 [facility] Serum or plasma albumin/glob ulin mass ratioOrdered By: Boaz Gates on 05-31-2024 Albumin/Globulin [Mass ratio] 1.2 {ratio} 0.9-2.4 [facility] Serum or plasma alkaline thai sphatase measurementOrdered By: Boaz Gates on 05-31-2024 ALP [Catalytic activity/Vol] 74 U/L 40-129 [facility] Serum or plasma calcium zhang urement (mass/volume)Ordered By: Boaz Gates on 05-31-2024 Calcium [Mass/Vol] 8.9 mg/dL 7.6-11.0 [facility] Serum or plasma cholesterol in HDL measurement (mass/volume)Ordered By: Boaz Gates on 05-31-2024 Cholesterol in HDL [Mass/Vol] 26 mg/dL Low >40 [facility] Comment on above: National Cholesterol Education Program (NCEP) guidelines:<40 mg/dL: Low HDL-cholesterol (major risk factor for CHD)>= 60 mg/dL: High HDL-cholesterol (negative risk factor for CHD)HDL-cholesterol is affected by a number of factors, e.g. smoking, exercise, hormones, sex and age. Serum or plasma cholesterol measurement (mass/volume)Ordered By: Boaz Gates on 05-31-2024 Cholesterol [Mass/Vol] 155 mg/dL <201 [facility] Comment on above: Cholesterol level, D esirable <200 mg/dLBorderline high cholesterol 200-239 mg/dLHigh cholesterol >=240 mg/dLRecommendations of the NCEP Adult Treatment Panel for the following risk-cutoff thresholds for the [place] population. Serum or plasma urea nitroge n measurement (mass/volume)Ordered By: Boaz Gates on 05-31-2024 Urea nitrogen [Mass/Vol] 9 mg/dL 4-19 [facility] Shoulder min 2 Viewson 05-31 Shoulder min 2 Views [facility] [address] [place], [place] [id number] (514) Shoulder min 2 Views MR#: [id number] Acct: [id number] Name: PHANI,AJ A Rep #: [id number] : 1960 M 64 From: Jorge Alberto Zhu i DO PCP: Dr. Boaz Gates MD Status: REG CLI Study: Shoulder min 2 Views Date of Exam: 05/31/24 Exam# [id number] Ordering Dr: Boaz Gates MD PROCEDURE: Right shoulder radiographs, four views 05/31/2024 REASON FOR EXAM: Fall on ice several months ago. Pain. TECHNIQUE: Four views of the right shoulder obtained. COMPARISON: None available FINDINGS: Four views of the right shoulder were obtained. Bones are mildly osteopenic. Included right lung clear. No acute fracture or dislocation of the right shoulder. Giuq-xl-aadqivsw degenerative change of the right acromioclavicular joint. No AC joint widening. There is narrowing of the subacromial space. Moderate degenerative change right glenohumeral joint. RAD/Shoulder min 2 Views IMPRESSION: Osteopenia. No acute bony abnormality of the right shoulder. Moderate degenerative change of the right acromioclavicular and glenohumeral joints. There is narrowing of the subacromial space, suggesting chronic rotator cuff tear. MRI evaluation is suggested. Reading Location: [facility] CC: Dr. Boaz Gates MD Mononitrotoluene Operator: Signed Normal [facility] Sodium levelOrdered By: Boaz Gates on 05-31-2024 Sodium [Moles/Vol] 136 mmol/L 133-145 [facility] Total proteinOrdered By: Opal Gates on 05-31-2024 Protein [Mass/Vol] 7.2 g/dL 5.9-8.4 [facility] Triglycerides measurementOrd ered By: Boaz Gates on 05-31-2024 Triglyceride [Mass/Vol] 500 mg/dL High <199 [facility] Comment on above: The drugs N-Acetylcy steine and Metamizole may falsely depress this assay. Normal range: <150 mg/dLBorderline High: 150-199 mg/dLHigh: 200-499 mg/dLVery High: >500 mg/dL Urine albumin measurement wi detection limit of 20 mg/L or less (mass/volume)Ordered By: Boaz Gates on 05-31-2024 Albumin DL <= 20 mg/L (U) [Mass/Vol] 1041.0 mg/L NO RANGE EST. [facility] White blood cell (WBC) count Ordered By: Boaz Gates on 05-31-2024 WBC (Bld) [#/Vol] 8.6 10*3/uL 4.4-11.0 [facility] Protein+Creatinine Ratio,Uri neon 03-22-2024 PROT:CRE RATIO 256 mg/g CRE High 0-200 [facility] Comment on above: Performed By: #### L 501.0900 #### [facility] [address] [place], [address] Protein (U) [Mass/Vol] 16.7 mg/dL High <11.9 [facility] Comment on above: Performed By: #### L 501.0900 #### [facility] [address] [place], [address] UR CREAT 65.30 mg/dL Normal NO RANGE EST. [facility] Comment on above: Performed By: #### L 501.0900 #### [facility] [address] [place], [address] CBC W/Diff, Automatedon 02-08 REACTIVE LYMPH 1+ Normal [facility] Comment on above: Performed By: #### L 500.4050, L500.4100, L100.0100, L501.0900, L509.3000 #### [facility] [address] [place], [address] Comprehensive Metabolic Prof ilon 03-01-2024 Albumin [Mass/Vol] 3.7 g/dL Normal 3.2-5.0 [facility] Comment on above: Performed By: #### L 500.4050, L500.4100, L100.0100, L501.0900, L509.3000 #### [facility] [address] [place], [address] Albumin/Globulin [Mass ratio] 0.8 {ratio} Low 0.9-2.4 [facility] Comment on above: Performed By: #### L 500.4050, L500.4100, L100.0100, L501.0900, L509.3000 #### [facility] [address] [place], [address] ALK P 90 U/L Normal 45-117 [facility] Comment on above: Performed By: #### L 500.4050, L500.4100, L100.0100, L501.0900, L509.3000 #### [facility] [address] [place], [address] ALT [Catalytic activity/Vol] 25 U/L Normal 16-61 [facility] Comment on above: Performed By: #### L 500.4050, L500.4100, L100.0100, L501.0900, L509.3000 #### [facility] [address] [place], [address] AST [Catalytic activity/Vol] 27 U/L Normal 15-37 [facility] Comment on above: Performed By: #### L 500.4050, L500.4100, L100.0100, L501.0900, L509.3000 #### [facility] [address] [place], [address] Bilirubin [Mass/Vol] 0.50 mg/dL Normal 0.20-1.00 [facility] Comment on above: Result Comment: For patients on eltrombopag therapy, use of Dimension [place] TBIL is not recommended. Performed By: #### L 500.4050, L500.4100, L100.0100, L501.0900, L509.3000 #### [facility] [address] [place], [address] BUN/CRE 14.5 RATIO Normal 10-20 [facility] Comment on above: Performed By: #### L 500.4050, L500.4100, L100.0100, L501.0900, L509.3000 #### [facility] [address] [place], [address] CA,Total 9.6 mg/dL Normal 8.5-10.1 [facility] Comment on above: Performed By: #### L 500.4050, L500.4100, L100.0100, L501.0900, L509.3000 #### [facility] [address] [place], [address] Chloride [Moles/Vol] 101 mmol/L Normal 98-107 [facility] Comment on above: Performed By: #### L 500.4050, L500.4100, L100.0100, L501.0900, L509.3000 #### [facility] [address] [place], [address] CO2 [Moles/Vol] 27.0 mmol/L Normal 21.0-32.0 [facility] Comment on above: Performed By: #### L 500.4050, L500.4100, L100.0100, L501.0900, L509.3000 #### [facility] [address] [place], [address] Creatinine [Mass/Vol] 0.82 mg/dL Normal 0.70-1.30 [facility] Comment on above: Result Comment: The validity of the calculated GFR GFRAA in patients over 70 years has not been determined. Clinical correlation is essential. Performed By: #### L 500.4050, L500.4100, L100.0100, L501.0900, L509.3000 #### [facility] [address] [place], [address] EST GFR - AA 121 mL/min Normal >60 [facility] Comment on above: Result Comment: Afri can [place] GFR Calc Performed By: #### L 500.4050, L500.4100, L100.0100, L501.0900, L509.3000 #### [facility] [address] [place], [address] GAP 9 Normal 5-15 [facility] Comment on above: Performed By: #### L 500.4050, L500.4100, L100.0100, L501.0900, L509.3000 #### [facility] [address] [place], [address] GFR/1.73 sq M.predicted among non-blacks MDRD (S/P/Bld) [Vol rate/Area] 100 mL/min/{1.73_m2} Normal >60 [facility] Comment on above: Result Comment: Non- GFR Calc Performed By: #### L 500.4050, L500.4100, L100.0100, L501.0900, L509.3000 #### [facility] [address] [place], [address] Globulin (S) [Mass/Vol] 4.4 g/dL High 2.2-4.2 [facility] Comment on above: Performed By: #### L 500.4050, L500.4100, L100.0100, L501.0900, L509.3000 #### [facility] [address] [place], [address] Glucose [Mass/Vol] 185 mg/dL High 74-106 [facility] Comment on above: Result Comment: Fast ing Glucose result greater than or equal to 126 mg/dL suggests DIABETES MELLITUS per A.D.A. criteria. Performed By: #### L 500.4050, L500.4100, L100.0100, L501.0900, L509.3000 #### [facility] [address] [place], [address] Potassium [Moles/Vol] 3.9 mmol/L Normal 3.5-5.1 [facility] Comment on above: Performed By: #### L 500.4050, L500.4100, L100.0100, L501.0900, L509.3000 #### [facility] [address] [place], [address] Sodium [Moles/Vol] 137 mmol/L Normal 136-145 [facility] Comment on above: Performed By: #### L 500.4050, L500.4100, L100.0100, L501.0900, L509.3000 #### [facility] [address] [place], [address] T PROT 8.1 g/dL Normal 6.4-8.2 [facility] Comment on above: Performed By: #### L 500.4050, L500.4100, L100.0100, L501.0900, L509.3000 #### [facility] [address] [place], [address] Urea nitrogen [Mass/Vol] 12 mg/dL Normal 7-18 [facility] Comment on above: Performed By: #### L 500.4050, L500.4100, L100.0100, L501.0900, L509.3000 #### [facility] [address] [place], [address] Lipid Profileon 03-01-2024 Cholesterol [Mass/Vol] 159 mg/dL Normal 200 [facility] Comment on above: Result Comment: <200 mg/dL Desirable 200-240 mg/dL Borderline >240 mg/dL High Risk Performed By: #### L 500.4050, L500.4100, L100.0100, L501.0900, L509.3000 #### [facility] [address] [place], [address] Cholesterol in HDL [Mass/Vol] 32 mg/dL Low [facility] Comment on above: Result Comment: The drugs N-Acetylcysteine and Metamizole may falsely depress this assay. Reference Range HDL <40 mg/dL Low HDL Cholesterol HDL >or= 60 mg/dL High HDL Cholesterol Performed By: #### L 500.4050, L500.4100, L100.0100, L501.0900, L509.3000 #### [facility] [address] [place], [address] LDL TNP Normal 0-130 [facility] Comment on above: Performed By: #### L 500.4050, L500.4100, L100.0100, L501.0900, L509.3000 #### [facility] [address] [place], [address] Triglyceride [Mass/Vol] 456 mg/dL High [facility] Comment on above: Result Comment: The drugs N-Acetylcysteine and Metamizole may falsely depress this assay. TRIGLYCERIDE IS GREATER THAN 400 mg/dL. LDL RESULT IS INVALID AND WILL NOT BE REPORTED. Serum Triglycerides Reference Interval Normal <150 mg/dL Borderline high 150 - 199 mg/dL High 200 - 499 mg/dL Very High > or = 500 mg/dL Performed By: #### L 500.4050, L500.4100, L100.0100, L501.0900, L509.3000 #### [facility] [address] [place], [address] VLDL TNP Normal 5-40 [facility] Comment on above: Performed By: #### L 500.4050, L500.4100, L100.0100, L501.0900, L509.3000 #### [facility] [address] [place], [address] Protein+Creatinine Ratio,Uri neon 03-01-2024 PROT:CRE RATIO Normal 0-200 [facility] Comment on above: Result Comment: UTO Performed By: #### L 500.4050, L500.4100, L100.0100, L501.0900, L509.3000 #### [facility] [address] [place], [address] PROTEIN,UR.RAN. Normal <11.9 [facility] Comment on above: Result Comment: UTO Performed By: #### L 500.4050, L500.4100, L100.0100, L501.0900, L509.3000 #### [facility] [address] [place], [address] UR CREAT Normal NO RANGE EST. [facility] Comment on above: Result Comment: UTO Performed By: #### L 500.4050, L500.4100, L100.0100, L501.0900, L509.3000 #### [facility] [address] [place], [address] Testosterone, Serum Totalon 03-01-2024 Testosterone [Mass/Vol] 137.26 ng/dL Normal [facility] Comment on above: Result Comment: CENT RAL 90% REFERENCE RANGES MALE AGE <50 197.44 - 669.58 ng/dL MALE AGE > or = 50 187.72 - 684.19 ng/dL FEMALE AGE <50 8.38 - 35.01 ng/dL FEMALE AGE > or = 50 <7.00 - 35.92 ng/dL Effective as of 09/02/20 Performed By: #### L 500.4050, L500.4100, L100.0100, L501.0900, L509.3000 #### [facility] [address] [place], [address] CBC W/Diff, Automatedon 12-09 PATH REV Reviewed Normal [facility] Comment on above: Order Comment: Order Date: 12/01/23Order Info: 0184-1 - CBCDelevated hemoglobin Result Comment: Norm ocytic anemia. Clinical correlation suggested. Joey Jarrell D.O. 01/03/24 AMENDED REPORT 01/03/24 0853 PATH REV previously reported as: June adrianna Performed By: #### L 500.4050, L500.4100, L100.0100, L501.0900, L509.3000 #### [facility] [address] [place], [address] Alcoholon 10-25-2023 Ethanol [Mass/Vol] 45 mg/dL High NINF - 10 mg/dL [facility] Comment on above: For medical use only . CBC W Auto Differential pane l (Bld)on 10-25-2023 Basophils (Bld) [#/Vol] 0.05 10*3/uL [facility] Basophils/100 WBC (Bld) 0.4 % 0.0 - 2.0 % [facility] Eosinophils (Bld) [#/Vol] 0.01 10*3/uL [facility] Eosinophils/100 WBC (Bld) 0.1 % 0.0 - 6.0 % [facility] Erythrocyte distribution width (RBC) [Ratio] 14.5 % 11.5 - 14.5 % [facility] Hematocrit (Bld) [Volume fraction] 52.5 % High 41.0 - 52.0 % [facility] Hemoglobin (Bld) [Mass/Vol] 17.4 g/dL 13.5 - 17.5 g/dL [facility] Immature granulocytes (Bld) [#/Vol] 0.05 10*3/uL [facility] Immature granulocytes/100 WBC (Bld) 0.4 % 0.0 - 0.9 % [facility] Comment on above: Immature Granulocyte Count (IG) includes promyelocytes, myelocytes and metamyelocytes but does not include bands. Percent differential counts (%) should be interpreted in the context of the absolute cell counts (cells/UL). Interpretation and review of laboratory results Abnormal [facility] Lymphocytes (Bld) [#/Vol] 2.35 10*3/uL [facility] Lymphocytes/100 WBC (Bld) 20.1 % 13.0 - 44.0 % [facility] MCH (RBC) [Entitic mass] 31.3 pg 26.0 - 34.0 pg [facility] MCHC (RBC) [Mass/Vol] 33.1 g/dL 32.0 - 36.0 g/dL [facility] MCV (RBC) [Entitic vol] 94 fL 80 - 100 fL [facility] Monocytes (Bld) [#/Vol] 0.56 10*3/uL [facility] Monocytes/100 WBC (Bld) 4.8 % 2.0 - 10.0 % [facility] Neutrophils (Bld) [#/Vol] 8.68 10*3/uL High [facility] Comment on above: Percent differential counts (%) should be interpreted in the context of the absolute cell counts (cells/uL). Neutrophils/100 WBC (Bld) 74.2 % 40.0 - 80.0 % [facility] Nucleated RBC/100 WBC (Bld) [Ratio] 0.0 % [facility] Platelets (Bld) [#/Vol] 197 10*3/uL [facility] RBC (Bld) [#/Vol] 5.56 10*6/uL [facility] WBC (Bld) [#/Vol] 11.7 10*3/uL [facility] Basophils (Bld) [#/Vol] 0.05 x10*3/uL Normal 0.00-0.10 [facility] Comment on above: Performed By: #### 5 7021-8 #### RUBEN SHIN ([id number]) [facility] ([facility]) [address] [place] [address] Basophils/100 WBC (Bld) 0.4 % Normal 0.0-2.0 [facility] Comment on above: Performed By: #### 5 7021-8 #### RUBEN SHIN ([id number]) [facility] ([facility]) [address] [place] [address]708 Eosinophils (Bld) [#/Vol] 0.01 x10*3/uL Normal 0.00-0.70 [facility] Comment on above: Performed By: #### 5 7021-8 #### RUBEN SHIN ([id number]) [facility] ([facility]) [address] [place] [address]346 Eosinophils/100 WBC (Bld) 0.1 % Normal 0.0-6.0 [facility] Comment on above: Performed By: #### 5 7021-8 #### RUBEN SHIN ([id number]) [facility] ([facility]) [address] [place] [address]72 Erythrocyte distribution width (RBC) [Ratio] 14.5 % Normal 11.5-14.5 [facility] Comment on above: Performed By: #### 5 7021-8 #### RUBEN SHIN ([id number]) [facility] ([facility]) [address] [place] [address] Hematocrit (Bld) [Volume fraction] 52.5 % High 41.0-52.0 [facility] Comment on above: Performed By: #### 5 7021-8 #### RUBEN SHIN ([id number]) [facility] ([facility]) [address] [place] [address] Hemoglobin (Bld) [Mass/Vol] 17.4 g/dL Normal 13.5-17.5 [facility] Comment on above: Performed By: #### 5 7021-8 #### RUBEN SHIN ([id number]) [facility] ([facility]) [address] [place], [place] [address] Immature granulocytes (Bld) [#/Vol] 0.05 x10*3/uL Normal 0.00-0.70 [facility] Comment on above: Performed By: #### 5 7021-8 #### RUBEN SHIN ([id number]) [facility] ([facility]) [address] [place], [place] [address] Immature granulocytes/100 WBC (Bld) 0.4 % Normal 0.0-0.9 [facility] Comment on above: Result Comment: Vicky ture Granulocyte Count (IG) includes promyelocytes, myelocytes and metamyelocytes but does not include bands. Percent differential counts (%) should be interpreted in the context of the absolute cell counts (cells/UL). Performed By: #### 5 7021-8 #### RUBEN SHIN ([id number]) [facility] ([facility]) [address] [place] [address] Lymphocytes (Bld) [#/Vol] 2.35 x10*3/uL Normal 1.20-4.80 [facility] Comment on above: Performed By: #### 5 7021-8 #### RUBEN SHIN ([id number]) [facility] ([facility]) [address] [place] [address] Lymphocytes/100 WBC (Bld) 20.1 % Normal 13.0-44.0 [facility] Comment on above: Performed By: #### 5 7021-8 #### RUBEN SHIN ([id number]) [facility] ([facility]) [address] [place] [address]1086 MCH (RBC) [Entitic mass] 31.3 pg Normal 26.0-34.0 [facility] Comment on above: Performed By: #### 5 7021-8 #### RUBEN SHIN ([id number]) [facility] ([facility]) [address] [place] [address]113 MCHC (RBC) [Mass/Vol] 33.1 g/dL Normal 32.0-36.0 [facility] Comment on above: Performed By: #### 5 7021-8 #### RUBEN SHIN ([id number]) [facility] ([facility]) [address] [place] [address]34 MCV (RBC) [Entitic vol] 94 fL Normal 80-100 [facility] Comment on above: Performed By: #### 5 7021-8 #### RUBEN SHIN ([id number]) [facility] ([facility]) [address] [place] [address] Monocytes (Bld) [#/Vol] 0.56 x10*3/uL Normal 0.10-1.00 [facility] Comment on above: Performed By: #### 5 7021-8 #### RUBEN SHIN ([id number]) [facility] ([facility]) [address] [place] [address] 57004 Monocytes/100 WBC (Bld) 4.8 % Normal 2.0-10.0 [facility] Comment on above: Performed By: #### 5 7021-8 #### RUBEN SHIN ([id number]) [facility] ([facility]) [address] [place] [address] 54519 Neutrophils (Bld) [#/Vol] 8.68 x10*3/uL High 1.20-7.70 [facility] Comment on above: Result Comment: Perc ent differential counts (%) should be interpreted in the context of the absolute cell counts (cells/uL). Performed By: #### 5 7021-8 #### RUBEN SHIN ([id number]) [facility] ([facility]) [address] [place] [address] 94590 Neutrophils/100 WBC (Bld) 74.2 % Normal 40.0-80.0 [facility] Comment on above: Performed By: #### 5 7021-8 #### RUBEN SHIN ([id number]) [facility] ([facility]) [address] [place] [address]01 Nucleated RBC/100 WBC (Bld) [Ratio] 0.0 /100 WBCs Normal 0.0-0.0 [facility] Comment on above: Performed By: #### 5 7021-8 #### RUBEN SHIN ([id number]) [facility] ([facility]) [address] [place] [address] 17742 Platelets (Bld) [#/Vol] 197 x10*3/uL Normal 150-450 [facility] Comment on above: Performed By: #### 5 7021-8 #### RUBEN SHIN ([id number]) [facility] ([facility]) [address] [place] [address] 58100 RBC (Bld) [#/Vol] 5.56 x10*6/uL Normal 4.50-5.90 [facility] Comment on above: Performed By: #### 5 7021-8 #### RUBEN SHIN ([id number]) [facility] ([facility]) [address] [place] [address]40 WBC (Bld) [#/Vol] 11.7 x10*3/uL High 4.4-11.3 [facility] Comment on above: Performed By: #### 5 7021-8 #### RUBEN KIP ([id number]) [facility] ([facility]) [address] [place] [address] CT HEAD WO IV CONTRASTon CT HEAD WO IV CONTRAST Interpreted By: Santos Valdivia, STUDY: CT HEAD WO IV CONTRAST; 10/25/2023 2:04 pm INDICATION: Signs/Symptoms:synco pe. COMPARISON: None. ACCESSION NUMBER(S): [id number] ORDERING CLINICIAN: RONY LUCIANO TECHNIQUE: Noncontrast axial CT scan of [...] Santos Valdivia 10/25/2023 2:31 PM Dictation workstation: [id number] [facility] CT Head WO contraston [address] evidence of acute intracranial abnormality. MACRO None Signed by: Santos Valdivia 10/25/2023 2:31 PM Dictation workstation: [id number] [facility] Interpreted By: Santos Valdivia, STUDY: CT HEAD WO IV CONTRAST; 10/25/2023 2:04 pm INDICATION: Signs/Symptoms:synco pe. COMPARISON: None. ACCESSION NUMBER(S): [id number] ORDERING CLINICIAN: RONY LUCIANO TECHNIQUE: Noncontrast axial CT scan of [...] possible sebaceous cysts; correlate with clinical assessment. [facility] Santos Valdivia, DO - 10/25/2023 Interpreted By: Santos Valdivia, STUDY: CT HEAD WO IV CONTRAST; 10/25/2023 2:04 pm INDICATION: Signs/Symptoms:synco pe. COMPARISON: None. ACCESSION NUMBER(S): [id number] ORDERING CLINICIAN: RONY LUCIANO TECHNIQUE: Noncontrast axial CT scan of [...] Santos Valdivia 10/25/2023 2:31 PM Dictation workstation: [id number] [facility] Work Phone: [facility] Work Phone: Radiology Study observation (narrative) [facility] Work Phone: Comprehensive metabolic 2000 panelon 10-25-2023 Albumin BCP dye [Mass/Vol] 4.2 g/dL 3.4 - 5.0 g/dL [facility] ALP [Catalytic activity/Vol] 55 U/L 33 - 136 U/L [facility] ALT With P-5'-P [Catalytic activity/Vol] 12 U/L 10 - 52 U/L [facility] Comment on above: Patients treated wit h Sulfasalazine may generate falsely decreased results for ALT. Anion gap [Moles/Vol] 18 mmol/L 10 - 2 0 mmol/L [facility] AST With P-5'-P [Catalytic activity/Vol] 14 U/L 9 - 39 U/L [facility] Bilirubin [Mass/Vol] 0.5 mg/dL 0.0 - 1 .2 mg/dL [facility] Calcium [Mass/Vol] 9.2 mg/dL 8.6 - 10. 3 mg/dL [facility] Chloride [Moles/Vol] 101 mmol/L 98 - 10 7 mmol/L [facility] CO2 [Moles/Vol] 22 mmol/L 21 - 32 mmol/L [facility] Creatinine [Mass/Vol] 0.91 mg/dL 0.50 - 1.30 mg/dL [facility] eGFR - PINF [facility] Comment on above: Calculations of francoise mated GFR are performed using the 2020 CKD-EPI Study Refit equation without the race variable for the IDMS-Traceable creatinine methods. https://jasn.asnjournals.org/content/early//ASN.2020 347269 Glucose [Mass/Vol] 162 mg/dL High 74 - 99 mg/dL [facility] Potassium [Moles/Vol] 4.1 mmol/L 3.5 - 5.3 mmol/L [facility] Protein [Mass/Vol] 7.5 g/dL 6.4 - 8.2 g/dL [facility] Sodium [Moles/Vol] 137 mmol/L 136 - 145 mmol/L [facility] Urea nitrogen [Mass/Vol] 9 mg/dL 6 - 23 mg/dL [facility] Albumin BCP dye [Mass/Vol] 4.2 g/dL Normal 3.4-5.0 [facility] Comment on above: Performed By: #### 2 4323-8 #### RUBEN SHIN ([id number]) [facility] ([facility]) [address] [place] [address]115 ALP [Catalytic activity/Vol] 55 U/L Normal 33-136 [facility] Comment on above: Performed By: #### 2 4323-8 #### RUBEN SHIN ([id number]) [facility] ([facility]) [address] [place] [address]271 ALT With P-5'-P [Catalytic activity/Vol] 12 U/L Normal 10-52 [facility] Comment on above: Result Comment: Ana ents treated with Sulfasalazine may generate falsely decreased results for ALT. Performed By: #### 2 4323-8 #### RUBEN SHIN ([id number]) [facility] ([facility]) [address] [place] [address] Anion gap [Moles/Vol] 18 mmol/L Normal 10-20 [facility] Comment on above: Performed By: #### 2 4323-8 #### RUBEN SHIN ([id number]) [facility] ([facility]) [address] [place] [address] AST With P-5'-P [Catalytic activity/Vol] 14 U/L Normal 9-39 [facility] Comment on above: Performed By: #### 2 432-8 #### RUBEN SHIN ([id number]) [facility] ([facility]) [address] [place] [address] Bilirubin [Mass/Vol] 0.5 mg/dL Normal 0.0-1.2 [facility] Comment on above: Performed By: #### 2 432-8 #### RUBEN SHIN ([id number]) [facility] ([facility]) [facility] [place] [address] Calcium [Mass/Vol] 9.2 mg/dL Normal 8.6-10.3 [facility] Comment on above: Performed By: #### 2 4323-8 #### RUBEN SHIN ([id number]) [facility] ([facility]) [address] [place] [address] Chloride [Moles/Vol] 101 mmol/L Normal 98-107 [facility] Comment on above: Performed By: #### 2 4323-8 #### RUBEN SHIN ([id number]) [facility] ([facility]) [address] [place] [address] CO2 [Moles/Vol] 22 mmol/L Normal 21-32 [facility] Comment on above: Performed By: #### 2 4323-8 #### RUBEN SHIN ([id number]) [facility] ([facility]) [address] [place] [address] Creatinine [Mass/Vol] 0.91 mg/dL Normal 0.50-1.30 [facility] Comment on above: Performed By: #### 2 4323-8 #### RUBEN SHIN ([id number]) [facility] ([facility]) [address] [place] [address]12 GFR/1.73 sq M.predicted MDRD (S/P/Bld) [Vol rate/Area] mL/min/{1.73_m2} Normal >60 [facility] Comment on above: Result Comment: Calc ulations of estimated GFR are performed using the 2020 CKD-EPI Study Refit equation without the race variable for the IDMS-Traceable creatinine methods. https://jasn.asnjournals.org/content/early//ASN.2020 305417 Performed By: #### 2 4323-8 #### RUBEN SHIN ([id number]) [facility] ([facility]) [address] [place] [address] 21042 Glucose [Mass/Vol] 162 mg/dL High 74-99 [facility] Comment on above: Performed By: #### 2 4323-8 #### RUBEN SHIN ([id number]) [facility] ([facility]) [address] [place] [address] 08768 Potassium [Moles/Vol] 4.1 mmol/L Normal 3.5-5.3 [facility] Comment on above: Performed By: #### 2 4323-8 #### RUBEN SHIN ([id number]) [facility] ([facility]) [address] [place] [address] 67987 Protein [Mass/Vol] 7.5 g/dL Normal 6.4-8.2 [facility] Comment on above: Performed By: #### 2 4323-8 #### RUBEN SHIN ([id number]) [facility] ([facility]) [address] [place] [address] 05969 Sodium [Moles/Vol] 137 mmol/L Normal 136-145 [facility] Comment on above: Performed By: #### 2 4323-8 #### RUBEN SHIN ([id number]) [facility] ([facility]) [address] [place] [address] Urea nitrogen [Mass/Vol] 9 mg/dL Normal 6-23 [facility] Comment on above: Performed By: #### 2 4323-8 #### RUBNE SHIN ([id number]) [facility] ([facility]) [address] [place] [address] ECG 12-LEADon 10-25-2023 ECG 12-LEAD Ventricular Rate 77 Atrial Rate 77 P-R Interval 120 QRS Duration 74 Q-T Interval 358 QTC Calculation(Bazett) 405 P [place] 38 R [place] 62 T [place] 93 QRS Count 12 Q Onset 225 P Onset 165 P Offset 213 T Offset 404 QTC Fredericia 389 Diagnosis Normal sinus rhythm Septal infarct , age undetermined Abnormal ECG No previous ECGs available See ED provider note for full interpretation and clinical correlation Confirmed by Teresa Clifton ([id number]) on 10/31/2023 10:16:51 AM Normal [facility] Ethanolon 10-25-2023 Ethanol [Mass/Vol] 45 mg/dL High <=10 [facility] Comment on above: Result Comment: For medical use only. Performed By: #### 5 643-2 #### RUBEN SHIN ([id number]) [facility] ([facility]) [address] [place] [address] Light Blue Topon 10-25-2023 Extra Tube Hold for add-ons. [facility] Comment on above: Auto resulted. [facility] Magnesiumon 10-25-2023 Magnesium [Mass/Vol] 1.74 mg/dL 1.60 - 2.40 mg/dL [facility] Magnesium [Mass/Vol] 1.74 mg/dL Normal 1.60-2.40 [facility] Comment on above: Performed By: #### 1 9123-9 #### RUBEN SHIN ([id number]) [facility] ([facility]) [address] [place] [address] Magnesium [Mass/Vol]on 10-24 Interpretation and review of laboratory results Normal [facility] No Panel Informationon 10-24 Interpretation and review of laboratory results Abnormal [facility] Tropinin I.cardiac panel Hig h sensitivity methodon 10-25-2023 Interpretation and review of laboratory results Normal [facility] Less than 99th percentile of normal range [...] performed using a different testing methodology at [facility] than at [facility]. Direct result comparisons should only be made within the same method. [facility] Troponin I, High Sensitivity on 10-25-2023 Tropinin I.cardiac panel High sensitivity method 7 ng/L 0 - 20 ng/L [facility] Troponin I.cardiac panelon 0 10-25-2023 Tropinin I.cardiac panel High sensitivity method 7 ng/L Normal 0-20 [facility] Comment on above: Order Comment: Less than [...] performed using a different testing methodology at [facility] than at other [facility]. Direct result comparisons should only be made within the same method. Performed By: #### 8 9577-1 #### MIRANDA KIP ([id number]) [facility] ([facility]) [address] [place] [id number] XR CHEST 1 VIEWon 10-25-2023 XR CHEST 1 VIEW Interpreted By: Santos Valdivia, STUDY: XR CHEST 1 VIEW; 10/25/2023 1:50 pm INDICATION: Signs/Symptoms:synco pe COMPARISON: Radiographs 05/02/2013 ACCESSION NUMBER(S): [id number] ORDERING CLINICIAN: RONY LUCIANO TECHNIQUE: Single frontal view of the chest performed. FINDINGS: LINES AND DEVICES: None. LUNGS: No pulmonary edema, pleural effusion or pneumothorax. Minimal consolidative opacities along the right heart border favoring mild atelectasis. CARDIOMEDIASTINAL SILHOUETTE: The cardiomediastinal silhouette is within normal limits. IMPRESSION: No acute pulmonary process. MACRO None Signed by: Santos Valdivia 10/25/2023 2:27 PM Dictation workstation: [id number] [facility] XR Chest Single viewon 10-24 No acute pulmonary process. MACRO None Signed by: Santos Valdivia 10/25/2023 2:27 PM Dictation workstation: [id number] MMODAL Interpreted By: Santos Valdivia, STUDY: XR CHEST 1 VIEW; 10/25/2023 1:50 pm INDICATION: Signs/Symptoms:synco pe COMPARISON: Radiographs 05/02/2013 ACCESSION NUMBER(S): [id number] ORDERING CLINICIAN: RONY LUCIANO TECHNIQUE: Single frontal view of the chest performed. FINDINGS: LINES AND DEVICES: None. LUNGS: No pulmonary edema, pleural effusion or pneumothorax. Minimal consolidative opacities along the right heart border favoring mild atelectasis. CARDIOMEDIASTINAL SILHOUETTE: The cardiomediastinal silhouette is within normal limits. MMODAL Santos Valdivia, DO - 10/25/2023 Interpreted By: Santos Valdivia, STUDY: XR CHEST 1 VIEW; 10/25/2023 1:50 pm INDICATION: Signs/Symptoms:synco pe COMPARISON: Radiographs 05/02/2013 ACCESSION NUMBER(S): [id number] ORDERING CLINICIAN: RONY LUCIANO TECHNIQUE: Single frontal view of the chest performed. FINDINGS: LINES AND DEVICES: None. LUNGS: No pulmonary edema, pleural effusion or pneumothorax. Minimal consolidative opacities along the right heart border favoring mild atelectasis. CARDIOMEDIASTINAL SILHOUETTE: The cardiomediastinal silhouette is within normal limits. IMPRESSION: No acute pulmonary process. MACRO None Signed by: Santos Valdivia 10/25/2023 2:27 PM Dictation workstation: [id number] [facility] Work Phone: Radiology Study observation (narrative) [facility] Work Phone: XR Chest Single viewOrdered By: Santos Valdivia on 10-25-2023 [facility] Work Phone: Absolute lymphocyte countOrd ered By: Boaz Gates on 06-03-2023 Lymphocytes Auto (Unsp spec) [#/Vol] 2.00 10*3/uL 0.83-4.51 [facility] Automated lymphocyte count a s percentage of total leukocytesOrdered By: Boaz Gates on 06-03-2023 Lymphocytes/100 WBC Auto (Unsp spec) 22.0 % 19-41 [facility] Basophil percentageOrdered B y: Boaz Gates on 06-03-2023 Basophils/100 WBC (Bld) 0.5 % 0-1 [facility] Bilirubin [Mass/Vol] 0.80 mg/dL 0.20-1.00 [facility] Comment on above: For patients on eltr ombopag therapy, use of Dimension [place] TBIL is not recommended. Chloride [Moles/Vol] 104 mmol/L 98-107 [facility] Cholesterol [Mass/Vol] 138 mg/dL <200 [facility] Comment on above: <200 mg/dL Desirable 200-240 mg/dL Borderline >240 mg/dL High Risk Eosinophils/100 WBC (Bld) 0.2 % 0-5 [facility] Glucose [Mass/Vol] 153 mg/dL 74-106 [facility] Comment on above: Fasting Glucose resu lt greater than or equal to 126 mg/dL suggests DIABETES MELLITUS per A.D.A. criteria. Hemoglobin (Bld) [Mass/Vol] 19.1 g/dL 13.0-16.5 [facility] Comment on above: PHYSICIAN'S OFFICE N OTIFIED TWICE OF NEED TO CALL FOR CRITICAL RESULT. NO RETURN PHONE CALL. Monocytes/100 WBC (Bld) 5.7 % 0-10 [facility] Neutrophils (Bld) [#/Vol] 6.5 10*3/uL 2.0-7.7 [facility] Neutrophils/100 WBC (Bld) 71.1 % 47-70 [facility] Potassium [Moles/Vol] 4.1 mmol/L 3.5-5.1 [facility] Protein [Mass/Vol] 7.3 g/dL 6.4-8.2 [facility] Sodium [Moles/Vol] 135 mmol/L 136-145 [facility] Testosterone [Mass/Vol] 476 ng/dL 264-916 [facility] Comment on above: Adult male reference interval is based on a population ofhealthy nonobese males (BMI <30) between 19 and 39 yearsold. [place], et.al. JCEM 2017,102;[id number]. PMID:[id number]. Triglyceride [Mass/Vol] 481 mg/dL <199 [facility] Comment on above: The drugs N-Acetylcy steine and Metamizole may falsely depress this assay. TRIGLYCERIDE IS GREATER THAN 400 mg/dL. LDL RESULT IS INVALID AND WILL NOT BE REPORTED.Serum Triglycerides Reference Interval Normal <150 mg/dL Borderline high 150 - 199 mg/dL High 200 - 499 mg/dL Very High > or = 500 mg/dL WBC (Bld) [#/Vol] 9.1 10*3/uL 4.4-11.0 [facility] Determination of erythrocyte mean corpuscular volume (MCV)Ordered By: Boaz Gates on 06-03-2023 MCV (RBC) [Entitic vol] 92.1 fL 80-94 [facility] Erythrocyte distribution wid th ratioOrdered By: Boaz Gates on 06-03-2023 Erythrocyte distribution width (RBC) [Ratio] 14.6 % 11.6-14.6 [facility] Erythrocyte distribution wid th standard deviationOrdered By: Boaz Gates on 06-03-2023 Erythrocyte distribution width (RBC) [Entitic vol] 49.2 fL 35.1-43.9 [facility] Free testosterone percentage Ordered By: Boaz Gates on 06-03-2023 Testosterone Free/Testosterone.total [Mass fraction] TNP [facility] Comment on above: Test not performedSp ecimen quantity insufficient for verification by repeatanalysis.CONTACTED SRINI AT YOUR FACILITY ON 06-09-2023 Hematocrit Auto (Bld) [Volum e fraction]Ordered By: Boaz Gates on 06-03-2023 Hematocrit (Bld) [Volume fraction] 58.0 % 40-54 [facility] Immature granulocytes/100 WB C Auto (Bld)Ordered By: Boaz Gates on 06-03-2023 Immature granulocytes/100 WBC (Bld) 0.500 % 0.0-0.9 [facility] Comment on above: IG% - Immature Granu locytes (promyelocytes, myelocytes and metamyelocytes) > 1% indicates that a LEFT SHIFT is Present. Laboratory - Chemistry and C hemistry - challengeOrdered By: Boaz Gates on 06-03-2023 Albumin/Globulin [Mass ratio] 1.0 {ratio} 0.9-2.4 [facility] ALP [Catalytic activity/Vol] 59 U/L 45-117 [facility] ALT [Catalytic activity/Vol] 21 U/L 16-61 [facility] Cholesterol in HDL [Mass/Vol] 22 mg/dL >40 [facility] Comment on above: The drugs N-Acetylcy steine and Metamizole may falsely depress this assay. Reference Range HDL <40 mg/dL Low HDL Cholesterol HDL >or= 60 mg/dL High HDL Cholesterol CO2 [Moles/Vol] 25.0 mmol/L 21.0-32.0 [facility] Globulin (S) [Mass/Vol] 3.7 g/dL 2.2-4.2 [facility] Urea nitrogen/Creatinine [Mass ratio] 12.1 mg/mg 10-20 [facility] Laboratory - Hematology and Cell countsOrdered By: Boaz Gates on 06-03-2023 MCH (RBC) [Entitic mass] 30.3 pg 27.0-32.0 [facility] MCHC (RBC) [Mass/Vol] 32.9 g/dL 32-36 [facility] Nucleated RBC/100 WBC (Bld) [Ratio] 0 % 0-5 [facility] Platelet mean volume (Bld) [Entitic vol] 10.7 fL 6.2-12.0 [facility] Platelets (Bld) [#/Vol] 192 10*3/uL 150-450 [facility] No Panel InformationOrdered By: Boaz Gates on 06-03-2023 Estimated GFR (MDRD) Amer 108 mL/min >60 [facility] Comment on above: GFR Calc Estimated GFR (MDRD) Non-Af Amer 90 mL/min >60 [facility] Comment on above: Non- GFR Calc LDL Cholesterol [facility] Comment on above: Test not performed VLDL Cholesterol [facility] Comment on above: Test not performed RBC Auto (Bld) [#/Vol]Ordere d By: Boaz Gates on 06-03-2023 RBC (Bld) [#/Vol] 6.30 10*6/uL 4.6-6.[address] [facility] Review by pathologistOrdered By: Boaz Gates on 06-03-2023 Pathologist review Toan (Unsp spec) [Interp] Reviewed [facility] Comment on above: Previous reported re sult: Lory rodas Edited by: ALBERT on 06/07/23:1507Erythrocytosis.Normocytic anemia.Clinical correlation suggested.Joey Jarrell D.O. 06/07/23 AMENDED REPORT 06/07/23 1507 PATH REV previously reported as: Lory rodas Serum or plasma calcium zhang urement (mass/volume)Ordered By: Boaz Gates on 06-03-2023 Calcium [Mass/Vol] 9.0 mg/dL 8.5-10.1 [facility] Serum or plasma creatinine m easurement (mass/volume)Ordered By: Boaz Gates on 06-03-2023 Creatinine [Mass/Vol] 0.91 mg/dL 0.70-1.30 [facility] Comment on above: The validity of the calculated GFR & GFRAA in patients over 70 years has not been determined. Clinical correlation is essential. Serum or plasma testosterone free measurement (mass/volume)Ordered By: Boaz Gates on 06-03-2023 Testosterone Free [Mass/Vol] TNP [facility] Comment on above: Test not performedUn able to calculate result since non-numeric resultobtained for component test. Serum or plasma urea nitroge n measurement (mass/volume)Ordered By: Boaz Gates on 06-03-2023 Urea nitrogen [Mass/Vol] 11 mg/dL 7-18 [facility] Thin prep Papanicolaou smear with manual screeningOrdered By: Boaz Gates on 06-03-2023 Thin prep Papanicolaou smear with manual screening 3.6 g/dL 3.2-5.0 [facility] Thin prep Papanicolaou smear with manual screening 24 U/L 15-37 [facility] Thin prep Papanicolaou smear with manual screening 6 5-15 [facility] Whole blood hemoglobin A1c/t otal hemoglobin ratio (mass fraction)Ordered By: Boaz Gates on 06-03-2023 HbA1c (Bld) [Mass fraction] 8.0 % 3.8-5.6 [facility] Comment on above: Normal < 5.7 % Predi abetic 5.7 - 6.4 % Diabetic >or= 6.5 % Please note range changes. Basophil percentageOrdered B y: Boaz Gates on 03-04-2023 Chloride [Moles/Vol] 101 mmol/L 98-107 [facility] Glucose [Mass/Vol] 328 mg/dL 74-106 [facility] Comment on above: Glucose result great er than or equal to 200 mg/dLsuggests DIABETES MELLITUS per A.D.A. criteria. Potassium [Moles/Vol] 4.6 mmol/L 3.5-5.1 [facility] Comment on above: Slight Hemolysis, Re sult may be falsely increased. Sodium [Moles/Vol] 134 mmol/L 136-145 [facility] Testosterone [Mass/Vol] 84.17 ng/dL [facility] Comment on above: CENTRAL 90% REFERENC E RANGES MALE AGE <50 197.44 - 669.58 ng/dL MALE AGE > or = 50 187.72 - 684.19 ng/dL FEMALE AGE <50 8.38 - 35.01 ng/dL FEMALE AGE > or = 50 <7.00 - 35.92 ng/dL Effective as of 09/02/20 Laboratory - Chemistry and C hemistry - challengeOrdered By: Boaz Gates on 03-04-2023 CO2 [Moles/Vol] 25.0 mmol/L 21.0-32.0 [facility] Urea nitrogen/Creatinine [Mass ratio] 15.7 mg/mg 10-20 [facility] No Panel InformationOrdered By: Boaz Gates on 03-04-2023 Estimated GFR (MDRD) Amer 95 mL/min >60 [facility] Comment on above: GFR Calc Estimated GFR (MDRD) Non-Af Amer 79 mL/min >60 [facility] Comment on above: Non- GFR Calc Serum or plasma calcium zhang urement (mass/volume)Ordered By: Boaz Gates on 03-04-2023 Calcium [Mass/Vol] 9.2 mg/dL 8.5-10.1 [facility] Serum or plasma creatinine m easurement (mass/volume)Ordered By: Boaz Gates on 03-04-2023 Creatinine [Mass/Vol] 1.02 mg/dL 0.70-1.30 [facility] Comment on above: The validity of the calculated GFR & GFRAA in patients over 70 years has not been determined. Clinical correlation is essential. Serum or plasma urea nitroge n measurement (mass/volume)Ordered By: Boaz Gates on 03-04-2023 Urea nitrogen [Mass/Vol] 16 mg/dL 7-18 [facility] Thin prep Papanicolaou smear with manual screeningOrdered By: Boaz Gates on 03-04-2023 Thin prep Papanicolaou smear with manual screening 8 5-15 [facility] Whole blood hemoglobin A1c/t otal hemoglobin ratio (mass fraction)Ordered By: Boaz Gates on 03-04-2023 HbA1c (Bld) [Mass fraction] 10.4 % 3.8-5.6 [facility] Comment on above: Normal < 5.7 % Predi abetic 5.7 - 6.4 % Diabetic >or= 6.5 % Please note range changes. Absolute lymphocyte countOrd ered By: Harris Mendes on 02-20-2023 Lymphocytes Auto (Unsp spec) [#/Vol] 2.49 10*3/uL 0.83-4.51 [facility] Basophil percentageOrdered B y: Harris Mendes on 02-20-2023 Basophils/100 WBC (Bld) 0.6 % 0-1 [facility] Chloride [Moles/Vol] 99 mmol/L 98-107 [facility] Eosinophils/100 WBC (Bld) 1.3 % 0-5 [facility] Glucose [Mass/Vol] 199 mg/dL 74-106 [facility] Comment on above: Fasting Glucose resu lt greater than or equal to 126 mg/dL suggests DIABETES MELLITUS per A.D.A. criteria. Neutrophils (Bld) [#/Vol] 6.7 10*3/uL 2.0-7.7 [facility] Neutrophils/100 WBC (Bld) 67.1 % 47-70 [facility] Potassium [Moles/Vol] 3.9 mmol/L 3.5-5.1 [facility] Sodium [Moles/Vol] 136 mmol/L 136-145 [facility] WBC (Bld) [#/Vol] 10.0 10*3/uL 4.4-11.[address] [facility] Blood erythrocytes count (nu mber/volume)Ordered By: Harris Mendes on 02-20-2023 RBC (Bld) [#/Vol] 6.00 10*6/uL 4.6-6.[address] [facility] Blood hemoglobin measurement (mass/volume)Ordered By: Harris Mendes on 02-20-2023 Hemoglobin (Bld) [Mass/Vol] 17.8 g/dL 13.0-16.5 [facility] Blood lymphocytes/100 leukoc ytesOrdered By: Harris Mendes on 02-20-2023 Lymphocytes/100 WBC (Bld) 24.8 % 19-41 [facility] Blood monocytes/100 leukocyt esOrdered By: Harris Mendes on 02-20-2023 Monocytes/100 WBC (Bld) 5.7 % 0-10 [facility] Blood platelet mean volumeOr dered By: Harris Mendes on 02-20-2023 Platelet mean volume (Bld) [Entitic vol] 10.3 fL 6.2-12.0 [facility] Determination of erythrocyte mean corpuscular volume (MCV)Ordered By: Harris Mendes on 02-20-2023 MCV (RBC) [Entitic vol] 87.8 fL 80-94 [facility] Hematocrit Auto (Bld) [Volum e fraction]Ordered By: Harris Mendes on 02-20-2023 Hematocrit (Bld) [Volume fraction] 52.7 % 40-54 [facility] Laboratory - Chemistry and C hemistry - challengeOrdered By: Harris Mendes on 02-20-2023 CO2 [Moles/Vol] 22.0 mmol/L 21.0-32.0 [facility] Urea nitrogen/Creatinine [Mass ratio] 10.4 mg/mg 10-20 [facility] Laboratory - Hematology and Cell countsOrdered By: Harris Mendes on 02-20-2023 Erythrocyte distribution width (RBC) [Entitic vol] 45.9 fL 35.1-43.9 [facility] Erythrocyte distribution width (RBC) [Ratio] 14.2 % 11.6-14.6 [facility] Immature granulocytes/100 WBC (Bld) 0.500 % 0.0-0.9 [facility] Comment on above: IG% - Immature Granu locytes (promyelocytes, myelocytes and metamyelocytes) > 1% indicates that a LEFT SHIFT is Present. MCH (RBC) [Entitic mass] 29.7 pg 27.0-32.0 [facility] Nucleated RBC/100 WBC (Bld) [Ratio] 0 % 0-5 [facility] MCHC Auto (RBC) [Mass/Vol]Or dered By: Harris Mendes on 02-20-2023 MCHC (RBC) [Mass/Vol] 33.8 g/dL 32-36 [facility] No Panel InformationOrdered By: Harris Mendes on 02-20-2023 Estimated GFR (MDRD) Amer 91 mL/min >60 [facility] Comment on above: GFR Calc Estimated GFR (MDRD) Non-Af Amer 75 mL/min >60 [facility] Comment on above: Non- GFR Calc Troponin I High Sensitivity 21 pg/mL 3.0-78.0 [facility] Comment on above: Please Note: New Marta t Units and Gender Specific Reference Ranges. For more information see Policy Stat Procedure [place] High Sensitivity Troponin (TNIH) and attachments. Platelets bldOrdered By: Julia grantleelee Cinthya on 02-20-2023 Platelets (Bld) [#/Vol] 209 10*3/uL 150-450 [facility] Serum or plasma calcium zhang urement (mass/volume)Ordered By: Harris Mendes on 02-20-2023 Calcium [Mass/Vol] 9.1 mg/dL 8.5-10.1 [facility] Serum or plasma creatinine m easurement (mass/volume)Ordered By: Harris Mendes on 02-20-2023 Creatinine [Mass/Vol] 1.06 mg/dL 0.70-1.30 [facility] Comment on above: The validity of the calculated GFR & GFRAA in patients over 70 years has not been determined. Clinical correlation is essential. Serum or plasma urea nitroge n measurement (mass/volume)Ordered By: Harris Mendes on 02-20-2023 Urea nitrogen [Mass/Vol] 11 mg/dL 7-18 [facility] Thin prep Papanicolaou smear with manual screeningOrdered By: Harris Mendes on 02-20-2023 Thin prep Papanicolaou smear with manual screening 15 5-15 [facility] Absolute lymphocyte countOrd ered By: Boaz Gates on 12-02-2022 Lymphocytes Auto (Unsp spec) [#/Vol] 1.93 10*3/uL 0.83-4.51 [facility] Basophil percentageOrdered B y: Boaz Gates on 12-02-2022 Basophils/100 WBC (Bld) 0.8 % 0-1 [facility] Eosinophils/100 WBC (Bld) 0.7 % 0-5 [facility] Neutrophils (Bld) [#/Vol] 6.9 10*3/uL 2.0-7.7 [facility] Neutrophils/100 WBC (Bld) 72.4 % 47-70 [facility] Testosterone [Mass/Vol] 445.95 ng/dL [facility] Comment on above: CENTRAL 90% REFERENC E RANGES MALE AGE <50 197.44 - 669.58 ng/dL MALE AGE > or = 50 187.72 - 684.19 ng/dL FEMALE AGE <50 8.38 - 35.01 ng/dL FEMALE AGE > or = 50 <7.00 - 35.92 ng/dL Effective as of 09/02/20 WBC (Bld) [#/Vol] 9.6 10*3/uL 4.4-11.0 [facility] Blood erythrocytes count (nu mber/volume)Ordered By: Boaz Gates on 12-02-2022 RBC (Bld) [#/Vol] 6.06 10*6/uL 4.6-6.[address] [facility] Blood hemoglobin measurement (mass/volume)Ordered By: Boaz Gates on 12-02-2022 Hemoglobin (Bld) [Mass/Vol] 17.9 g/dL 13.0-16.5 [facility] Blood lymphocytes/100 leukoc ytesOrdered By: Boaz Gates on 12-02-2022 Lymphocytes/100 WBC (Bld) 20.1 % 19-41 [facility] Blood monocytes/100 leukocyt esOrdered By: Boaz Gates on 12-02-2022 Monocytes/100 WBC (Bld) 5.6 % 0-10 [facility] Blood platelet mean volumeOr dered By: Boaz Gates on 12-02-2022 Platelet mean volume (Bld) [Entitic vol] 11.2 fL 6.2-12.0 [facility] Determination of erythrocyte mean corpuscular volume (MCV)Ordered By: Boaz Gatse on 12-02-2022 MCV (RBC) [Entitic vol] 91.7 fL 80-94 [facility] Hematocrit Auto (Bld) [Volum e fraction]Ordered By: Boaz Gates on 12-02-2022 Hematocrit (Bld) [Volume fraction] 55.6 % 40-54 [facility] - Hematology and Cell countsOrdered By: Boaz Gates on 12-02-2022 Erythrocyte distribution width (RBC) [Entitic vol] 47.5 fL 35.1-43.9 [facility] Erythrocyte distribution width (RBC) [Ratio] 14.1 % 11.6-14.6 [facility] Immature granulocytes/100 WBC (Bld) 0.400 % 0.0-0.9 [facility] Comment on above: IG% - Immature Granu locytes (promyelocytes, myelocytes and metamyelocytes) > 1% indicates that a LEFT SHIFT is Present. MCH (RBC) [Entitic mass] 29.5 pg 27.0-32.0 [facility] Nucleated RBC/100 WBC (Bld) [Ratio] 0 % 0-5 [facility] MCHC Auto (RBC) [Mass/Vol]Or dered By: Boaz Gates on 12-02-2022 MCHC (RBC) [Mass/Vol] 32.2 g/dL 32-36 [facility] Platelets bldOrdered By: Opal Gates on 12-02-2022 Platelets (Bld) [#/Vol] 191 10*3/uL 150-450 [facility] Basophil percentageOrdered B y: Lionel Sanchez on 09-17-2022 Bilirubin [Mass/Vol] 0.40 mg/dL 0.20-1.00 [facility] Comment on above: For patients on eltr ombopag therapy, use of Dimension [place] TBIL is not recommended. Cholesterol [Mass/Vol] 141 mg/dL <200 [facility] Comment on above: <200 mg/dL Desirable 200-240 mg/dL Borderline >240 mg/dL High Risk Protein [Mass/Vol] 7.5 g/dL 6.4-8.2 [facility] Triglyceride [Mass/Vol] 309 mg/dL <199 [facility] Comment on above: The drugs N-Acetylcy steine and Metamizole may falsely depress this assay.Serum Triglycerides Reference Interval Normal <150 mg/dL Borderline high 150 - 199 mg/dL High 200 - 499 mg/dL Very High > or = 500 mg/dL Direct bilirubinOrdered By: Lionel Sanchez on 09-17-2022 Bilirubin.direct [Mass/Vol] 0.11 mg/dL 0.00-0.30 [facility] Laboratory - Chemistry and C hemistry - challengeOrdered By: Lionel Sanchez on 09-17-2022 ALP [Catalytic activity/Vol] 60 U/L 45-117 [facility] ALT [Catalytic activity/Vol] 31 U/L 16-61 [facility] Globulin (S) [Mass/Vol] 3.8 g/dL 2.2-4.2 [facility] Serum or plasma albumin zhang urement (mass/volume)Ordered By: Lionel Sanchez on 08-11-2023 Albumin [Mass/Vol] 3.7 g/dL 3.2-5.0 [facility] Serum or plasma cholesterol in HDL measurement (mass/volume)Ordered By: Lionel Sanchez on 09-17-2022 Cholesterol in HDL [Mass/Vol] 27 mg/dL >40 [facility] Comment on above: The drugs N-Acetylcy steine and Metamizole may falsely depress this assay. Reference Range HDL <40 mg/dL Low HDL Cholesterol HDL >or= 60 mg/dL High HDL Cholesterol Serum or plasma cholesterol in VLDL measurement (mass/volume)Ordered By: Lionel Sanchez on 09-17-2022 Cholesterol in VLDL [Mass/Vol] 62 mg/dL 5-40 [facility] Serum or plasma low density lipoprotein (LDL) cholesterol measurement (mass/volume)Ordered By: Lionel Sanchez on 09-17-2022 Cholesterol in LDL [Mass/Vol] 52 mg/dL 0-130 [facility] Thin prep Papanicolaou smear with manual screeningOrdered By: Lionel Sanchez on 09-17-2022 Thin prep Papanicolaou smear with manual screening 34 U/L 15-37 [facility] Absolute lymphocyte countOrd ered By: Boaz Gates on 09-02-2022 Lymphocytes Auto (Unsp spec) [#/Vol] 1.92 10*3/uL 0.83-4.51 [facility] Basophil percentageOrdered B y: Boaz Gates on 09-02-2022 Basophils/100 WBC (Bld) 0.9 % 0-1 [facility] Chloride [Moles/Vol] 102 mmol/L 98-107 [facility] Eosinophils/100 WBC (Bld) 1.1 % 0-5 [facility] Glucose [Mass/Vol] 211 mg/dL 74-106 [facility] Comment on above: Glucose result great er than or equal to 200 mg/dLsuggests DIABETES MELLITUS per A.D.A. criteria. Neutrophils (Bld) [#/Vol] 8.0 10*3/uL 2.0-7.7 [facility] Neutrophils/100 WBC (Bld) 75.4 % 47-70 [facility] Potassium [Moles/Vol] 4.5 mmol/L 3.5-5.1 [facility] Sodium [Moles/Vol] 135 mmol/L 136-145 [facility] Testosterone [Mass/Vol] 741.75 ng/dL [facility] Comment on above: CENTRAL 90% REFERENC E RANGES MALE AGE <50 197.44 - 669.58 ng/dL MALE AGE > or = 50 187.72 - 684.19 ng/dL FEMALE AGE <50 8.38 - 35.01 ng/dL FEMALE AGE > or = 50 <7.00 - 35.92 ng/dL Effective as of 09/02/20 WBC (Bld) [#/Vol] 10.6 10*3/uL 4.4-11.[address] [facility] Blood erythrocytes count (nu mber/volume)Ordered By: Boaz Gates on 09-02-2022 RBC (Bld) [#/Vol] 5.97 10*6/uL 4.6-6.[address] [facility] Blood hemoglobin measurement (mass/volume)Ordered By: Boaz Gates on 09-02-2022 Hemoglobin (Bld) [Mass/Vol] 18.1 g/dL 13.0-16.5 [facility] Blood lymphocytes/100 leukoc ytesOrdered By: Boaz Gates on 09-02-2022 Lymphocytes/100 WBC (Bld) 18.2 % 19-41 [facility] Blood monocytes/100 leukocyt esOrdered By: Boaz Gates on 09-02-2022 Monocytes/100 WBC (Bld) 4.1 % 0-10 [facility] Blood platelet mean volumeOr dered By: Boaz Gates on 09-02-2022 Platelet mean volume (Bld) [Entitic vol] 10.5 fL 6.2-12.0 [facility] Determination of erythrocyte mean corpuscular volume (MCV)Ordered By: Boaz Gates on 09-02-2022 MCV (RBC) [Entitic vol] 90.3 fL 80-94 [facility] Hematocrit Auto (Bld) [Volum e fraction]Ordered By: Boaz Gates on 09-02-2022 Hematocrit (Bld) [Volume fraction] 53.9 % 40-54 [facility] Laboratory - Chemistry and C hemistry - challengeOrdered By: Boaz Gates on 09-02-2022 CO2 [Moles/Vol] 24.0 mmol/L 21.0-32.0 [facility] Urea nitrogen/Creatinine [Mass ratio] 12.7 mg/mg 10-20 [facility] - Hematology and Cell countsOrdered By: Boaz Gates on 09-02-2022 Erythrocyte distribution width (RBC) [Entitic vol] 44.2 fL 35.1-43.9 [facility] Erythrocyte distribution width (RBC) [Ratio] 13.2 % 11.6-14.6 [facility] Immature granulocytes/100 WBC (Bld) 0.300 % 0.0-0.9 [facility] Comment on above: IG% - Immature Granu locytes (promyelocytes, myelocytes and metamyelocytes) > 1% indicates that a LEFT SHIFT is Present. MCH (RBC) [Entitic mass] 30.3 pg 27.0-32.0 [facility] Nucleated RBC/100 WBC (Bld) [Ratio] 0 % 0-5 [facility] MCHC Auto (RBC) [Mass/Vol]Or dered By: Boaz Gates on 09-02-2022 MCHC (RBC) [Mass/Vol] 33.6 g/dL 32-36 [facility] No Panel InformationOrdered By: Boaz Gates on 09-02-2022 Estimated GFR (MDRD) Amer 104 mL/min >60 [facility] Comment on above: GFR Calc Estimated GFR (MDRD) Non-Af Amer 86 mL/min >60 [facility] Comment on above: Non- GFR Calc Prostate Specific Antigen Screen 0.78 ng/mL 0.00-4.00 [facility] Comment on above: This test was perfor med using the TPSA assay method for the[facility]. Values obtained with differentassay methods cannot be used interchangably.When changing PSA assays in the course of monitoring apatient, additional sequential testing should be carriedout to confirm baseline values. Platelets bldOrdered By: Opal Gates on 09-02-2022 Platelets (Bld) [#/Vol] 222 10*3/uL 150-450 [facility] Review by pathologistOrdered By: Boaz Gates on 09-02-2022 Pathologist review [place]an (Unsp spec) [Interp] Reviewed [facility] Comment on above: Previous reported re sult: Lory rodas Edited by: RGOOD on 09/03/22:0958PolycythemiaClinical correlation necessary.Yoni Evans M.D. 09/03/22 AMENDED REPORT 09/03/22 0958 PATH REV previously reported as: Lory rodas Serum or plasma calcium zhang urement (mass/volume)Ordered By: Boaz Gates on 09-02-2022 Calcium [Mass/Vol] 9.2 mg/dL 8.5-10.1 [facility] Serum or plasma creatinine m easurement (mass/volume)Ordered By: Boaz Gates on 09-02-2022 Creatinine [Mass/Vol] 0.94 mg/dL 0.70-1.30 [facility] Comment on above: The validity of the calculated GFR & GFRAA in patients over 70 years has not been determined. Clinical correlation is essential. Serum or plasma urea nitroge n measurement (mass/volume)Ordered By: Boaz Gates on 09-02-2022 Urea nitrogen [Mass/Vol] 12 mg/dL 7-18 [facility] Thin prep Papanicolaou smear with manual screeningOrdered By: Boaz Gates on 09-02-2022 Thin prep Papanicolaou smear with manual screening 9 5-15 [facility] Bacteria identified Cx Nom ( Wound)Ordered By: Dr. Gates on 06-07-2022 Wound Culture Streptococcus intermedius [facility] Gram stain for investigation of transfusion reactionOrdered By: Dr. Gates on 06-06-2022 Microscopic observation Gram stain Nom (Unsp spec) [facility] Bacteria identified Cx Nom ( Wound)Ordered By: Boaz Gates on 06-03-2022 Wound Culture Streptococcus intermedius [facility] Gram stain for investigation of transfusion reactionOrdered By: Boaz Gates on 06-03-2022 Microscopic observation Gram stain Nom (Unsp spec) [facility] Absolute lymphocyte countOrd ered By: Dr. Gates on 05-06-2022 Lymphocytes Auto (Unsp spec) [#/Vol] 2.32 10*3/uL 0.83-4.51 [facility] Basophil percentageOrdered B y: Dr. Gates on 05-06-2022 Basophils/100 WBC (Bld) 0.8 % 0-1 [facility] Chloride [Moles/Vol] 104 mmol/L 98-107 [facility] Eosinophils/100 WBC (Bld) 2.3 % 0-5 [facility] Glucose [Mass/Vol] 199 mg/dL 74-106 [facility] Comment on above: Fasting Glucose resu lt greater than or equal to 126 mg/dL suggests DIABETES MELLITUS per A.D.A. criteria. Neutrophils (Bld) [#/Vol] 6.4 10*3/uL 2.0-7.7 [facility] Neutrophils/100 WBC (Bld) 67.8 % 47-70 [facility] Potassium [Moles/Vol] 4.3 mmol/L 3.5-5.1 [facility] Sodium [Moles/Vol] 137 mmol/L 136-145 [facility] Testosterone [Mass/Vol] 87.05 ng/dL [facility] Comment on above: CENTRAL 90% REFERENC E RANGES MALE AGE <50 197.44 - 669.58 ng/dL MALE AGE > or = 50 187.72 - 684.19 ng/dL FEMALE AGE <50 8.38 - 35.01 ng/dL FEMALE AGE > or = 50 <7.00 - 35.92 ng/dL Effective as of 09/02/20 WBC (Bld) [#/Vol] 9.5 10*3/uL 4.4-11.0 [facility] Blood erythrocytes count (nu mber/volume)Ordered By: Dr. Gates on 05-06-2022 RBC (Bld) [#/Vol] 5.30 10*6/uL 4.6-6.[address] [facility] Blood hemoglobin measurement (mass/volume)Ordered By: Dr. Gates on 05-06-2022 Hemoglobin (Bld) [Mass/Vol] 15.9 g/dL 13.0-16.5 [facility] Blood lymphocytes/100 leukoc ytesOrdered By: Dr. Gates on 05-06-2022 Lymphocytes/100 WBC (Bld) 24.5 % 19-41 [facility] Blood monocytes/100 leukocyt esOrdered By: Dr. Gates on 05-06-2022 Monocytes/100 WBC (Bld) 4.4 % 0-10 [facility] Blood platelet mean volumeOr dered By: Dr. Gates on 05-06-2022 Platelet mean volume (Bld) [Entitic vol] 11.0 fL 6.2-12.0 [facility] Determination of erythrocyte mean corpuscular volume (MCV)Ordered By: Dr. Gates on 05-06-2022 MCV (RBC) [Entitic vol] 90.8 fL 80-94 [facility] Hematocrit Auto (Bld) [Volum e fraction]Ordered By: Dr. Gates on 05-06-2022 Hematocrit (Bld) [Volume fraction] 48.1 % 40-54 [facility] - Chemistry and C hemistry - challengeOrdered By: Dr. Gates on 05-06-2022 CO2 [Moles/Vol] 25.0 mmol/L 21.0-32.0 [facility] Urea nitrogen/Creatinine [Mass ratio] 14.1 mg/mg 10-20 [facility] - Hematology and Cell countsOrdered By: Dr. Gates on 05-06-2022 Erythrocyte distribution width (RBC) [Entitic vol] 47.6 fL 35.1-43.9 [facility] Erythrocyte distribution width (RBC) [Ratio] 14.1 % 11.6-14.6 [facility] Immature granulocytes/100 WBC (Bld) 0.200 % 0.0-0.9 [facility] Comment on above: IG% - Immature Granu locytes (promyelocytes, myelocytes and metamyelocytes) > 1% indicates that a LEFT SHIFT is Present. MCH (RBC) [Entitic mass] 30.0 pg 27.0-32.0 [facility] Nucleated RBC/100 WBC (Bld) [Ratio] 0 % 0-5 [facility] MCHC Auto (RBC) [Mass/Vol]Or dered By: Dr. Gates on 05-06-2022 MCHC (RBC) [Mass/Vol] 33.1 g/dL 32-36 [facility] No Panel InformationOrdered By: Dr. Gates on 05-06-2022 Estimated GFR (MDRD) Amer 118 mL/min >60 [facility] Comment on above: GFR Calc Estimated GFR (MDRD) Non-Af Amer 97 mL/min >60 [facility] Comment on above: Non- GFR Calc Thyroid Stimulating Hormone (TSH) 1.37 uIU/mL 0.358-3.74 [facility] Platelets bldOrdered By: Dr. Gates on 05-06-2022 Platelets (Bld) [#/Vol] 207 10*3/uL 150-450 [facility] Serum or plasma calcium zhang urement (mass/volume)Ordered By: Dr. Gates on 05-06-2022 Calcium [Mass/Vol] 9.3 mg/dL 8.5-10.1 [facility] Serum or plasma creatinine m easurement (mass/volume)Ordered By: Dr. Gates on 05-06-2022 Creatinine [Mass/Vol] 0.85 mg/dL 0.70-1.30 [facility] Comment on above: The validity of the calculated GFR & GFRAA in patients over 70 years has not been determined. Clinical correlation is essential. Serum or plasma urea nitroge n measurement (mass/volume)Ordered By: Dr. Gates on 05-06-2022 Urea nitrogen [Mass/Vol] 12 mg/dL 7-18 [facility] Thin prep Papanicolaou smear with manual screeningOrdered By: Dr. Gates on 05-06-2022 Thin prep Papanicolaou smear with manual screening 8 5-15 [facility] Otheron 04-26-2020 1. Nonspecific soft tissue swelling at the radial and dorsal aspect of the right forearm. No retained radiopaque foreign body. 2. Mild degenerative changes in the right wrist and right elbow. 3. No fracture or dislocation is identified. DSS/dnb Workstation ID: [id number] [facility] EXAMINATION: XR FOREARM RIGHT 2 VIEWS; [...] osseous lesion or retained radiopaque foreign body. [facility] Interface, Rad In Fuji Speechq - [...] dislocation is identified. DSS/dnb Workstation ID: [id number] [facility] XR FOREARM RIGHT 2 VIEWSon 0 [...] ID: [id number] Dictated by: HARRISON MCCABE on [facility] Apr 26, 2020 7:09:21 PM EDT Transcribed by: KATHI RUVALCABA on [facility] Apr 26, 2020 7:20:17 PM EDT Finalized by: HARRISON MCCABE on [facility] Apr 26, 2020 7:22:45 PM EDT [facility] Comment on above: Order Comment: Injur y/Trauma [...] ID: [id number] Dictated by: HARRISON MCCABE on [facility] Apr 26, 2020 7:09:21 PM EDT Transcribed by: KATHI RUVALCABA on [facility] Apr 26, 2020 7:20:17 PM EDT Finalized by: HARRISON MCCABE on [facility] Apr 26, 2020 7:22:45 PM EDT [facility] Comment on above: Order Comment: Injur y/Trauma or Illness?:Injury/Trauma How long have you had these symptoms (acute/chronic)?:Acute Reason for exam?:Farm injury milking a cow today. Pain, swelling and abrasion posterior wrist. History of cancer?:n Surgeries, chemotherapy, or radiation?:n Type of Exam?:Initial Mechanism of injury?:No prior fx. Lab Report: Basic Metabolic Profile (BMP)on 03-16-2017 Anion gap 7 mmol/L Invalid Interpretation Code 5-15 [facility] Work Phone: [phone] BUN/Creatinine Ratio 11.1 RATIO Invalid Interpretation Code 10- [facility] Work Phone: [phone] Calcium 8.6 mg/dL Invalid Interpretation Code 8.5-10.1 [facility] Work Phone: [phone] Chloride 104 mmol/L Invalid Interpretation Code 98-107 [facility] Work Phone: [phone] CO2 27.0 mmol/L Invalid Interpretation Code 21.0-32.0 [facility] Work Phone: [phone] Creatinine 0.81 mg/dL Invalid Interpretation Code 0.70-1.30 [facility] Work Phone: [phone] eGFR (non-black) 127 mL/min/{1.73_m2} Invalid Interpretation Code >60 [facility] Work Phone: [phone] eGFR (non-black) 105 mL/min/{1.73_m2} Invalid Interpretation Code >60 [facility] Work Phone: [phone] Glucose 127 mg/dL High 74-106 [facility] Work Phone: [phone] Potassium 4.4 mmol/L Invalid Interpretation Code 3.5-5.1 [facility] Work Phone: [phone] Sodium 138 mmol/L Invalid Interpretation Code 136-145 [facility] Work Phone: [phone] Urea nitrogen 9 mg/dL Invalid Interpretation Code 7-18 [facility] Work Phone: [phone] Lab Report: CBC W/Diff, Auto matedon 03-16-2017 Basophils/100 leukocytes 0.7 % Invalid Interpretation Code 0-1 [facility] Phone: [phone] Eosinophils/100 leukocytes 3.0 % Invalid Interpretation Code 0-5 [facility] Work Phone: [phone] Erythrocytes (RBC) 5.04 10*6/uL Invalid Interpretation Code 4.6-6.2 [facility] Phone: [phone] Hematocrit (HCT) 47.3 % Invalid Interpretation Code 40-54 [facility] Work Phone: [phone] Hemoglobin (HGB) 15.4 g/dL Invalid Interpretation Code 13.0-16.5 [facility] Work Phone: [phone] immature granulocytes, percentage of total cells, blood 0.100 % Invalid Interpretation Code 0.0-0.9 [facility] Work Phone: [phone] Lymphocytes 1.89 X10 3/UL Invalid Interpretation Code 0.83-4.51 [facility] Work Phone: [phone] Lymphocytes/100 leukocytes 26.9 % Invalid Interpretation Code 19-41 [facility] Work Phone: [phone] MCH 30.6 pg Invalid Interpretation Code 27.0-32.0 [facility] Work Phone: [phone] MCHC 32.6 G/GL Invalid Interpretation Code 32-36 [facility] Work Phone: [phone] MCV 93.8 fL Invalid Interpretation Code 80-94 [facility] Work Phone: [phone] Monocytes/100 leukocytes 6.0 % Invalid Interpretation Code 0-10 [facility] Work Phone: [phone] neutrophil count, blood 4.4 X10 3/UL Invalid Interpretation Code 2.0-7.7 [facility] Work Phone: [phone] Neutrophils/100 leukocytes 63.3 % Invalid Interpretation Code 47-70 [facility] Work Phone: [phone] Platelets 231 10*3/mm3 Invalid Interpretation Code 150-450 [facility] Work Phone: [phone] PMV by Lalito 10.8 fL Invalid Interpretation Code 6.2-12.0 [facility] Work Phone: [phone] RDW-CA 14.1 % Invalid Interpretation Code 11.6-14.6 [facility] Work Phone: [phone] red blood cell distribution width, size density 46.8 fL High 35.1-43.9 [facility] Work Phone: [phone] WBC (Leukocytes) 7.0 10*3/uL Invalid Interpretation Code 4.4-11.0 [facility] Work Phone: [phone] Lab Report: Lipid Profileon 03-16-2017 Cholesterol 182 mg/dL Invalid Interpretation Code 200 [facility] Work Phone: [phone] HDL Cholesterol 35 mg/dL Low [facility] Work Phone: [phone] LDL Cholesterol 108 mg/dL Invalid Interpretation Code 0-130 [facility] Work Phone: [phone] Triglyceride 195 mg/dL Invalid Interpretation Code [facility] Work Phone: [phone] very low density lipoproteins 39 mg/dL Invalid Interpretation Code 5-40 [facility] Work Phone: [phone] Lab Report: Liver Profileon 03-16-2017 Alanine aminotransferase (ALT) 19 U/L Invalid Interpretation Code 16-61 [facility] Work Phone: [phone] Albumin 3.8 g/dL Invalid Interpretation Code 3.2-5.0 [facility] Work Phone: [phone] Alkaline phosphatase (ALP) 58 U/L Invalid Interpretation Code 45-117 [facility] Work Phone: [phone] Aspartate aminotransferase (AST) 17 U/L Invalid Interpretation Code 15-37 [facility] Work Phone: [phone] Bilirubin (direct) mg/dL Invalid Interpretation Code 0.00-0.30 [facility] Work Phone: [phone] Bilirubin (total) 0.40 mg/dL Invalid Interpretation Code 0.20-1.00 [facility] Work Phone: [phone] Globulin 3.8 g/dL Invalid Interpretation Code 2.2-4.2 [facility] Work Phone: [phone] Protein 7.6 g/dL Invalid Interpretation Code 6.4-8.2 [facility] Work Phone: [phone] Lab Report: Lipid Profileon 09-10-2016 Cholesterol 153 mg/dL 200 [facility] Work Phone: [phone] HDL Cholesterol 27 mg/dL Low [facility] Work Phone: [phone] LDL Cholesterol 89 mg/dL 0-130 [facility] Work Phone: [phone] Triglyceride 184 mg/dL [facility] Work Phone: [phone] very low density lipoproteins 37 mg/dL 5-40 [facility] Work Phone: [phone] Lab Report: Liver Profileon 09-10-2016 Alanine aminotransferase (ALT) 18 U/L 12-78 [facility] Work Phone: [phone] Albumin 3.8 g/dL 3.4-5.0 [facility] Work Phone: [phone] Alkaline phosphatase (ALP) 57 U/L Invalid Interpretation Code 45-117 [facility] Work Phone: [phone] ALP enzyme act/vol (Bld) 57 U/L 45-117 [facility] Work Phone: [phone] Aspartate aminotransferase (AST) 22 U/L 15-37 [facility] Work Phone: [phone] Bilirubin (direct) 0.10 mg/dL 0.00-0.30 [facility] Work Phone: [phone] Bilirubin (total) 0.30 mg/dL 0.20-1.00 [facility] Work Phone: [phone] Globulin 3.7 g/dL High 2.3-3.5 [facility] Work Phone: [phone] Globulin mass conc (S) 3.7 g/dL High 2.3-3.5 [facility] Work Phone: [phone] Protein 7.5 g/dL 6.4-8.2 [facility] Work Phone: [phone] Office Visiton 07-08-2016 Documentation of current medications (procedure) Done Invalid Interpretation Code [facility] Work Phone: [phone] Fall risk assessment No Invalid Interpretation Code [facility] Work Phone: [phone] Protein mass conc Done [facility] Work Phone: [phone] Clinical Lists Update: Prelo bushler 07-06-2016 Left ventricular Ejection fraction 53 % Invalid Interpretation Code [facility] Work Phone: [phone] Lab Report: Basic Metabolic Profile (BMP)on 02-03-2016 Anion gap 5 mmol/L Invalid Interpretation Code 5-15 [facility] Work Phone: [phone] Anion gap molar conc 5 mmol/L 5-[address] [facility] Work Phone: [phone] BUN/Creatinine Ratio 14.7 RATIO 10-[address] [facility] Work Phone: [phone] Calcium 8.2 mg/dL Low 8.5-10.1 [facility] Work Phone: [phone] Chloride 112 mmol/L High 98-107 [facility] Work Phone: [phone] CO2 24.0 mmol/L Invalid Interpretation Code 21.0-32.0 [facility] Work Phone: [phone] CO2 ppres (BldV) 24.0 mmol/L 21.0-32.0 [facility] Work Phone: [phone] Creatinine 0.82 mg/dL 0.70-1.30 [facility] Work Phone: [phone] eGFR (non-black) 125 mL/min/{1.73_m2} Invalid Interpretation Code >60 [facility] Work Phone: [phone] eGFR (non-black) 104 mL/min/{1.73_m2} >60 [facility] Work Phone: [phone] EST GFR - AA 125 mL/min >60 [facility] Work Phone: [phone] Glucose 125 mg/dL High 70-110 [facility] Work Phone: [phone] Glucose mass conc 125 mg/dL High 70-110 [facility] Work Phone: [phone] Potassium 4.4 mmol/L 3.5-5.1 [facility] Work Phone: [phone] Sodium 141 mmol/L 136-145 [facility] Work Phone: [phone] Urea nitrogen 12 mg/dL 7-18 [facility] Work Phone: [phone] Lab Report: CBC W/Diff, Auto matedon 02-03-2016 Basophils/100 leukocytes 0.7 % Invalid Interpretation Code 0-1 [facility] Work Phone: [phone] Basophils/100 WBC (Bld) 0.7 % 0-1 [facility] Work Phone: [phone] Eosinophils/100 leukocytes 3.3 % Invalid Interpretation Code 0-5 [facility] Work Phone: [phone] Eosinophils/100 WBC (Bld) 3.3 % 0-5 [facility] Work Phone: [phone] Erythrocyte distribution width Ratio (RBC) 46.7 fL High 35.1-43.9 [facility] Work Phone: [phone] Erythrocyte distribution width Ratio (RBC) 13.7 % 11.6-14.6 [facility] Work Phone: [phone] Erythrocytes (RBC) 4.79 10*6/uL Invalid Interpretation Code 4.6-6.2 [facility] Work [phone] Hematocrit (HCT) 44.5 % Invalid Interpretation Code 40-54 [facility] Work [phone] Hematocrit Volume Fraction (Bld) 44.5 % 40-54 [facility] Work Phone: [phone] Hemoglobin (HGB) 15.2 g/dL 13.0-16.5 [facility] Work Phone: [phone] Immature granulocytes #/vol (Bld) 0.100 % 0.0-0.9 [facility] Work Phone: [phone] immature granulocytes, percentage of total cells, blood 0.100 % Invalid Interpretation Code 0.0-0.9 [facility] Work Phone: [phone] Lymphocytes 1.97 X10 3/UL Invalid Interpretation Code 0.83-4.51 [facility] Work Phone: [phone] Lymphocytes #/vol (Bld) 1.97 X10 3/UL 0.83-4.51 [facility] Work Phone: [phone] Lymphocytes/100 leukocytes 27.1 % Invalid Interpretation Code 19-41 [facility] Work Phone: [phone] Lymphocytes/100 WBC (Bld) 27.1 % 19-41 [facility] Work Phone: [phone] MCH 31.7 pg Invalid Interpretation Code 27.0-32.0 [facility] Work Phone: [phone] MCH Entitic mass (RBC) 31.7 pg 27.0-32.0 [facility] Work Phone: [phone] MCHC 34.2 G/GL Invalid Interpretation Code 32-36 [facility] Work Phone: [phone] MCHC mass conc (RBC) 34.2 G/GL 32-[address] [facility] Work Phone: [phone] MCV 92.9 fL Invalid Interpretation Code 80-94 [facility] Work Phone: [phone] MCV Entitic volume (RBC) 92.9 fL 80-94 [facility] Work Phone: [phone] Monocytes/100 leukocytes 6.2 % Invalid Interpretation Code 0-10 [facility] Work Phone: [phone] Monocytes/100 WBC (Bld) 6.2 % 0-10 [facility] Work Phone: [phone] neutrophil count, blood 4.6 X10 3/UL Invalid Interpretation Code 2.0-7.7 [facility] Work Phone: [phone] Neutrophils #/vol (Bld) 4.6 X10 3/UL 2.0-7.7 [facility] Work Phone: [phone] Neutrophils/100 leukocytes 62.6 % Invalid Interpretation Code 47-70 [facility] Work Phone: [phone] Neutrophils/100 WBC (Bld) 62.6 % 47-70 [facility] Work Phone: [phone] Platelet mean volume Entitic volume (Bld) 9.9 fL 6.2-12.0 [facility] Work Phone: [phone] Platelets 285 10*3/mm3 Invalid Interpretation Code 150-450 [facility] Work Phone: [phone] Platelets #/vol (Bld) 285 10*3/mm3 150-450 [facility] Work Phone: [phone] PMV by Lalito 9.9 fL Invalid Interpretation Code 6.2-12.0 [facility] Work Phone: [phone] RBC #/vol (Bld) 4.79 10*6/uL 4.6-6.2 [facility] Work Phone: [phone] RDW-CA 13.7 % Invalid Interpretation Code 11.6-14.6 [facility] Work Phone: [phone] red blood cell distribution width, size density 46.7 fL High 35.1-43.9 [facility] Work Phone: [phone] WBC #/vol (Bld) 7.3 10*3/uL 4.4-11.0 [facility] Work Phone: WBC (Leukocytes) 7.3 10*3/uL Invalid Interpretation Code 4.4-11.0 [facility] Work Phone: [phone] Lab Report: Lipid Profileon 02-03-2016 Cholesterol 145 mg/dL Invalid Interpretation Code 200 [facility] Work Phone: [phone] HDL Cholesterol 27 mg/dL Low [facility] Work Phone: [phone] LDL Cholesterol 90 mg/dL Invalid Interpretation Code 0-130 [facility] Work Phone: [phone] Triglyceride 139 mg/dL Invalid Interpretation Code [facility] Work Phone: [phone] very low density lipoproteins 28 mg/dL Invalid Interpretation Code 5-40 [facility] Work Phone: [phone] Lab Report: Liver Profileon 02-03-2016 Alanine aminotransferase (ALT) 20 U/L Invalid Interpretation Code 12-78 [facility] Work Phone: [phone] Albumin 3.5 g/dL Invalid Interpretation Code 3.4-5.0 [facility] Work Phone: [phone] Alkaline phosphatase (ALP) 53 U/L Invalid Interpretation Code 45-117 [facility] Work Phone: [phone] Aspartate aminotransferase (AST) 22 U/L Invalid Interpretation Code 15-37 [facility] Work Phone: [phone] Bilirubin (direct) 0.07 mg/dL Invalid Interpretation Code 0.00-0.30 [facility] Work Phone: [phone] Bilirubin (total) 0.30 mg/dL Invalid Interpretation Code 0.20-1.00 [facility] Work Phone: [phone] Globulin 3.5 g/dL Invalid Interpretation Code 2.3-3.5 [facility] Work Phone: [phone] Protein 7.0 g/dL Invalid Interpretation Code 6.4-8.2 [facility] Work Phone: [phone] Office Visit: [facility] 01-20-20 16 Documentation of current medications (procedure) Done Invalid Interpretation Code [facility] Work Phone: [phone] Protein mass conc yes [facility] Work Phone: [phone] Smoking cessation education (procedure) yes Invalid Interpretation Code [facility] Work Phone: [phone] Tobacco smoking status NHIS Tobacco smoking status NHIS Invalid Interpretation Code [facility] Work Phone: [phone] Tobacco smoking status NHIS Current every day smoker [facility] Work Phone: [phone] Tobacco use [facility] Current every day smoker Invalid Interpretation Code [facility] Work Phone: [phone] Office Visit: [facility] 01-23-20 15 Dietary management education, guidance, and counseling (procedure) yes Invalid Interpretation Code [facility] Work Phone: [phone] Replaced Document: Raimundo Jarvis 01-22-2015 EKG QRS axis 50 deg [facility] Work Phone: [phone] electrocardiogram interpretation Sinus Rhythm -Short GA syndrome Tiffanie = 116BORDERLINE RHYTHM Invalid Interpretation Code [employer] [facility] Work Phone: [phone] GE use only - for [employer] import when terms are not otherwise specified 393 ms Invalid Interpretation Code [facility] Work Phone: [phone] Interpretation Sinus Rhythm -Short GA syndrome Tiffanie = 116BORDERLINE RHYTHM [facility] Work Phone: [phone] P [place] 31 deg [facility] Work Phone: [phone] P wave axis, electrocardiogram 31 deg Invalid Interpretation Code [facility] Work Phone: [phone] GA Interval 116 ms [facility] Work Phone: [phone] GA interval, electrocardiogram 116 ms Invalid Interpretation Code [facility] Work Phone: [phone] Pulse (Heart Rate) 69 /min Invalid Interpretation Code [facility] Work Phone: [phone] QRS axis, electrocardiogram 50 deg Invalid Interpretation Code [facility] Work Phone: [phone] QRS Duration 98 ms [facility] Work Phone: [phone] QRS duration, electrocardiogram 98 ms Invalid Interpretation Code [facility] Work Phone: [phone] QT Interval new path ms [facility] Work Phone: [phone] QT interval, electrocardiogram new path ms Invalid Interpretation Code [facility] Work Phone: [phone] QTc Zamorano 393 ms [facility] Work Phone: [phone] T [place] 41 deg [facility] Work Phone: [phone] T wave axis, electrocardiogram 41 deg Invalid Interpretation Code [facility] Work Phone: [phone] Office Visiton 07-11-2014 cardiac risk group C Invalid Interpretation Code [facility] Work Phone: [phone] General cardiovascular disease 10Y risk [#] Paoli.D'Agostino N/A Invalid Interpretation Code [facility] Work Phone: [phone] Office Visiton 12-25-2013 Protein mass conc Smoking cessation education (procedure) [facility] Work Phone: [phone] Smoking cessation education (procedure) Smoking cessation education (procedure) Invalid Interpretation Code [facility] Work Phone: [phone] Lab Report: TSHon 08-23-2012 Thyroid stimulating hormone (TSH) 1.65 u[iU]/mL Normal 0.358-3.74 [facility] Work Phone: [phone] Office Visiton 08-15-2012 Alcoholism counseling (procedure) no Invalid Interpretation Code [facility] Work Phone: [phone] Protein mass conc no [facility] Work Phone: [phone] Clinical Lists Update: Pre05-29-2012 Cholesterol to HDL Ratio 6 {ratio} Invalid Interpretation Code [facility] Work Phone: [phone] Magnesium 2.0 mg/dL Invalid Interpretation Code [facility] Work Phone: [phone] Clinical Lists Update: Pre05-28-2012 basophils as percent of blood leukocytes, manual count 0.3 % Invalid Interpretation Code [facility] Work Phone: [phone] eosinophils as percent of blood leukocytes, manual count 1.1 % Invalid Interpretation Code [facility] Work Phone: [phone] neutrophils, band form as percent of blood leukocytes, manual count 77.9 % High [facility] Work Phone: [phone] Vital Signs Date Time Vital Sign Value Performing Clinician Facility 11-08-2024 07:48-0400 Body mass index (BMI) [Ratio] 29 kg/m2 Dr. Boaz Gates MD Work Phone: [facility] 11-08-2024 07:48-0400 Body weight 91.[address] Boaz Gates MD Work Phone: [facility] 11-08-2024 07:48-0400 Diastolic blood pressure 93 mm[Hg] Dr. Boaz Gates MD Work Phone: [facility] 11-08-2024 07:48-0400 Heart rate 73 /min Dr. Boaz Gates MD Work Phone: [facility] 11-08-2024 07:48-0400 Respiratory rate 18 /min Dr. Boaz Gates MD Work Phone: [facility] 11-08-2024 07:48-0400 SaO2% (BldA) [Mass fraction] 97 % Dr. Boaz Gates MD Work Phone: [facility] 11-08-2024 07:48-0400 Systolic blood pressure 133 mm[Hg] Dr. Boaz Gates MD Work Phone: [facility] 10-25-2023 16:16-0400 Body temperature 98.6 [degF] Rony Xochitl DO Work Phone[facility] [facility] 10-25-2023 16:16-0400 Diastolic blood pressure 78 mm[Hg] Rony Lemmark anthony DO Work Phone: [facility] 10-25-2023 16:16-0400 Heart rate 93 /min Rony Lemasters DO Work Phone: [facility] 10-25-2023 16:16-0400 Respiratory rate 16 /min Rony Lemasters DO Work Phone: [facility] 10-25-2023 16:16-0400 SaO2% (BldA) [Mass fraction] 95 % Rony Lemasters DO Work Phone: [facility] 10-25-2023 16:16-0400 Systolic blood pressure 119 mm[Hg] Rony Lemasters DO Work Phone: [facility] 10-25-2023 13:45-0400 Body height 180.3 cm Rony Luciano DO Work Phone: [facility] 10-25-2023 13:45-0400 Body mass index (BMI) [Ratio] 30.68 kg/m2 Rony Luciano DO Work Phone: [facility] 10-25-2023 13:45-0400 Body weight 99.79 kg Rony Luciano DO Work Phone: [facility] 02-20-2023 23:08-0500 Diastolic blood pressure 87 mm[Hg] [facility] 02-20-2023 23:08-0500 Heart rate 84 /min [facility] 02-20-2023 23:08-0500 Respiratory rate 16 /min [facility] 02-20-2023 23:08-0500 SaO2% (BldA) [Mass fraction] 99 % [facility] 02-20-2023 23:08-0500 Systolic blood pressure 129 mm[Hg] [facility] 02-20-2023 21:28-0500 Body height 177.8 cm [facility] 02-20-2023 21:28-0500 Body temperature 97.9 [degF] [facility] 09-17-2022 09:19-0400 Body height 177.[address] Boaz Gates Work Phone: [facility] 09-17-2022 09:19-0400 Body mass index (BMI) [Ratio] 30.8 kg/m2 Dr. Boaz Gates Work Phone: [facility] 09-17-2022 09:19-0400 Body weight 97.[address] Boaz Gates Work Phone: [facility] 09-17-2022 09:19-0400 Diastolic blood pressure 82 mm[Hg] Dr. Boaz Gates Work Phone: [facility] 09-17-2022 09:19-0400 Heart rate 65 /min Dr. Boaz Gates Work Phone: [facility] 09-17-2022 09:19-0400 Respiratory rate 18 /min Dr. Boaz Gates Work Phone: [facility] 09-17-2022 09:19-0400 Systolic blood pressure 131 mm[Hg] Dr. Boaz Gates Work Phone: [facility] 04-26-2020 18:41-0400 BMI (Body Mass Index) 32.49 kg/m2 [facility] 04-26-2020 18:41-0400 Body Temperature 98.29 [degF] [facility] 04-26-2020 18:41-0400 Body weight 99.79 kg [facility] 04-26-2020 18:41-0400 BP Diastolic 86 mm[Hg] [facility] 04-26-2020 18:41-0400 BP Systolic 126 mm[Hg] [facility] 04-26-2020 18:41-0400 Height 175.3 cm [facility] 04-26-2020 18:41-0400 Pulse (Heart Rate) 70 /min [facility] 04-26-2020 18:41-0400 Pulse Oximetry 97 % [facility] 04-26-2020 18:41-0400 Respiratory Rate 18 /min [facility] 07-08-2016 09:10-0400 BMI (Body Mass Index) 32.11 kg/m2 [facility] Work Phone: 07-08-2016 09:10-0400 BP Diastolic 76 mm[Hg] [facility] Work Phone: 07-08-2016 09:10-0400 BP Systolic 130 mm[Hg] [facility] Work Phone: 07-08-2016 09:10-0400 Height 177.8 cm [facility] Work Phone: 07-08-2016 09:10-0400 Pulse (Heart Rate) 68 /min [facility] Work Phone: 07-08-2016 09:10-0400 Respiratory Rate 18 /min [facility] Work Phone: 07-08-2016 09:10-0400 Weight 101.52 kg Danae Colbert [facility] Work Phone: 02-03-2016 08:41-0500 BP Diastolic 82 mm[Hg] Harriet Herr RN [facility] Work Phone: 02-03-2016 08:41-0500 BP Systolic 112 mm[Hg] Harriet Herr RN [facility] Work Phone: 02-03-2016 08:41-0500 Pulse (Heart Rate) 72 /min Harriet Herr RN [facility] Work Phone: 02-03-2016 08:41-0500 Respiratory [...] Phone: 01-22-2015 10:16-0500 Heart rate 69 /min Ramonantonio Puja [facility] Work Phone: 06-28-2012 10:50-0400 Height 177.8 cm Harriet Herr RN [facility] Work Phone: Encounters Encounter Date Encounter Type Care Provider Facility Start: 11-08-[address] Boaz Gates MD -Laboratory Work Phone: Start: 11-08-2024 End: 11-08-2024 Patient encounter procedure Lionel PEPEC -[facility] Work Phone: Start: 11-08-2024 End: 11-08-[address] Boaz Gates MD Work Phone: -[facility] Start: 11-08-2024 End: 11-08-2024 ambulatory Boaz Gates Facility:[facility] Start: 08-29-2024 End: 08-29-[address] Boaz Gates MD Work Phone: -Laboratory [facility] Start: 08-29-2024 End: 08-29-[address] Boaz Gates MD -Laboratory [facility] Start: 08-29-2024 End: 08-29-2024 ambulatory Boaz Gates Facility:[facility] Start: 06-11-2024 ambulatory Boaz Gates Facility:[facility] Start: 05-31-2024 End: 05-31-[address] Boaz Gates MD -Laboratory [facility] Work Phone: Start: 05-31-2024 End: 05-31-2024 ambulatory Boaz Gates Facility:[facility] Start: 03-22-2024 End: 03-22-2024 ambulatory Boaz Gates Facility:[facility] Start: 03-01-2024 End: 03-01-2024 ambulatory Boaz Gates Facility:[facility] Start: 12-30-2023 End: 12-30-2023 ambulatory Boaz Gates Facility:[facility] Start: 10-25-2023 End: 10-25-2023 Emergency department patient visit RONY Mcfarlane [facility] Work Phone: Comment on above: Syncope, unspecified syncope type (Primary Dx) Start: 06-03-2023 End: 06-03-2023 ambulatory [facility] Work Phone: Start: 06-03-2023 End: 06-03-2023 Patient encounter procedure [facility] Start: 03-04-2023 End: 03-04-2023 ambulatory [facility] Work Phone: Start: 03-04-2023 End: 03-04-2023 Patient encounter procedure [facility] Start: 02-20-2023 End: 02-20-2023 [facility] Start: 12-02-2022 End: 12-02-[address] Boaz Gates Work Phone: [facility] Work Phone: Start: 12-02-2022 End: 12-02-[address] Boaz Gates Work Phone: [facility] Start: 09-17-2022 End: 09-17-[address] Boaz Gates Work Phone: [facility] Work Phone: Start: 09-17-2022 End: 09-17-[address] Boaz Gates Work Phone: [facility] Work Phone: Start: 09-17-2022 End: 09-17-[address] Boaz Gates Work Phone: [facility] Work Phone: Start: 09-02-2022 End: 09-02-2022 ambulatory [facility] Work Phone: Start: 09-02-2022 End: 09-02-2022 Patient encounter procedure [facility] Start: 06-03-2022 End: 06-03-2022 ambulatory [facility] Work Phone: Start: 06-03-2022 End: 06-03-2022 Patient encounter procedure [facility], Specimen Start: 05-06-2022 End: 05-06-2022 Patient encounter procedure [facility] Start: 04-06-2022 Transcribe Orders Marv Britt MD Work Phone: [facility] Comment on above: Habitual snoring (Pr imary Dx) Start: 02-12-2022 End: 02-12-2022 ambulatory [facility] Work Phone: Start: 02-12-2022 End: 02-12-2022 Patient encounter procedure [facility], [facility] Start: 04-26-2020 End: 04-26-2020 Emergency department patient visit CRISTINA ROLDAN [facility] Start: 04-26-2020 End: 04-26-2020 Emergency department patient visit Cristina Roldan Work Phone: [facility] Start: 12-19-2016 End: 12-19-2016 Emergency department patient visit Venice Kessler Facility:[facility] Procedures Date Procedure Procedure Detail Performing Clinician Start: 05-31-2024 Plain X-ray of shoulder Dr. Boaz Gates MD Work Phone: Start: 05-31-2024 Assay of prostate sp ecific antigen total Dr. Boaz Gates MD Work Phone: Comment on above: This test was perfor med using the [employer] tPSA method. Measured values of a patient sample can vary depending on the testing procedure used. PSA values determined on patient samples by different testing procedures cannot be used interchangeably. If there is a change in PSA assays while monitoring therapy, sequential testing should be performed to confirm baseline values. Start: 05-31-2024 Urine microalbumin/creatinine ratio measurement Dr. Boaz Gates MD Work Phone: Comment on above: Previous reported re sult: 4585.9 mg/g CREEdited by: ARLENE on 07/27/24:0754 AMENDED REPORT 07/27/24 0754 MALB:CREAT previously reported as: 4585.9 mg/g CRE Start: 10-25-2023 Ct head/brain w/o co ntrast material Rony Luciano DO Work Phone: Start: 10-25-2023 Radiologic exam ches t single view Rony Luciano DO Work Phone: Start: 10-25-2023 Comprehensive metabo lic panel Rony Luciano DO Work Phone: Start: 10-25-2023 Ethanol [Mass/volume ] in Serum or Plasma Rony Luciano DO Work Phone: Start: 10-25-2023 EXTRA TUBES Rony Luciano DO Work Phone: Start: 10-25-2023 LIGHT BLUE TOP Rony Luciano DO Work Phone: Start: 10-25-2023 Ecg routine ecg w/le ast 12 lds trcg only w/o i&r Rony Luciano DO Work Phone: Start: 02-20-2023 Plain chest X-ray Start: 06-03-2022 Investigation of transfusion reaction Start: 06-03-2022 Microbial culture, routine Start: 02-12-2022 CT of chest Start: 04-26-2020 Radex forearm 2 views A alva [facility]ology Work Phone: Start: 04-26-2020 Radex wrist complete minimum 3 views [facility] Work Phone: Start: 03-16-2017 End: 03-16-2017 *Hepatic Function Panel Vanesa Marquez PA-C Work Phone: Start: 03-16-2017 End: 03-16-2017 Lipid panel [AGGREGATE] Vanesa aMrquez PA-C Work Phone: Start: 08-03-2016 End: 09-16-2016 [...] PA-C Work Phone: Start: 01-20-2016 End: 01-20-2016 HYBRID CORN BREEDER Vanesa Marquez PA-C Work Phone: Start: 01-20-2016 [...] months Javi Perales Start: 07-15-2015 End: 07-15-2015 MELLY Sequeira MD Start: 01-22-2015 End: 01-22-2015 Dietary management education, guidance, and counseling Gregg Puja Start: 01-22-2015 End: 05-15-2015 *Hepatic Function Panel Vanesa Marquez PA-C Work Phone: Start: 01-22-2015 End: 01-22-2015 HYBRID CORN BREEDER Vanesa Marquez PA-C Work Phone: Start: 01-22-2015 [...] 07-11-2014 End: 07-12-2014 Smoking cessation education Kike Sequeira MD Start: 12-25-2013 End: 07-10-2014 *Hepatic Function Panel Javi Perales Start: 12-25-2013 End: 07-11-2014 Chest x-ray Kike Sequeira MD Start: 12-25-2013 End: 12-25-2013 HYBRID CORN BREEDER Kike Sequeira MD Start: 12-25-2013 End: 12-25-2013 Electrocardiogram, complete Kike Sequeira MD Start: 12-25-2013 End: 12-25-2013 Follow Up [...] Panel Javi Perales Start: 06-28-2012 End: 06-28-2012 HYBRID CORN BREEDER Kike Sequeira MD Start: 06-28-2012 End: 06-28-2012 Electrocardiogram, complete Kike Sequeira MD Start: 06-28-2012 End: 06-28-2012 Follow Up Appt 2 months Javi Perales Start: 06-28-2012 End: 09-19-2012 Lipid panel [AGGREGATE] Javi Perales Start: 06-21-2012 Percutaneous translu richi coronary angioplasty PERCUTANEOUS TRANSLUMINAL CORONARY ANGIOPLASTY, HX OF Gregg DeFinis Start: 05-28-2012 History of placement of stent for coronary artery disease History of coronary artery stent placement Lionel Sanchez [facility] TE[facility]-C Comment on above: ZDY-SAC-Cluq-Mid LAD w/ 3.5 x 22 mm Resolute and POBA-D1 05/28/2012 Investigation of transfusion reaction Microbial culture, routine Plan of Treatment Date Care Activity Detail Author Start: 10-09-2023 COVID-19 Vaccine () COVID-19 Vaccine ( season) [facility] Start: 10-09-2023 Influenza vaccination Influenza Vaccine (#1) [facility] Start: 02-20-2023 [facility] Start: 02-20-2023 [facility] Start: 07-12-2022 DTaP/Tdap/Td Vaccines (2 - Td or Tdap) DTaP/Tdap/Td Vaccines (2 - Td or Tdap) [facility] Start: 10-08-2021 Influenza vaccination Sequential Influenza Vaccine (#1) [facility] Start: 2020 RSV patients and/or patients aged 60+ years (1 - 1-dose 60+ series) RSV patients and/or patients aged 60+ years (1 - 1-dose 60+ series) [facility] Start: 10-09-2019 Influenza vaccination given Sequential Influenza Vaccine (#1) [facility] Start: 03-16-2017 End: 03-16-2017 *Hepatic Function Panel *Hepatic Function Panel [facility] Work Phone: Start: 03-16-2017 End: 03-16-2017 Lipid panel [AGGREGATE] *Lipid Profile CC PCP [facility] Work Phone: Start: 01-19-2017 End: 01-19-2017 Appointment Appointment [facility] Work Phone: Start: 08-03-2016 End: 09-16-2016 *Hepatic Function Panel *Hepatic Function Panel [facility] Work Phone: Start: 08-03-2016 End: 09-16-2016 Lipid panel [AGGREGATE] *Lipid Profile CC PCP [facility] Work Phone: Start: 07-08-2016 End: 07-08-2016 Appointment Appointment [facility] Work Phone: Start: 07-08-2016 End: 07-08-2016 *Hepatic Function Panel *Hepatic Function Panel [facility] Work Phone: Start: 07-08-2016 End: 01-12-2017 Follow Up Appt 6 months Follow Up Appt 6 months [facility] Work Phone: Start: 07-08-2016 End: 07-08-2016 Lipid panel [AGGREGATE] *Lipid Profile CC PCP [facility] Work Phone: Start: 07-08-2016 End: 01-12-2017 MMM MMM [facility] Work Phone: Start: 07-08-2016 End: 07-08-2016 Nuclear stress test -exercise Nuclear stress test -exercise [facility] Work Phone: Start: 02-03-2016 End: 02-03-2016 Follow Up BP Check Follow Up BP Check [facility] Work Phone: Start: 01-20-2016 End: 02-03-2016 *BMP *BMP [facility] Work Phone: Start: 01-20-2016 End: 02-03-2016 *CBC with Differential *CBC with Differential [facility] Work Phone: Start: 01-20-2016 End: 02-03-2016 *Hepatic Function Panel *Hepatic Function Panel [facility] Work Phone: Start: 01-20-2016 End: 01-20-2016 HYBRID CORN BREEDER HYBRID CORN BREEDER [facility] Work Phone: Start: 01-20-2016 End: 01-20-2016 Follow Up Appt 6 months Follow Up Appt 6 months [facility] Work Phone: Start: 01-20-2016 End: 02-03-2016 Lipid panel [AGGREGATE] *Lipid Profile CC PCP [facility] Work Phone: Start: 11-17-2015 End: 01-20-2016 *Hepatic Function Panel *Hepatic Function Panel [facility] Work Phone: Start: 11-17-2015 End: 01-20-2016 Lipid panel [AGGREGATE] *Lipid Profile CC PCP [facility] Work Phone: Start: 07-15-2015 End: 07-15-2015 Follow Up Appt 6 months Follow Up Appt 6 months [facility] Work Phone: Start: 07-15-2015 End: 07-15-2015 MMM MMM [facility] Work Phone: Start: 01-22-2015 End: 05-15-2015 *Hepatic Function Panel *Hepatic Function Panel [facility] Work Phone: Start: 01-22-2015 End: 01-22-2015 HYBRID CORN BREEDER HYBRID CORN BREEDER [facility] Work Phone: Start: 01-22-2015 End: 01-22-2015 Follow Up Appt 6 months Follow Up Appt 6 months [facility] Work Phone: Start: 01-22-2015 End: 05-15-2015 Lipid panel [AGGREGATE] *Lipid Profile CC PCP [facility] Work Phone: Start: 10-16-2014 End: 01-22-2015 *Hepatic Function Panel *Hepatic Function Panel [facility] Work Phone: Start: 10-16-2014 End: 01-22-2015 Lipid panel [AGGREGATE] *Lipid Profile CC PCP [facility] Work Phone: Start: 07-11-2014 End: 07-11-2014 Follow Up Appt 6 months Follow Up Appt 6 months [facility] Work Phone: Start: 07-11-2014 End: 01-09-2015 MMM MMM [facility] Work Phone: Start: 12-25-2013 End: 07-10-2014 *Hepatic Function Panel *Hepatic Function Panel [facility] Work Phone: Start: 12-25-2013 End: 07-11-2014 Chest x-ray X-Ray, Chest, PA & Lateral [facility] Work Phone: Start: 12-25-2013 End: 12-25-2013 HYBRID CORN BREEDER HYBRID CORN BREEDER [facility] Work Phone: Start: 12-25-2013 End: 12-25-2013 Electrocardiogram, complete EKG (In office) [facility] Work Phone: Start: 12-25-2013 End: 12-25-2013 Follow Up Appt 6 months Follow Up Appt 6 months [facility] Work Phone: Start: 12-25-2013 End: 07-10-2014 Lipid panel [AGGREGATE] *Lipid Profile CC PCP [facility] Work Phone: Start: 12-08-2012 End: 12-25-2013 *Hepatic Function Panel *Hepatic Function Panel [facility] Work Phone: Start: 12-08-2012 End: 12-25-2013 Lipid panel [AGGREGATE] *Lipid Profile CC PCP [facility] Work Phone: Start: 08-15-2012 End: 08-15-2012 Echocardiography Echocardiogram (complete) [facility] Work Phone: Start: 08-15-2012 End: 08-15-2012 Follow Up Appt 4 months Follow Up Appt 4 months [facility] Work Phone: Start: 08-15-2012 End: 08-15-2012 MMM MMM [facility] Work Phone: Start: 06-28-2012 End: 09-19-2012 *Hepatic Function Panel *Hepatic Function Panel [facility] Work Phone: Start: 06-28-2012 End: 06-28-2012 HYBRID CORN BREEDER HYBRID CORN BREEDER [facility] Work Phone: Start: 06-28-2012 [...] zoster vaccine Zoster Vaccines (1 of 2) [facility] Start: 2010 Screening for malignant neoplasm of colon [facility] Start: 2010 Zoster Vaccines (1 of 2) Zoster Vaccines (1 of 2) [facility] Start: 03-03-2009 MMR Vaccines (1 of 1 - Standard series) MMR Vaccines (1 of 1 - Standard series) [facility] Start: 1978 Hepatitis C antibody, confirmatory test Hepatitis C Screening [facility] Start: 1978 Hepatitis C screening Hepatitis C Screening [facility] Start: 1976 COVID-19 Vaccine (1 of 2) COVID-19 Vaccine (1 of 2) [facility] Start: 05-18-1975 HIV screening HIV Screening [facility] Start: 1972 Adolescent depression screening assessment Depression Screening (PHQ9) [facility] Start: 1972 Depression screening using PHQ-9 (Patient Health Questionnaire 9) score Depression Screening (PHQ-2/9) [facility] Start: 1966 Pneumococcal Vaccine: Ped or At-Risk (1 - PCV) Pneumococcal Vaccine: Ped or At-Risk (1 - PCV) [facility] Start: 05-18-1963 History and physical examination, annual for health maintenance Wellness Visit [facility] Start: 1960 COVID-19 Vaccine (#1) COVID-19 Vaccine (#1) [facility] Start: 1960 HIV screening HIV Screening [facility] Start: 1960 Lipid panel Lipid Panel [facility] Start: 1960 Prostate specific antigen measurement PSA Level [facility] Start: 1960 Screening for malignant neoplasm of colon [facility] Start: 1960 Tetanus vaccination Tetanus: Every 10yrs [facility] Start: 1960 Yearly Adult Physical Yearly Adult Physical [facility] ECG 12 lead ECG 12 lead ECG STAT 10/25/2023 1:35 PM EDT [facility] Work Phone: Patient Education [facility] Work Phone: Patient referral [facility] Work Phone: Immunizations Immunization Date Immunization Notes Care Provider Fa mino 12-02-2022 influenza virus vaccine, unspecified formulation Rony Luciano DO Work Phone: [facility] Work Phone: 11-08-2019 Influenza virus vaccine [facility] Payers Date Payer Category Payer Self-pay [id number] 2022 Unknown [id number] 2019 Unknown [employer] [place] [facility] [id number] 2019-Present [id number] 2016 Unknown 2013 Unknown [id number] 1960 Unknown [id number] 1960 Unknown [id number] 1960 Unknown [id number] Unknown [id number] Unknown [id number] Unknown [id number] Unknown [id number] Unknown [id number] Unknown [id number] Unknown [id number] Unknown [id number] Social History Date Type Detail Facility Start: 04-26-2020 End: 02-20-2023 Tobacco smoking status NHIS Current every day smoker [facility] Start: 04-26-2020 Tobacco use and exposure Never used [facility] Start: 04-26-2020 End: 03-18-2021 Alcohol intake Current drinker of alcohol (finding) [facility] Start: 04-26-2020 Alcohol [facility] Start: 1960 Sex Assigned At Not on file [facility] Start: 10-15-2023 End: 10-25-2023 Exposure to SARS-CoV-2 (event) Not sure [facility] Start: 07-23-2021 End: 02-20-2023 Tobacco smoking status NHIS Unknown if ever smoked [facility] Start: 06-04-2018 Heavy [facility] Start: 06-04-2018 Marijuana [facility] Start: 06-04-2018 Spouse/ Signif icant Other [facility] Start: 02-18-2020 Cigarettes [facility] Start: 1960 Sex Assigned At Male [facility] Gender identity Not on file [facility] Equipment Procedure Code Equipment Code Equipment Origin al Text Equipment Identifier Dates RELOAD, SR75 SELECTABLE FDA Start: 02-18-2020 RELOAD, SR75 SELECTABLE FDA Start: 02-18-2020 RELOAD, SR75 SELECTABLE FDA Start: 02-18-2020 RU GARCIA FDA Start: 02-18-2020 RELOAD, SR75 SELECTABLE FDA Start: 02-18-2020 RELOAD, SR75 SELECTABLE FDA Start: 02-18-2020 RELOAD, SR75 SELECTABLE FDA Start: 02-18-2020 RU GARCIA FDA Start: 02-18-2020 RELOAD, SR75 SELECTABLE FDA Start: 02-18-2020 RELOAD, SR75 SELECTABLE FDA Start: 02-18-2020 RELOAD, SR75 SELECTABLE FDA Start: 02-18-2020 RU GARCIA FDA Start: 02-18-2020 RELOAD, SR75 SELECTABLE FDA Start: 02-18-2020 RELOAD, SR75 SELECTABLE FDA Start: 02-18-2020 RELOAD, SR75 SELECTABLE FDA Start: 02-18-2020 RU GARCIA FDA Start: 02-18-2020 RELOAD, SR75 SELECTABLE FDA Start: 02-18-2020 RELOAD, SR75 SELECTABLE FDA Start: 02-18-2020 RELOAD, SR75 SELECTABLE FDA Start: 02-18-2020 RU GARCIA FDA Start: 02-18-2020 RELOAD, SR75 SELECTABLE FDA Start: 02-18-2020 RELOAD, SR75 SELECTABLE FDA Start: 02-18-2020 RELOAD, SR75 SELECTABLE FDA Start: 02-18-2020 RU GARCIA FDA Start: 02-18-2020 RELOAD, SR75 SELECTABLE FDA Start: 02-18-2020 RELOAD, SR75 SELECTABLE FDA Start: 02-18-2020 RELOAD, SR75 SELECTABLE FDA Start: 02-18-2020 RU GARCIA FDA Start: 02-18-2020 RELOAD, SR75 SELECTABLE FDA Start: 02-18-2020 RELOAD, SR75 SELECTABLE FDA Start: 02-18-2020 RELOAD, SR75 SELECTABLE FDA Start: 02-18-2020 RU GARCIA FDA Start: 02-18-2020 RELOAD, SR75 SELECTABLE FDA Start: 02-18-2020 RELOAD, SR75 SELECTABLE FDA Start: 02-18-2020 RELOAD, SR75 SELECTABLE FDA Start: 02-18-2020 RU GARCIA FDA Start: 02-18-2020 RELOAD, SR75 SELECTABLE FDA Start: 02-18-2020 RELOAD, SR75 SELECTABLE FDA Start: 02-18-2020 RELOAD, SR75 SELECTABLE FDA Start: 02-18-2020 RU GARCIA FDA Start: 02-18-2020 Mental Status Date Assessment Result Facility 02-20-2023 Cognitive function Voice/Name [facility] Work Phone: Clinical Notes 05-28-2012 to 11-08-2024 Rony Luciano, DO - 10/25/2023 1:27 PM EDTClashon Luciano, DO 10/25/2023 1:27 PM EDT Note Date & Type Note Facility 11-08-2024 Progress note [facility] 10-25-2023 Emergency department Note Associated Order(s): ECG 12 lead HPI Chief Complaint Patient presents with Syncope Brought to ED per [place] squad from a local bar. EMS reports that he just passed out in front of friends, but by the time they arrived he was awake and alert. Upon arrival pt is A&Ox4 and states that this has been happening to him for years. He denies any pain, SOB, dizziness or any other s/s. EKG done at Limitations to History: None HPI: 63-year-old male presents with concern for syncopal episode. Patient was at a local bar and had a syncopal episode. States he is amnestic to the event. No head injury per bystanders. Patient states he had had nothing to eat this morning. Did have 5 beers. Denies any headache, vision change, neck pain, chest pain, shortness of breath, nausea, vomiting, diaphoresis, abdominal pain, urinary symptoms. Additional History Obtained from: EMS. Physical Exam: VS: As documented in the triage note and EMR flowsheet from this visit were reviewed. Appearance: Alert. cooperative, in no acute distress. Skin: Intact, dry skin, no lesions, rash, petechiae or purpura. Eyes: PERRLA, EOMs intact, Conjunctiva pink with no redness or exudates. HENT: Normocephalic, atraumatic. Nares patent. No intraoral lesions. Neck: Supple, without meningismus. Trachea at midline. No lymphadenopathy. Pulmonary: Clear bilaterally with good chest wall excursion. No rales, rhonchi or wheezing. No accessory muscle use or stridor. Cardiac: Regular rate and rhythm, no rubs, murmurs, or gallops. Abdomen: Abdomen is soft, nontender, and nondistended. No palpable organomegaly. No rebound or guarding. No CVA tenderness. Nonsurgical abdomen. Genitourinary: Exam deferred. Musculoskeletal: Full range of motion. Pulses full and equal. No cyanosis, clubbing, or edema. Neurological: Cranial nerves are grossly intact, grossly normal sensation, no weakness, no focal findings identified. Psychiatric: Appropriate mood and affect. Patient History No past medical history on file. No past surgical history on file. No family history on file. Social History Tobacco Use Smoking status: Not on file Smokeless tobacco: Not on file Substance Use Topics Alcohol use: Not on file Drug use: Not on file Physical Exam ED Triage Vitals [10/25/23 1345] Temperature Heart Rate Respirations BP 36.4 C (97.6 F) 81 16 102/73 Pulse Ox Temp src Heart Rate Source Patient Position 96 % -- -- -- BP Location FiO2 (%) -- -- Physical Exam ED Course & MDM Diagnoses as of 10/25/23 1553 Syncope, unspecified syncope type No data recorded Guillermina Coma Scale Score: 15 (10/25/23 1345 : Ledy Valerio RN) Medical Decision Making Labs Reviewed CBC WITH AUTO DIFFERENTIAL - Abnormal WBC 11.7 (*) nRBC 0.0 RBC 5.56 Hemoglobin 17.4 Hematocrit 52.5 (*) MCV 94 MCH 31.3 MCHC 33.1 RDW 14.5 Platelets 197 Neutrophils % 74.2 Immature Granulocytes %, Automated 0.4 Lymphocytes % 20.1 Monocytes % 4.8 Eosinophils % 0.1 Basophils % 0.4 Neutrophils Absolute 8.68 (*) Immature Granulocytes Absolute, Au* 0.05 Lymphocytes Absolute 2.35 Monocytes Absolute 0.56 Eosinophils Absolute 0.01 Basophils Absolute 0.05 COMPREHENSIVE METABOLIC PANEL - Abnormal Glucose 162 (*) Sodium 137 Potassium 4.1 Chloride 101 Bicarbonate 22 Anion Gap 18 Urea Nitrogen 9 Creatinine 0.91 eGFR >90 Calcium 9.2 Albumin 4.2 Alkaline Phosphatase 55 Total Protein 7.5 AST 14 Bilirubin, Total 0.5 ALT 12 ALCOHOL - Abnormal Alcohol 45 (*) MAGNESIUM - Normal Magnesium 1.74 TROPONIN I, HIGH SENSITIVITY - Normal CT head wo IV contrast Final Result No CT evidence of acute intracranial abnormality. MACRO None Signed by: Santos Valdivia 10/25/2023 2:31 PM Dictation workstation: [id number] XR chest 1 view Final Result No acute pulmonary process. MACRO None Signed by: Santos Valdivia 10/25/2023 2:27 PM Dictation workstation: [id number] Medical Decision Making: Patient appears well nontoxic. Vital signs within normal limits. No focal neurologic deficit. Patient treated with 1 L normal saline. Lab work otherwise unremarkable. Alcohol mildly elevated but the patient did admit to having [address] brain negative. Chest x-ray clear. Patient able to eat lunch and is feeling improved. Patient advised on continued oral hydration and follow-up with primary care. Stable at time of discharge. Differential Diagnoses Considered: Volume depletion, electrolyte abnormality, intracranial hemorrhage, hypoglycemia Independent Interpretation of Studies: I independently interpreted: CT brain shows no intracranial hemorrhage. Chest x- ray without pneumonia or pneumothorax. Escalation of Care: Appropriate for discharge with follow-up with primary care. Procedure ECG 12 lead Performed by: Rony Luciano DO Authorized by: Rony Luciano DO ECG interpreted by ED Physician in the absence of a sewer: yes Comments: EKG interpreted by Dr. Rony Luciano: Normal sinus rhythm at 77 bpm. GA interval 120 ms. QTc of [address] changes. Rony Luciano DO 10/25/23 1555 documented in this encounter [facility] Work Phone: 10-25-2023 Physician Emergency department Note Associated Order(s): ECG 12 lead HPI Chief Complaint Patient presents with Syncope Brought to ED per [place] squad from a local bar. EMS reports that he just passed out in front of friends, but by the time they arrived he was awake and alert. Upon arrival pt is A&Ox4 and states that this has been happening to him for years. He denies any pain, SOB, dizziness or any other s/s. EKG done at Limitations to History: None HPI: 63-year-old male presents with concern for syncopal episode. Patient was at a local bar and had a syncopal episode. States he is amnestic to the event. No head injury per bystanders. Patient states he had had nothing to eat this morning. Did have 5 beers. Denies any headache, vision change, neck pain, chest pain, shortness of breath, nausea, vomiting, diaphoresis, abdominal pain, urinary symptoms. Additional History Obtained from: EMS. Physical Exam: VS: As documented in the triage note and EMR flowsheet from this visit were reviewed. Appearance: Alert. cooperative, in no acute distress. Skin: Intact, dry skin, no lesions, rash, petechiae or purpura. Eyes: PERRLA, EOMs intact, Conjunctiva pink with no redness or exudates. HENT: Normocephalic, atraumatic. Nares patent. No intraoral lesions. Neck: Supple, without meningismus. Trachea at midline. No lymphadenopathy. Pulmonary: Clear bilaterally with good chest wall excursion. No rales, rhonchi or wheezing. No accessory muscle use or stridor. Cardiac: Regular rate and rhythm, no rubs, murmurs, or gallops. Abdomen: Abdomen is soft, nontender, and nondistended. No palpable organomegaly. No rebound or guarding. No CVA tenderness. Nonsurgical abdomen. Genitourinary: Exam deferred. Musculoskeletal: Full range of motion. Pulses full and equal. No cyanosis, clubbing, or edema. Neurological: Cranial nerves are grossly intact, grossly normal sensation, no weakness, no focal findings identified. Psychiatric: Appropriate mood and affect. Patient History No past medical history on file. No past surgical history on file. No family history on file. Social History Tobacco Use Smoking status: Not on file Smokeless tobacco: Not on file Substance Use Topics Alcohol use: Not on file Drug use: Not on file Physical Exam ED Triage Vitals [10/25/23 1345] Temperature Heart Rate Respirations BP 36.4 C (97.6 F) 81 16 102/73 Pulse Ox Temp src Heart Rate Source Patient Position 96 % -- -- -- BP Location FiO2 (%) -- -- Physical Exam ED Course & MDM Diagnoses as of 10/25/23 1553 Syncope, unspecified syncope type No data recorded Guillermina Coma Scale Score: 15 (10/25/23 1345 : Ledy Valerio RN) Medical Decision Making Labs Reviewed CBC WITH AUTO DIFFERENTIAL - Abnormal WBC 11.7 (*) nRBC 0.0 RBC 5.56 Hemoglobin 17.4 Hematocrit 52.5 (*) MCV 94 MCH 31.3 MCHC 33.1 RDW 14.5 Platelets 197 Neutrophils % 74.2 Immature Granulocytes %, Automated 0.4 Lymphocytes % 20.1 Monocytes % 4.8 Eosinophils % 0.1 Basophils % 0.4 Neutrophils Absolute 8.68 (*) Immature Granulocytes Absolute, Au* 0.05 Lymphocytes Absolute 2.35 Monocytes Absolute 0.56 Eosinophils Absolute 0.01 Basophils Absolute 0.05 COMPREHENSIVE METABOLIC PANEL - Abnormal Glucose 162 (*) Sodium 137 Potassium 4.1 Chloride 101 Bicarbonate 22 Anion Gap 18 Urea Nitrogen 9 Creatinine 0.91 eGFR >90 Calcium 9.2 Albumin 4.2 Alkaline Phosphatase 55 Total Protein 7.5 AST 14 Bilirubin, Total 0.5 ALT 12 ALCOHOL - Abnormal Alcohol 45 (*) MAGNESIUM - Normal Magnesium 1.74 TROPONIN I, HIGH SENSITIVITY - Normal CT head wo IV contrast Final Result No CT evidence of acute intracranial abnormality. MACRO None Signed by: Santos Valdivia 10/25/2023 2:31 PM Dictation workstation: [id number] XR chest 1 view Final Result No acute pulmonary process. MACRO None Signed by: Santos Valdivia 10/25/2023 2:27 PM Dictation workstation: [id number] Medical Decision Making: Patient appears well nontoxic. Vital signs within normal limits. No focal neurologic deficit. Patient treated with 1 L normal saline. Lab work otherwise unremarkable. Alcohol mildly elevated but the patient did admit to having [address] brain negative. Chest x-ray clear. Patient able to eat lunch and is feeling improved. Patient advised on continued oral hydration and follow-up with primary care. Stable at time of discharge. Differential Diagnoses Considered: Volume depletion, electrolyte abnormality, intracranial hemorrhage, hypoglycemia Independent Interpretation of Studies: I independently interpreted: CT brain shows no intracranial hemorrhage. Chest x- ray without pneumonia or pneumothorax. Escalation of Care: Appropriate for discharge with follow-up with primary care. Procedure ECG 12 lead Performed by: Rony Luciano DO Authorized by: Rony Luciano DO ECG interpreted by ED Physician in the absence of a sewer: yes Comments: EKG interpreted by Dr. Rony Luciano: Normal sinus rhythm at 77 bpm. GA interval 120 ms. QTc of [address] changes. Rony Luciano DO 10/25/23 1556 [facility] Work Phone: 02-20-2023 Discharge summary Note Date/Time February 20, 2023 10:09pm [facility] Medical Records Department [address] [place] [id number] Emergency Department Summary 02/20/23 MR#: [id number] Acct: [id number] Name: AJ POND Rep #:[id number] : 1960 62 From: Harris Mendes MD PCP: Dr. Boaz Gates MD Status:REG E R Location: ED HPI History of Present Illness Chief Complaint: Seizure Informant: patient, spouse/S.O. and family Narrative Narrative: Patient brought by significant other out of concern for possible seizure tonight. Patient does not have a history of seizures. He has had a nonproductive cough for the past 2 weeks and does not feel like it is getting better. No fevers or chills. No GI symptoms. No edema in his legs or orthopnea. No chest pain. Heinitially states he has not been dyspneic but then later admits that he has beenwheezing quite a bit. He has a history of coronary disease, and yet he continues to smoke. Apparently this event tonight, he was in the middle of a coughing fit, he was sitting/lying in his recliner, and he suddenly lost consciousness and his eyes rolled back in his head maybe to the right, his arms were up in the air and shaking. This went on for 30 seconds to a minute, and subsequently he came back around within 1 or 2 minutes. No postictal period. No history of seizures. No recent head trauma. [facility] Medical History Alcohol abuse Anxiety and depression Atherosclerotic heart disease of [place] coronary artery without angina pectoris Erectile dysfunction Essential (primary) hypertension History of ST elevation myocardial infarction (STEMI) (05/28/12) HLD (hyperlipidemia) Marijuana smoker Nicotine dependence Obesity Obstructive sleep apnea Home Medications aspirin 81 mg tablet,delayed release (Adult Low Dose Aspirin) 81 mg PO QDAY BLOOD THINNER 01/14/17 [History Last Taken Unknown] clonazepam 0.5 mg tablet 0.5 mg PO QHS PRN Anxiety #30 tabs 07/25/18 [History Last Taken Unknown] clopidogrel 75 mg tablet See Rx Instructions .Route .COMPLEX #90 TABLETS 01/05/21 [Rx Last Taken Unknown] aripiprazole 5 mg tablet 10 mg PO DAILY DEPRESSION 07/23/21 [History Last Taken Unknown] metoprolol tartrate 25 mg tablet 25 mg PO BID BP #180 tabs 03/04/22 [Rx Last Taken Unknown] nitroglycerin 0.4 mg sublingual tablet 0.4 mg sublingual Q5-15M PRN chest pain #25 tabs 07/29/22 [Rx Last Taken Unknown] glimepiride 1 mg tablet 1 mg PO DAILY 09/17/22 [History Last Taken Unknown] hydroxyzine HCl 50 mg tablet 50 mg PO QHS PRN 09/17/22 [History Last Taken Unknown] metformin 1,000 mg tablet 1,000 mg PO BID 09/17/22 [History Last Taken Unknown] venlafaxine 150 mg capsule,extended release 24 hr 150 mg PO DAILY 09/17/22 [History Last Taken Unknown] venlafaxine 75 mg capsule,extended release 24 hr 75 mg PO DAILY 09/17/22 [History Last Taken Unknown] tadalafil 10 mg tablet (Cialis) 10 mg PO DAILY PRN sexual activity #30 tabs 10/19/22 [Rx Last Taken Unknown] atorvastatin 80 mg tablet 80 mg PO QHS CHOLESTEROL #90 tabs 12/16/22 [Rx Last Taken Unknown] fenofibrate nanocrystallized 145 mg tablet 145 mg PO QDAY CHOLESTEROL #90 tabs 01/06/23 [Rx Last Taken Unknown] albuterol sulfate 90 mcg/actuation aerosol inhaler (Ventolin HFA) 1 - 2 puff inhalation Q4H PRN PRN Wheezing ##1 02/20/23 [Rx Last Taken Unknown] azithromycin 250 mg tablet 250 mg PO DAILY #6 TABLETS 02/20/23 [Rx Last Taken Unknown] prednisone 20 mg tablet 40 mg (2 x 20 mg) PO DAILY #10 TABLETS 02/20/23 [Rx Last Taken Unknown] Allergy/AdvReac Type Severity Reaction Status Date / Time No Known Allergies Allergy Verified 02/20/23 21:32 Family History Father CAD (coronary artery disease) Myocardial infarction, Onset Age: 73 Mother Cancer Surgical History History of coronary artery stent placement (05/28/12) History of partial colectomy (02/2020) Social History Smoking Status: Current every day smoker tobacco type: cigarettes alcohol intake: current alcohol intake frequency: 3 or more drinks per day Alcohol type: beer substance use type: marijuana caffeine: Yes Type: coffee Number of servings: 1 what type of physical activity do you participate in: none seatbelt use: always do you feel safe at home: Yes ROS ROS ED Constitutional Constitutional ED: Reports fever(s) and subjective; Denies chills Eyes Eyes: Denies change in vision or diplopia ENT ENT ED: Denies rhinorrhea or sore throat Cardiovascular Cardiovascular: Reports other Details: Mild chronic edema both legs no different/worse ; Denies chest pain, orthopnea or palpitations Respiratory/Chest Respiratory/Chest: Reports cough and wheezing; Denies orthopnea Gastrointestinal Gastrointestinal: Denies abdominal pain, diarrhea, nausea or vomiting Genitourinary Genitourinary ED: Denies dysuria or hematuria Musculoskeletal Musculoskeletal: Denies back pain or neck pain Integumentary Denies abscess or rash Neurologic Neurologic: Denies headache(s), paresthesias or weakness Psychiatric Psychiatric: Denies anxiety or suicidal thoughts EXAM Physical Exam Const Vital Signs: 02/20/23 21:28 02/20/23 22:24 Temperature 97.9 F Temperature Source Temporal Pulse Rate 78 74 Respiratory Rate 15 20 H Respiratory Pattern Tachypnea Blood Pressure 123/82 H Blood Pressure Mean 95 Pulse Ox 95 Oxygen Delivery Method Room Air Positive well nourished and well developed General Appearance ED: well developed and NAD HEENT Reports moist mucous membranes normocephalic and atraumatic Eyes PERRL and EOMs intact bilaterally Neck full ROM and supple Resp normal respiratory effort Resp Narrative: Diffuse expiratory wheezes mild, no rales or rhonchi. No respiratory distress speaking full sentences. Cardio regular rate, regular rhythm and no murmurs GI non-tender and non-distended Auscultation: normoactive bowel sounds Palpation: soft Back/Spine no CVA tenderness General Back: other FROM Extremity normal to inspection General Extremety ED: Yes edema; Negative for pulses abnormal or tenderness General Extremity: edema bilateral lower extremity Details: mild; Negative for pulses abnormal Neuro oriented x3, CN's II-XII intact bilaterally and no sensory deficits noted Sensorium / Orientation: awake and alert Motor Exam: strength 5/5 throughout Psych mental status grossly normal Skin no rashes or lesions noted and no wounds MDM MDM MDM Narrative Medical decision making narrative: There is no evidence of a tongue laceration or abrasion, the patient was not incontinent of urine, and there was no postictal period. I suspect this was a syncopal episode, most likely vasovagal due to bronchospasm. Given his history,I did perform some blood counts and cardiac workup. That, and given his persistent cough, a 2 view chest x-ray, which on my interpretation shows no acute pneumonia or pneumothorax. Radiology in agreement. The rest of his workup is unremarkable including his EKG. He was given a duo nebulizer treatment and felt like he was breathing much better afterwards. He does not have a documented history of COPD and he confirms he has never done pulmonary function testing, but the states he does not have an inhaler but he is supposed to have 1 for unknown reason at this time. Certainly it is possible that he has COPD if he has a longstanding history of smoking and has been wheezing for 2 weeks with this illness. Given the possibility of atypicals since he is not improving after 2 weeks I think it would be reasonable to cover him with a Z-Adan as well as a course of prednisone. I think that the syncopal episode was likely vasovagal due to bronchospasm and he was reassured and given appropriate discharge instructions regarding this and advised to follow-up with his doctor. He and are comfortable with that plan. Lab Data Attestation: I reviewed the patient's lab results. Labs: Laboratory Results - last 24 hr 02/20/23 21:50 WBC 10.0 RBC 6.00 Hgb 17.8 H Hct 52.7 MCV 87.8 MCH 29.7 MCHC 33.8 RDW Std Deviation 45.9 H RDW Coeff of Hoam 14.2 Plt Count 209 MPV 10.3 Immature Gran % (Auto) 0.500 Neut % (Auto) 67.1 Lymph % (Auto) 24.8 [place] % (Auto) 5.7 Eos % (Auto) 1.3 Baso % (Auto) 0.6 Absolute Neuts (auto) 6.7 Absolute Lymphs (auto) 2.49 Nucleated RBC % 0 Sodium 136 Potassium 3.9 Chloride 99 Carbon Dioxide 22.0 Anion Gap 15 BUN 11 Creatinine 1.06 Est GFR (MDRD) Af Amer 91 Est GFR (MDRD) Non-Af 75 BUN/Creatinine Ratio 10.4 Glucose 199 H Calcium 9.1 Troponin I High Sens 21 Radiography Diagnostic Testing: Clinical Impression(s) from Imaging Studies Chest X-Ray 02/20/23 22:08 IMPRESSION: No acute cardiopulmonary disease. Electronically Signed: Leena Lechuga MD at 22:23 EST Reading Location ID and State: [address] [place] [address] , Service support , Rhythm Strip Rhythm Strip: Sinus Rhythm Rate: 75 Ectopy: None EKG Initial EKG: Attestation: I personally reviewed and interpreted this EKG as follows: Interpretation: Sinus Rhythm and No Acute Injury Pattern Prior EKG tracings: available for review Prior: Unchanged Discharge Plan Triage Chief Complaint: Seizure ED Provider: Harris Mendes Dx/Rx/DC Orders Clinical Impression: Acute bronchitis with bronchospasm, Vasovagal syncope Instructions: Acute Bronchitis Prescriptions: New azithromycin [azithromycin] 250 mg tablet 250 mg PO DAILY Qty: 6 0RF Rx Instructions: double dose on day #1 prednisone 20 mg tablet 40 mg PO DAILY Qty: 10 0RF albuterol sulfate [Ventolin HFA] 90 mcg/actuation HFA aerosol inhaler 1 - 2 puff inhalation Q4H PRN PRN (Reason: Wheezing) Qty: 1 0RF Continued clonazepam 0.5 mg tablet 0.5 mg PO QHS PRN (Reason: Anxiety) Qty: 30 aripiprazole 5 mg tablet 10 mg PO DAILY venlafaxine 75 mg capsule,extended release 24hr 75 mg PO DAILY Rx Instructions: Take with 150 mg tablet to = 225 mg daily venlafaxine 150 mg capsule,extended release 24hr 150 mg PO DAILY Rx Instructions: Take with 75 mg tablet to = 225 mg daily glimepiride 1 mg tablet 1 mg PO DAILY metformin 1,000 mg tablet 1,000 mg PO BID aspirin [Adult Low Dose Aspirin] 81 mg tablet,delayed release (DR/EC) 81 mg PO QDAY clopidogrel 75 mg tablet See Rx Instructions .ROUTE .COMPLEX Qty: 90 4RF Dose Instruction: Take 1 tablet by mouth once daily Rx Instructions: Take 1 tablet by mouth once daily metoprolol tartrate 25 mg tablet 25 mg PO BID Qty: 180 3RF nitroglycerin 0.4 mg tablet, sublingual 0.4 mg sublingual Q5-15M PRN (Reason: chest pain) Qty: 25 1RF Rx Instructions: do not exceed 3 doses per episode tadalafil [Cialis] 10 mg tablet 10 mg PO DAILY PRN (Reason: sexual activity) Qty: 30 2RF Rx Instructions: administer approximately 30min before sexual activity; do not use more than 1 dose per 24hrs atorvastatin 80 mg tablet 80 mg PO QHS Qty: 90 3RF fenofibrate nanocrystallized 145 mg tablet 145 mg PO QDAY Qty: 90 3RF Held hydroxyzine HCl 50 mg tablet 50 mg PO QHS PRN Hold Instructions: Resume on 03/03/23. Primary Care Provider: Boaz Gates Referrals: Boaz Gates MD [Primary Care Provider] - 1 Week Disposition Disposition: Home, Self Care What to do if you have Problems For any increased pain, shortness of breath, bleeding, nausea or vomiting, chestpain, or any unexpected problems, contact your Primary Care Provider. Call [facility] ([phone]) or report to the closest Emergency Room. Call 911 if necessary. [phone] <Electronically signed by Harris Mendes MD> Cosigner Signature (if applicable): CC: Dr. Boaz Gates MD ~ Signed [facility] Work Phone: [phone] Evaluation note* Diagnosis Onset Date Resolution Status Erectile dysfunction chronic Essential (primary) hypertension chronic HLD (hyperlipidemia) chronic History of coronary artery stent placement May 28, 2012 resolved [facility] Work Phone: [phone] 922-236604-21-2013 Evaluation note* Diagnosis Onset Date Resolution Status Admit Date Erectile dysfunction chronic Octo 2024 8:35am Essential (primary) hypertension chronic November 08 8:35am History of coronary artery stent placement May 28, 2012 chronic November 08 8:35am HLD (hyperlipidemia) chronic 2024 8:35am [facility] Work Phone: Evaluation noteNo assessment information available [facility] Work Phone: Evaluation note* Diagnosis Habitual sn[facility]- [facility] Syncope, unspecified syncope type- Primary documented in this encounter [facility] Work Phone: Hospital Discharge instructions* Attachments The following attachments cannot be sent through Care Everywhere. * Syncope (Fainting) Discharge Instructions (Guatem[place]) [facility] Work Phone: Progress note Author Lionel Sanchez [facility] Note Date/Time November 08, 2024 9: 33am [facility] [address] [place] [address] OFFICE VISIT Date of Service: 11/08/24 MR#: [id number] Acct: [id number] Name: AJ POND Rep #: [id number] : 1960 Provider: CITLALI Sanchez Age/Sex: 64/M Location: [facility] Status: Signed HPI HPI History of Present Illness Details: AJ POND , is a 64 y/o gentleman with a history of coronary artery disease status post Angioplasty and stenting of his left anterior descending artery in 2012. He also has a history of hyperlipidemia and tobacco abuse. He has cut down on the amount of tobacco he uses. You do remember that he underwent stress testing in 2016 which was negative for ischemia at a moderate to high workload. He has not had any neck arm or jaw discomfort suggest angina no dizziness or diaphoresis no near syncope or syncope. He did however have some left arm discomfort last fall and there was the suspicion as to whether this was angina and he underwent a stress test in May 2018 where he exercised to 7 metabolic equivalents without any EKG or myocardial perfusion abnormality suggestive of ischemia. He denies chest, arm, jaw, or neck discomfort. He denies palpitations. He denies bilateral lower extremity edema. He denies claudication. He denies shortness of breath with activity, shortness of breath at rest, orthopnea, or PND. He denies chronic cough. He denies significant, sudden weight gain. He denies lightheadedness, dizziness, or near-syncope. He states that syncopal episode 6 months ago. He states noting this with alcohol. He was evauated with PCP and thought to be blood sugar related. He denies blood in urine, blood in stool, or epistaxis. He denies fever with chills. He denies myalgia. He states fatigue. His exercise level has remained stable. Intake Vital Signs 11/10/23 08:49 11/08/24 07:48 Height 5 ft 10 in 5 ft 10 in Weight: 202 lb BMI 29.0 BP 133/93 H Blood Pressure Location Lt brachial Position Sitting Respiration 18 Pulse 73 Pulse Source Monitor Pulse Oximetry (%) 97 Intake Visit Reasons: 1 Y FU Product Support Specialist Required: No Is patient in pain?: No Allergies No Known Allergies Allergy (Verified 11/08/24 08:48) Medications ?Medication ?Instructions ?Recorded ?Confirmed ?Type aspirin 81 mg tablet,delayed 81 mg PO QDAY BLOOD THINN ER 01/14/17 11/08/24 History release (Adult Low Dose Aspirin) clonazepam 0.5 mg tablet 0.5 mg PO QHS PRN Anxiety #3 0 tabs 07/25/18 11/10/23 History aripiprazole 5 mg tablet 10 mg PO DAILY DEPRESSION 11/08/24 History metformin 1,000 mg tablet 1,000 mg PO BID 09/17/2204/03 History venlafaxine 150 mg 150 mg PO DAILY 09/17/2204/03 History capsule,extended release 24 hr venlafaxine 75 mg capsule,extended 75 mg PO DAILY 09/0711/08/24 History release 24 hr albuterol sulfate 90 mcg/actuation 1 - 2 puff inhalati on Q4H PRN PRN 02/20/23 11/08/24 Rx aerosol inhaler (Ventolin HFA) Wheezing ##1 glimepiride 1 mg tablet 4 mg PO DAILY 11/10/2311/08 History testosterone cypionate 200 mg/mL 200 mg IM Q2W 4 11/08/24 History intramuscular oil atorvastatin 80 mg tablet 80 mg PO QHS for cholesterol #90 03/01/24 11/08/24 Rx TABLETS icosapent ethyl 1 gram capsule 2 g (2 x 1 gram) PO BID #60 caps 06/14/24 11/08/24 Rx (Vascepa) metoprolol tartrate 25 mg tablet 25 mg PO BID BP #180 tabs 06/25/24 11/08/24 Rx clopidogrel 75 mg tablet See Rx Instructions .Route 0 09/13/24 11/08/24 Rx .COMPLEX #90 TABLETS tadalafil 10 mg tablet (Cialis) 10 mg PO DAILY PRN sex ual activity 09/24/24 11/08/24 Rx #30 tabs empagliflozin 10 mg tablet 10 mg PO DAILY #90 tabs 04/0311/08/24 Rx (Jardiance) fenofibrate nanocrystallized 145 145 mg PO QDAY 11/08/24 History mg tablet metronidazole 500 mg tablet 500 mg PO ONCE 11/08/24 History nitroglycerin 0.4 mg sublingual 0.4 mg sublingual Q5-1 5M PRN chest 11/08/24 11/08/24 Rx tablet pain #25 tabs Ejection fraction %: 53 Have you fallen in the past year?: No PFSH Medical History Diabetes mellitus type 2, controlled Obstructive sleep apnea Erectile dysfunction Marijuana smoker Nicotine dependence History of ST elevation myocardial infarction (STEMI) (05/28/12) Obesity Alcohol abuse Essential (primary) hypertension Anxiety and depression Atherosclerotic heart disease of [place] coronary artery without angina pectoris HLD (hyperlipidemia) Surgical History History of partial colectomy (02/2020) History of coronary artery stent placement (05/28/12) Family History Father CAD (coronary artery disease) Myocardial infarction, Onset Age: 73 Mother Cancer Social History Smoking Status: Current every day smoker tobacco type: cigarettes alcohol intake: current alcohol intake frequency: 3 or more drinks per day Alcohol type: beer substance use type: marijuana caffeine: Yes Type: coffee Number of servings: 1 what type of physical activity do you participate in: none seatbelt use: always do you feel safe at home: Yes ROS Const Const: Positive for fatigue; Negative for weakness, headache(s) or frequent falls Eyes Eyes: Negative for blurry vision ENT ENT: Negative for headache(s), dizziness or Nosebleed/epistaxis Cardio Chest Pain: No Palpitations: No Edema: None Muscle aches with walking: None Resp Respiratory: Negative for SOB with activity, SOB at rest or SOB orthopnea\SOB lying down GI GI: Positive for heartburn; Negative nausea, vomiting, bright, red blood in stools or black,tarry stools : Negative for hematuria Musc Musc: Negative for muscle aches/ myalgia Skin Skin: Negative non-healing lesions or rash Neuro Neuro: Positive for syncope (passed out 6 months ago); Negative for dizziness, lightheadedness, near syncope, frequent falls, headache(s), weakness or blurry vision Endo Endo: Positive for fatigue Allergy Allergy/Immunology: Negative for rash Cardiology Exam Const Appearance: cooperative, healthy appearing, comfortable and no acute distress Nutritional Appearance: well nourished and overweight Orientation: alert, awake and oriented x3 Head Head: normal to inspection Ears: hearing grossly normal bilaterally Nose: external nose normal Face and Sinus: face symmetric Mouth: moist mucous membranes Eyes General: appearance normal, both eyes and all related structures Eyelids: eyelids normal EOM: EOM intact bilaterally Neck Neck: normal visual inspection and no JVD Carotids: normal carotid upstroke Chest Chest inspection: normal inspection of the chest, symmetric chest movement and normal respiratory effort; Negative cough Auscultation: Left: Clear to Auscultation and Right: Inspiratory Wheezes Cardio Rate: regular rate Rhythm: regular rhythm Heart sounds: S1 normal and S2 normal; Negative rub, gallop or murmur GI GI: normal to inspection Neuro General: patient alert, patient awake, patient oriented x3 and CN's II-XI intactbilaterally Skin Skin: no rashes or lesions noted Extremities Pulses: Normal: Right Posterior Tibial Pulse, Left Posterior Tibial Pulse, RightRadial Pulse and Left Radial Pulse Lower Extremity Edema: None: Bilateral Psych Psychological: normal affect Supplemental Info Supplemental Information Echocardiogram from 08/23/2012: Interpretation Summary Normal LV size. Left ventricular systolic function is lower limits of normal. The estimate ejection fraction is 53%. Mild (1+) tricuspid valve insufficiency Stress test from 11/24/2023: Conclusion: Normal exercise myocardial perfusion stress test at a moderate workload Preserved ejection fraction. Labs: LDL Cholesterol TNP HDL Cholesterol, (40-) 26 mg/dL L Cholesterol, (<=200) 155 mg/dL Triglycerides, (-199) 500 mg/dL H Diagnostics: Electrocardiogram Echocardiogram Stress Test Stress Test Nuclear Medicine Chest X-Ray Past Visits: Cardiology Visit Today Assessment and Plan Assessment and Plan (1) History of coronary artery stent placement: Status: Chronic Comment: NAE-CFV-Yqte-Mid LAD w/ 3.5 x 22 mm Resolute and POBA-D1 05/28/2012 Plan: Stress test on 11/24/2023 was negative for ischemia at a moderate workload. Thisappears stable. We will continue to monitor and not make any medication regimenchanges. We will continue to promote risk factor and lifestyle modification. (2) Essential (primary) hypertension: Status: Chronic Plan: Echocardiogram in November 2023 showed mild concentric left ventricle hypertrophyand LV function 55%. This was above goal today. We discussed the importance ofadditional medication such as ARB. However, after discussion, we opted to focuson lifestyle modification. He was asked to monitor his blood pressure regularlyand contact our office if it is consistently elevated. (3) HLD (hyperlipidemia): Status: Chronic Qualifiers: Hyperlipidemia type: pure hypercholesterolemia Qualified Code(s): E78.00 - Pure hypercholesterolemia, unspecified; E78.0 - Pure hypercholesterolemia Plan: Lipid panel from 05/31/2024 showed total cholesterol: 155, HDL: 26, triglycerides: 500, and LDL: 29. He was reminded of LDL goal of 70 and below for secondary prevention. He was encouraged to continue to follow with primary care provider regarding elevated triglycerides. Respecting lifestyle modification encouraged. (4) Erectile dysfunction: Status: Chronic Plan: He received a prescription of Cialis previously. He denies any associated lightheadedness, dizziness, presyncope, or syncope. Will need to remain cautious regarding nitroglycerin use in conjunction to Cialis. Medications: New empagliflozin (Jardiance) 10 mg PO DAILY 90 tabs 3RF Refilled nitroglycerin do not exceed 3 doses per episode 0.4 mg sublingual Q5-15M PRN 25 tabs 1RF chest pain Plan Details Additional Comments: Thank you for allowing us to participate in the patients plan of care, if you have any questions please do not hesitate to call. Plan was reviewed with patient/family member along with red flag symptoms. Understanding was acknowledged. Questions were answered to apparent satisfaction. This note was generated using a voice recognition system and there may be incorrect words, spelling or punctuation that were not noted when reviewing the office note prior to saving. Portions of this documentation were copied and pasted from previous office visitnotes to provide a cohesive continuity of the history. The note has been reviewed, edited, and updated, as necessary. Follow Up: 12-15 Months (HYBRID CORN BREEDER) Coding Level of Care Code Off vis,est,level 4 Diagnoses History of coronary artery stent placement Z95.5 Essential (primary) hypertension I10 Pure hypercholesterolemia E78.00; E78.0 Hyperlipidemia type: pure hypercholesterolemia Erectile dysfunction N52.9 Coding Level of Care Code Off vis,est,level 4 Diagnoses History of coronary artery stent placement Z95.5 Essential (primary) hypertension I10 Pure hypercholesterolemia E78.00; E78.0 Hyperlipidemia type: pure hypercholesterolemia Erectile dysfunction N52.9 Clinical Quality Measures Falls Risk Screening/Assistive Devices Have you fallen in the past year?: No Cardiac Ejection fraction %: 53 11/08/24 1036 <Electronically signed by Lionel GODWIN> Date _ [facility] COMPONENT LAB TECH COMPONENT LAB TECH-C Bessy Signature: Date (if applicable) CC: Dr. Boaz Gates MD ~ [facility] Work Phone: Reason for referral (narrative)* Consultation (Routine) - Authorized Specialty Diagnoses / Procedures Referred By Contac t Referred To Contact Family Medicine / Primary Care Diagnoses Syncope, unspecified syncope type Rony Luciano, DO [address] [place] [address] Department [place] [address] Referral ID Status Reason Start Date Expiration Date Visits Requested Visits Authorized [id number] Authorized Specialty Services Required 10/25/2023 10/24/2024 1 1 T [facility] Work Phone: Reason for referral (narrative)No reason for referral information [facility] Work Phone: Summary Purpose Family History No Family History Records Found Relationship Condition Age at Onset Recorded Date/T govind father Coronary artery disease Unknown Myocardial infarction 73 mother Malignant neoplasm Unknown Advance Directives No Advanced Directives Records FoundDocuments on File Type Date Recorded Patient Housing Manager Expl anation Advance Directives and Livin g Will 04/26/2020 6:40 PM Advance Directive Response Recorded Date/ Time Living Will No February 17 2:58pm Power of Machine Farmworker No February 18, 2020 2:58pm Advance Directive Response Recorded Date/ Time Living Will No February 17 3:58pm Power of Machine Farmworker No February 18, 2020 3:58pm Advance Directive Response Recorded Date/ Time Living Will No February 20 9:37pm Power of Machine Farmworker No February 20, 2023 9:37pm Advance Directive Response Recorded Date/ Time Living Will No February 20 10:37pm Power of Machine Farmworker No February 20, 2023 10:37pm Advance Directive Response Recorded Date/ Time Living Will No February 20 10:37pm Do you have a Healthcare Power of Machine Farmworker? No February 20, 2023 10:37pm Discharge Instructions * Attachments The following attachments cannot be sent through Care Everywhere. * Joint Pain (Guatemalan) * Musculoskeletal Pain ([place]) * Abrasions ([place]) documented in this encounter Assessments Diagnosis Injury caused by animal, initial encounter- Primary Right wrist pain Pain in joint, forearm Right forearm pain Abrasions and calluses on knuckles due to self-induced vomiting Elbow pain, unspecified laterality Exposure to external factor as cause of accidental injury on farm as place of occurrence, initial encounter Chief Complaint and Reason for Visit Chief Complaint Personal history of nicotine dependence Chief Complaint 1 Y FU MOVED FROM O E ORDER Reason for Visit Erectile dysfunction Essential (primary) hypertension HLD (hyperlipidemia) History of coronary artery stent placement Chief Complaint SEIZURE Chief Complaint Admit Date 1 Y FU November 08, 2024 8: 35am INT LABS November 08, 2024 9: 39am Reason for Visit Admit Date Erectile dysfunction November 08, 2024 8 :35am Essential (primary) hypertension November 08, 2024 8:35am History of coronary artery stent placeme nt November 08, 2024 8:35am HLD (hyperlipidemia) November 08, 2024 8 :35am Reason for Referral Specialty Diagnoses / Procedures Referred By Marina t Referred To Contact Sleep Medicine Diagnoses Habitual snoring Marv Britt MD [address] [facility] [address] [place] [address] Umer Kent MD [address] [facility] [place] [address] Referral ID Status Reason Start Date Expiration Date V isits Requested Visits Authorized [id number] Authorized 04/06/2022 04/06/2023 1 1 Additional Source Comments (unrecognized sect ion and content) No Status Records FoundNo Status Records FoundNo Status Records FoundNo Status Records FoundNo Status Records FoundNo Status Records Found INFORMATION SOURCE (unrecogn ized section and content) DATE CREATED AUTHOR 08/02/2017 [facility] DATE CREATED AUTHOR AUTHOR'S BROOKEIZ ATDOUGLAS 05/03/2020 [facility] DATE CREATED AUTHOR AUTHOR'S ORGANIZ ATION 05/11/2022 [facility] DATE CREATED AUTHOR AUTHOR'S ORGANIZ ATION 10/30/2023 [facility] DATE CREATED AUTHOR AUTHOR'S ORGANIZ ATION 11/01/2023 [facility] DATE CREATED AUTHOR AUTHOR'S ORGANIZ ATION 12/02/2024 [facility] Reason for Visit (unrecogniz ed section and content) Reason Comments Arm Injury Reason Comments Syncope Brought to ED per [employer] young squad from a local bar. EMS reports that he just passed out in front of friends, but by the time they arrived he was awake and alert. Upon arrival pt is A&Ox4 and states that this has been happening to him for years. He denies any pain, SOB, dizziness or any other s/s. EKG done at Trino Hong RN - 04/26/2020 8:01 PM Cristina Brandon MD - 04/26/2020 7:45 PM Trino Ceballos RN - 04/26/2020 7:22 PM Felipe Rede RN - 04/26/2020 6:32 PM EDT ED Notes (unrecognized secti on and content) Discharged with instructions to pt and . Condition stable. [facility] ED Attending Note: ED Site: [facility] EMERGENCY [facility] NAME: Aj Pond 59 y.o. CSN: [id number] PCP: Boaz Gates MD History: Chief Complaint: [...] file Gets together: Not on file Attends tenriism service: Not on file Active member of [...] 3. No fracture or dislocation is identified. [employer] Workstation ID: [id number] XR Wrist Right 3+ Views (Standard) Final Result 1. Nonspecific soft tissue swelling at the radial and dorsal aspect of the right forearm. No retained radiopaque foreign body. 2. Mild degenerative changes in the right wrist and right elbow. 3. No fracture or dislocation is identified. [employer] Workstation ID: [id number] Procedures: Procedures ED Course [...] some time. He is advised to take [id number] analgesics for pain control, but to return [...] to home Cristina Roldan M.D. Attending Physician [facility] Emergency Departments 04/26/2020 Portions of this [...] Care Teams (unrecognized sec tion and content) Team Status: Active Member Role Status Dates Dr. Boaz Gates MD Family Provider Active Dr. Boaz Gates MD Primary Care Provider Active Team Status: Inactive Member Role Status Dates Dr. Boaz Gates MD Primary Care Provider Active Dr. Javid Garces MD Attending Provider Active Security Guard Supervisor Relationship Specialty Start Date End Date Boaz Gates MD [address] [address] PCP - General Family Medicine 04/26/20 Team Status: Inactive Member Role Status Dates Dr. Boaz Gates MD Primary Care Provi bhavik, Attending Provider, Referring Provider Active Team Status: Inactive Member Role Status Dates Dr. Boaz Gates MD Primary Care Provider, Attending Provider Active Team Status: Inactive Member Role Status Dates Dr. Boaz Gates MD Primary Care Provider, Referring Provider Active Dr. Kike Sequeira MD Active Lionel Sanchez COMPONENT LAB TECH, COMPONENT LAB TECH-C Attending Provider Active Team Status: Inactive Member Role Status Dates Dr. Boaz Gates MD Primary Care Provider Active Lionel Sanchez COMPONENT LAB TECH, COMPONENT LAB TECH-C Attending Provider, Referring Pro vider Active Team Status: Inactive Member Role Status Dates Dr. Boaz Gates MD Primary Care Provider Active Dr. Harris Mendes MD Emergency Provider Active Team Status: Inactive Member Role Status Dates Dr. Boaz Gates MD Primary Care Provider Active Dr. Harris Mendes MD Attending Provider, Emergency Provider Active Security Guard Supervisor Relationship Specialty Start Date End Date Boaz Gates MD [address] [facility] [address] [place] [address] PCP - General Family Medicine 10/25/23 Team Status: Active Member Role/Relationship Status Dates Dr. Boaz Gates MD Primary Care Provider Active Team Status: Inactive Member Role/Relationship Status Dates Dr. Boaz Gates MD Primary Care Provider Active Start: May 31, 2024 End: May 31, 2024 Dr. Boaz Gates MD Attending Provider Active Start: May 31, 2024 End: May 31, 2024 Dr. Boaz Gates MD Referring Provider Active Start: May 31, 2024 End: May 31, 2024 Team Status: Inactive Member Role/Relationship Status Dates Dr. Boaz Gates MD Primary Care Provider Active Start: August 29, 2024 End: August 29, 2024 Dr. Boaz Gates MD Attending Provider Active Start: August 29, 2024 End: August 29, 2024 Dr. Boaz Gates MD Referring Provider Active Start: August 29, 2024 End: August 29, 2024 Team Status: Active Member Role/Relationship Status Dates Dr. Boaz Gates MD Primary care physician Active Team Status: Inactive Member Role/Relationship Status Dates Dr. Boaz Gates MD Primary care physician Active Start: August 29, 2024 End: August 29, 2024 Dr. Boaz Gates MD Attending physician Active Start: August 29, 2024 End: August 29, 2024 Dr. Boaz Gates MD Referring Provider Active Start: August 29, 2024 End: August 29, 2024 Team Status: Inactive Member Role/Relationship Status Dates Dr. Boaz Gates MD Primary care physician Active Start: November 08, 2024 End: November 08, 2024 Dr. Boaz Gates MD Referring Provider Active Start: November 08, 2024 End: November 08, 2024 Lionel Sanchez COMPONENT LAB TECH, COMPONENT LAB TECH-C Attending physician Active Start: November 08, 2024 End: November 08, 2024 Team Status: Active Member Role/Relationship Status Dates Dr. Boaz Gates MD Primary care physician Active Start: November 08, 2024 Dr. Boaz Gates MD Attending physician Active Start: November 08, 2024 Dr. Boaz Gates MD Referring Provider Active Start: November 08, 2024 Dr. Kike Sequeira MD Nurse Practitioner Active S tart: November 08, 2024 Goals (unrecognized section and content) Goals may be documented in a n alternate sectionGoals may be documented in an alternate sectionGoals may be documented in an alternate sectionGoals may be documented in an alternate sectionGoals may be documented in an alternate sectionGoals may be documented in an alternate sectionGoals may be documented in an alternate sectionGoals may be documented in an alternate sectionGoals may be documented in an alternate sectionGoals may be documented in an alternate section Scheduled Active and Recently Administ ered Medications (unrecognized section and content) Medication Order 10/23/2023 10/24/2023 10/25/2023 sodium chloride 0.9 % bolus 1,000 mL (COMPLETED) 1,000 mL, intravenous, at 999 mL/hr, Administer over 1 Hours, Once, On Tue10/25/23 at 1340, For 1 dose 1347 (New Bag - Prov ider: Ledy Valerio RN)1428 (Stopped - Provider: Alejandra Givens RN) FOR RECORDS PERTAINING TO PATIENTS WHO ARE [...] BE BASED ON THE PRIMARY CLINICAL RECORDS. [employer] [facility]. provides no warranty or guarantee of the accuracy or completeness of information in this document.
== END | disposition home or self-care (01) ==
LOC: CT 17:53
PROVIDERS: PCP Family Medicine; Referring Provider Family Medicine; Visit Provider Family Medicine
DX: F17.210 Nicotine dependence, cigarettes, uncomplicated (principal)
CPT/HCPCS: 71271